=== PATIENT | female | born 1940 | race Hispanic/Latino ===

== ENCOUNTER 2016-10-23 17:44 | Observation (INO) | payer MEDICARE, BC ==
[2016-10-23] MEDS ORDERED: Sodium Chloride 0.9% 500 ML IV STA (18:21)
[2016-10-23] MEDS ORDERED: Morphine 4 mg/ml ISec IVP STA (18:21)
--- NOTE | 2016-10-23 18:27 | ED PDOC ---
Arrival/HPI - General Chief Complaint: Abdominal Pain Time Seen by Provider: 10/23/16 17:54 Historian: Patient, Family - History of Present Illness Time/Duration: Other (3 days) Symptom Onset: Gradual Symptom Course: Unchanged Quality: Aching, Cramping Severity Level: Moderate, Severe Activities at Onset: Rest Associated Symptoms (Text): 10/23/16 18:25 Three-day history of generalized abdominal pain along with nausea but no vomiting or diarrhea. No genitourinary symptoms. No fever or chills. She has had similar symptoms previously. No chest pain. There is some chronic back pain. No travel or exposure. No injury or trauma. Past Medical History - Infectious Disease Hx of Infectious Diseases: None - Tetanus Immunization Tetanus Immunization: Unknown - Cardiac Hx Congestive Heart Failure: Yes Hx Hypertension: Yes Hx Peripheral Vascular Disease: Yes - Neurological Other/Comment: Neuropathy - HEENT Hx Cataracts: Yes (cataract sx) - Endocrine/Metabolic Hx Hypothyroidism: Yes - Hematological/Oncological Other/Comment: Vit D deficiency - Integumentary Hx Cellulitis: Yes - Musculoskeletal/Rheumatological Hx Arthritis: Yes - Gastrointestinal Hx Gastrointestinal Disorders: Yes - Psychiatric Hx Depression: No Hx Emotional Abuse: No Hx Physical Abuse: No Hx Substance Use: No - Surgical History Hx Cardiac Catheterization: Yes (x4 stents) Hx Cholecystectomy: Yes Hx Open Heart Surgery: Yes Other/Comment: Open heart surgery. Pacemaker +defibrillator L side. Bladder sling - Anesthesia Hx Anesthesia: Yes Hx Anesthesia Reactions: No Hx Malignant Hyperthermia: No - Suicidal Assessment Feels Threatened In Home Enviroment: No Family/Social History - Physician Review Nursing Documentation Reviewed: Yes Family/Social History: Unknown Family HX Smoking Status: Former Smoker Hx Alcohol Use: Yes (h/o) Hx Substance Use: No Hx Substance Use Treatment: No Allergies/Home Meds Allergies/Adverse Reactions: Allergies atorvastatin [From Lipitor] Allergy (Verified 10/23/16 17:54) RASH Penicillins Allergy (Verified 10/23/16 17:54) ANAPHYLAXIS sulfamethoxazole [From Bactrim] Allergy (Verified 10/23/16 17:54) NAUSEA trimethoprim [From Bactrim] Allergy (Verified 10/23/16 17:54) NAUSEA amoxicillin Adverse Reaction (Verified 10/23/16 17:54) ANAPHYLAXIS Home Medications: Home Meds Medication Instructions Recorded Confirmed Alprazolam [Xanax] 1 tab PO HS 10/23/16 10/23/16 Aspirin [Adult Low Dose Aspirin EC] 1 tab PO DAILY 10/23/16 10/23/16 Cholecalciferol (Vitamin D3) 1 cap PO DAILY 10/23/16 10/23/16 [Vitamin D3] DULoxetine [Cymbalta] 1 tab PO DAILY 10/23/16 10/23/16 Ezetimibe/Simvastatin [Vytorin 1 tab PO DAILY 10/23/16 10/23/16 10-40 mg Tablet] Furosemide [Lasix] 1 tab PO DAILY 10/23/16 10/23/16 Gabapentin [Neurontin] 2 cap PO TID 10/23/16 10/23/16 Irbesartan [Avapro] 1 tab PO DAILY 10/23/16 10/23/16 Levothyroxine [Synthroid] 1 tab PO DAILY 10/23/16 10/23/16 Magnesium Oxide [Magnesium] 1 tab PO DAILY 10/23/16 10/23/16 Metoprolol Succinate [Toprol XL] 1 tab PO DAILY 10/23/16 10/23/16 Ondansetron ODT [Zofran ODT] 1 tab PO TID PRN 10/23/16 10/23/16 Pantoprazole Sodium [Protonix] 1 tab PO DAILY 10/23/16 10/23/16 Warfarin [Coumadin] 1 tab PO DAILY 10/23/16 10/23/16 Review of Systems - Physician Review All systems were reviewed & negative as marked: Yes - Review of Systems Constitutional: absent: Fatigue, Fevers Respiratory: absent: SOB, Cough Cardiovascular: absent: Chest Pain, Palpitations, Syncope Gastrointestinal: Abdominal Pain, Nausea, Anorexia. absent: Constipation, Diarrhea, Vomiting Genitourinary Female: absent: Dysuria, Frequency, Hematuria Neurological: absent: Headache, Dizziness Physical Exam Vital Signs Temp Pulse Resp BP Pulse Ox 10/23/16 20:00 74 18 143/75 98 10/23/16 18:02 97.8 F 80 18 144/70 98 Temperature: Afebrile Blood Pressure: Normal Pulse: Regular Respiratory Rate: Normal Appearance: Positive for: Well-Appearing, Non-Toxic, Uncomfortable Pain Distress: Mild Mental Status: Positive for: Alert and Oriented X 3 - Systems Exam Head: Present: Atraumatic, Normocephalic Pupils: Present: PERRL Extroacular Muscles: Present: EOMI Conjunctiva: Present: Normal Mouth: Present: Moist Mucous Membranes Pharnyx: No: ERYTHEMA, EXUDATE, TONSILS ENLARGED Neck: Present: Normal Range of Motion Respiratory/Chest: Present: Clear to Auscultation, Good Air Exchange, Decreased Breath Sounds. No: Respiratory Distress, Accessory Muscle Use Cardiovascular: Present: Regular Rate and Rhythm, Normal S1, S2. No: Murmurs Abdomen: Present: Tenderness (Mild generalized tenderness with no guarding and no rebound), Normal Bowel Sounds, Scars (Surgical scars). No: Distention, Peritoneal Signs, Rebound, Guarding Back: Present: CVA Tenderness (Mild left CVA tenderness). No: Midline Tenderness, Paraspinal Tenderness Upper Extremity: Present: Normal Inspection. No: Cyanosis, Edema Lower Extremity: Present: Normal Inspection. No: Edema Neurological: Present: GCS=15, CN II-XII Intact, Speech Normal, Motor Func Grossly Intact, Normal Cerebellar Funct, Gait Normal Skin: Present: Warm, Dry, Normal Color. No: Rashes Psychiatric: Present: Alert, Oriented x 3, Normal Insight, Normal Concentration Medical Decision Making ED Course and Treatment: 10/23/16 18:52 is here examining the patient. He reports that the patient has inoperable ischemic colitis CT Abdomen and Pelvis Without Intravenous Contrast FINDINGS: Limitations: Lack of intravenous contrast. Lower thorax: Borderline cardiomegaly. Pacemaker leads. Coronary artery calcifications. Minimal atelectasis/scarring. Few pulmonary nodules, up to 0.4 cm. Small hiatal hernia. ABDOMEN: Liver: Unremarkable. Gallbladder and bile ducts: Cholecystectomy. Enlarged common bile duct, up to 1.4 cm. Pancreas: Unremarkable. No ductal dilation. Spleen: No splenomegaly. Adrenals: 1.5 x 1.5 x 1.4 cm lesion within RIGHT adrenal gland, indeterminate by CT criteria. Kidneys and ureters: Lobulation of kidneys. Moderate atrophy of RIGHT kidney. No definite renal calculi. No hydronephrosis. Stomach and bowel: Few scattered diverticula within colon. No associated inflammatory stranding. No definite mural thickening. No obstruction. Appendix: Borderline enlarged appendix, 6-7 mm in diameter. No definite wall thickening. No associated inflammatory stranding. PELVIS:Bladder: Unremarkable. No stones. Reproductive: Unremarkable as visualized. ABDOMEN and PELVIS: Intraperitoneal space: No significant fluid collection. No free air. Bones/joints: Degenerative changes and scoliosis of spine. No acute fracture. Soft tissues: Linear stranding within LEFT inguinal region. Tiny umbilical hernia containing fat. Small LEFT lower anterior abdominal/pelvic wall hernia containing loop of sigmoid colon. No obstruction. Vasculature: Moderate to extensive atherosclerotic disease of visualized arteries. Iliac stents. Femoral femoral graft. LEFT external iliac graft with mild stranding. No aneurysm. Lymph nodes: Few probable small lymph nodes within LEFT anterior abdominal wall. IMPRESSION: 1. Diverticulosis without definite CT evidence of diverticulitis. 2. Borderline enlarged appendix. No inflammation. Clinical correlation is needed. 3. Adrenal lesion, indeterminate. Recommend nonemergent MRI. 4. Enlarged common bile duct. Consider MRCP. 5. Pulmonary nodules. For low-risk patients, no follow-up is necessary. For high -risk patients (smoking history or other known risk factors) an optional CT at 12 months could be performed. 6. Postsurgical changes as above. 7. Incidental/non-acute findings are described above. Dictated and Authenticated by: Aldair Hess MD 10/23/2016 9:04 PM Eastern Time ([place] & [place]) 10/23/16 21:48 Discussed with who requested that placed on regular observation. Discussed with who accepts to her service. - Lab Interpretations Lab Results: 10/23/16 18:40 10/23/16 18:40 Lab Results 10/23/16 20:00: Urine Color Yellow, Urine Appearance Clear, Urine pH 7.0, Ur Specific [place] 1.010, Urine Protein Negative, Urine Glucose (UA) Negative, Urine Ketones Negative, Urine Blood Negative, Urine Nitrate Negative, Urine Bilirubin Negative, Urine Urobilinogen 1.0 H, Ur Leukocyte Esterase Negative 10/23/16 18:40: TSH 3rd Generation 0.52 10/23/16 18:40: Sodium 136, Potassium 4.2, Chloride 98, Carbon Dioxide 27, Anion Gap 15, BUN 26 H, Creatinine 1.2, Est GFR ( Amer) 53, Est GFR (Non- Af Amer) 44, Random Glucose 116 H, Calcium 9.0, Total Bilirubin 1.2, AST 23, ALT 25, Alkaline Phosphatase 106, Troponin I 0.02, Total Protein 7.0, Albumin 3.7, Globulin 3.4, Albumin/Globulin Ratio 1.1, Lipase 139 10/23/16 18:40: PT 29.2 H, INR 2.70 H, APTT 38.7 H 10/23/16 18:40: WBC 11.2 H, RBC 4.65, Hgb 11.7 L, Hct 36.4, MCV 78.3 L, MCH 25.2 , MCHC 32.1, RDW 15.1 H, Plt Count 281, MPV 10.1, Gran % 79.5 H, Lymph % (Auto) 11.7 L, Mcleod % (Auto) 7.2 H, Eos % (Auto) 1.5, Baso % (Auto) 0.1, Gran # 8.92 H , Lymph # 1.3, Mcleod # 0.8 H, Eos # 0.2, Baso # 0.01 - RAD Interpretation Radiology Orders: 10/23/16 18:21 ABD & PELVIS W/O PO OR IV CONT [CT] Stat 10/23/16 18:24 CHEST PORTABLE [RAD] Stat - Medication Orders Current Medication Orders: Discontinued Medications Sodium Chloride (Sodium Chloride 0.9%) 500 mls @ 1,000 mls/hr IV .Q30M STA Stop: 10/23/16 18:50 Last Admin: 10/23/16 18:47 Dose: 1,000 mls/hr Morphine Sulfate (Morphine) 4 mg IVP STAT STA Stop: 10/23/16 18:22 Last Admin: 10/23/16 18:39 Dose: 4 mg Ondansetron HCl (Zofran Inj) 4 mg IVP STAT STA Stop: 10/23/16 18:22 Last Admin: 10/23/16 18:37 Dose: 4 mg Disposition/Present on Arrival - Present on Arrival Any Indicators Present on Arrival: No History of DVT/PE: No History of Uncontrolled Diabetes: No Urinary Catheter: No History of Decub. Ulcer: No History Surgical Site Infection Following: None - Disposition Have Diagnosis and Disposition been Completed?: Yes Diagnosis: Abdominal pain Disposition: HOSPITALIZED Disposition Time: 21:49 Patient Plan: Observation Condition: FAIR Referrals: Joseph Gómez MD [Primary Care Provider] - Follow up with primary
[2016-10-23 18:53] LABS: BASO # 0.01 K/mm3 (0.0-2.0); BASO % 0.1 % (0.0-3.0); EOS # 0.2 (0.0-0.7); EOS % 1.5 % (1.5-5.0); GRAN # 8.92 (1.4-6.5); GRAN % 79.5 % (50.0-68.0); HEMOGLOBIN 11.7 gm/dL (12.0-16.0); LYMPH # 1.3 (1.2-3.4); LYMPH % 11.7 % (22.0-35.0); MEAN CELL VOLUME 78.3 fL (80.0-105.0); MEAN CORPUSCULAR HEMOGLOBIN 25.2 pg (25.0-35.0); MEAN CORPUSCULAR HGB CONC 32.1 g/dl (31.0-37.0); MEAN PLATELET VOLUME 10.1 fl (7.0-11.0); MONO # 0.8 (0.1-0.6); MONO % 7.2 % (1.0-6.0); PLATELET COUNT 281 10^3/uL (120.0-450.0); RBC 4.65 10^6/uL (3.5-6.1); RED CELL DISTRIBUTION WIDTH 15.1 % (11.5-14.5); WHITE BLOOD COUNT 11.2 10^3/ul (4.5-11.0)
[2016-10-23 19:05] LABS: INR 2.7 (0.93-1.08); PARTIAL THROMBOPLASTIN TIME 38.7 Seconds (23.7-30.8); PROTHROMBIN TIME 29.2 Seconds (9.9-11.8)
[2016-10-23 19:24] LABS: ALB/GLOB RATIO 1.1 (1.1-1.8); ALBUMIN 3.7 g/dL (3.0-4.8)
[2016-10-23 19:35] LABS: TROPONIN I 0.02 ng/mL
[2016-10-23 20:16] LABS: URINE BILIRUBIN NEGATIVE (NEGATIVE); URINE BLOOD NEGATIVE (NEGATIVE); URINE GLUCOSE (UA) NEGATIVE (NEGATIVE); URINE LEUKOCYTE ESTERASE NEGATIVE Leu/uL (NEGATIVE); URINE NITRATE NEGATIVE (NEGATIVE); URINE PROTEIN NEGATIVE mg/dL (<30 mg/dL)
[2016-10-23 20:17] LABS: URINE APPEARANCE CLEAR (CLEAR); URINE COLOR YELLOW (YELLOW)
--- NOTE | 2016-10-23 21:04 | CT ---
EXAM: CT Abdomen and Pelvis Without Intravenous Contrast CLINICAL HISTORY: 76 years old, female; Pain; Abdominal pain; Localized; Lower TECHNIQUE: Axial computed tomography images of the abdomen and pelvis without intravenous contrast. This CT exam was performed using one or more of the following dose reduction techniques: automated exposure control, adjustment of the mA and/or kV according to patient size, and/or use of iterative reconstruction technique. Coronal and sagittal reformatted images were created and reviewed. COMPARISON: No relevant prior studies available. FINDINGS: Limitations: Lack of intravenous contrast. Lower thorax: Borderline cardiomegaly. Pacemaker leads. Coronary artery calcifications. Minimal atelectasis/scarring. Few pulmonary nodules, up to 0.4 cm. Small hiatal hernia. ABDOMEN: Liver: Unremarkable. Gallbladder and bile ducts: Cholecystectomy. Enlarged common bile duct, up to 1.4 cm. Pancreas: Unremarkable. No ductal dilation. Spleen: No splenomegaly. Adrenals: 1.5 x 1.5 x 1.4 cm lesion within RIGHT adrenal gland, indeterminate by CT criteria. Kidneys and ureters: Lobulation of kidneys. Moderate atrophy of RIGHT kidney. No definite renal calculi. No hydronephrosis. Stomach and bowel: Few scattered diverticula within colon. No associated inflammatory stranding. No definite mural thickening. No obstruction. Appendix: Borderline enlarged appendix, 6-7 mm in diameter. No definite wall thickening. No associated inflammatory stranding. PELVIS: Bladder: Unremarkable. No stones. Reproductive: Unremarkable as visualized. ABDOMEN and PELVIS: Intraperitoneal space: No significant fluid collection. No free air. Bones/joints: Degenerative changes and scoliosis of spine. No acute fracture. Soft tissues: Linear stranding within LEFT inguinal region. Tiny umbilical hernia containing fat. Small LEFT lower anterior abdominal/pelvic wall hernia containing loop of sigmoid colon. No obstruction. Vasculature: Moderate to extensive atherosclerotic disease of visualized arteries. Iliac stents. Femoral femoral graft. LEFT external iliac graft with mild stranding. No aneurysm. Lymph nodes: Few probable small lymph nodes within LEFT anterior abdominal wall. IMPRESSION: 1. Diverticulosis without definite CT evidence of diverticulitis. 2. Borderline enlarged appendix. No inflammation. Clinical correlation is needed. 3. Adrenal lesion, indeterminate. Recommend nonemergent MRI. 4. Enlarged common bile duct. Consider MRCP. 5. Pulmonary nodules. For low-risk patients, no follow-up is necessary. For high-risk patients (smoking history or other known risk factors) an optional CT at 12 months could be performed. 6. Postsurgical changes as above. 7. Incidental/non-acute findings are described above.
[2016-10-23] MEDS ORDERED: HYDROmorphone 1 mg/ml ISec IVP PRN (22:56)
[2016-10-23] MEDS ORDERED: Dextrose 5%/0.45% NS 1,000 ML IV SCH (23:00)
[2016-10-24] MEDS: metroNIDAZOLE IV 250mg/50 ml 250 MG/50 ML BAG IV SCH ×3 (00:52→13:39)
[2016-10-24 04:01] VITALS: BMI 32.8
[2016-10-24 06:48] LABS: BASO # 0.02 K/mm3 (0.0-2.0); BASO % 0.2 % (0.0-3.0); EOS # 0.2 (0.0-0.7); EOS % 2.2 % (1.5-5.0); GRAN # 5.94 (1.4-6.5); HEMOGLOBIN 10.1 gm/dL (12.0-16.0); LYMPH # 1.4 (1.2-3.4); LYMPH % 17.2 % (22.0-35.0); MEAN CELL VOLUME 78.6 fL (80.0-105.0); MEAN CORPUSCULAR HEMOGLOBIN 24.6 pg (25.0-35.0); MEAN CORPUSCULAR HGB CONC 31.3 g/dl (31.0-37.0); MEAN PLATELET VOLUME 10.1 fl (7.0-11.0); MONO # 0.8 (0.1-0.6); MONO % 9.4 % (1.0-6.0); PLATELET COUNT 238 10^3/uL (120.0-450.0); RBC 4.11 10^6/uL (3.5-6.1); RED CELL DISTRIBUTION WIDTH 15.2 % (11.5-14.5); WHITE BLOOD COUNT 8.4 10^3/ul (4.5-11.0)
[2016-10-24 07:19] LABS: ALBUMIN 3.1 g/dL (3.0-4.8); CALCIUM 8.6 mg/dL (8.4-10.5)
[2016-10-24] MEDS ORDERED: Levothyroxine 100 MCG TAB PO SCH (07:30)
--- NOTE | 2016-10-24 08:29 | RAD ---
HISTORY: ap COMPARISON: 07/02/2012 FINDINGS: LUNGS: No active pulmonary disease. PLEURA: No significant pleural effusion identified, no pneumothorax apparent. CARDIOVASCULAR: Normal. OSSEOUS STRUCTURES: No significant abnormalities. VISUALIZED UPPER ABDOMEN: Normal. OTHER FINDINGS: Dual lead pacemaker. Sternal wires IMPRESSION: No active disease.
[2016-10-24] MEDS ORDERED: POLYETHYLENE GLYCOL 3350 17 GM/Dose PACKET PO SCH (10:00)
[2016-10-24] MEDS ORDERED: Levothyroxine 125 MCG TAB PO SCH (10:00)
[2016-10-24] MEDS ORDERED: Metoprolol Succinate 50 mg XL Tab PO SCH ×2 (10:00)
[2016-10-24] MEDS ORDERED: POLYETHYLENE GLYCOL 3350 17 GM/Dose PACKET PO ONE (14:00)
[2016-10-24 17:14] VITALS: BP 132/64; PULSE 78; RESP 20; TEMP 98.4; O2SAT 99
--- NOTE | 2016-10-25 01:49 | CON ---
Seen and examined at the bedside earlier today. REQUEST FOR CONSULT: For abdominal pain. The chart was reviewed. HISTORY OF PRESENT ILLNESS: This is a 76-year-old female with past medical history of ischemia as well as hypertension, pacemaker with defibrillator, came to the emergency room with complaints of abdominal pain and nausea. No episodes of vomiting or diarrhea. In fact, she was constipated. Didn't have any bowel movements since Sunday. She does have a history ischemic colitis, was treated at [facility] for this and had underwent endoscopies and colonoscopies a few months back. She does complain of chronic back pain. No reports of any shortness of breath, chest pain, fever or chills. She had a CT scan of the abdomen and pelvis on admission with no contrast and that showed diverticulosis, borderline enlarged appendix, postsurgical changes and large common bile duct. The patient has history of cholecystectomy. This morning, the patient states that her abdominal pain has resolved. No nausea or vomiting. She has not had any bowel movements. In review with the CT scan with Dr. Gómez, the patient was noted to have increased stool in the colon. She was given a dose of MiraLax this morning. PAST MEDICAL HISTORY: As stated above. Hypothyroidism, vitamin-D deficiency, cellulitis, arthritis, ischemic colitis. PAST SURGICAL HISTORY: Cardiac catheterization x4 stents, cholecystectomy, open heart surgery, pacemaker and defibrillator, and bladder sling. ALLERGIES: SHE IS ALLERGIC TO ATORVASTATIN, PENICILLIN, SULFAMETHOXAZOLE, TRIMETHOPRIM AND AMOXICILLIN. MEDICATIONS: Reviewed as per MAR, significant for Coumadin. She is on Protonix, Toprol, Vytorin, vitamin D, magnesium oxide, Synthroid, Avapro, Neurontin, Lasix, Cymbalta, aspirin and Xanax. FAMILY HISTORY: Noncontributory at this time. SOCIAL HISTORY: Former smoker. Denies substance abuse or alcohol abuse. REVIEW OF SYSTEMS: Systems reviewed with positive findings, see HPI. The patient also had a chest x-ray on admission and that showed no active disease. PHYSICAL EXAMINATION HEENT: Sclerae are anicteric. NECK: Supple. CARDIAC: S1 and S2. LUNGS: Decreased breath sounds, but good air entry. No rales or wheeze. ABDOMEN: Bowel sounds soft. Nontender. No rebound, guarding or organomegaly. EXTREMITIES: Positive pedal pulses. No edema. NEUROLOGIC: Awake, alert and oriented. ASSESSMENT: This is a 76-year-old female with a history ischemic colitis, coronary artery disease with stents and open heart surgery, came to the emergency room with complaints of abdominal pain. The patient did have a CAT scan on admission, noted to be constipated and her last bowel movement was Sunday. She also has some noted to have diverticulosis with no evidence of diverticulitis, enlarged appendix, no inflammation as well as some pulmonary nodules. The patient does complain of weight loss. PLAN: Clean the patient out, a lot of stool in the colon noted on CT. We gave her 2 doses of MiraLax today. Started her on a clear liquid diet for breakfast and advanced at lunchtime to a low-residual soft diet. If the patient tolerates the diet and has no pain and moves her bowels, she may likely be able to be discharged home today and can followup outpatient. Discussed this in detail with the patient and the daughter at the bedside. Thank you for this consult and for allowing us to participate in your patient's care. We will make further recommendations based upon the patient's clinical course. Addendum, the patient also received some Flagyl. Continue PPI and IV fluids. The patient was seen and case discussed with Dr. Gómez, spoke to the nursing staff. IJEOMA Rucker
--- NOTE | 2016-10-25 02:57 | HP ---
HISTORY OF PRESENT ILLNESS: The patient is 76-year-old whose primary care doctor is in [facility] and Dr. Gómez is her shredder picker. She reported to him who advised her to come to the emergency room and be watched overnight. The patient states she has been having abdominal pain for the last 3-4 days. She complained of having constipation since Mauricio. No history of vomiting or diarrhea. Pain is in the right upper quadrant, left lower quadrant and left upper quadrant. Patient states she usually lives with pain, but this is more than her normal self. Denies any fever. No chills. No history of cough, congestion or hemoptysis. No hematemesis. PAST MEDICAL HISTORY: She has significant past medical history of: 1. Hypertension. 2. History of severe peripheral vascular disease. 3. History of congestive heart failure. SURGICAL HISTORY: Significant for: 1. Cholecystectomy. 2. Status post cardiac cath and had multiple stents placed. 3. History of pacemaker and defibrillator placement. 4. History of bladder sling procedure. 5. History of cataract extraction. 6. Chronic venous stasis and dermatitis. ALLERGIES: SHE IS ALLERGIC TO ATORVASTATIN, PENICILLIN, SULFAMETHOXAZOLE AND AMOXICILLIN. MEDICATIONS AT HOME: She is on Coumadin, Zofran, Protonix, metoprolol, Vytorin, magnesium, levothyroxine, gabapentin, Lasix, Cymbalta and aspirin. SOCIAL HISTORY: She lives with her family. Denies smoking now, she used to be smoker and socially doing alcohol in the past. REVIEW OF SYSTEMS: Significant for abdominal discomfort and poor appetite. PHYSICAL EXAMINATION GENERAL: She is sitting in chair, still has some abdominal discomfort, but better than before. VITAL SIGNS: She has temperature of 99, pulse 77, respirations 18, blood pressure 138/56. LUNGS: Bilateral fair airflow. No rhonchi or crackles. HEART: S1 and S2 audible. ABDOMEN: Soft, nontender, no rebound, no guarding. NEUROLOGICAL: Patient is awake and alert, communicative. LABORATORY DATA: WBC 8.4, hemoglobin 10, hematocrit 32, platelets 238. PT 29.2, INR 2.70. Chemistry: Sodium 134, potassium 4.5, chloride 99, CO2 is 28, BUN 21, creatinine 1.2, blood sugar of 103. Urinalysis is unremarkable. CT scan of the abdomen and pelvis was done that shows diverticulosis without diverticulitis. Borderline enlarged appendix. No inflammation. She has dilated common bile duct along with pulmonary nodule. PLAN: Patient clinically seems to be little stable. We will advance her diet. Continue her on IV fluid for now. She is given MiraLax. If patient has bowel movement, and pain improves, she might be discharged later on today or we will watch her another night. Lakeisha Arellano MD
== END 2016-10-24 17:54 | disposition home or self-care (01) ==
LOC: ED 17:44 → ERH 23:01 → 3RSO 23:54
PROVIDERS: ADMIT Internal Medicine; ATTEND Internal Medicine
DX: R10.9 Unspecified abdominal pain (principal); K55.9 Vascular disorder of intestine, unspecified; E03.9 Hypothyroidism, unspecified; E55.9 Vitamin D deficiency, unspecified; Z95.0 Presence of cardiac pacemaker; Z88.0 Allergy status to penicillin; Z88.2 Allergy status to sulfonamides; Z87.891 Personal history of nicotine dependence; I25.10 Atherosclerotic heart disease of native coronary artery without angina pectoris
CPT/HCPCS: 36415; 71010; 74176; 80053; 81003; 83690; 84443; 84484; 85025; 85610; 85730; 96361; 96365; 96366; 96375; 99285; C9113; G0378; J2270; J2405; J7040; J7042

== ENCOUNTER 2016-12-01 16:40 | Inpatient (IN) | payer MEDICARE, BC ==
[2016-12-01 16:54] VITALS: BMI 34.0
--- NOTE | 2016-12-01 17:02 | ED PDOC ---
Arrival/HPI - General Chief Complaint: Medical Clearance Time Seen by Provider: 12/01/16 16:48 Historian: Patient, Other (Daughter) - History of Present Illness Time/Duration: Other (5 days) Symptom Onset: Gradual Symptom Course: Worsening Quality: Pressure Severity Level: Moderate Activities at Onset: Rest Associated Symptoms (Text): 12/01/16 16:59 Patient complains of a five-day history of urinary symptoms including dysuria frequency and urgency. No hematuria. There is low back pain. She feels feverish with chills. She was seen by her PMD 4 days ago and had a urinalysis done. The results were faxed to us. She has greater than 100,000 Proteus sensitive to tobramycin only. No nausea vomiting or diarrhea. No abdominal pain. Past Medical History - Infectious Disease Hx of Infectious Diseases: None - Tetanus Immunization Tetanus Immunization: Unknown - Reproductive Menopause: Yes - Cardiac Hx Congestive Heart Failure: Yes Hx Hypertension: Yes Hx Peripheral Vascular Disease: Yes - Pulmonary Hx Respiratory Disorders: No - Neurological Hx Neurological Disorder: Yes (neuropathy) - HEENT Hx Cataracts: Yes - Renal Hx Renal Disorder: No - Endocrine/Metabolic Hx Hypothyroidism: Yes - Hematological/Oncological Other/Comment: Vitamin D deficiency - Integumentary Other/Comment: cellulitis - Musculoskeletal/Rheumatological Hx Musculoskeletal Disorders: Yes Hx Arthritis: Yes Hx Falls: Yes - Gastrointestinal Hx Gastrointestinal Disorders: Yes - Genitourinary/Gynecological Hx Genitourinary Disorders: No - Psychiatric Hx Substance Use: No - Surgical History Hx Cholecystectomy: Yes Hx Open Heart Surgery: Yes Other/Comment: cardiac cathx4 stents - Anesthesia Hx Anesthesia: Yes Hx Anesthesia Reactions: No Hx Malignant Hyperthermia: No - Suicidal Assessment Feels Threatened In Home Enviroment: No Family/Social History - Physician Review Nursing Documentation Reviewed: Yes Family/Social History: Unknown Family HX Smoking Status: Former Smoker Hx Alcohol Use: No Hx Substance Use: No Hx Substance Use Treatment: No Allergies/Home Meds Allergies/Adverse Reactions: Allergies atorvastatin [From Lipitor] Allergy (Verified 10/23/16 17:54) RASH moxifloxacin [From Avelox] Allergy (Verified 12/01/16 17:19) ANAPHYLAXIS Penicillins Allergy (Verified 10/23/16 17:54) ANAPHYLAXIS sulfamethoxazole [From Bactrim] Allergy (Verified 10/23/16 17:54) NAUSEA trimethoprim [From Bactrim] Allergy (Verified 10/23/16 17:54) NAUSEA amoxicillin Adverse Reaction (Verified 10/23/16 17:54) ANAPHYLAXIS Home Medications: Home Meds Medication Instructions Recorded Confirmed Alprazolam [Xanax] 0.5 tab PO HS 10/23/16 12/01/16 Aspirin [Adult Low Dose Aspirin EC] 81 mg PO DAILY 10/23/16 12/01/16 Cholecalciferol (Vitamin D3) 2,000 units PO DAILY 10/23/16 12/01/16 [Vitamin D3] DULoxetine [Cymbalta] 30 mg PO DAILY 10/23/16 12/01/16 Furosemide [Lasix] 40 tab PO DAILY 10/23/16 12/01/16 Gabapentin [Neurontin] 200 mg PO TID 10/23/16 12/01/16 Irbesartan [Avapro] 300 mg PO DAILY 10/23/16 12/01/16 Levothyroxine [Synthroid] 125 mcg PO DAILY 10/23/16 12/01/16 Magnesium Oxide [Magnesium] 500 mg PO DAILY 10/23/16 12/01/16 Metoprolol Succinate [Toprol XL] 50 mg PO DAILY 10/23/16 12/01/16 Ondansetron ODT [Zofran ODT] 4 mg PO TID PRN 10/23/16 12/01/16 Pantoprazole Sodium [Protonix] 20 mg PO DAILY 10/23/16 12/01/16 Warfarin [Coumadin] 5 mg PO DAILY 10/23/16 12/01/16 Ezetimibe/Simvastatin [Vytorin 1 tab PO DAILY 12/01/16 12/01/16 10-40 mg Tablet] Review of Systems - Physician Review All systems were reviewed & negative as marked: Yes - Review of Systems Constitutional: Fatigue, Fevers Respiratory: Normal Cardiovascular: Normal Gastrointestinal: Normal. absent: Abdominal Pain, Constipation, Diarrhea, Nausea, Vomiting Genitourinary Female: Dysuria, Frequency. absent: Hematuria Neurological: absent: Headache, Dizziness, Focal Weakness Physical Exam Vital Signs Temp Pulse Resp BP Pulse Ox 12/01/16 19:02 79 18 144/63 98 12/01/16 18:44 98.2 F 77 18 137/65 99 12/01/16 16:50 98.1 F 74 18 116/50 L 98 Temperature: Afebrile Blood Pressure: Normal Pulse: Regular Respiratory Rate: Normal Appearance: Positive for: Well-Appearing, Non-Toxic, Comfortable Pain Distress: None Mental Status: Positive for: Alert and Oriented X 3 - Systems Exam Head: Present: Atraumatic, Normocephalic Pupils: Present: PERRL Extroacular Muscles: Present: EOMI Conjunctiva: Present: Normal Mouth: Present: Moist Mucous Membranes Pharnyx: No: ERYTHEMA, EXUDATE, TONSILS ENLARGED Neck: Present: Normal Range of Motion. No: MIDLINE TENDERNESS, Paraspinal Tenderness Respiratory/Chest: Present: Clear to Auscultation, Good Air Exchange. No: Respiratory Distress, Accessory Muscle Use Cardiovascular: Present: Regular Rate and Rhythm, Normal S1, S2. No: Murmurs Abdomen: Present: Normal Bowel Sounds, Scars. No: Tenderness, Distention, Peritoneal Signs, Rebound, Guarding Back: Present: Normal Inspection. No: CVA Tenderness, Midline Tenderness, Paraspinal Tenderness Upper Extremity: Present: Normal Inspection. No: Cyanosis, Edema Lower Extremity: Present: Normal Inspection. No: Edema Neurological: Present: GCS=15, CN II-XII Intact, Speech Normal, Motor Func Grossly Intact Skin: Present: Warm, Dry, Normal Color. No: Rashes Psychiatric: Present: Alert, Oriented x 3, Normal Insight, Normal Concentration Medical Decision Making ED Course and Treatment: 12/01/16 17:33 EKG is pacing rate approximately 80 - Lab Interpretations Lab Results: 12/01/16 17:19 12/01/16 17:19 Lab Results 12/01/16 17:19: Sodium 140, Potassium 4.4, Chloride 101, Carbon Dioxide 29, Anion Gap 14, BUN 22 H, Creatinine 1.3, Est GFR ( Amer) 48, Est GFR (Non- Af Amer) 40, Random Glucose 92, Calcium 9.0, Total Bilirubin 0.6, AST 23, ALT 22 , Alkaline Phosphatase 101, Lactate Dehydrogenase 569, Total Creatine Kinase 56 , Troponin I 0.03 D, Total Protein 6.8, Albumin 3.7, Globulin 3.1, Albumin/ Globulin Ratio 1.2 12/01/16 17:19: Urine Color Light yellow, Urine Appearance Clear, Urine pH 6.5, Ur Specific [place] 1.010, Urine Protein Negative, Urine Glucose (UA) Negative, Urine Ketones Negative, Urine Blood Negative, Urine Nitrate Negative, Urine Bilirubin Negative, Urine Urobilinogen 0.2, Ur Leukocyte Esterase Trace H, Urine RBC 0 - 2, Urine WBC 2 - 5, Ur Epithelial Cells 3 - 4, Urine Bacteria Few 12/01/16 17:19: PT 32.7 H*, INR 3.03 H, APTT 39.3 H 12/01/16 17:19: WBC 8.5, RBC 4.11, Hgb 10.0 L, Hct 31.8 L, MCV 77.4 L, MCH 24.3 L, MCHC 31.4, RDW 15.3 H, Plt Count 304, MPV 10.0, Gran % 64.0, Lymph % (Auto) 21.3 L, [place] % (Auto) 10.6 H, Eos % (Auto) 3.7, Baso % (Auto) 0.4, Gran # 5.44, Lymph # 1.8, [place] # 0.9 H, Eos # 0.3, Baso # 0.03 - RAD Interpretation Radiology Orders: 12/01/16 16:57 CHEST PORTABLE [RAD] Stat - Medication Orders Current Medication Orders: Alprazolam (Xanax) 0.5 mg PO HS LILIAN PRN Reason: Protocol Aspirin (Ecotrin) 81 mg PO DAILY LILIAN Duloxetine HCl (Cymbalta) 30 mg PO DAILY LILIAN Furosemide (Lasix) 40 mg PO DAILY LILIAN Gabapentin (Neurontin) 200 mg PO TID LILIAN PRN Reason: Protocol Levothyroxine Sodium (Synthroid) 125 mcg PO DAILY LILIAN Losartan Potassium (Cozaar) 100 mg PO DAILY LILIAN Metoprolol Succinate (Toprol Xl) 50 mg PO DAILY LILIAN Pantoprazole Sodium (Protonix Ec Tab) 20 mg PO DAILY LILIAN Warfarin Sodium (Coumadin) 5 mg PO HS LILIAN PRN Reason: Protocol Discontinued Medications Tobramycin Sulfate 60 mg/ (Sodium Chloride) 101.5 mls @ 200 mls/hr IV STAT STA Stop: 12/01/16 17:35 Last Admin: 12/01/16 17:27 Dose: 200 mls/hr Disposition/Present on Arrival - Present on Arrival Any Indicators Present on Arrival: No History of DVT/PE: No History of Uncontrolled Diabetes: No Urinary Catheter: No History of Decub. Ulcer: No History Surgical Site Infection Following: None - Disposition Have Diagnosis and Disposition been Completed?: Yes Diagnosis: Urinary tract infection Disposition: HOSPITALIZED Disposition Time: 17:48 Patient Plan: Admission Patient Problems: Current Active Problems Problem Status Onset Urinary tract infection Acute Condition: GOOD
[2016-12-01] MEDS ORDERED: Tobramycin inj 60 MG in Sodium Chloride 0.9% 100 ML IV STA (17:05)
[2016-12-01 17:24] LABS: BASO # 0.03 K/mm3 (0.0-2.0); BASO % 0.4 % (0.0-3.0); EOS # 0.3 (0.0-0.7); EOS % 3.7 % (1.5-5.0); GRAN # 5.44 (1.4-6.5); HEMATOCRIT 31.8 % (36.0-48.0); LYMPH # 1.8 (1.2-3.4); LYMPH % 21.3 % (22.0-35.0); MEAN CELL VOLUME 77.4 fl (80.0-105.0); MEAN CORPUSCULAR HEMOGLOBIN 24.3 pg (25.0-35.0); MEAN CORPUSCULAR HGB CONC 31.4 g/dl (31.0-37.0); MONO # 0.9 (0.1-0.6); MONO % 10.6 % (1.0-6.0); PH,URINE 6.5 (4.7-8.0); RED CELL DISTRIBUTION WIDTH 15.3 % (11.5-14.5); URINE BILIRUBIN NEGATIVE (NEGATIVE); URINE BLOOD NEGATIVE (NEGATIVE); URINE GLUCOSE (UA) NEGATIVE (NEGATIVE); URINE KETONE NEGATIVE (NEGATIVE); URINE LEUKOCYTE ESTERASE TRACE Leu/uL (NEGATIVE); URINE PROTEIN NEGATIVE mg/dL (<30 mg/dL); URINE UROBILINOGEN 0.2 E.U./dL (<1 E.U./dL); WHITE BLOOD COUNT 8.5 10^3/ul (4.5-11.0)
[2016-12-01 17:29] LABS: URINE APPEARANCE CLEAR (CLEAR); URINE COLOR LIGHT YELLOW (YELLOW)
[2016-12-01 17:34] LABS: INR 3.03 (0.93-1.08); PARTIAL THROMBOPLASTIN TIME 39.3 Seconds (23.7-30.8)
[2016-12-01 17:38] LABS: ALB/GLOB RATIO 1.2 (1.1-1.8); BILIRUBIN,TOTAL 0.6 mg/dL (0.2-1.3); POTASSIUM 4.4 mmol/L (3.6-5.0); TOTAL PROTEIN 6.8 g/dL (5.8-8.3)
[2016-12-01 17:49] LABS: TROPONIN I 0.03 ng/mL
[2016-12-01 17:51] LABS: URINE BACTERIA FEW (NEG); URINE RBC 0 - 2 /hpf (0-2)
--- NOTE | 2016-12-01 18:25 | RAD ---
HISTORY: admit COMPARISON: 10/23/2016 FINDINGS: LUNGS: The lungs are well inflated and clear. PLEURA: No significant pleural effusion identified, no pneumothorax apparent. CARDIOVASCULAR: The heart is normal in size. Status post CABG. There is stable position of a right-sided AICD. Atherosclerotic aortic arch calcifications are present. OSSEOUS STRUCTURES: No significant abnormalities. VISUALIZED UPPER ABDOMEN: Normal. OTHER FINDINGS: None. IMPRESSION: No acute findings.
[2016-12-01] MEDS ORDERED: Tobramycin inj 60 MG in Sodium Chloride 0.9% 100 ML IV SCH (22:00)
[2016-12-01] MEDS ORDERED: Pneumococcal 23-Valent Vaccine IM ONE (22:43)
--- NOTE | 2016-12-01 23:10 | CARD ---
APPROVED REPORT EKG Measurement Heart [id number] MT 120P [id number] <Conclusion> AV sequential or dual chamber electronic pacemaker
[2016-12-02] MEDS: Levothyroxine 125 MCG TAB PO SCH ×2 (08:25→10:19)
[2016-12-02] MEDS: Metoprolol Succinate 50 mg XL Tab PO SCH (09:36)
[2016-12-02] MEDS: Pantoprazole 20 mg EC Tab PO SCH (09:37)
[2016-12-02] MEDS: Meropenem 1g/NS 100mL IVPB 1 GM/100 ML PIGGYBACK IVPB SCH ×2 (14:41→21:11)
[2016-12-03] MEDS: Meropenem 1g/NS 100mL IVPB 1 GM/100 ML PIGGYBACK IVPB SCH ×3 (00:39→21:14)
--- NOTE | 2016-12-03 07:33 | CON ---
DATE: 12/02/2016 LOCATION: The patient was seen earlier today in room 578, bed 2. CHIEF COMPLAINT: Dysuria and frequency from several days. HISTORY OF PRESENT ILLNESS: This is a 76-year-old female with history of congestive heart failure, history of severe peripheral vascular disease, long time ex-smoker, coronary artery disease, and had urinary tract infection as an outpatient which is treated, it is not improving. The patient was discovered to have ESBL Proteus as outpatient and admitted for further treatment intravenously and patient was seen in emergency room complaining of 5 day history of urinary symptoms including dysuria, frequency and there is right sided low back pain different than her usual. She was having fevers and chills she states and she had no antibiotic choices as an outpatient. PAST MEDICAL HISTORY: Significant for severe peripheral vascular disease, coronary heart disease, congestive heart failure, hypertension, high cholesterol, and hypothyroidism. PAST SURGICAL HISTORY: Significant for coronary bypass graft, cardiac catheterization with stent, cataract surgery, pacemaker and cholecystectomy. ALLERGIES: THE PATIENT HAS MULTIPLE ALLERGIES INCLUDING PENICILLIN, SHE DEVELOPS A QUESTIONABLE RASH. SHE ALSO HAS STATIN ALLERGY, MOXIFLOXACIN, TRIMETHOPRIM, SULFAMETHOXAZOLE. HER PENICILLIN ALLERGY DOES NOT HAVE INVOLVED PULMONARY SYMPTOMS; THOUGH, IT IS NOT TYPE 1 ALLERGY. MEDICATIONS: At home include; the patient to be on Coumadin, Cozaar, Cymbalta, Ecotrin, Synthroid, Lasix, Xanax, and aspirin. PHYSICAL EXAMINATION GENERAL: The patient is in bed. VITAL SIGNS: Temperature 98, heart rate of 77, respiratory rate of 18, and blood pressure 137/50. HEENT: Unremarkable. NECK: Supple. LUNGS: Decreased breath sounds. ABDOMEN: Soft and nontender. No rebound or guarding. There is right-sided CVA tenderness. LABORATORY DATA: Reveals white count of 8.5, hemoglobin of 10, platelets of 304 and 64% granulocytosis. INR is 3.03, BUN of 22 and creatinine of 1.3. LFTs are normal. The patient has had elevated creatinine in October of this past year. Urinalysis revealed patient with 2-5 WBC, few bacteria. The patient brings with her the microbiology as an outpatient which shows Proteus mirabilis which is ESBL producing, sensitive to ertapenem and tobramycin. The urine culture from hospice hospitalization has grown gram negative pollo and patient also had a chest x-ray which showed no acute findings. ASSESSMENT AND PLAN: Reveals the patient to be a 76-year-old female with congestive heart failure, severe peripheral vascular disease, long-time ex-smoker, coronary artery disease, hypertension, high cholesterol, hypothyroidism presenting with PENICILLIN ALLERGY, MOXIFLOXACIN ALLERGY, BACTRIM, AMOXICILLIN ALLERGY, with right sided flank pain, with extended-spectrum beta-lactamases Proteus right pyelonephritis, will treat the patient with meropenem 1 g IV q.8 x10 days. We will order a CAT scan of abdomen and pelvis with p.o. contrast only. Case discussed with the patient and the patient's nurse caring for the patient and we will follow closely with you. We will check on the identification of the gram negative pollo in the hospital; although, patient comes in with urine culture results. We will also order blood cultures. Jordin Andrews MD
[2016-12-03] MEDS ORDERED: Barium Sulfate Susp 2.1% w/v, 2.0% w/w 450 mL Bottle PO ONE (07:59)
[2016-12-03] MEDS: Pantoprazole 20 mg EC Tab PO SCH (10:11)
[2016-12-03] MEDS: Metoprolol Succinate 50 mg XL Tab PO SCH (10:13)
[2016-12-03] MEDS: Levothyroxine 125 MCG TAB PO SCH (10:14)
[2016-12-03 10:43] LABS: BASO # 0.04 K/mm3 (0.0-2.0); BASO % 0.6 % (0.0-3.0); EOS # 0.3 (0.0-0.7); EOS % 4.8 % (1.5-5.0); GRAN # 4.28 (1.4-6.5); GRAN % 65.8 % (50.0-68.0); HEMATOCRIT 32.1 % (36.0-48.0); LYMPH # 1.3 (1.2-3.4); LYMPH % 19.7 % (22.0-35.0); MEAN CORPUSCULAR HEMOGLOBIN 24.5 pg (25.0-35.0); MEAN CORPUSCULAR HGB CONC 31.8 g/dl (31.0-37.0); MEAN PLATELET VOLUME 10.2 fl (7.0-11.0); MONO # 0.6 (0.1-0.6); MONO % 9.1 % (1.0-6.0); RED CELL DISTRIBUTION WIDTH 15.3 % (11.5-14.5); WHITE BLOOD COUNT 6.5 10^3/ul (4.5-11.0)
[2016-12-03 10:45] LABS: CALCIUM 9.4 mg/dL (8.4-10.5); POTASSIUM 4.9 mmol/L (3.6-5.0)
[2016-12-03 10:53] LABS: IRON 25 ug/dL (45-180)
--- NOTE | 2016-12-03 17:01 | CT ---
PROCEDURE: CT Abdomen and Pelvis with Oral contrast. HISTORY: R/O RIGHT PYLONEPHRITIS COMPARISON: None. TECHNIQUE: Contiguous axial images of the abdomen and pelvis. Oral contrast was administered. No IV contrast given. Coronal and Sagittal reformats generated. Radiation dose: Total exam DLP = 919.1 mGy-cm. This CT exam was performed using one or more of the following dose reduction techniques: Automated exposure control, adjustment of the mA and/or kV according to patient size, and/or use of iterative reconstruction technique. FINDINGS: LOWER THORAX: There is a small approximately 2.6 mm nodule right posterior lung base. Minor linear scarring changes left lung base. . Tiny nodules in the middle lobe 1 of which is subpleural location present. . There is a small hiatal hernia with wall thickening of the distal esophagus that could be due to protrusion of gastric mucosa. Esophagitis or other intrinsic/ invasive wall lesion including but not limited to esophageal carcinoma not excluded. Clinical correlation recommended. LIVER: Liver exhibits normal size measuring nearly 15 cm in CC dimension. No obvious hepatic mass or collection is identified on this noncontrast study. . GALLBLADDER AND BILE DUCTS: Cholecystectomy with dilatation of the common bile duct with mild central intrahepatic biliary ductal dilatation PANCREAS: The pancreas is atrophic and fatty replaced. No obvious pancreatic mass or collection identified. . SPLEEN: Unremarkable. No splenomegaly. ADRENALS: Again seen is a right adrenal nodule that measures approximately 15 mm remains indeterminate and unchanged from prior study. Follow-up of pre and post-contrast MRI of the adrenal glands could be performed for further evaluation. Slightly prominent left adrenal gland. KIDNEYS AND URETERS: Right kidney is atrophic with some very vague infiltration changes in the adjacent perinephric fat ; possibility of an ascending UTI cannot be excluded. . Mild vascular calcifications are seen in the renal hilum. Left kidney exhibits normal size. Vascular calcifications are also felt to be present within the left renal hilum. Minimal infiltration changes left perinephric fat No evidence of hydronephrosis. BLADDER: Urinary bladder is incompletely distended which may account for thick-walled appearance however cystitis must be considered. REPRODUCTIVE: Unremarkable. Uterus appears unremarkable as visualized. APPENDIX: Normal-appearing appendix best seen on axial image number [id number]. No periappendiceal inflammatory changes. BOWEL: Evaluation of the remaining bowel is limited due to incomplete opacification. Stomach appears incompletely distended which may in part account for thick-walled appearance. Gastritis or other intrinsic/ invasive wall lesion not excluded. Consider followup bulla endoscopy. Several on loops of proximal small bowel exhibit mild wall thickening nonspecific. Enteritis to be excluded. No evidence of acute mechanical small bowel obstruction with oral contrast material extending into the hepatic flexure region. Moderate amount of stool seen throughout the colon consistent with mild fecal retention/ constipation. Scattered colonic diverticula seen along the distal descending and to a lesser degree sigmoid colon. . No radiographic evidence of acute diverticulitis. PERITONEUM: Unremarkable. No fluid collection. No free air. LYMPH NODES: Unremarkable. No enlarged lymph nodes. VASCULATURE: Atherosclerotic plaque seen along the abdominal aorta and iliac arteries. . Apparent femoral-femoral jump graft within the subcutaneous fat of the anterior lower pelvis unchanged from prior study. BONES: Multilevel degenerative spondylosis of the lower thoracic and lumbar spine with dextroscoliosis centered at the L4-L5 level. OTHER FINDINGS: None. IMPRESSION: The right kidney remains atrophic with some vague infiltration changes in the adjacent mesentery nonspecific. The possibility of a ascending urinary tract infection cannot be excluded. Minimal of infiltration changes left perinephric fat There is wall thickening of the urinary bladder in part due to incomplete distention however the possibility of a cystitis should also be considered. No change indeterminate right adrenal nodule ; follow-up studies such is a post-contrast MRI of the adrenal glands could be performed for further evaluation. Several mildly thick-walled loops of proximal small bowel; rule out nonspecific enteritis. Diverticulosis without definitive radiographic evidence of acute diverticulitis. Small hiatal hernia with wall thickening of the distal esophagus which may in part be due to protrusion of gastric mucosa. There is also wall thickening of the stomach which may in part be due to incomplete distention. Rule out esophagitis and/or gastritis respectively. The possibility of invasive lesions in either location cannot be excluded. Followup endoscopy may be prudent. Post cholecystectomy with dilatation of the common bile duct. Significant atherosclerotic disease of the abdominal aorta and iliac arteries with subcutaneous femoral-femoral jump graft.
--- NOTE | 2016-12-03 17:10 | PN ---
DATE: 12/03/2016 LOCATION: Patient in room 578, bed 2. SUBJECTIVE: The patient seen this morning. The patient is tolerating the medication well. No fevers or chills. No rash. No diarrhea. No difficulty with shortness of breath. PHYSICAL EXAMINATION: VITAL SIGNS: Temperature 97, blood pressure 114/50, and respiratory rate of 18. HEENT: Unremarkable. NECK: Supple. LUNGS: Decreased breath sounds. HEART: Normal S1 and S2. ABDOMEN: Soft and nontender. LABORATORY DATA: Reveals white count of 6.5, hemoglobin of 10, platelets are 319. Chemistry reveals BUN of 22, and creatinine of 1.1. Urinalysis is noted. Microbiology reveals Proteus mirabilis, which is sensitive to imipenem. The patient had ESBL Proteus mirabilis as an outpatient and whole ESBL is tested and patient is scheduled for a CAT of the abdomen and pelvis today. ASSESSMENT AND PLAN: This is a 76-year-old female with congestive heart failure, severe peripheral vascular disease, long time ex-smoker, coronary artery disease, hypertension, high cholesterol, coronary artery disease, myocardial infraction, hypothyroidism. She is allergic to penicillin, moxifloxacin, Bactrim, and amoxicillin. Admitted with right sided flank pain and extended-spectrum beta-lactamases Proteus right-sided pyelonephritis today day number 2 of 10 days of meropenem. We will check on the CAT scan of the abdomen and pelvis. Follow closely with you. Jordin Andrews MD
[2016-12-04 08:22] VITALS: RESP 18
[2016-12-04] MEDS: Meropenem 1g/NS 100mL IVPB 1 GM/100 ML PIGGYBACK IVPB SCH (10:18)
[2016-12-04] MEDS: Pantoprazole 20 mg EC Tab PO SCH (10:19)
[2016-12-04] MEDS: Levothyroxine 125 MCG TAB PO SCH (10:20)
[2016-12-04] MEDS: Metoprolol Succinate 50 mg XL Tab PO SCH (10:31)
[2016-12-04 18:04] VITALS: PULSE 82; TEMP 98.2; O2SAT 96
[2016-12-04 19:45] VITALS: BP 124/49
--- NOTE | 2016-12-05 05:36 | PN ---
DATE: 12/04/2016 SUBJECTIVE: The patient is in bed, in no acute distress. PHYSICAL EXAMINATION VITAL SIGNS: Temperature is 98, blood pressure is 170/80, respiratory rate of 16. HEENT: Unremarkable. NECK: Supple. LUNGS: Decreased breath sounds. HEART: Normal S1 and S2. ABDOMEN: Soft. LABORATORY DATA: Reveals the patient's urine culture shows Proteus mirabilis. The patient also had a Proteus mirabilis ESBL-positive culture from the outside. The patient's creatinine is improved, it is 1.3, and the patient also had a CAT scan of the abdomen and pelvis. The right kidney with some infiltration. ALLERGIES: THE PATIENT ALSO HAS ALLERGY TO PENICILLIN, MOXIFLOXACIN, BACTRIM, AMOXICILLIN. ASSESSMENT AND PLAN: She is a 76-year-old female with congestive heart failure, severe peripheral vascular disease long time, ex-smoker, coronary artery disease, hypertension, high cholesterol, myocardial infarction, hypothyroidism, admitted with right-sided flank pain, ESBL Proteus, right-sided pyelonephritis day #3. Meropenem for only 10 days, one another option is ertapenem 1 g once daily as an outpatient. We will follow closely with you. Jordin Andrews MD
--- NOTE | 2016-12-05 22:41 | CON ---
GENITOURINARY CONSULTATION DATE: 12/05/2016 CHIEF COMPLAINT: Proteus urinary tract infection, questionable abnormalities of bladder on CAT scan. HISTORY OF PRESENT ILLNESS: The patient is a 76-year-old female who had an ESBL proteus infection not responding as an outpatient was admitted she has been getting IV meropenem and is currently doing well. Although, she does have some mild dysuria. CAT scan was done, which I reviewed, which showed small right kidney. She in the left no stones, no obstructive uropathy, some thickening of the bladder wall. She said she has been having fever and chills. Prior to coming the hospital. PAST MEDICAL HISTORY: Significant for coronary artery disease, congestive failure, hypertension, hypercholesterolemia, and hypothyroidism. She has had CABG done. Cataract surgery, pacemaker and gallbladder. MEDICATIONS: At home, she is on Coumadin, Cozaar, Cymbalta, Lasix, Xanax, Synthroid and Ecotrin. REVIEW OF SYMPTOMS: Currently, no symptoms referable to the head, eyes, ears, nose, or throat. No cardiac or respiratory symptoms. No GI. Mild dysuria. No psychiatric or dermatologic symptoms. PHYSICAL EXAMINATION: GENERAL: Shows her to be afebrile, pulse 77, blood pressure 128/73, and respirations 18. HEENT: Normocephalic. Sclerae are clear. Conjunctivae not injected. ABDOMEN: Soft, no rebound, or guarding. No suprapubic fullness. BACK: No CVA pain. SKIN: No purpura or edema. LABORATORY DATA: Lab work shows a white count of 6,500, and hemoglobin is 10.2. Chemistry shows creatinine of 1.1. Her urine from 12/01/2016 showed 0-2 RBCs and 2-5 WBCs. I discussed with her the findings on CAT scan, she will make an appointment to see me in the office in several weeks for assist in the office, also send out repeat culture and cytology. She is aware of the plan. Rosas Monterroso MD
--- NOTE | 2016-12-13 19:56 | DS ---
DISCHARGE DIAGNOSES: 1. Urinary tract infection, Proteus mirabilis. 2. History of congestive heart failure. 3. Chronic kidney disease. 4. Peripheral vascular disease. 5. Anemia, severe iron deficiency; anemia of chronic kidney disease. HOSPITAL COURSE: The patient was admitted UTI, Proteus mirabilis, treated with IV antibiotics, meropenem. She will be transferred to transitional care unit for continuation of IV antibiotics. She has severe iron-deficiency anemia, needs further workup evaluation and treatment. She is currently in stable condition. PHYSICAL EXAMINATION: GENERAL: Comfortable in bed, no acute distress. VITAL SIGNS: Temperature 98.7, heart rate 90 per minute, blood pressure 130/70, respiratory rate 18 per minute. HEENT: Normal. Pallor positive. NECK: Supple. CHEST: Air entry present, equal bilaterally. No added sounds. CARDIOVASCULAR EXAM: Within normal limits. ABDOMEN: Soft, nontender. No hepatosplenomegaly. EXTREMITIES: No edema. SKIN: No petechiae. No rash. SPINE: Nontender. DISPOSITION: Discharge to transitional care unit. CONDITION: Stable. DISCHARGE MEDICATIONS: Continue all the current medications. Xanax 0.5 mg p.o. daily, aspirin 81 mg daily, Cymbalta 30 mg p.o. daily, Lasix 40 mg daily, Neurontin 200 mg p.o. t.i.d., Synthroid 125 mcg daily, Cozaar 100 mg daily, meropenem q. 8 hours, Toprol-XL 50 daily, Protonix 20 daily, Coumadin 5 mg daily. Discussed with the staff nurse, discussed with the patient. Time spent in preparing discharging and coordinating care 50 minutes. Katelyn Miles MD
--- NOTE | 2016-12-13 20:41 | HP ---
DATE: 12/02/2016 HISTORY OF PRESENT ILLNESS: Ms. Hargrove is a 76-year-old female admitted with increased urinary frequency, urgency. She had low-grade fever at home. UA was positive. Urine culture done 4 days ago showed proteus mirabilis. She has no nausea, no vomiting, no diarrhea. History of CHF, peripheral vascular disease. She is currently on Coumadin. PAST MEDICAL HISTORY: Congestive cardiac failure, peripheral vascular disease, peripheral neuropathy, osteoarthritis. PAST SURGICAL HISTORY: Cholecystectomy, open heart surgery, cardiac catheterization. ALLERGIES: MULTIPLE ALLERGIES; LIPITOR, MOXIFLOXACIN, PENICILLIN, BACTRIM, TRIMETHOPRIM. SOCIAL HISTORY: Smoking, former smoker. No history of alcohol abuse. FAMILY HISTORY: Noncontributory. PERSONAL HISTORY: Lives at home. HOME MEDICATIONS: Xanax 0.5 mg p.o. at bedtime, aspirin 81 mg daily, Cymbalta 30 mg daily, Lasix 40 mg daily, gabapentin 200 mg p.o. b.i.d., levothyroxine 125 mcg p.o. daily, Avapro 300 mg daily, metoprolol 50 mg daily, Zofran 4 mg p.o. t.i.d., Protonix 20 mg daily, Coumadin 5 mg daily, Vytorin 1 tablet daily. PHYSICAL EXAMINATION GENERAL: Comfortable in bed, in no acute distress. VITAL SIGNS: Temperature 98.1, heart rate is 74 per minute, respiratory rate 18 per minute, blood pressure 116/50, pulse ox is 98% on room air. HEENT: Normal. NECK: Supple. CHEST: Air entry present equal bilateral. No added sounds. CARDIOVASCULAR: S1 and S2 normal. No murmur. No gallop. ABDOMEN: Soft, nontender. No hepatosplenomegaly. EXTREMITIES: No edema. BIZTALK ADMINISTRATOR: Alert and oriented x3. No focal sensory or motor deficits. SPINE: Nontender. SKIN: No petechia. No rash. LABORATORY DATA: White count 8.5, hemoglobin 10, hematocrit 31.8, platelet count 304. Sodium 140, potassium 4.4, BUN 22, creatinine 1.3, 92, INR 33, PT-T 39. Monocyte 10%. UA positive for proteus. Sensitivity pending. ASSESSMENT: 1. Gram-negative urinary tract infection. 2. Coronary artery disease. 3. History of congestive cardiac failure. 4. Peripheral vascular disease. 5. Anticoagulation with Coumadin, coagulopathy. 6. Anemia. PLAN: She will be admitted to the hospital. IV antibiotics. Meropenem started. ID consultation from Dr. Andrews requested. We will continue cardiac medication, metoprolol 50 mg daily, Coumadin 5 mg daily, losartan 100 mg daily, Synthroid 125 mcg daily, Neurontin 200 mg p.o. t.i.d., Lasix 40 mg daily. Continue Cymbalta 30 mg daily, aspirin 81 mg daily, Xanax 0.5 mg p.o. at bedtime. Urine culture sent again. Blood culture sent. Katelyn Miles MD
--- NOTE | 2016-12-13 20:44 | PN ---
DATE: 12/04/2016 SUBJECTIVE: She is comfortable in bed, in no acute distress. No urinary frequency, no urgency, no fever, no cough or expectoration, no chest pain. REVIEW OF SYSTEMS: As per HPI, rest of 12-point systems reviewed negative. PHYSICAL EXAMINATION: GENERAL: Comfortable in bed, in no acute distress. VITAL SIGNS: Temperature 98.7, heart rate is 80 per minute, blood pressure 140/70, respiratory rate 18 per minute and oxygen saturation 96% on room air. HEENT: Normal. CHEST: Air entry present, equal and bilateral. CARDIOVASCULAR: Within normal limits. ABDOMEN: Soft and nontender. No hepatosplenomegaly. EXTREMITIES: No edema. CENTRAL NERVOUS SYSTEM: Alert and oriented x3. No focal sensory and motor deficits. SKIN: No petechiae. No rash. MEDICATIONS: Xanax 0.5 mg p.o. at bedtime, Lasix 40 mg daily, Neurontin 200 mg p.o. t.i.d., levothyroxine 125 mcg daily, Cozaar 100 mg daily, meropenem q. 8 hours, metoprolol 50 mg daily, Protonix 20 mg daily, tobramycin 60 mg one dose, and Coumadin 5 mg daily. LABORATORY DATA: White count 6.5, hemoglobin 10.2, hematocrit 32, MCV 77 and platelet count 319. Sodium 139, potassium 4.9, creatinine 1.1. Iron 25 and iron saturation is 6%. ASSESSMENT AND PLAN: 1. Urinary tract infection, Proteus. 2. Congestive cardiac failure. 3. Chronic kidney disease, stage III. 4. Peripheral vascular disease. 5. Iron deficiency anemia. 6. Anticoagulation with Coumadin. PLAN: We will continue antibiotics as per ID. Severe iron deficiency, she will need IV iron repletion, this can be done as an outpatient. She will need the workup for iron deficiency. Will need the GI workup. She has history of recurrent infections, she needs evaluation for immunodeficiency. Chronic kidney disease, BUN and creatinine stable. Peripheral vascular disease, no issues right now. We will continue to monitor. Culture sensitivity awaited. Katelyn Miles MD
== END 2016-12-04 19:04 | DRG 690 ==
LOC: ED 16:40 → ERH 17:47 → 5RSO 19:11
PROVIDERS: ADMIT Internal Medicine Nephrology; ATTEND Internal Medicine Nephrology
DX: N12 Tubulo-interstitial nephritis, not specified as acute or chronic (principal); B96.4 Proteus (mirabilis) (morganii) as the cause of diseases classified elsewhere; I11.0 Hypertensive heart disease with heart failure; I50.9 Heart failure, unspecified; I73.9 Peripheral vascular disease, unspecified; I25.10 Atherosclerotic heart disease of native coronary artery without angina pectoris; E78.00 Pure hypercholesterolemia, unspecified; E03.9 Hypothyroidism, unspecified; Z16.12 Extended spectrum beta lactamase (ESBL) resistance; Z88.0 Allergy status to penicillin; Z87.891 Personal history of nicotine dependence; Z95.1 Presence of aortocoronary bypass graft; Z95.5 Presence of coronary angioplasty implant and graft; Z88.1 Allergy status to other antibiotic agents; Z88.2 Allergy status to sulfonamides; Z79.82 Long term (current) use of aspirin; Z79.01 Long term (current) use of anticoagulants

== ENCOUNTER 2016-12-04 19:04 | Inpatient (IN) | payer OTHER, BC ==
[2016-12-04] MEDS ORDERED: Meropenem 1g/NS 100mL IVPB 1 GM/100 ML PIGGYBACK IVPB SCH (22:00)
[2016-12-05 01:05] VITALS: BMI 34.4
[2016-12-05] MEDS: Levothyroxine 125 MCG TAB PO SCH (05:18)
[2016-12-05] MEDS: Pantoprazole 20 mg EC Tab PO SCH (05:18)
[2016-12-05] MEDS: Metoprolol Succinate 50 mg XL Tab PO SCH (10:05)
[2016-12-05] MEDS ORDERED: Meropenem 1g/NS 100mL IVPB 1 GM/100 ML PIGGYBACK IVPB SCH ×2 (16:07→16:45)
[2016-12-05] MEDS: Meropenem 1g/NS 100mL IVPB 1 GM/100 ML PIGGYBACK IVPB SCH (21:02)
[2016-12-06] MEDS: Meropenem 1g/NS 100mL IVPB 1 GM/100 ML PIGGYBACK IVPB SCH ×3 (06:03→22:08)
[2016-12-06] MEDS: Levothyroxine 125 MCG TAB PO SCH (06:04)
[2016-12-06 06:07] LABS: INR 3.35 (0.93-1.08)
[2016-12-06] MEDS: Pantoprazole 20 mg EC Tab PO SCH (06:24)
[2016-12-06] MEDS: Metoprolol Succinate 50 mg XL Tab PO SCH (09:00)
--- NOTE | 2016-12-06 15:42 | CP.PCM.CON ---
History of Present Illness - History of Present Illness History of Present Illness: 76 year old female with PMH of severe PAD, , CAD S/P CABG, chronic CHF, HTN, dyslipidemia, hypothyroidism, S/P cholecystectomy was admitted initially because of UTI due to ESBL Proteus with pyelopnephritis. She has done well with antibiotics and is now transferred to [facility] for continued medical therapy and physical rehab. Infectious Diseases consult is requested to continue her antibiotics. Currently the patient is comfortable, not in distress, afebrile, no abdominal pain, no nausea or vomiting, no chest pain, no SOB, no headache or dizziness, no diarrhea. Review of Systems - Review of Systems All systems: reviewed and no additional remarkable complaints except (as per HPI ) Past Patient History - Infectious Disease Hx of Infectious Diseases: None - Tetanus Immunizations Tetanus Immunization: Unknown - Past Social History Smoking Status: Former Smoker - CARDIAC Hx Cardiac Disorders: Yes Hx Congestive Heart Failure: Yes Hx Hypertension: Yes - PULMONARY Hx Respiratory Disorders: No - NEUROLOGICAL Hx Neurological Disorder: Yes (neuropathy) - HEENT Hx Cataracts: Yes - RENAL Other/Comment: none - ENDOCRINE/METABOLIC Hx Hypothyroidism: Yes - HEMATOLOGICAL/ONCOLOGICAL Other/Comment: Vitamin D deficiency - INTEGUMENTARY Other/Comment: hx Cellulitis - MUSCULOSKELETAL/RHEUMATOLOGICAL Hx Falls: Yes - GASTROINTESTINAL Hx Gastrointestinal Disorders: No - GENITOURINARY/GYNECOLOGICAL Hx Reproductive Disorders: No - PSYCHIATRIC Hx Substance Use: No - SURGICAL HISTORY Hx Cholecystectomy: Yes Hx Open Heart Surgery: Yes Other/Comment: Cardiac Cathx4 stents - ANESTHESIA Hx Anesthesia: Yes Hx Anesthesia Reactions: No Hx Malignant Hyperthermia: No Meds Allergies/Adverse Reactions: Allergies Allergy/AdvReac Type Severity Reaction Status Date / Time atorvastatin [From Lipitor] Allergy RASH Verified 10/23/16 17:54 moxifloxacin [From Avelox] Allergy ANAPHYLAXIS Verified 12/01/16 17:19 Penicillins Allergy ANAPHYLAXIS Verified 10/23/16 17:54 sulfamethoxazole Allergy NAUSEA Verified 10/23/16 17:54 [From Bactrim] trimethoprim [From Bactrim] Allergy NAUSEA Verified 10/23/16 17:54 amoxicillin AdvReac ANAPHYLAXIS Verified 10/23/16 17:54 - Medications Medications: Current Medications Alprazolam (Xanax) 0.5 mg PO HS LILIAN PRN Reason: Protocol Last Admin: 12/05/16 21:02 Dose: 0.5 mg Aspirin (Ecotrin) 81 mg PO 0800 LILIAN PRN Reason: Protocol Last Admin: 12/06/16 09:00 Dose: 81 mg Docusate Sodium (Colace) 100 mg PO BID LILIAN PRN Reason: Protocol Last Admin: 12/06/16 11:00 Dose: 100 mg Duloxetine HCl (Cymbalta) 30 mg PO DAILY LILIAN PRN Reason: Protocol Last Admin: 12/06/16 11:00 Dose: 30 mg Furosemide (Lasix) 40 mg PO DAILY LILIAN PRN Reason: Protocol Last Admin: 12/06/16 11:00 Dose: 40 mg Gabapentin (Neurontin) 200 mg PO TID LILIAN PRN Reason: Protocol Last Admin: 12/06/16 14:12 Dose: 200 mg Meropenem 1g/NS 100mL IVPB (Meropenem 1g/Ns 100ml Ivpb) 1 gm in 100 mls @ 100 mls/hr IVPB Q8H LILIAN PRN Reason: Protocol Stop: 12/15/16 22:01 Last Admin: 12/06/16 14:11 Dose: 100 mls/hr Levothyroxine Sodium (Synthroid) 125 mcg PO 0600 LILIAN PRN Reason: Protocol Last Admin: 12/06/16 06:04 Dose: 125 mcg Losartan Potassium (Cozaar) 100 mg PO DAILY LILIAN PRN Reason: Protocol Last Admin: 12/06/16 11:00 Dose: 100 mg Metoprolol Succinate (Toprol Xl) 50 mg PO BRK LILIAN PRN Reason: Protocol Last Admin: 12/06/16 09:00 Dose: 50 mg Pantoprazole Sodium (Protonix Ec Tab) 20 mg PO 0600 LILIAN PRN Reason: Protocol Last Admin: 12/06/16 06:24 Dose: 20 mg Warfarin Sodium (Coumadin) 5 mg PO 1800 LILIAN PRN Reason: Protocol Last Admin: 12/05/16 17:25 Dose: 5 mg Physical Exam - Constitutional Appears: Non-toxic, No Acute Distress - Head Exam Head Exam: NORMAL INSPECTION - Respiratory Exam Respiratory Exam: Decreased Breath Sounds - Cardiovascular Exam Cardiovascular Exam: +S1, +S2 - GI/Abdominal Exam GI & Abdominal Exam: Soft. absent: Tenderness Results - Vital Signs Recent Vital Signs: Last Vital Signs Temp 98.3 F 12/06/16 10:39 Pulse 77 12/06/16 10:39 Resp 18 12/06/16 10:39 BP 118/66 12/06/16 11:00 Pulse Ox 97 12/06/16 10:39 - Labs Labs: Laboratory Results - last 24 hr 12/06/16 05:45 PT 36.2 H* INR 3.35 H Assessment & Plan - Assessment and Plan (Free Text) Plan: Assessment ESBL-producing Proteus right sided pyelonephritis severe PAD CAD S/P CABG chronic CHF HTN dyslipidemia hypothyroidism S/P cholecystectomy Plan Continue Merrem (day 5) to complete a 10-14 day course will monitor clinically
--- NOTE | 2016-12-06 16:18 | CON ---
DATE: 12/05/2016 CHIEF COMPLAINT: Weakness from several days. HISTORY OF PRESENT ILLNESS: This is a 76-year-old female with past medical history significant for severe peripheral vascular disease, congestive heart failure, long-time smoker, ex-smoker now, coronary artery disease and urinary tract infection. The patient was discovered to have ESBL Proteus as outpatient and has been complaining of right flank pain, urinary symptoms, and admitted for antibiotics. PAST MEDICAL HISTORY: Significant for high cholesterol, hypothyroidism, congestive heart failure, hypertension, coronary artery disease and severe peripheral vascular disease. PAST SURGICAL HISTORY: Significant for coronary bypass graft by Dr. Young at [facility], cardiac catheterization with cardiac stents, cataract surgery, the patient had a pacemaker, the patient also with a cholecystectomy. ALLERGIES: THE PATIENT IS ALLERGIC TO MULTIPLE ANTIBIOTICS INCLUDING PENICILLIN, DEVELOPS A QUESTIONABLE RASH AND MOXIFLOXACIN, TRIMETHOPRIM, SULFAMETHOXAZOLE AND THE PENICILLIN ALLERGY DOES NOT INVOLVED PULMONARY, IT IS NOT A TYPE 1 ALLERGY. MEDICATIONS: Reviewed. PHYSICAL EXAMINATION: VITAL SIGNS: The patient's temperature is 98, blood pressure is 120/70 and respiratory rate 16. HEENT: Unremarkable. NECK: Supple. LUNGS: Decreased breath sounds. HEART: Normal S1 and S2. ABDOMEN: Soft. The patient still does have some right-sided CVA tenderness. LABORATORY DATA: Reveals a white count of 8.5, hemoglobin of 10, and platelets of 304. Coagulation is noted. Chemistries reveals a BUN of 22 and creatinine of 1.3. Microbiology reveals the Proteus mirabilis in the urine culture as outpatient and in-house. Sensitivity was reviewed as outpatient. It was ESBL Proteus mirabilis. The blood cultures have been negative. The patient also had a CAT scan done in the hospital on 12/02/2016, which was consistent with right kidney infiltration changes. ASSESSMENT AND PLAN: A 76-year-old female with congestive heart failure, severe peripheral vascular disease, long-time ex-smoker, coronary artery disease, hypertension, high cholesterol, myocardial infarction, hypothyroidism, admitted with right sided flank pain and extended-spectrum beta-lactamase Proteus, right sided pyelonephritis, day #4 of meropenem with completing 10 days of meropenem. One other option was ertapenem 1 g once daily. We will follow closely with you. Jordin Andrews MD
[2016-12-07] MEDS: Meropenem 1g/NS 100mL IVPB 1 GM/100 ML PIGGYBACK IVPB SCH ×3 (05:48→22:11)
[2016-12-07] MEDS: Pantoprazole 20 mg EC Tab PO SCH (05:49)
[2016-12-07] MEDS: Levothyroxine 125 MCG TAB PO SCH (05:49)
[2016-12-07] MEDS: Metoprolol Succinate 50 mg XL Tab PO SCH (08:14)
--- NOTE | 2016-12-07 08:20 | PN ---
DATE: 12/06/2016 SUBJECTIVE: The patient has no complaints of any chest pain or shortness of breath. She is getting physical therapy. She is ambulating well. She has no headaches or dizziness. She is getting IV antibiotics. PHYSICAL EXAMINATION: VITAL SIGNS: Temperature is 97.8, pulse of 80, blood pressure 107/53, respirations 18. GENERAL: The patient is lying in bed, flat, comfortable. HEENT: No oral lesion. Anicteric sclerae. Moist mucosa. NECK: No JVD, adenopathy, or thyromegaly. CARDIOVASCULAR: S1 and S2, regular. No murmurs, rubs, or gallops. LUNGS: Clear to auscultation bilaterally. No wheeze, rales, or rhonchi. ABDOMEN: Bowel sounds are positive, soft, nontender and nondistended. EXTREMITIES: No cyanosis, clubbing or edema. ASSESSMENT: 1. Coronary artery disease status post coronary artery bypass graft. 2. Hypertension. 3. Dyslipidemia. 4. Hypothyroidism. 5. Urinary tract infection secondary to extended-spectrum beta-lactamases. PLAN: The patient is currently comfortable. She is on meropenem for antibiotics. The patient is on day #5 out of 10 of antibiotics. She will need to continue. She is going to follow up with her primary care doctor after discharge. I did speak with the patient's son to give him an update and the patient's diagnoses and plan of care. Gaurav Griffin MD
--- NOTE | 2016-12-07 13:49 | CP.PCM.PN ---
Subjective - Date & Time of Evaluation Date of Evaluation: 12/07/16 Time of Evaluation: 10:45 - Subjective Subjective: Comfortable on a chair, no flank pain, no dysuria, no fevers overnight. Objective - Vital Signs/Intake and Output Vital Signs (last 24 hours): Temp Pulse Resp BP Pulse Ox 97.8 F 75 18 102/57 L 97 12/06/16 16:57 12/07/16 08:14 12/06/16 16:57 12/07/16 08:14 12/06/16 16:57 - Medications Medications: Current Medications Alprazolam (Xanax) 0.5 mg PO HS LILIAN PRN Reason: Protocol Last Admin: 12/06/16 22:09 Dose: 0.5 mg Aspirin (Ecotrin) 81 mg PO 0800 LILIAN PRN Reason: Protocol Last Admin: 12/07/16 08:14 Dose: 81 mg Docusate Sodium (Colace) 100 mg PO BID LILIAN PRN Reason: Protocol Last Admin: 12/06/16 18:09 Dose: 100 mg Duloxetine HCl (Cymbalta) 30 mg PO DAILY LILINA PRN Reason: Protocol Last Admin: 12/06/16 11:00 Dose: 30 mg Furosemide (Lasix) 40 mg PO DAILY LILIAN PRN Reason: Protocol Last Admin: 12/06/16 11:00 Dose: 40 mg Gabapentin (Neurontin) 200 mg PO TID LILIAN PRN Reason: Protocol Last Admin: 12/06/16 18:11 Dose: 200 mg Meropenem 1g/NS 100mL IVPB (Meropenem 1g/Ns 100ml Ivpb) 1 gm in 100 mls @ 100 mls/hr IVPB Q8H LILIAN PRN Reason: Protocol Stop: 12/15/16 22:01 Last Admin: 12/07/16 05:48 Dose: 100 mls/hr Levothyroxine Sodium (Synthroid) 125 mcg PO 0600 LILIAN PRN Reason: Protocol Last Admin: 12/07/16 05:49 Dose: 125 mcg Losartan Potassium (Cozaar) 100 mg PO DAILY LILIAN PRN Reason: Protocol Last Admin: 12/06/16 11:00 Dose: 100 mg Metoprolol Succinate (Toprol Xl) 50 mg PO BRK LILIAN PRN Reason: Protocol Last Admin: 12/07/16 08:14 Dose: 50 mg Pantoprazole Sodium (Protonix Ec Tab) 20 mg PO 0600 LILIAN PRN Reason: Protocol Last Admin: 12/07/16 05:49 Dose: 20 mg Warfarin Sodium (Coumadin) 5 mg PO 1800 LILIAN PRN Reason: Protocol Last Admin: 12/06/16 18:12 Dose: Not Given - Labs Labs: PT 36.2 Seconds (9.9-11.8) H* 12/06/16 05:45 INR 3.35 (0.93-1.08) H 12/06/16 05:45 - Constitutional Appears: Non-toxic, No Acute Distress - Head Exam Head Exam: NORMAL INSPECTION - Neck Exam Neck Exam: absent: Lymphadenopathy, Meningismus - Respiratory Exam Respiratory Exam: Decreased Breath Sounds - Cardiovascular Exam Cardiovascular Exam: +S1, +S2 - GI/Abdominal Exam GI & Abdominal Exam: Soft. absent: Tenderness Assessment and Plan - Assessment and Plan (Free Text) Plan: Assessment ESBL-producing Proteus right sided pyelonephritis severe PAD CAD S/P CABG chronic CHF HTN dyslipidemia hypothyroidism S/P cholecystectomy Plan Continue Merrem (day 6) to complete a 10-14 day course will continue to monitor clinically
[2016-12-08] MEDS: Levothyroxine 125 MCG TAB PO SCH (05:08)
[2016-12-08] MEDS: Meropenem 1g/NS 100mL IVPB 1 GM/100 ML PIGGYBACK IVPB SCH ×3 (05:08→21:27)
[2016-12-08] MEDS: Pantoprazole 20 mg EC Tab PO SCH (05:08)
[2016-12-08] MEDS: Metoprolol Succinate 50 mg XL Tab PO SCH (08:18)
--- NOTE | 2016-12-08 11:55 | PN ---
DATE: 12/08/2016 SUBJECTIVE: The patient is in bed, no acute distress. Nontoxic. PHYSICAL EXAMINATION: VITAL SIGNS: Temperature is 98, blood pressure is 108/50 and respiratory rate 18, and heart rate of 76. HEENT: Unremarkable. NECK: Supple. LUNGS: Decreased breath sounds. HEART: Normal S1 and S2. ABDOMEN: Soft. Nontender. LABORATORY DATA: Laboratory examination is noted and patient is on meropenem. ASSESSMENT AND PLAN: She is a 76-year-old with extended-spectrum beta-lactamases producing Proteus, right-sided pyelonephritis, severe peripheral artery disease, coronary artery disease, status post chronic bypass graft, chronic congestive heart failure, hypertension, dyslipidemia, hypothyroidism, history of cholecystectomy, on meropenem, today is day #7, would complete 10 of 14 days meropenem. Review of the orders confirms the meropenem to be active. Jordin Andrews MD
[2016-12-08 16:31] VITALS: RESP 18
[2016-12-09] MEDS: Levothyroxine 125 MCG TAB PO SCH (05:09)
[2016-12-09] MEDS: Meropenem 1g/NS 100mL IVPB 1 GM/100 ML PIGGYBACK IVPB SCH ×3 (05:09→21:15)
[2016-12-09] MEDS: Pantoprazole 20 mg EC Tab PO SCH (05:09)
[2016-12-09] MEDS: Metoprolol Succinate 50 mg XL Tab PO SCH (09:36)
--- NOTE | 2016-12-09 19:04 | PN ---
DATE: 12/09/2016 SUBJECTIVE: The patient seen earlier this morning. She is doing well. No nausea. No vomiting. PHYSICAL EXAMINATION VITAL SIGNS: Temperature is 97, blood pressure is 111/70, respiratory rate 16. HEENT: Unremarkable. NECK: Supple. LUNGS: Decreased breath sounds. HEART: Normal S1 and S2. ABDOMEN: Soft, nontender. LABORATORY DATA: Reviewed. Review of medications reveals the patient is on meropenem. ASSESSMENT AND PLAN: A 76-year-old female with extended-spectrum beta-lactamases producing Proteus, right-sided pyelonephritis, severe peripheral artery disease, coronary artery disease, status post chronic bypass graft, chronic congestive heart failure, hypertension, dyslipidemia, hypothyroidism, history of cholecystectomy, now on meropenem day #8, would complete 10 to 14 days. The patient is likely to be discharged Sunday morning for weekend, would like to spend Sunday holiday with her family, maybe able to conclude. We will follow with you. The patient has responded nicely. Jordin Andrews MD
[2016-12-10] MEDS: Pantoprazole 20 mg EC Tab PO SCH (05:01)
[2016-12-10] MEDS: Meropenem 1g/NS 100mL IVPB 1 GM/100 ML PIGGYBACK IVPB SCH ×3 (05:01→21:15)
[2016-12-10] MEDS: Levothyroxine 125 MCG TAB PO SCH (05:02)
[2016-12-10] MEDS: Metoprolol Succinate 50 mg XL Tab PO SCH (08:24)
[2016-12-10 11:18] VITALS: O2SAT 98
--- NOTE | 2016-12-10 11:26 | PN ---
DATE: 12/10/2016 LOCATION: The patient seen in room #317. SUBJECTIVE: The patient is doing well. She is ambulating. She has much improved. No flank pain on exam. PHYSICAL EXAMINATION VITAL SIGNS: Temperature is 98, blood pressure is 130/60, respiratory rate of 18. HEENT: Unremarkable. NECK: Supple. LUNGS: Decreased breath sounds. HEART EXAM: Normal S1 and S2. ABDOMINAL EXAMINATION Soft, nontender. LABORATORY EXAMINATION: Noted. ASSESSMENT AND PLAN: This is a 76-year-old female with extended-spectrum beta-lactamase producing proteus; right-sided pyelonephritis with severe peripheral vascular disease; coronary artery disease, status post chronic bypass graft and chronic congestive heart failure and hypertension; dyslipidemia; hypothyroidism; history of cholecystectomy; day #9 of therapy, would complete 10 to 14 days. The patient wants to be discharged tomorrow morning to spend holiday, Day, Sunday, with her family. Case discussed with Dr. Chau. Jordin Andrews MD
[2016-12-11] MEDS: Meropenem 1g/NS 100mL IVPB 1 GM/100 ML PIGGYBACK IVPB SCH (06:03)
[2016-12-11] MEDS: Levothyroxine 125 MCG TAB PO SCH (06:04)
[2016-12-11] MEDS: Pantoprazole 20 mg EC Tab PO SCH (06:06)
[2016-12-11] MEDS: Metoprolol Succinate 50 mg XL Tab PO SCH (08:14)
[2016-12-11 09:39] VITALS: BP 122/60
[2016-12-11 10:08] VITALS: PULSE 102; TEMP 97.6
--- NOTE | 2016-12-11 10:46 | PN ---
DATE: 12/11/2016 SUBJECTIVE: The patient is in bed, in no acute distress, nontoxic. PHYSICAL EXAMINATION: VITAL SIGNS: Temperature is 98, blood pressure 120/60, respiratory rate 18, and heart rate of 102. HEENT: Unremarkable. NECK: Supple. LUNGS: Decreased breath sounds. HEART: Normal S1 and S2. ABDOMEN: Soft. LABORATORY DATA: As noted. ASSESSMENT AND PLAN: The patient is a 76-year-old female extended-spectrum beta-lactamases producing Proteus, right-sided pyelonephritis, severe peripheral vascular disease, and coronary artery disease, status post bypass graft, congestive heart failure, hypertension, dyslipidemia, hypothyroidism, and history of cholecystectomy. Today is day #10. The patient wants to be discharged today. Case discussed with PMD. The patient is doing much better. Jordin Andrews MD
--- NOTE | 2016-12-11 18:22 | DS ---
HISTORY OF PRESENT ILLNESS: The patient has no complaints of any headaches or dizziness. No nausea. No vomiting. PHYSICAL EXAMINATION: VITAL SIGNS: Temperature is 97.6, pulse of 102, blood pressure 122/60 and respirations 18. GENERAL: The patient is lying in bed, flat, comfortable. HEENT: No oral lesion. Anicteric sclerae. Moist mucosa. NECK: No JVD, adenopathy, or thyromegaly. CARDIOVASCULAR: S1 and S2, regular. No murmurs, rubs, or gallops. LUNGS: Clear to auscultation bilaterally. No wheeze, rales, or rhonchi. ABDOMEN: Bowel sounds are positive, soft, nontender and nondistended. EXTREMITIES: No cyanosis, clubbing or edema. DISCHARGE SUMMARY: This is a 76-year-old female who had come into the hospital, was found to have urinary tract infection. The patient was transferred to the transitional care unit and had continuation of her treatment. She had ESBL, she had been treated for 10 days of antibiotics. She is going to be discharged home. I did speak to Dr. Andrews and he has okayed the patient to be discharge. She has no complaints of any headaches or dizziness. ASSESSMENT: 1. Coronary artery disease, status post coronary artery bypass grafting. 2. Hypertension. 3. Dyslipidemia. 4. Hypothyroidism. 5. Urinary tract infection secondary to extended-spectrum beta-lactamase. PLAN: The patient has finished her antibiotics of 10 days. She is on Coumadin, this will be continued. She is going to be on losartan for hypertension. She is on Synthroid for hypothyroidism. Now that she is off antibiotics, she will need to follow up to get her INR checked. CONDITION: Stable. ACTIVITIES: Increase as tolerated. Gaurav Griffin MD
--- NOTE | 2016-12-11 23:11 | CP.PCM.PN ---
Subjective - Date & Time of Evaluation Date of Evaluation: 12/08/16 Time of Evaluation: 10:00 - Subjective Subjective: comfortable in bed. ambulating with support. No fever. On IV antibiotics for UTI. Objective - Vital Signs/Intake and Output Vital Signs (last 24 hours): Temp Pulse Resp BP Pulse Ox 97.6 F 102 H 18 122/60 98 12/11/16 09:57 12/11/16 09:57 12/11/16 09:57 12/11/16 09:57 12/10/16 11:17 - Labs Labs: PT 36.2 Seconds (9.9-11.8) H* 12/06/16 05:45 INR 3.35 (0.93-1.08) H 12/06/16 05:45 - Constitutional Appears: Well, Non-toxic - Head Exam Head Exam: ATRAUMATIC, NORMAL INSPECTION, NORMOCEPHALIC - Eye Exam Eye Exam: Normal appearance Pupil Exam: NORMAL ACCOMODATION - ENT Exam ENT Exam: Mucous Membranes Moist - Neck Exam Neck Exam: Normal Inspection - Respiratory Exam Respiratory Exam: Clear to Ausculation Bilateral, NORMAL BREATHING PATTERN - Cardiovascular Exam Cardiovascular Exam: REGULAR RHYTHM, +S1, +S2 - GI/Abdominal Exam GI & Abdominal Exam: Soft, Normal Bowel Sounds - Back Exam Back Exam: NORMAL INSPECTION - Neurological Exam Neurological Exam: Alert, Awake, Oriented x3 - Skin Skin Exam: Normal Color, Warm Assessment and Plan - Assessment and Plan (Free Text) Assessment: 1. CAD : stable. 2. UTI : on meropenem ID following. 3. Anemia : Hb stable. 4. leukocytosis : resolving. 5. Coagulopathy : related to coumadin , restart coumdain 5 mg daily. 6. Hypothyroid : ct synthyroid.
--- NOTE | 2016-12-11 23:14 | CP.PCM.PN ---
Subjective - Date & Time of Evaluation Date of Evaluation: 12/07/16 Time of Evaluation: 11:00 - Subjective Subjective: No complaints. No fever, cough. Apatite is good. Ambulating with support. Objective - Vital Signs/Intake and Output Vital Signs (last 24 hours): Temp Pulse Resp BP Pulse Ox 97.6 F 102 H 18 122/60 98 12/11/16 09:57 12/11/16 09:57 12/11/16 09:57 12/11/16 09:57 12/10/16 11:17 - Labs Labs: PT 36.2 Seconds (9.9-11.8) H* 12/06/16 05:45 INR 3.35 (0.93-1.08) H 12/06/16 05:45 - Constitutional Appears: Well, Non-toxic - Head Exam Head Exam: ATRAUMATIC, NORMAL INSPECTION, NORMOCEPHALIC - Eye Exam Eye Exam: Normal appearance Pupil Exam: NORMAL ACCOMODATION - ENT Exam ENT Exam: Mucous Membranes Moist, Normal Exam - Neck Exam Neck Exam: Normal Inspection - Respiratory Exam Respiratory Exam: Clear to Ausculation Bilateral, NORMAL BREATHING PATTERN - GI/Abdominal Exam GI & Abdominal Exam: Soft, Normal Bowel Sounds - Back Exam Back Exam: NORMAL INSPECTION - Neurological Exam Neurological Exam: Alert, Normal Gait - Psychiatric Exam Psychiatric exam: Normal Affect - Skin Skin Exam: Normal Color, Warm Assessment and Plan - Assessment and Plan (Free Text) Assessment: 1. CAD : stable. 2. UTI : on meropenem ID following. 3. Anemia : Hb stable. work up for anemia. 4. leukocytosis : resolving. 5. Coagulopathy : related to coumadin , restart coumdain 5 mg daily. 6. Hypothyroid : ct synthyroid. Discharge planning.
== END 2016-12-11 12:15 | disposition home or self-care (01) | DRG 690 ==
LOC: TRCU 19:04
PROVIDERS: ADMIT Internal Medicine Nephrology; ATTEND Internal Medicine Nephrology
PROC: 3E03329 Introduction of Other Anti-infective into Peripheral Vein, Percutaneous Approach (ICD-10-PCS; 2016-12-04)
PROC: F07Z9FZ Gait Training/Functional Ambulation Treatment using Assistive, Adaptive, Supportive or Protective Equipment (ICD-10-PCS; principal; 2016-12-06)
PROC: F07Z8FZ Transfer Training Treatment using Assistive, Adaptive, Supportive or Protective Equipment (ICD-10-PCS; 2016-12-06)
PROC: F07L6YZ Therapeutic Exercise Treatment of Musculoskeletal System - Lower Back / Lower Extremity using Other Equipment (ICD-10-PCS; 2016-12-06)
PROC: F08Z2ZZ Grooming/Personal Hygiene Treatment (ICD-10-PCS; 2016-12-07)
PROC: F08Z1ZZ Dressing Techniques Treatment (ICD-10-PCS; 2016-12-07)
DX: N12 Tubulo-interstitial nephritis, not specified as acute or chronic (principal); B96.4 Proteus (mirabilis) (morganii) as the cause of diseases classified elsewhere; Z16.12 Extended spectrum beta lactamase (ESBL) resistance; Z79.2 Long term (current) use of antibiotics; I11.0 Hypertensive heart disease with heart failure; I50.9 Heart failure, unspecified; I25.10 Atherosclerotic heart disease of native coronary artery without angina pectoris; E78.5 Hyperlipidemia, unspecified; E03.9 Hypothyroidism, unspecified; I73.9 Peripheral vascular disease, unspecified; D64.9 Anemia, unspecified; R79.1 Abnormal coagulation profile; Z79.01 Long term (current) use of anticoagulants; Z88.3 Allergy status to other anti-infective agents; Z88.0 Allergy status to penicillin; Z88.2 Allergy status to sulfonamides; Z95.1 Presence of aortocoronary bypass graft; Z87.891 Personal history of nicotine dependence

== ENCOUNTER 2017-03-08 12:53 | Inpatient (IN) | payer MEDICARE, BC ==
[2017-03-08 13:06] VITALS: BMI 29.6
[2017-03-08] MEDS ORDERED: Sodium Chloride 0.9% 1,000 ML IV STA (13:15)
[2017-03-08] MEDS ORDERED: Aspirin 325 mg EC Tablets PO STA (13:15)
[2017-03-08] MEDS ORDERED: Morphine 2 mg/ml ISec IVP STA ×2 (13:16→15:17)
[2017-03-08] MEDS ORDERED: Nitroglycerin 2% Ointment Foilpak UD TOP STA (13:16)
[2017-03-08 13:43] LABS: BASO # 0.02 K/mm3 (0.0-2.0); BASO % 0.1 % (0.0-3.0); EOS % 0.3 % (1.5-5.0); GRAN # 12.18 (1.4-6.5); GRAN % 85.9 % (50.0-68.0); HEMATOCRIT 28.4 % (36.0-48.0); LYMPH % 7.2 % (22.0-35.0); MEAN CELL VOLUME 69.8 fl (80.0-105.0); MEAN CORPUSCULAR HEMOGLOBIN 20.9 pg (25.0-35.0); MEAN CORPUSCULAR HGB CONC 29.9 g/dl (31.0-37.0); MONO # 0.9 (0.1-0.6); MONO % 6.5 % (1.0-6.0); RED CELL DISTRIBUTION WIDTH 16.6 % (11.5-14.5); WHITE BLOOD COUNT 14.2 10^3/ul (4.5-11.0)
[2017-03-08 13:56] LABS: PARTIAL THROMBOPLASTIN TIME 44.3 Seconds (25.1-36.5)
[2017-03-08 13:57] LABS: INR 6.99 (0.93-1.08)
[2017-03-08 14:04] LABS: TROPONIN I 0.03 ng/mL
[2017-03-08 14:10] LABS: ALB/GLOB RATIO 1.2 (1.1-1.8); BILIRUBIN,TOTAL 1.3 mg/dL (0.2-1.3); CALCIUM 9.3 mg/dL (8.4-10.5); POTASSIUM 4.2 mmol/L (3.6-5.0); TOTAL PROTEIN 7.6 g/dL (5.8-8.3)
[2017-03-08 14:17] LABS: VENOUS BLOOD GAS BASE EXCESS -2.2 mmol/L (0.0-2.0); VENOUS BLOOD PH 7.32 (7.32-7.43)
--- NOTE | 2017-03-08 14:47 | RAD ---
HISTORY: cp/r/o subdiphragmentic free air COMPARISON: 12/01/2016 FINDINGS: LUNGS: The lungs are well inflated and clear. PLEURA: No significant pleural effusion identified, no pneumothorax apparent. CARDIOVASCULAR: The heart is normal in size. Status post CABG. There is stable position of a left-sided AICD. OSSEOUS STRUCTURES: No significant abnormalities. VISUALIZED UPPER ABDOMEN: Normal. OTHER FINDINGS: There is no evidence of free air under the diaphragms. IMPRESSION: No active pulmonary disease. No evidence of free air under the diaphragms.
[2017-03-08] MEDS ORDERED: Famotidine 20mg/50ml 20 MG/50 ML BAG IVPB STA (15:17)
[2017-03-08] MEDS ORDERED: metroNIDAZOLE IV 500 mg/100 ml 500 MG/100 ML BAG IVPB STA (15:18)
[2017-03-08] MEDS ORDERED: Alum-Mag Hydrox-Simethicone Susp (30 mL) PO STA (15:18)
[2017-03-09 03:22] LABS: URINE BILIRUBIN NEGATIVE (NEGATIVE); URINE BLOOD NEGATIVE (NEGATIVE); URINE GLUCOSE (UA) NEGATIVE (NEGATIVE); URINE KETONE NEGATIVE (NEGATIVE); URINE LEUKOCYTE ESTERASE NEGATIVE Leu/uL (NEGATIVE); URINE PROTEIN TRACE mg/dL (<30 mg/dL); URINE UROBILINOGEN 0.2 E.U./dL (<1 E.U./dL)
[2017-03-09 03:27] LABS: URINE APPEARANCE CLEAR (CLEAR); URINE COLOR YELLOW (YELLOW)
[2017-03-09 03:38] LABS: URINE BACTERIA MOD (NEG); URINE EPITHELIAL CELLS MANY /hpf (0-5); URINE RBC 0 - 2 /hpf (0-2); URINE WBC 0 - 2 /hpf (0-6)
[2017-03-09 08:43] LABS: BASO # 0.02 K/mm3 (0.0-2.0); BASO % 0.1 % (0.0-3.0); EOS # 0.1 (0.0-0.7); EOS % 0.3 % (1.5-5.0); GRAN # 14.08 (1.4-6.5); GRAN % 83.7 % (50.0-68.0); HEMATOCRIT 24.4 % (36.0-48.0); LYMPH # 1.2 (1.2-3.4); LYMPH % 7.3 % (22.0-35.0); MEAN CELL VOLUME 69.5 fl (80.0-105.0); MEAN CORPUSCULAR HEMOGLOBIN 21.1 pg (25.0-35.0); MEAN CORPUSCULAR HGB CONC 30.3 g/dl (31.0-37.0); MEAN PLATELET VOLUME 9.8 fl (7.0-11.0); MONO # 1.4 (0.1-0.6); MONO % 8.6 % (1.0-6.0); RED CELL DISTRIBUTION WIDTH 16.3 % (11.5-14.5); WHITE BLOOD COUNT 16.8 10^3/ul (4.5-11.0)
[2017-03-09 09:48] LABS: BLOOD UREA NITROGEN 17 mg/dL (7-21); CALCIUM 8.6 mg/dL (8.4-10.5); CARBON DIOXIDE 24 mmol/L (21-33); CHLORIDE 100 mmol/L (98-107); CHOLESTEROL 76 mg/dL (130-200); GFR AFRICAN-AMERICAN > 60; GLUCOSE,RANDOM 92 mg/dL (70-110); MAGNESIUM 1.9 mg/dL (1.7-2.2); PHOSPHOROUS 2.9 mg/dL (2.5-4.5)
[2017-03-09 09:51] LABS: INR 6.72 (0.93-1.08)
[2017-03-09] MEDS: Levothyroxine 125 MCG TAB PO SCH (09:52)
[2017-03-09 09:59] LABS: SODIUM 130 mmol/L (132-148)
[2017-03-09 10:00] LABS: POTASSIUM 4.5 mmol/L (3.6-5.0)
[2017-03-09 10:04] LABS: TROPONIN I 0.65 ng/mL
--- NOTE | 2017-03-09 10:23 | CON ---
DATE: 03/09/2017 HISTORY OF PRESENT ILLNESS: I saw Mrs. Hargrove this morning. 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 She is mildly febrile as well. The patient had a recent endoscopic procedure a couple of days ago, which was performed for complaints entertained during her previous admission, which consisted a really severe abdominal pain, nausea, and vomiting. Findings at the time of her recent endoscopy included Beltran ulcer, pyloric channel ulcer, hiatal hernia, severe esophagitis with severe gastritis and duodenitis. The patient has been on Nexium at her request. However, she indicated about a isb-gwx-g-half ago that she was breaking through on her Nexium. Dexilant samples were provided, but apparently these provided no relief of her symptoms, so she came to the Emergency Room. The patient denies hematemesis or rectal bleeding. PHYSICAL EXAMINATION: VITAL SIGNS: I reviewed this patient's vital signs. HEENT: Noncontributory. LUNGS: Decreased breath sounds, basilar. HEART: Irregular rhythm. ABDOMEN: Mildly distended. Irregular bowel sounds. Tender epigastric left upper quadrant, also tender in the left paraumbilical and left lower quadrant, also in the suprapubic area mildly. There is also some very mild tenderness in the right upper quadrant. Note that this is very atypical for exam, she did not have this before. Also, the issue of the abdominal distention was new finding for her experienced over the past couple of days. LABORATORY DATA: I reviewed the patient's laboratory data, which consists a white count of 14, H and H is 8.4/28, platelet count of 402,000. Note that her B-natriuretic peptide was 5110. Troponin noncontributory. BUN and creatinine ratio of 22/1.2 with normal bilirubin, AST, and ALT. LDH was 592. ASSESSMENT: This is a 77-year-old female with known gastrointestinal history with complaints of nausea, vomiting, abdominal pain post diarrhea. Note that there are no notes in the chart including notes from the ER or attending notes. I reviewed the EKG from the [facility]. The official interpretation is still pending. Review of the chest x-ray indicates no evidence of pulmonary disease, no evidence of free air on the diaphragm, no evidence of congestive heart failure. Reason for the elevated B-natriuretic peptide is unclear. Further input from Cardiology and Dr. Griffin later on this morning. With her symptoms of nausea, vomiting, abdominal pain, and diarrhea which is new for her, possible abdominal distention especially, I presume possibly some degree of, may be a viral gastroenteritis. The patient is symptomatically better after the dose of Morphine and pantoprazole. Due to her GI symptoms in the past, we suggest that we use IV pantoprazole today plus antireflux precautions. The patient was ordered a heart-healthy diet, which is based on the patient's history, she is not ready for. We ordered a very small volume of clear liquids if pain and nausea permit and advance the diet as tolerated. As indicated above, I think her presentation is probably due to two separate events, one which possibly can be commented on by Cardiology with the elevated B-natriuretic peptide. Note that the chest x-ray is negative and the EKG has been interpenetrated. I think the more prominent component is consistent gastrointestitisl and she is somewhat improved relative to time of admission. PLAN: I will continue IV pantoprazole and use dietary discretion were updated today. Dr. Chau will evaluate the patient plus appropriate consultants later on this morning. Vernon Mckeon DO, PhD VILMA
[2017-03-09 10:38] LABS: RETIC% 1.29 % (0.5-1.5)
[2017-03-09 10:43] LABS: IRON 12 ug/dL (45-180)
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
--- NOTE | 2017-03-09 17:34 | CARD ---
APPROVED REPORT EXAM: Two-dimensional and M-mode echocardiogram with Doppler and color Doppler. INDICATION Chest Pain LVFX 2D DIMENSIONS Left Atrium (2D)5.3 (1.6-4.0cm)IVSd1.5 (0.7-1.1cm) LVDd5.5 (3.9-5.9cm)LVOT Diameter2.0 (1.8-2.4cm) PWd1.4 (0.7-1.1cm)LVDs5.1 (2.5-4.0cm) FS (%) 8.4 %LVEF (%)18.2 (>50%) M-Mode DIMENSIONS Aortic Root3.50 (2.2-3.7cm)Aortic Cusp Exc.1.20 (1.5-2.0cm) Aortic Valve AoV Peak Zxsmjmbl366.0cm/sAoV VTI42.7cmAO Peak GR.27mmHg LVOT Peak Wddwuzzr26.2cm/sLVOT VTI16.30cmAO Mean GR.13mmHg REMIGIO (VMAX)1.62ig8NOY (VTI)1.70lm3RH P 1/2 Iloq679lb Mitral Valve MV E Numdcjxt68.8cm/sMV A Mfemmfbj830.0cm/sE/A ratio0.7 TDI Lateral E' Peak V6.82cm/sMedial E' Peak V4.68cm/sE/Lateral E'10.7 E/Medial E'15.6 Pulmonary Valve PV Peak Rwzmugqf547.0cm/sPV Peak Grad.6mmHg Tricuspid Valve TR Peak Wuiyfrgo846ue/sRAP PFHUUFVM94ylKlVQ Peak Gr.35mmHg WUKU03nwBv LEFT VENTRICLE The Left Ventricle is mildly dilated. There is mild concentric left ventricular hypertrophy. The systolic function is severely impaired.EF-15-20% There is moderate to severe hypokinesis in the apical anterior wall. Transmitral Doppler flow pattern is Grade III-reversible restrictive diastolic dysfunction. No left ventricle thrombus noted on this study. There is no ventricular septal defect visualized. There is no left ventricular aneurysm. There is no mass noted in the left ventricle. RIGHT VENTRICLE The right ventricle is normal size. There is normal right ventricular wall thickness. The right ventricular systolic function is normal. There is a pacemaker lead in the right ventricle. ATRIA The left atrium is moderately dilated. The right atrium size is normal. There is a catheter/pacemaker lead seen in the right atrium. The interatrial septum is intact with no evidence for an atrial septal defect. AORTIC VALVE The aortic valve is calcified and displays decreased opening. The aortic valve is moderately sclerotic. There is moderate aortic regurgitation. There is mild to moderate valvular aortic stenosis. There is no aortic valvular vegetation. MITRAL VALVE The mitral valve is moderately thickened. Mitral annular calcification is moderate. Mitral regurgitation is mild to moderate. There is no mitral valve stenosis. There is no evidence of mitral valve prolapse. TRICUSPID VALVE The tricuspid valve leaflets are thickened and calcified, but open well. There is mild to moderate tricuspid regurgitation.RVSP-45 mmof hg. There is no tricuspid valve stenosis. There is no tricuspid valve prolapse or vegetation. PULMONIC VALVE The pulmonic valve is mildly thickened. There is mild pulmonic valvular regurgitation. There is no pulmonic valvular stenosis. GREAT VESSELS The aortic root is normal in size. The ascending aorta is normal in size. The pulmonary artery is normal. The IVC is normal in size and collapses >50% with inspiration. PERICARDIAL EFFUSION There is no pleural effusion. There is no pericardial effusion. <Conclusion> The Left Ventricle is mildly dilated. There is mild concentric left ventricular hypertrophy. The systolic function is severely impaired.EF-15-20% There is a pacemaker lead in the right ventricle. There is a catheter/pacemaker lead seen in the right atrium. There is moderate aortic regurgitation. There is mild to moderate valvular aortic stenosis. Mitral regurgitation is mild to moderate. There is mild to moderate tricuspid regurgitation.RVSP-45 mmof hg. There is mild pulmonic valvular regurgitation. There is no pericardial effusion. The IVC is normal in size and collapses >50% with inspiration.
--- NOTE | 2017-03-09 17:43 | CARD ---
APPROVED REPORT EKG Measurement Heart [id number] <Conclusion> Atrial sensed, ventricular paced rhythm
[2017-03-09] MEDS: Nitroglycerin 2% Ointment Foilpak UD TOP SCH (18:22)
[2017-03-09] MEDS: Pantoprazole 40 mg EC Tab PO SCH (18:22)
--- NOTE | 2017-03-09 19:04 | CP.PCM.CON ---
History of Present Illness - History of Present Illness History of Present Illness: 76 year old female with PMH of severe PAD, CAD S/P CABG, chronic CHF, HTN, dyslipidemia, hypothyroidism, S/P cholecystectomy , history of ESBL-producing Proteus right sided pyelonephritis came in to [facility] complaining of pain in the epigastric and left upper quadrant area which started about a week ago and has worsened in the past several days. The patient denies eating anything out of the ordinary. She was recently at [facility] for similar symptoms in January 2017 and had endoscopy done which showed gastritis but no H. pylori infection. She states the pain also radiates to her back side. She denies fever or chillsm no nausea or vomiting, no chest pain, no SOB, no headache or dizziness, no diarrhea , no dysuria. In the ED, she was also found to have leukocytosis. Infectious Diseases consult is requested to further evaluate and manage. Review of Systems - Review of Systems All systems: reviewed and no additional remarkable complaints except (as per HPI ) Past Patient History - Infectious Disease Hx of Infectious Diseases: None - Tetanus Immunizations Tetanus Immunization: Unknown - Past Social History Smoking Status: Former Smoker - CARDIAC Hx Cardiac Disorders: Yes Hx Angina: Yes Hx Hypercholesterolemia: Yes Hx Hypertension: Yes Hx Internal Defibrillator: Yes Hx Pacemaker: Yes - PULMONARY Hx Respiratory Disorders: No - NEUROLOGICAL Hx Neurological Disorder: No - HEENT Hx HEENT Problems: Yes Hx Cataracts: Yes - RENAL Hx Chronic Kidney Disease: No - ENDOCRINE/METABOLIC Hx Endocrine Disorders: Yes Hx Hypothyroidism: Yes - HEMATOLOGICAL/ONCOLOGICAL Hx Blood Disorders: No - INTEGUMENTARY Hx Dermatological Problems: No - MUSCULOSKELETAL/RHEUMATOLOGICAL Hx Musculoskeletal Disorders: Yes Hx Arthritis: Yes Hx Falls: No Hx Fractures: Yes - GASTROINTESTINAL Hx Gastrointestinal Disorders: No - GENITOURINARY/GYNECOLOGICAL Hx Genitourinary Disorders: No - PSYCHIATRIC Hx Psychophysiologic Disorder: Yes Hx Anxiety: Yes Hx Substance Use: No - SURGICAL HISTORY Hx Surgeries: No Hx Cardiac Catheterization: Yes Hx Coronary Stent: Yes - ANESTHESIA Hx Anesthesia Reactions: No Hx Malignant Hyperthermia: No Meds Allergies/Adverse Reactions: Allergies Allergy/AdvReac Type Severity Reaction Status Date / Time atorvastatin [From Lipitor] Allergy RASH Verified 01/30/17 20:47 moxifloxacin [From Avelox] Allergy ANAPHYLAXIS Verified 01/30/17 20:47 Penicillins Allergy ANAPHYLAXIS Verified 01/30/17 20:47 sulfamethoxazole Allergy NAUSEA Verified 01/30/17 20:47 [From Bactrim] trimethoprim [From Bactrim] Allergy NAUSEA Verified 01/30/17 20:47 amoxicillin AdvReac ANAPHYLAXIS Verified 01/30/17 20:47 - Medications Medications: Current Medications Alprazolam (Xanax) 0.5 mg PO [facility] PRN Reason: Protocol Docusate Sodium (Colace) 100 mg PO BID [facility] Duloxetine HCl (Cymbalta) 30 mg PO DAILY [facility] Last Admin: 03/09/17 09:52 Dose: 30 mg Levothyroxine Sodium (Synthroid) 125 mcg PO DAILY [facility] Last Admin: 03/09/17 09:52 Dose: 125 mcg Pantoprazole Sodium (Protonix Ec Tab) 40 mg PO 0600,1600 [facility] Physical Exam - Constitutional Appears: Non-toxic, No Acute Distress - Head Exam Head Exam: NORMAL INSPECTION - ENT Exam ENT Exam: Mucous Membranes Moist - Neck Exam Neck exam: Negative for: Lymphadenopathy, Meningismus - Respiratory Exam Respiratory Exam: Decreased Breath Sounds - Cardiovascular Exam Cardiovascular Exam: +S1, +S2 - GI/Abdominal Exam GI & Abdominal Exam: Soft, Tenderness (epigastric area). absent: Diminished Bowel Sounds, Guarding, Rebound, Rigid Results - Vital Signs Recent Vital Signs: Last Vital Signs Temp 98.3 F 03/09/17 06:00 Pulse 112 H 03/09/17 06:00 Resp 20 03/09/17 06:00 BP 105/48 L 03/09/17 06:00 Pulse Ox 97 03/09/17 06:00 - Labs Result Diagrams: 03/09/17 08:30 03/09/17 08:30 Labs: Laboratory Results - last 24 hr 03/09/17 03/09/17 03/09/17 03:08 08:30 08:30 WBC 16.8 H RBC 3.51 Hgb 7.4 L Hct 24.4 L MCV 69.5 L MCH 21.1 L MCHC 30.3 L RDW 16.3 H Plt Count 325 MPV 9.8 Gran % 83.7 H Lymph % (Auto) 7.3 L [place] % (Auto) 8.6 H Eos % (Auto) 0.3 L Baso % (Auto) 0.1 Gran # 14.08 H Lymph # 1.2 [place] # 1.4 H Eos # 0.1 Baso # 0.02 PT INR Sodium 130 L Potassium 4.5 Chloride 100 Carbon Dioxide 24 Anion Gap 11 BUN 17 Creatinine 1.0 Est GFR ( Amer) > 60 Est GFR (Non-Af Amer) 54 Random Glucose 92 Calcium 8.6 Phosphorus 2.9 Magnesium 1.9 Lactate Dehydrogenase 456 Total Creatine Kinase 47 Troponin I 0.65 H* D Triglycerides 65 Cholesterol 76 L LDL Cholesterol Direct < 30 HDL Cholesterol 38 TSH 3rd Generation Urine Color Yellow Urine Appearance Clear Urine pH 6.0 Ur Specific [place] 1.020 Urine Protein Trace H Urine Glucose (UA) Negative Urine Ketones Negative Urine Blood Negative Urine Nitrate Negative Urine Bilirubin Negative Urine Urobilinogen 0.2 Ur Leukocyte Esterase Negative Urine RBC 0 - 2 Urine WBC 0 - 2 Ur Epithelial Cells Many Urine Bacteria Mod 03/09/17 03/09/17 08:30 09:30 WBC RBC Hgb Hct MCV MCH MCHC RDW Plt Count MPV Gran % Lymph % (Auto) [place] % (Auto) Eos % (Auto) Baso % (Auto) Gran # Lymph # [place] # Eos # Baso # PT 76.9 H INR 6.72 H* Sodium Potassium Chloride Carbon Dioxide Anion Gap BUN Creatinine Est GFR ( Amer) Est GFR (Non-Af Amer) Random Glucose Calcium Phosphorus Magnesium Lactate Dehydrogenase Total Creatine Kinase Troponin I Triglycerides Cholesterol LDL Cholesterol Direct HDL Cholesterol TSH 3rd Generation 0.65 Urine Color Urine Appearance Urine pH Ur Specific [place] Urine Protein Urine Glucose (UA) Urine Ketones Urine Blood Urine Nitrate Urine Bilirubin Urine Urobilinogen Ur Leukocyte Esterase Urine RBC Urine WBC Ur Epithelial Cells Urine Bacteria Assessment & Plan - Assessment and Plan (Free Text) Plan: Assessment systemic inflammatory response syndrome, R/O sepsis from gastroenteritis history of ESBL-producing Proteus right sided pyelonephritis severe PAD CAD S/P CABG chronic CHF HTN dyslipidemia hypothyroidism S/P cholecystectomy Plan will start patient on [place] and will get CT A/P and measure lipase levels; will check blood cx as well follow up GI recommendations will monitor clinically and trend WBC count
[2017-03-09 19:09] LABS: TROPONIN I 0.61 ng/mL
[2017-03-09 19:27] LABS: AMYLASE 37 U/L (35-125); LIPASE 72 U/L (23-300)
[2017-03-10] MEDS: Nitroglycerin 2% Ointment Foilpak UD TOP SCH ×4 (00:51→17:34)
--- NOTE | 2017-03-10 04:35 | CON ---
ADDENDUM Repeat troponin is mildly positive 0.65, though the patient is asymptomatic. Repeat hemoglobin is 7.4, yesterday was 8.5, which means patient has dropping H and H. In view of asymptomatic, no acute ST-T changes, and dropping H and H, we will try to treat medically for now. Not a candidate to go for the mason tender restoration labor because patient has a history of recent endoscopy and ulcers noted. It was mentioned that the Beltran ulcer, pyloric channel ulcer, hiatal hernia, severe esophagitis, severe gastritis, and duodenitis on the last endoscopy, so we will try to treat medically. We will discuss with Dr. Sol who will followup CPK, troponin repeat. Repeat troponin for this afternoon and for the morning has been ordered and echo done, reviewed that showed ejection fraction 15% to 20%, pacemaker lead noted in RA, RV, moderate aortic regurgitation, mild to moderate valvular aortic stenosis, mild to moderate mitral regurgitation, mild to moderate tricuspid regurgitation, systolic pressure of 45. We will put baby aspirin as tolerated. Continue nitroglycerine 1-inch nitro paste. Continue low-dose beta-galilea as blood pressure is tolerated. INR was 6.72, so we will give another 5 mg of vitamin K to neutralize as the patient is bleeding with one baby aspirin daily, nitro paste and low dose beta galilea. Brenda Gerard MD
[2017-03-10] MEDS: Pantoprazole 40 mg EC Tab PO SCH ×2 (05:50→19:00)
[2017-03-10] MEDS: Levothyroxine 125 MCG TAB PO SCH (05:51)
--- NOTE | 2017-03-10 06:49 | HP ---
CHIEF COMPLAINT AND HISTORY OF PRESENT ILLNESS: This is a 77-year-old female who was coming into the hospital with complaints of chest pain. She states that she started having chest pain, also recently she was having nausea and vomiting. She was also having abdominal discomfort. She has been having diarrhea for the past 3 to 4 days. She states the abdominal pain is better. She also had an endoscopy in the past, which showed peptic ulcer disease, hiatal hernia and severe esophagitis. She has seen Dr. Mckeon for evaluation. The patient also has a history of coronary artery disease and had an AICD. She has been seen at [facility] where she had a bypass done and an AICD placed 13 years ago. She has no weakness in the arms or the legs. No dizziness. No back pain. She has no shortness of breath. REVIEW OF SYSTEMS: All other review of symptoms are within normal limits except what was mentioned. PAST MEDICAL HISTORY: 1. Coronary artery disease status post CABG in 1999. 2. AICD 13 years ago. 3. Hypothyroidism. 4. Hypertension. 5. Right adrenal nodule, 17 cm. 6. Peripheral arterial disease. PAST SURGICAL HISTORY: CABG. ALLERGIES: PENICILLIN ALLERGY. SOCIAL HISTORY: She denies smoking or drinking. FAMILY HISTORY: Noncontributory. MEDICATIONS: MRF has been reviewed. PHYSICAL EXAMINATION VITAL SIGNS: Temperature is 98.7, pulse is 97, blood pressure 110/63, respirations 18. Height is 5 feet 1 inches, weight is 154 pounds, BMI is 29. GENERAL: The patient lying in bed, uncomfortable, and in no acute distress. HEENT: Atraumatic and normocephalic. Anicteric sclerae. Moist mucosa. Charlo conjunctivae. No oral lesions. NECK: No JVD, anterior and posterior adenopathy, thyromegaly, or bruits. CARDIOVASCULAR: S1 and S2 regular. No murmur, rubs, or gallop. LUNGS: Clear to auscultation bilaterally. No wheezes, rales, or rhonchi. ABDOMEN: Bowel sounds are positive. Soft, nontender and nondistended. No hepatosplenomegaly. No rebound and no guarding EXTREMITIES: No cyanosis, clubbing, or edema. NEUROLOGIC: No facial asymmetry. Tongue is midline. No vulva deviation. Power is 5/5 upper extremity and lower extremity. Sensation intact in upper extremity and lower extremity. PSYCHIATRIC: She is awake, alert and oriented x3. No anxiety or depression. She has normal affect. GENITOURINARY: No CVA tenderness. VASCULAR: 2+ pulses in the carotid pulses and pedal pulses. SKIN: No erythema or nodules SPINE: Shows normal curvature. EXTREMITIES: No Cyanosis and clubbing, no edema. LABORATORY DATA: White count of 14.3, hemoglobin 8.5. Repeat white blood count is 16.8 and hemoglobin is 7.4. Platelet count is 402. Reticulocyte count is 1.29. INR is 6.9. Her ABG shows a pH of 7.32 with PCO2 of 47. She had a bicarb of 24. Sodium is 130. Her iron saturation is 3%. She has a troponin of 0.65. Procalcitonin is 0.095. Urine shows nitrites are negative, esterase is negative. An echo done shows LV is mildly dilated, systolic function is severely impaired - 15% to 20%, moderate aortic regurgitation; there is moderate tricuspid regurgitation; [id number] aortic stenosis. EKG done shows atrioventricular paced rhythm. Chest x-ray done shows no active disease. ASSESSMENT: 1. Chest pain secondary to non-ST elevation myocardial infarction. 2. Coronary artery disease. 3. Peptic ulcer disease. 4. Automated implantable cardioverter defibrillator. 5. Hyponatremia. 6. Congestive heart failure secondary to systolic dysfunction with an ejection fraction 15% to 20%. 7. Aortic stenosis. 8. Aortic regurgitation. 9. . 10. A 17-mm nodule of the right adrenal gland. PLAN: The patient is going to be admitted to the hospital. She does have an elevated white count. Repeat cardiac enzymes have been done. I have ordered Dr. Mckeon, Dr. Corona and Dr. Andrews for evaluation. The patient is on metoprolol. She is on anticoagulation, but that has been on hold. She is on Synthroid for hypothyroidism. She is receiving Xanax as needed. She had a CT of the abdomen that has been ordered because of the elevated white count. We will repeat the patient's blood work tomorrow as well as her INR. Continue to follow her closely. She will most likely need physical therapy. We will also add PT evaluation to be done. Gaurav Griffin MD [facility] # [id number]
[2017-03-10 06:51] LABS: MEAN CELL VOLUME 69.8 fl (80.0-105.0); MEAN CORPUSCULAR HEMOGLOBIN 21.2 pg (25.0-35.0); MEAN CORPUSCULAR HGB CONC 30.4 g/dl (31.0-37.0); MEAN PLATELET VOLUME 9.9 fl (7.0-11.0); RED CELL DISTRIBUTION WIDTH 16.6 % (11.5-14.5)
[2017-03-10 06:55] LABS: INR 2.17 (0.93-1.08)
[2017-03-10 08:13] LABS: ALKALINE PHOSPHATASE 86 U/L (38-126); ALT/SGPT 25 U/L (7-56); AST/SGOT 16 U/L (14-36); BILIRUBIN,TOTAL 1.2 mg/dL (0.2-1.3); BLOOD UREA NITROGEN 13 mg/dL (7-21); CALCIUM 8.8 mg/dL (8.4-10.5); CARBON DIOXIDE 26 mmol/L (21-33); CHLORIDE 101 mmol/L (98-107); GFR AFRICAN-AMERICAN > 60; GLUCOSE,RANDOM 90 mg/dL (70-110); POTASSIUM 4.1 mmol/L (3.6-5.0); SODIUM 132 mmol/L (132-148); TOTAL PROTEIN 5.9 g/dL (5.8-8.3)
[2017-03-10 08:23] LABS: HEMATOCRIT 22.7 % (36.0-48.0)
[2017-03-10] MEDS ORDERED: cefTRIAXone 1 gm 1 GM/100 ML BAG IVPB STA (08:40)
[2017-03-10 09:47] LABS: HEMATOCRIT 27.5 % (36.0-48.0); MEAN CORPUSCULAR HEMOGLOBIN 21.1 pg (25.0-35.0); MEAN CORPUSCULAR HGB CONC 30.2 g/dl (31.0-37.0); MEAN PLATELET VOLUME 10.2 fl (7.0-11.0); RED CELL DISTRIBUTION WIDTH 16.6 % (11.5-14.5); WHITE BLOOD COUNT 12.4 10^3/ul (4.5-11.0)
--- NOTE | 2017-03-10 10:11 | PN ---
DATE: SUBJECTIVE: The patient has no complaints of any chest pain. No shortness of breath. No headaches. PHYSICAL EXAMINATION: VITAL SIGNS: Temperature is 97.8, pulse of 87, blood pressure is 94/52, and respirations are 19. GENERAL: The patient is lying in bed, flat, comfortable. HEENT: No oral lesion. Anicteric sclerae. Moist mucosa. NECK: No JVD, adenopathy, or thyromegaly. CARDIOVASCULAR: S1 and S2, regular. No murmurs, rubs, or gallops. LUNGS: Clear to auscultation bilaterally. No wheeze, rales, or rhonchi. ABDOMEN: Bowel sounds are positive, soft, nontender and nondistended. EXTREMITIES: no cyanosis, clubbing or edema. LABORATORY DATA: White count of 8.0 and hemoglobin of 6.9. Creatinine is 1.0. ASSESSMENT: 1. 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 2. Wbb-FS-puseftyfg myocardial infraction. 3. Coronary artery disease. 4. Peptic ulcer disease. 5. Automatic implantable cardioverter defibrillator. 6. Hyponatremia improved. 7. Congestive heart failure secondary to systolic dysfunction with an ejection fraction of 15-20%. 8. Aortic stenosis. 9. Aortic regurgitation. 10. A 17-mm nodule of the right adrenal gland. PLAN: The patient is currently comfortable. She has low hemoglobin, will most likely need to repeat the patient's CBC to see it is accurate. The patient does have iron deficiency. She is going to continue on Synthroid. She is on aspirin. I will hold her aspirin for now because of the low hemoglobin. The patient has been followed by Dr. Mckeon and Dr. Andrews. The patient is on Xanax as needed. She was given vitamin K. Her hemoglobin this morning is 2.1. She is on Cymbalta. She had a CT of the abdomen and pelvis that was done. Her overall prognosis is guarded. We will repeat the CBC and transfuse if the hemoglobin is less than 7. Gaurav Griffin MD
[2017-03-10] MEDS ORDERED: Iohexol 240 (50 ml) ONE (11:13)
--- NOTE | 2017-03-10 17:08 | CT ---
PROCEDURE: CT Abdomen and Pelvis without IV contrast. HISTORY: rule out intra-abdominal infection COMPARISON: CT abdomen pelvis without IV contrast performed 03/10/17 TECHNIQUE: Contiguous axial images of the abdomen and pelvis. Oral contrast was administered. No IV contrast given. Coronal and Sagittal reformats generated and reviewed. Radiation dose: Total exam DLP = 831.9 mGy-cm. This CT exam was performed using one or more of the following dose reduction techniques: Automated exposure control, adjustment of the mA and/or kV according to patient size, and/or use of iterative reconstruction technique. FINDINGS: There is limited evaluation of the solid organs without the administration of IV contrast. LOWER THORAX: No visible consolidation, pleural effusion, or pneumothorax. Two 4 mm nodules are noted within the right middle lobe. Small hiatal hernia. LIVER: Unremarkable unenhanced appearance. GALLBLADDER AND BILE DUCTS: The gallbladder is not identified, presumably surgically removed however surgical clips are not evident. PANCREAS: Pancreatic atrophy. SPLEEN: Unremarkable unenhanced appearance. ADRENALS: Indeterminate 14 mm right adrenal gland hypodense nodule measures approximately 14 HU. The left adrenal gland appears unremarkable. KIDNEYS AND URETERS: Atrophic right kidney. No hydronephrosis or obstructing renal calculus. BLADDER: The urinary bladder appears unremarkable. REPRODUCTIVE: Uterus is present. APPENDIX: The appendix appears within normal limits of caliber. No secondary signs of acute appendicitis. BOWEL: The stomach is nondistended. The bowel loops appear within normal limits of caliber without evidence of intestinal obstruction. Short segment right colonic wall thickening near the level of the cecum, possibly focal colitis however underlying malignant neoplasm must be excluded. PERITONEUM: No significant free fluid. No definite free air. LYMPH NODES: No bulky lymphadenopathy identified. VASCULATURE: Fem-fem bypass graft. Dense atherosclerotic calcifications of the aorta. No aortic aneurysm. BONES: Osseous demineralization. Degenerative changes. Scoliosis. OTHER FINDINGS: None. IMPRESSION: Short segment right colonic wall thickening near the level of the cecum, possibly focal colitis however underlying malignant neoplasm must be excluded. Indeterminate 14 mm right adrenal gland hypodense nodule measures approximately 14 HU. Two 4 mm nodules are noted within the right middle lobe. According to 2017 Fleischner criteria, the patient is low risk, no routine follow-up is recommended. If the patient is high risk, an optional CT at 12 months is recommended. Additional findings as above.
--- NOTE | 2017-03-10 18:18 | PN ---
DATE: 03/10/2017 SUBJECTIVE: The patient is in bed, in no acute distress early this morning, comfortable on exam. PHYSICAL EXAMINATION: VITAL SIGNS: Temperature is 97, heart rate 107, blood pressure is 111/60, respiratory rate of 18. HEENT: Unremarkable. NECK: Supple. LUNGS: Have decreased breath sounds. HEART: Normal S1, S2. ABDOMEN: Emanation is soft and nontender. LABORATORY EXAMINATION: Reveals a white count of 12,400, hemoglobin of 8, platelets of 418. Coagulation is noted and BUN of 13, creatinine of 1.0. Procalcitonin is 0.09, microbiology reveals the blood cultures have no growth. There is a Gram-positive cocci in the urine and review of orders reveals the patient was given ceftriaxone. ASSESSMENT AND PLAN: A 77-year-old female with history of peripheral artery disease, coronary artery disease, history of coronary bypass graft, chronic congestive heart failure, hypertension, dyslipidemia, hypothyroidism, history of cholecystectomy. The patient did have an extended-spectrum beta-lactamases producing Proteus right-sided pyelonephritis and was treated in [facility] and now with systemic inflammatory response syndrome must rule out sepsis, gastroenteritis and was started on meropenem and thus far the cultures are negative and except for the urine cultures are Gram-positive cocci, the patient's meropenem and now is off. She was given ceftriaxone one dose currently off of antibiotics. We will check on the identification of Gram-negative pollo and check on the CAT scan results. We will make further recommendation. CAT scan was done, but no results are available. Dr. Griffin's note from today is reviewed. We will follow with you. Jordin Andrews MD
--- NOTE | 2017-03-10 21:56 | CARD ---
APPROVED REPORT EKG Measurement Heart [id number] [place] [id number] <Conclusion> Atrial sensed, ventricular paced rhythm
[2017-03-11] MEDS: Nitroglycerin 2% Ointment Foilpak UD TOP SCH ×4 (00:31→18:51)
[2017-03-11] MEDS: Pantoprazole 40 mg EC Tab PO SCH ×2 (06:26→17:33)
[2017-03-11] MEDS: Levothyroxine 125 MCG TAB PO SCH (06:42)
[2017-03-11 06:55] LABS: ALB/GLOB RATIO 1.1 (1.1-1.8); ALKALINE PHOSPHATASE 82 U/L (38-126); ALT/SGPT 21 U/L (7-56); AST/SGOT 14 U/L (14-36); BILIRUBIN,TOTAL 0.9 mg/dL (0.2-1.3); BLOOD UREA NITROGEN 11 mg/dL (7-21); CALCIUM 8.9 mg/dL (8.4-10.5); CARBON DIOXIDE 27 mmol/L (21-33); CHLORIDE 102 mmol/L (98-107); GFR AFRICAN-AMERICAN > 60; GLUCOSE,RANDOM 93 mg/dL (70-110); POTASSIUM 4.3 mmol/L (3.6-5.0); SODIUM 132 mmol/L (132-148); TOTAL PROTEIN 5.9 g/dL (5.8-8.3)
[2017-03-11 07:05] LABS: MEAN CORPUSCULAR HEMOGLOBIN 21.1 pg (25.0-35.0); MEAN CORPUSCULAR HGB CONC 30.5 g/dl (31.0-37.0); MEAN PLATELET VOLUME 9.7 fl (7.0-11.0); RED CELL DISTRIBUTION WIDTH 16.4 % (11.5-14.5); WHITE BLOOD COUNT 7.4 10^3/ul (4.5-11.0)
[2017-03-11 07:29] LABS: INR 1.63 (0.93-1.08)
[2017-03-11 07:30] LABS: TROPONIN I 0.25 ng/mL
[2017-03-11 07:37] LABS: HEMATOCRIT 22.3 % (36.0-48.0)
[2017-03-11 09:10] LABS: HEMATOCRIT 24.9 % (36.0-48.0); MEAN CELL VOLUME 69.6 fl (80.0-105.0); MEAN CORPUSCULAR HEMOGLOBIN 21.2 pg (25.0-35.0); MEAN CORPUSCULAR HGB CONC 30.5 g/dl (31.0-37.0); MEAN PLATELET VOLUME 9.7 fl (7.0-11.0); RED CELL DISTRIBUTION WIDTH 16.2 % (11.5-14.5); WHITE BLOOD COUNT 7.4 10^3/ul (4.5-11.0)
[2017-03-11] MEDS: POLYETHYLENE GLYCOL 3350 17 GM/Dose PACKET PO SCH ×2 (09:27→17:32)
--- NOTE | 2017-03-11 09:57 | PN ---
DATE: 03/11/2017 SUBJECTIVE: I saw Ms. Hargrove this morning. She is a 77-year-old white female here with complaints of nausea, vomiting, abdominal pain, and diarrhea. The patient has improved significantly on a current therapeutic regimen, which consists of pantoprazole intervenous. The patient is on this medication twice daily. She denied any chest pain, shortness of breath, abdominal pain is minimal. Still complained about some mild discomfort in the periumbilical area and the left lower quadrant. She is apparently having dietary advance without difficulty. The patient denied any hematemesis or rectal bleeding. PHYSICAL EXAMINATION: VITAL SIGNS: I reviewed this patient's vital signs. HEENT: Noncontributory. LUNGS: Decreased breath sounds, basilar. HEART: Irregular rhythm. ABDOMEN: Protuberant, soft, now with mild tenderness only in the epigastric area as well as periumbilical area and left lower quadrant. LABORATORY DATA: I reviewed this patient's laboratory data. As of 9 o'clock yesterday, her H and H 8.3 and 27 with platelet count 418. INR decreased from roughly 7 range down to 2.1. Chemistry still noncontributory except for mild elevated troponins. Note that her B-natriuretic peptide on admission was 5100. ASSESSMENT: This is a 77-year-old female with complaints of nausea, vomiting, abdominal pain, and diarrhea. Since this is most likely suggestive of a gastroenteritis and she is improved on a current regimen especially of proton pump inhibitors. Note that her INR was considerably elevated. This will produce some bleeding in the area where she had ulcerations noted on her recent upper endoscopy. I reviewed the reports of respective consultants and also the CT report and images. Note that clinically, she has no evidence of gross rectal bleeding and diarrhea is called off as well. Some irregular chronic wall thickening may be due to residual gastroenteritis. Chronic leukocytosis, I reviewed the consults of Dr. Corona as well as Dr. Andrews. She is currently on antibiotics for therapy for the latter. Dietary lynn, the patient is handling her current diet without difficulty. I did not make any changes. Vernon Mckeon DO, PhD [facility] # [id number] MTDD
[2017-03-11] MEDS: Metoprolol Succinate 50 mg XL Tab PO SCH (11:02)
[2017-03-11] MEDS: AVAPRO 300MG PO SCH (14:06)
--- NOTE | 2017-03-11 14:43 | PN ---
DATE: 03/11/2017 SUBJECTIVE: The patient is in bed in no acute distress, nontoxic. PHYSICAL EXAMINATION: VITAL SIGNS: Temperature is 98, blood pressure is 115/60, respiratory rate of 20, heart rate of 96. HEENT: Examination of HEENT is unremarkable. NECK: Supple. LUNGS: Have decreased breath sounds. HEART: Normal S1, S2. ABDOMEN: Soft, nontender. LABORATORY DATA: Reveals a white count is 7.4, hemoglobin of 7, platelets of 363. Chemistries reveals a BUN of 11, creatinine of 1.0, procalcitonin 0.25. Procalcitonin 0.09. Troponins 0.25. Urinalysis is noted, unremarkable. Microbiology revealed Enterococcus faecalis in the urine. Dr. Mckeon's note is reviewed from this morning. ASSESSMENT AND PLAN: This is a 77-year-old female with peripheral artery disease, coronary artery disease, history of coronary bypass graft, chronic congestive heart failure, hypertension, dyslipidemia, hypothyroidism, history of cholecystectomy, did have extended-spectrum beta-lactamase Proteus, right-sided pyelonephritis in the past, admitted now this admission with sepsis with gastroenteritis, Enterococcus in the urine, although the urinalysis is not indicative of urinary tract infection with lack of urinary symptoms. Would not treat Enterococcus. No further antibiotics. Case discussed with Dr. Griffin. Jordin Andrews MD
--- NOTE | 2017-03-11 16:16 | PN ---
DATE: 03/11/2017 SUBJECTIVE: The patient has no complaints of any chest pain or shortness of breath. No headaches. The patient states she gets short of breath, when she ambulates. PHYSICAL EXAMINATION: VITAL SIGNS: Temperature is 98.2, pulse is 62, blood pressure is 112/54, and respiration is 20. GENERAL: The patient is lying in bed, flat, comfortable. HEENT: No oral lesion. Anicteric sclerae. Moist mucosa. NECK: No JVD, adenopathy, or thyromegaly. CARDIOVASCULAR: S1 and S2, regular. No murmurs, rubs, or gallops. LUNGS: Clear to auscultation bilaterally. No wheeze, rales, or rhonchi. ABDOMEN: Bowel sounds are positive, soft, nontender and nondistended. EXTREMITIES: No cyanosis, clubbing or edema. LABORATORY DATA: White count of 7.4 and hemoglobin of 7.6. Creatinine is 1.0. ASSESSMENT: 1. Acute anemia from iron deficiency. 2. Non-ST elevation myocardial infarction. 3. Chronic anemia, possibly from blood loss. 4. Peptic ulcer disease. 5. Automated implantable cardioverter defibrillator. 6. Congestive heart failure secondary to systolic dysfunction chronic with an ejection fraction of 15-20%. 7. Aortic stenosis. 8. Aortic regurgitation. 9. A 17-mm nodule of the right adrenal gland. PLAN: The patient is going to continue with Aldactone. She is on Lasix daily. Her hemoglobin is low, a repeat was low as well. I will give her 1 unit of transfusion. She did sign consent after explaining the reason for the transfusion in front of the nurse. The patient is on Synthroid for hypothyroidism. She is going to continue with Xanax as needed. Ferritin is added to the patient's labs. Her heart rate just going to the 150s. I did speak to Dr. Pierre, who is covering Dr. Gerard regarding the case. Gaurav Griffin MD
--- NOTE | 2017-03-11 21:55 | CON ---
CARDIOLOGY CONSULTATION DATE: 03/11/2017 Cardiology consultation (to Dr. Gerard). HISTORY OF PRESENT ILLNESS: The patient is a 77-year-old woman who presented 2 days ago with symptoms consistent with angina. She was found to have a hemoglobin of 7. The patient's past medical history is notable for an ischemic dilated cardiomyopathy, treated medically as well as with an ICD in the past. She currently is on Coumadin. In which, INRs checked at home and has been stable. She is on Coumadin because of atrial fibrillation. In addition, the patient suffers from hypertension, and hypercholesterolemia. She is status post coronary artery bypass surgery. SOCIAL HISTORY: The patient does not smoke. REVIEW OF SYSTEMS: A 14-point review of systems was reviewed in detail. No angina now, negative shortness of breath, negative edema in lower extremities. No dark stools. No dizziness. No syncope. She does have a history of peptic ulcer disease. PHYSICAL EXAMINATION: VITAL SIGNS: Blood pressure is 112/54, heart rate is paced in the 60s. NECK: Negative JVD. LUNGS: Without rales. HEART: With S1, S2. EXTREMITIES: Without edema. LABORATORIES: Reveals an EKG that is paced rhythm. Laboratories reveals troponin that peaked at 0.61 with a BUN and creatinine that are normal. The hemoglobin on admission was 6.9, currently 7.6. IMPRESSION: 1. Uzw-OA-soaqvljti myocardial infarction. 2. Unstable angina. 3. Marked anemia. 4. Ischemic dilated cardiomyopathy. 5. History of coronary artery bypass surgery. 6. Coronary artery disease. 7. Hypertension. 8. Hypercholesterolemia. PLAN: Given these findings, the patient will need packed red blood cells. At this time, we will need to hold off on the aspirin and any anticoagulation until we know the source of her bleeding. In the morning, we will transfer the care of the patient back to Dr. Gerard. Abe Pierre MD
[2017-03-12] MEDS: Nitroglycerin 2% Ointment Foilpak UD TOP SCH ×4 (00:48→17:11)
--- NOTE | 2017-03-12 02:25 | CON ---
ENDOCRINOLOGY CONSULTATION LOCATION: In room 276. HISTORY OF PRESENT ILLNESS: This is a 77-year-old female admitted with diffuse abdominal pain and on the background of significant cardiac vasculopathy, who is being referred now for evaluation of an abnormal adrenal nodule shown in the right adrenal gland by CAT scan of the abdomen and pelvis as noted. PAST MEDICAL HISTORY: History of hypothyroidism, currently on levothyroxine of 125 mcg daily; history of coronary artery disease with the previous coronary artery bypass graft surgery with underlying severe peripheral arterial disease and vasculopathy; history of chronic congestive heart failure and had previous admissions for the above; history of hypertension and dyslipidemia; has had a prior admission here for the ESBL producing profuse and associated pyelonephritis on the right side and now she has been admitted with persistent left upper quadrant pain and epigastric pain as noted. History of prior insertion of a pacemaker with concomitant internal defibrillator as noted. FAMILY HISTORY: Positive for hypertension and diabetes. SOCIAL HISTORY: The patient has supportive family. No known substance use. PAST SURGICAL HISTORY: Prior cholecystectomy for underlying cholelithiasis. REVIEW OF SYSTEMS: Admits to generalized body weakness with episodic bouts of dizziness and lightheadedness, worse on the day of admission. Also admits to easy fatigability and tiredness and suboptimal energy level. Admits to occasional precordial chest pain with shortness of breath especially on exertion. Her oral intake has been variable with nausea, dyspepsia and severe epigastric and left upper quadrant pain with radiation to the flank area. No recent alterations of bowel and urinary patterns. PHYSICAL EXAMINATION: GENERAL: This is an average built female in no apparent distress. VITAL SIGNS: With a blood pressure of 140/80, pulse of 70 beats per minute regular, temperature 99, respirations 20, height is 5 feet 1 inch, weight is 169 pounds. HEENT: Head normocephalic. Eyes anicteric with pink conjunctivae. Funduscopy not possible at this time. Ears, nose and throat otherwise normal. NECK: Supple. Thyroid gland is normal in size. No carotid bruits or any cervical adenopathy. CARDIOPULMONARY: Adynamic precordium. S1 and S2 are rapid and regular. LUNGS: Clear to auscultation. ABDOMEN: Flat, soft with positive bowel sounds. EXTREMITIES: No peripheral edema. Pulses are +2 bilaterally. LABORATORY DATA: Chemistry showed a BUN of 11, sodium 132, potassium 4.3, chloride 102, CO2 of 27, glucose 93 and creatinine 1.0. ASSESSMENT AND PLAN: This is a 77-year-old female with significant vasculopathy, presenting here with diffuse abdominal pain especially localized in the epigastric and left upper quadrant area, undergoing close cardiac and gastrointestinal workup at this time and is being referred also for endocrine evaluation because of an abnormal adrenal nodule noted incidentally by a CAT scan of the abdomen and pelvis on admission. 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 However, we have to exclude any underlying endocrinopathy, especially hypoadrenalism in the light of her current medical conditions. We will follow with you. Nayeli Juarez MD
[2017-03-12] MEDS: Pantoprazole 40 mg EC Tab PO SCH ×2 (05:38→17:11)
[2017-03-12] MEDS: Levothyroxine 125 MCG TAB PO SCH (05:38)
[2017-03-12 06:01] VITALS: O2SAT 99
[2017-03-12 06:03] LABS: BASO # 0.02 K/mm3 (0.0-2.0); BASO % 0.3 % (0.0-3.0); EOS # 0.3 (0.0-0.7); EOS % 3.5 % (1.5-5.0); GRAN # 5.19 (1.4-6.5); GRAN % 72.2 % (50.0-68.0); HEMATOCRIT 27.8 % (36.0-48.0); LYMPH # 1.1 (1.2-3.4); LYMPH % 14.9 % (22.0-35.0); MEAN CELL VOLUME 70.7 fl (80.0-105.0); MEAN CORPUSCULAR HEMOGLOBIN 21.6 pg (25.0-35.0); MEAN CORPUSCULAR HGB CONC 30.6 g/dl (31.0-37.0); MEAN PLATELET VOLUME 9.7 fl (7.0-11.0); MONO # 0.7 (0.1-0.6); MONO % 9.1 % (1.0-6.0); RED CELL DISTRIBUTION WIDTH 17.1 % (11.5-14.5); WHITE BLOOD COUNT 7.2 10^3/ul (4.5-11.0)
[2017-03-12 06:19] LABS: INR 1.53 (0.93-1.08)
[2017-03-12 06:37] LABS: ALB/GLOB RATIO 1.1 (1.1-1.8); BILIRUBIN,TOTAL 1.1 mg/dL (0.2-1.3); PHOSPHOROUS 4.4 mg/dL (2.5-4.5); POTASSIUM 4.2 mmol/L (3.6-5.0); TOTAL PROTEIN 6.3 g/dL (5.8-8.3); TROPONIN I 0.35 ng/mL
[2017-03-12 07:09] LABS: THYROID STIMULATING HORMONE 0.66 mIU/mL (0.46-4.68)
--- NOTE | 2017-03-12 08:04 | PN ---
DATE: 03/10/2017 SUBJECTIVE: I saw Ms. Hargrove this morning. She is a 77-year-old white female with complaints of nausea, vomiting, abdominal pain, and diarrhea. The patient is improved on the current therapeutic regimen, experiencing nausea with diarrhea, and the pain is decreased to roughly 3/10 relative to day of admission. The patient had liquid diet okay, yesterday, which she will advance right today. PHYSICAL EXAMINATION: VITAL SIGNS: I reviewed this patient's vital signs. HEENT: Noncontributory. LUNGS: Decreased breath sounds, basilar. HEART: Irregular rhythm. ABDOMEN: Soft, not distended. Tender in the periumbilical area, left lower quadrant and right lower quadrant. Bowel sounds are irregular. I read the reports of Dr. Corona and Dr. Gerard. LABORATORY DATA: Review of laboratory data indicate some decrease in H and H from 8.5 to 7.4, hemoglobin and platelets were also decreased . Some increase in white count to 16.8. Note that her INR is elevated at the level of 6.72 yesterday and day before INR was 6.99. B-natriuretic peptide not measured yesterday, however, Troponin is 0.61. Note that her biliary labs are within normal limits. ASSESSMENT AND PLAN: This is a 77-year-old white female with a history of multiple ulcerations found on recent endoscopy. She is now with nausea, vomiting, abdominal pain, and diarrhea. Note that the scenario is suggestive of a gastroenteritis, which is currently improving. She seems to do a lot better on Protonix rather than Nexium. The patient has an ongoing anemia probably related to bleeding from ulcerations due to the elevated INR, this has to be corrected. The patient still has some residual low-grade abdominal discomfort, but this is subsiding. She will be seen by multiple consultants today. The patient wishes to advance diet today. We will advance the very, very small portions of soft low residue to check her response. Vernon Mckeon DO, PhD [facility]
--- NOTE | 2017-03-12 08:44 | CON ---
DATE: 03/12/2017 PULMONARY CONSULTATION REFERRING PHYSICIAN: Dr. Waterman REASON FOR CONSULTATION: Pulmonary nodules. HISTORY OF PRESENT ILLNESS: The patient is a 77-year-old female, with past medical history significant for coronary artery disease, status post open heart surgery, ischemic cardiomyopathy, status post AICD placement, chronic pulmonary nodules (followed by the [facility]), esophageal ulcers, gastric ulcers, who presented to [facility] - originally on 03/08/2017 - with main complaints of epigastric pain and chest tightness for 1 day. In the emergency room, the patient was noted to be severely anemic. She was also noted to have positive cardiac enzymes. She was thus admitted for additional evaluation. The patient is not short of breath at rest. She does have occasional dyspnea on exertion. She also states to a chronic minimal occasional cough with occasional minimal sputum production - unchanged. The patient did present with chest tightness. This symptom has resolved. No history of coughing up of blood. No history of chest pain - made worse with deep respirations. No history of temperatures, chills or infectious exposure. No history of night sweats, weight loss or appetite change prior to the above events. No history of leg or calf pains. No history of syncope or diaphoresis. No history of recent travel or trauma. REVIEW OF SYSTEMS: No history of acute urinary symptoms. No new neurologic or musculoskeletal complaints. Rest of the review of systems negative. ALLERGIES: LIPITOR, AVELOX, PENICILLIN, BACTRIM. SOCIAL HISTORY: Positive for former tobacco usage. No alcohol. FAMILY HISTORY: No inheritable diseases. HOME MEDICATIONS: Include Neurontin, Vytorin, Cymbalta, Xanax, Coumadin, Synthroid, Avapro, Lasix, Aldactone, Zofran, Toprol, magnesium Physical exam shows the patient appears comfortable this morning. She is not short of breath at rest. Vitals: . PHYSICAL EXAMINATION: GENERAL: Patient appears comfortable this morning. She is not short of breath at rest. VITAL SIGNS: Temperature is 98.2, pulse 69, respirations 18/20, blood pressure 123/57. Oxygen saturation on room air is 99%. HEENT: Normocephalic, atraumatic. NECK: No JVD. CARDIOVASCULAR: Systolic ejection murmur at the lower left sternal border. No S3 gallop. LUNGS: Clear bilaterally. EXTREMITIES: Positive for mild edema. No cyanosis, no clubbing. Calves are nontender to palpation. GI: Abdomen is soft, nontender and nondistended. Bowel sounds are positive. SKIN: No acute rash. NEUROLOGIC: Exam limited at the present time. PERTINENT LABORATORY DATA: Abdomen/pelvic CT scan was done on 03/09/2017. There are two 4 mm nodules noted within the right middle lobe. There is no lymphadenopathy. There is short-segment right colonic wall thickening - possibly consistent with focal colitis. CBC: White count 7.2, hemoglobin 8.5, hematocrit 27.8, platelets of 343. Initial hemoglobin 6.9. Complete metabolic profile: Troponin 0.35. Rest of the metabolic profile is within normal limits. Peak troponin 0.65. IMPRESSION: 1. Non-ST elevation myocardial infarction. 2. Ischemic cardiomyopathy. 3. Pulmonary nodules--right middle lobe. 4. Anemia. 5. Peptic ulcer disease. PLAN: The patient presented to [facility] - originally on 03/08/2017 - with main complaints of abdominal pain and chest tightness for the past 1 day. As above, in the emergency room, the patient was found to be severely anemic. She was also found to have positive cardiac enzymes. She was thus admitted for additional evaluation. I did review the CAT scan of the abdomen and pelvis - noted above. There are 2 very small pulmonary nodules noted in the right middle lobe. I did discuss the CT scan with the patient at length. The patient states that she has a long history of pulmonary nodules - followed closely by the [facility]. The patient states that she was told recently that her CT scan has not changed. I would like to obtain the records from [facility] if possible. Inputs by Cardiology and GI are noted. The patient is status post transfusion. Her hemoglobin is much improved. At this point in time, the patient offers no significant pulmonary symptoms. Her lungs are clear on physical exam. Oxygen saturation on room air is 99%. Repeat a.m. labs are pending. Additional pulmonary intervention will be based on the clinical status of the patient. I will discuss the above with Dr. Griffin this morning. Thank you very much for this pulmonary consultation. Zion Ramos MD MTDD
[2017-03-12] MEDS: AVAPRO 300MG PO SCH (09:38)
[2017-03-12] MEDS: POLYETHYLENE GLYCOL 3350 17 GM/Dose PACKET PO SCH ×2 (09:38→17:09)
[2017-03-12] MEDS: Metoprolol Succinate 50 mg XL Tab PO SCH (09:38)
--- NOTE | 2017-03-12 10:25 | DS ---
HISTORY OF PRESENT ILLNESS: This is a 77-year-old female who is coming into the hospital because of chest pain. The patient had improvement of her chest pain. She was found to have a mildly elevated troponin. The patient also had a low hemoglobin. There was no obvious signs of bleeding. She has a history of peptic ulcer disease and was being followed by Dr. Mckeon. The patient's aspirin and Coumadin was put on hold. The patient does have CHF with EF with 15% to 20%. I did speak to Dr. Gerard and Dr. Mckeon today and is going to be continued conservative management with medications. The patient is currently comfortable. She is able to ambulate. She is open to the idea of going to Transitional Care Unit. She has no complaints of any headaches or dizziness. No nausea. No vomiting. PHYSICAL EXAMINATION: VITAL SIGNS: Temperature is 98.2, pulse is 69, blood pressure is 123/57, and respirations are 20. GENERAL: The patient is lying in bed, flat, comfortable. HEENT: No oral lesion. Anicteric sclerae. Moist mucosa. NECK: No JVD, adenopathy, or thyromegaly. CARDIOVASCULAR: S1 and S2, regular. No murmurs, rubs, or gallops. LUNGS: Clear to auscultation bilaterally. No wheeze, rales, or rhonchi. ABDOMEN: Bowel sounds are positive, soft, nontender and nondistended. EXTREMITIES: No cyanosis, clubbing or edema. ASSESSMENT: 1. Acute anemia from iron deficiency. 2. Non-ST elevation myocardial infarction, resolved. 3. Chronic anemia secondary to iron deficiency. 4. Peptic ulcer disease. 5. Automatic implantable cardioverter-defibrillator. 6. Congestive heart failure secondary to systolic dysfunction with ejection fraction of 15% to 20%. 7. Aortic stenosis. 8. Aortic regurgitation. 9. 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 10. A 4-mm nodules in the right middle lobe x2. PLAN: The patient is currently comfortable. She is on Aldactone daily. She is going to continue with Cymbalta. She is on Lasix daily. She is going to continue with Neurontin for neuropathy. She is on Protonix daily. The patient is on metoprolol. Her hemoglobin has stabilized at 8.4 after 1 unit of packed red blood cells yesterday. Troponin is mildly elevated at 0.35 this morning. Thyroid function is normal. She was seen by Dr. Juarez for the incidentaloma. The patient also has a two 4-mm nodules in the right middle lobe. According to the patient, she has had nodules in the past. I did get Dr. Ramos to see the patient. We will discharge to Transitional Care Unit. CONDITION: Stable. ACTIVITIES: Increase as tolerated. Gaurav Griffin MD
--- NOTE | 2017-03-12 13:04 | PN ---
DATE: 03/12/2017 SUBJECTIVE: I saw Ms. Hargrove this morning. She is a 77-year-old white female with complaints of nausea, vomiting, abdominal pain, diarrhea. The patient feels symptomatically improved on current therapeutic regimen. Epigastric pain is diminutive and discomfort in all quadrants has resolved for the most part as well. There has been no diarrhea, rectal bleeding, hematemesis. The patient had her meals yesterday with no problem. She received one unit of packed cells yesterday for anemia. Note that I discussed this case with nursing on the floor. Discussed with Dr. Sol. PHYSICAL EXAMINATION VITAL SIGNS: I reviewed this patient's vital signs. HEENT: Noncontributory. LUNGS: Decreased breath sounds, basilar. HEART: Irregular rhythm. ABDOMEN: Soft, mild tenderness in the epigastric area, left lower quadrant, periumbilical and right lower quadrant, noncontributory. She has normal bowel sounds. LABORATORY DATA: Current H and H as of 5 o'clock this morning 8.5 with platelet count of 343. INR is 1.53. Note that the troponin has been fluctuating in range of 0.25 to 0.4. Most recent one is 0.35. Biliary labs are within normal limits as well as AST, ALT, bilirubin, alkaline phosphatase. ASSESSMENT AND PLAN: This is a 77-year-old white female with nausea, vomiting, abdominal pain, diarrhea, probably secondary to gastroenteritis, which is since resolved. Note that the patient has been seen by multiple consultants including ID, who has been treating the patient symptomatically for an urinary tract infection. GI symptoms as indicated above is probably secondary to gastroenteritis, resolved. Note that the patient has history of esophagitis, Beltran ulcer, gastritis, gastric erosions, etc. She does symptomatically better on Protonix, pantoprazole versus Nexium. We had advised chronic maintenance with this rather than Nexium for the future. The patient had drop in her blood counts on admission probably secondary to extremely elevated INR. Due to issues relative to DVT and vascular problems both with substantial cardiac history, we will advise reinstitution of anticoagulant while PT/INR is on board. I think the benefit outweighs the risk. The patient was advised about the type of diet intake as well as antireflux precautions and continue on this for the time being. I understand the patient will be transferred to rehab going on this morning. Colonoscopy was discussed with nurses as well as Dr. Sol as well as the patient. This will be deferred at the current time point. Vernon Mckeon DO, PhD VILMA
--- NOTE | 2017-03-12 13:17 | PN ---
DATE: ENDOCRINOLOGY FOLLOWUP NOTE LOCATION: In room 276. SUBJECTIVE: This is a 77-year-old female presenting here with precordial chest pain and generalized body weakness and is now undergoing cardiac workup and management and is also being referred for evaluation of an incidental finding of a right adrenal nodule measuring 14 mm as noted. LABORATORY DATA: Her initial thyroid testing showed T4 of 12.0 with a TSH of 0.66, mostly likely is acute sick euthyroid syndrome. She remains clinically euthyroid and euadrenal at this time. Her serum cortisol level and ACTH levels and the results are pending at this time. The chemistries today showed BUN of 12, sodium 134, potassium 4.2, chloride 100, CO2 25, glucose 87, and creatinine 1.1. Her biochemical profile also looks optimal with no evidence of any kind of hypo or hyperadrenalism. ASSESSMENT AND PLAN: The most likely possibility would be adrenal incidentaloma which are benign and nonfunctioning small lesions in the adrenal gland. We will continue the serial chemistries and supplement accordingly as needed. We will follow with you. Nayeli Juarez MD
[2017-03-12] MEDS ORDERED: Digoxin 125 mcg (0.125 mg) Tab PO SCH (14:00)
--- NOTE | 2017-03-12 14:46 | PN ---
DATE: 03/12/2017 REASON FOR CONSULTATION AND FOLLOWUP: Gastrointestinal bleed, severe anemia, [id number] myocardial infarction, and coronary artery disease, asymptomatic. SUBJECTIVE: The patient denies any chest pain, shortness of breath or any palpitation. Son is at the bedside. PHYSICAL EXAMINATION: As follows: VITAL SIGNS: Temperature is afebrile, heart rate is 72, and blood pressure is 120/56. HEENT: PERRLA. Extraocular muscles are intact. NECK: Supple. No carotid bruits or thyromegaly. CHEST: Clear to auscultation. HEART: S1 and S2, regular. ABDOMEN: Soft. EXTREMITIES: Clubbing and cyanosis negative. LABORATORY DATA: WBC of 7.8, hemoglobin of 8.5, hematocrit of 27.8, and platelet count of 343. Chemistry shows sodium of 134, potassium of 4.2, chloride of 100, carbon dioxide of 25, anion gap of 14, BUN of 12, and creatinine of 1.1. Troponin of 0.35. TSH of 0.66. IMPRESSION: Coronary artery disease, coronary artery bypass graft, cardiomyopathy, severely decreased left ventricular function, status post automated implantable cardioverter defibrillator, and the patient had echocardiography on 03/09/2017, admitted with chest discomfort and severe anemia. No further episode of the chest pain. The patient's echocardiography showed ejection fraction of 15% to 20%, moderate aortic regurgitation, [id number] aortic stenosis, [id number] tricuspid regurgitation, mild pulmonary insufficiency. Try to reach today and also left a message on Sunday, but covering physician does not know the patient much, left the message today, as the patient wanted to be discussed with the care. The patient said that recently give the clearance to have an endoscopy. The patient had a large gastric esophageal ulcer, was on anticoagulation for possible atrial fibrillation all because of gastrointestinal bleed. RECOMMENDATIONS: In view of above, we will treat medically because the patient actively GI bleeding, asymptomatic, we will not go for any invasive cardiac workup, though the little troponin, possibly treat it medically. We will give 1 unit of packed RBC today and put conventional therapy for heart failure and cardiomyopathy medication including spironolactone, Lasix, digoxin, ARMESH inhibitors and Coreg, and we will change metoprolol to Coreg. We will follow with you. Awaiting for . to answer back. Brenda Gerard MD
[2017-03-12 14:58] VITALS: PULSE 75
--- NOTE | 2017-03-12 15:40 | CP.PCM.PN ---
Subjective - Date & Time of Evaluation Date of Evaluation: 03/12/17 Time of Evaluation: 10:20 - Subjective Subjective: Comfortable, not in distress, afebrile, no diarrhea. Objective - Vital Signs/Intake and Output Vital Signs (last 24 hours): Temp Pulse Resp BP Pulse Ox 98.2 F 69 20 123/57 L 99 03/12/17 05:59 03/12/17 05:59 03/12/17 05:59 03/12/17 05:59 03/12/17 05:59 Intake and Output: 03/12/17 03/12/17 06:59 18:59 Intake Total 200 Balance 200 - Medications Medications: Current Medications Alprazolam (Xanax) 0.5 mg PO HS [facility] PRN Reason: Protocol Last Admin: 03/11/17 21:45 Dose: 0.5 mg Docusate Sodium (Colace) 100 mg PO BID [facility] Last Admin: 03/11/17 17:33 Dose: 100 mg Duloxetine HCl (Cymbalta) 30 mg PO DAILY [facility] Last Admin: 03/11/17 09:27 Dose: 30 mg Furosemide (Lasix) 20 mg PO DAILY [facility] Last Admin: 03/11/17 11:03 Dose: 20 mg Gabapentin (Neurontin) 300 mg PO BID [facility] PRN Reason: Protocol Last Admin: 03/11/17 17:32 Dose: 300 mg Home Med (Home Med) 1 unit PO DAILY [facility] Last Admin: 03/11/17 14:06 Dose: Not Given Levothyroxine Sodium (Synthroid) 125 mcg PO 0600 [facility] Last Admin: 03/12/17 05:38 Dose: 125 mcg Metoprolol Succinate (Toprol Xl) 50 mg PO DAILY [facility] Last Admin: 03/11/17 11:02 Dose: 50 mg Nitroglycerin (Nitro-Bid 2% Oint) 0.5 ea TOP Q6H [facility] Last Admin: 03/12/17 05:38 Dose: 0.5 ea Pantoprazole Sodium (Protonix Ec Tab) 40 mg PO 0600,1600 [facility] Last Admin: 03/12/17 05:38 Dose: 40 mg Polyethylene Glycol (Miralax) 17 gm PO BID [facility] Last Admin: 03/11/17 17:32 Dose: 17 gm Spironolactone (Aldactone) 25 mg PO DAILY [facility] Last Admin: 03/11/17 11:02 Dose: 25 mg - Labs Labs: 03/12/17 05:00 03/12/17 05:00 PT 17.0 SECONDS (9.4-12.5) H 03/12/17 05:00 INR 1.53 (0.93-1.08) H 03/12/17 05:00 APTT 44.3 Seconds (25.1-36.5) H 03/08/17 13:31 - Constitutional Appears: Non-toxic - Head Exam Head Exam: NORMAL INSPECTION - ENT Exam ENT Exam: Mucous Membranes Moist - Neck Exam Neck Exam: absent: Meningismus - Respiratory Exam Respiratory Exam: Decreased Breath Sounds - Cardiovascular Exam Cardiovascular Exam: +S1, +S2 - GI/Abdominal Exam GI & Abdominal Exam: Soft. absent: Tenderness Assessment and Plan - Assessment and Plan (Free Text) Plan: Assessment systemic inflammatory response syndrome, currently no evidence of sepsis asymptomatic bacteriuria with E. faecalis history of ESBL-producing Proteus right sided pyelonephritis severe PAD CAD S/P CABG chronic CHF HTN dyslipidemia hypothyroidism S/P cholecystectomy Plan will continue to monitor the patient off antibiotics since she is at risk for nosocomial infections
[2017-03-12 16:35] VITALS: RESP 20
[2017-03-12 17:12] VITALS: BP 138/65
[2017-03-12 17:59] VITALS: TEMP 98
[2017-03-12 18:21] VITALS: PULSE 99
--- NOTE | 2017-03-12 19:08 | PN ---
DATE: 03/12/2017 ADDENDUM Initial progress note was dictated this morning. Called patient's [facility] doctor, tried to reach, Dr. Fernandez, telephone number [phone]. Ultimately, Dr. Ordonez called who is covering Dr. Fernandez; he is not aware of the patient. The same thing on Sunday afternoon, who does not know the patient, so did not get information, but Dr. Ordonez will get in touch with Dr. Fernandez and fax all the patient's report waiting for the fax to be received from [facility]. In the interim, we will continue to aggressively give one unit of packed RBC and the Lasix followed by and follow the blood work up in the morning. Thank you for providing us the opportunity in taking care of the patient. Brenda Gerard MD
== END 2017-03-12 18:56 | DRG 811 ==
LOC: ED 12:53 → ERH 15:45 → 2RSO 20:55
PROVIDERS: ADMIT Internal Medicine Nephrology; ATTEND Internal Medicine Nephrology
PROC: 30233N1 Transfusion of Nonautologous Red Blood Cells into Peripheral Vein, Percutaneous Approach (ICD-10-PCS; principal; 2017-03-11)
DX: D50.0 Iron deficiency anemia secondary to blood loss (chronic) (principal); I21.4 Non-ST elevation (NSTEMI) myocardial infarction; I42.0 Dilated cardiomyopathy; E87.1 Hypo-osmolality and hyponatremia; I50.22 Chronic systolic (congestive) heart failure; N39.0 Urinary tract infection, site not specified; I25.110 Atherosclerotic heart disease of native coronary artery with unstable angina pectoris; I11.0 Hypertensive heart disease with heart failure; E03.9 Hypothyroidism, unspecified; K44.9 Diaphragmatic hernia without obstruction or gangrene; K25.9 Gastric ulcer, unspecified as acute or chronic, without hemorrhage or perforation; K20.9 Esophagitis, unspecified; I73.9 Peripheral vascular disease, unspecified; I08.2 Rheumatic disorders of both aortic and tricuspid valves; K29.80 Duodenitis without bleeding; K29.70 Gastritis, unspecified, without bleeding; E78.00 Pure hypercholesterolemia, unspecified; I25.5 Ischemic cardiomyopathy; R91.8 Other nonspecific abnormal finding of lung field; K52.9 Noninfective gastroenteritis and colitis, unspecified; R79.1 Abnormal coagulation profile; I48.0 Paroxysmal atrial fibrillation; Z79.01 Long term (current) use of anticoagulants; Z95.5 Presence of coronary angioplasty implant and graft; Z95.810 Presence of automatic (implantable) cardiac defibrillator; Z95.1 Presence of aortocoronary bypass graft; Z90.49 Acquired absence of other specified parts of digestive tract; Z88.0 Allergy status to penicillin; Z87.891 Personal history of nicotine dependence

== ENCOUNTER 2017-03-12 18:56 | Inpatient (IN) | payer OTHER, BC ==
[2017-03-12 19:11] VITALS: BMI 30.2
[2017-03-12] MEDS ORDERED: Nitroglycerin 2% Ointment Foilpak UD TOP SCH (19:15)
[2017-03-12] MEDS: Nitroglycerin 2% Ointment Foilpak UD TOP SCH (22:39)
[2017-03-13] MEDS: Nitroglycerin 2% Ointment Foilpak UD TOP SCH ×4 (05:25→22:23)
[2017-03-13] MEDS: Levothyroxine 125 MCG TAB PO SCH (05:26)
[2017-03-13] MEDS: Pantoprazole 40 mg EC Tab PO SCH ×2 (05:26→17:54)
[2017-03-13 07:16] LABS: BASO # 0.04 K/mm3 (0.0-2.0); BASO % 0.5 % (0.0-3.0); EOS # 0.3 (0.0-0.7); EOS % 4.1 % (1.5-5.0); GRAN # 5.1 (1.4-6.5); GRAN % 66.7 % (50.0-68.0); LYMPH # 1.4 (1.2-3.4); LYMPH % 18.4 % (22.0-35.0); MEAN CELL VOLUME 71.8 fl (80.0-105.0); MEAN CORPUSCULAR HEMOGLOBIN 22.5 pg (25.0-35.0); MEAN CORPUSCULAR HGB CONC 31.3 g/dl (31.0-37.0); MEAN PLATELET VOLUME 9.9 fl (7.0-11.0); MONO # 0.8 (0.1-0.6); MONO % 10.3 % (1.0-6.0); RED CELL DISTRIBUTION WIDTH 17.8 % (11.5-14.5); WHITE BLOOD COUNT 7.7 10^3/ul (4.5-11.0)
--- NOTE | 2017-03-13 10:57 | CON ---
DATE: 03/13/2017 HISTORY OF PRESENT ILLNESS: I saw Ms. Hargrove this morning. She is a 77-year-old white female transferred from telemetry yesterday. The patient was admitted initially due to complaints of severe abdominal pain, nausea, vomiting, and diarrhea. The patient's diagnosis most likely secondary to a gastroenteritis, which resolved on therapeutic regimen, which consisted of high-dose proton pump inhibitor. The patient is also treated for urinary tract infection by Infectious Disease. The patient is currently sleeping in bed, shook her leg several times, examined when sleeping. PHYSICAL EXAMINATION: VITAL SIGNS: I reviewed the patient's vital signs. HEENT: Not completed. LUNGS: Decreased breath sounds, basilar. HEART: Irregular rhythm. ABDOMEN: Normal bowel sounds. LABORATORY DATA: Reviewed from yesterday. New labs are pending for today. ASSESSMENT: A 77-year-old white female with past medical history of esophagitis, Beltran ulcer, gastric erosions, ulcerations, severe gastritis, admitted with recent symptoms suggestive of gastroenteritis. GI symptoms are currently for the most part resolved except for some very mild epigastric discomfort and acid reflux related issues. I stressed on an ongoing basis antireflux precautions and use of Protonix once or twice daily, given before meals in the a.m. and before her dinner. In rehabilitation patient may subsequently be treated with one dose of Protonix in the morning before breakfast, and she may use postprandial Pepcid either 20 or 40 mg about an hour or so after meals 3-4 times per week. She can be followed up in the office. The patient will be followed up by Dr. Griffin and respected consultants later on this morning. I emphasized to the patient to use dietary discretion. She was evaluated by a conservation technician yesterday. Vernon Mckeon DO, PhD VILMA
[2017-03-13] MEDS: POLYETHYLENE GLYCOL 3350 17 GM/Dose PACKET PO SCH ×2 (11:06→17:51)
[2017-03-13] MEDS: Digoxin 125 mcg (0.125 mg) Tab PO SCH (14:21)
[2017-03-13 14:26] VITALS: PULSE 86
--- NOTE | 2017-03-13 17:10 | CP.PCM.CON ---
<Cathleen Amaya - Last Filed: 03/13/17 17:05> History of Present Illness - History of Present Illness History of Present Illness: Podiatry Consult Note - Dr. Bettencourt 77 year old female patient PMHx PAD, peripheral neuropathy seen and evaluated at bedside in TCU for painful, elongated nails. Patient hemodynamically stable and NAD. Patient is accompanied by daughter at bedside. States her elongated nails have been causing her discomfort when wearing shoes and with ambulation. Admits she has poor circulation and is weary of trimming her nails herself. Patient states she has painful neuropathy to bilateral LE and frequently feels numbness, burning, and tingling to her feet; admits to taking gabapentin for alleviation of symptoms. Denies N/V/F/D/C/SOB. Offers no other pedal complaints. Review of Systems - Review of Systems All systems: reviewed and no additional remarkable complaints except (as per HPI ) Past Patient History - Infectious Disease Hx of Infectious Diseases: None - Tetanus Immunizations Tetanus Immunization: Unknown - Past Social History Smoking Status: Former Smoker - CARDIAC Hx Cardiac Disorders: Yes Hx Hypertension: Yes - PULMONARY Hx Respiratory Disorders: No - NEUROLOGICAL Hx Neurological Disorder: No - HEENT Hx HEENT Problems: Yes Hx Cataracts: Yes - RENAL Hx Chronic Kidney Disease: No - ENDOCRINE/METABOLIC Hx Hypothyroidism: Yes - HEMATOLOGICAL/ONCOLOGICAL Hx Blood Disorders: No - INTEGUMENTARY Hx Dermatological Problems: No - MUSCULOSKELETAL/RHEUMATOLOGICAL Hx Falls: No - GASTROINTESTINAL Hx Gastrointestinal Disorders: Yes (Gastric Ulcers, GERD) - GENITOURINARY/GYNECOLOGICAL Hx Genitourinary Disorders: No Hx Reproductive Disorders: No - PSYCHIATRIC Hx Psychophysiologic Disorder: Yes Hx Anxiety: Yes Hx Substance Use: No - SURGICAL HISTORY Hx Surgeries: No Hx Cardiac Catheterization: Yes Hx Coronary Stent: Yes - ANESTHESIA Hx Anesthesia Reactions: No Hx Malignant Hyperthermia: No Meds Allergies/Adverse Reactions: Allergies Allergy/AdvReac Type Severity Reaction Status Date / Time atorvastatin [From Lipitor] Allergy RASH Verified 01/30/17 20:47 moxifloxacin [From Avelox] Allergy ANAPHYLAXIS Verified 01/30/17 20:47 Penicillins Allergy ANAPHYLAXIS Verified 01/30/17 20:47 sulfamethoxazole Allergy NAUSEA Verified 01/30/17 20:47 [From Bactrim] trimethoprim [From Bactrim] Allergy NAUSEA Verified 01/30/17 20:47 amoxicillin AdvReac ANAPHYLAXIS Verified 01/30/17 20:47 - Medications Medications: Current Medications Alprazolam (Xanax) 0.5 mg PO HS LILIAN PRN Reason: Protocol Last Admin: 03/12/17 22:39 Dose: 0.5 mg Carvedilol (Coreg) 3.125 mg PO 0800,1800 LIILAN PRN Reason: Protocol Last Admin: 03/13/17 08:25 Dose: Not Given Digoxin (Lanoxin) 0.125 mg PO 1400 LILIAN PRN Reason: Protocol Last Admin: 03/13/17 14:21 Dose: 0.125 mg Docusate Sodium (Colace) 100 mg PO BID LILIAN PRN Reason: Protocol Last Admin: 03/13/17 11:04 Dose: 100 mg Duloxetine HCl (Cymbalta) 30 mg PO DAILY LILIAN PRN Reason: Protocol Last Admin: 03/13/17 11:05 Dose: 30 mg Furosemide (Lasix) 40 mg PO DAILY LILIAN PRN Reason: Protocol Last Admin: 03/13/17 11:05 Dose: 40 mg Gabapentin (Neurontin) 300 mg PO BID LILIAN PRN Reason: Protocol Last Admin: 03/13/17 11:06 Dose: 300 mg Iron Sucrose 200 mg/ Sodium (Chloride) 110 mls @ 110 mls/hr IVPB ONCE ONE Stop: 03/13/17 17:17 Levothyroxine Sodium (Synthroid) 125 mcg PO 0600 LILIAN PRN Reason: Protocol Last Admin: 03/13/17 05:26 Dose: 125 mcg Lisinopril (Zestril) 2.5 mg PO DAILY LILIAN PRN Reason: Protocol Last Admin: 03/13/17 11:07 Dose: 2.5 mg Nitroglycerin (Nitro-Bid 2% Oint) 0.5 ea TOP Q6H LILIAN PRN Reason: Protocol Last Admin: 03/13/17 11:07 Dose: 0.5 ea Pantoprazole Sodium (Protonix Ec Tab) 40 mg PO 0600,1600 LILIAN PRN Reason: Protocol Last Admin: 03/13/17 05:26 Dose: 40 mg Polyethylene Glycol (Miralax) 17 gm PO BID LILIAN PRN Reason: Protocol Last Admin: 03/13/17 11:06 Dose: Not Given Polysaccharide Iron Complex (Ferrex-150) 150 mg PO DAILY LILIAN Spironolactone (Aldactone) 25 mg PO DAILY LILIAN PRN Reason: Protocol Last Admin: 03/13/17 11:04 Dose: 25 mg Physical Exam - Constitutional Appears: Well, Non-toxic, No Acute Distress - Extremities Exam Additional comments: VASC: DP and PT pulses nonpalpable. CFT WNL to all digits. Temperature gradient cool to cool b/l. +1 pitting edema noted to left lower extremity. NEURO: Gross sensation diminished bilaterally. DERM: Nails 1-5 b/l are thickened, elongated, and dystrophic with the presence of subungual debris. No open lesions noted. Waxy, friable plaque on anterior left lower leg. ORTHO: Pain on palpation nails 1-5 b/l. - Neurological Exam Neurological exam: Alert, Oriented x3 - Psychiatric Exam Psychiatric exam: Normal Affect, Normal Mood Results - Vital Signs Recent Vital Signs: Last Vital Signs Temp 97.9 F 03/13/17 06:00 Pulse 77 03/13/17 11:46 Resp 18 03/13/17 06:00 BP 126/62 03/13/17 11:07 Pulse Ox 98 03/13/17 06:00 - Labs Result Diagrams: 03/13/17 06:30 Labs: Laboratory Results - last 24 hr 03/13/17 06:30 WBC 7.7 RBC 4.18 Hgb 9.4 L Hct 30.0 L MCV 71.8 L MCH 22.5 L MCHC 31.3 RDW 17.8 H Plt Count 292 MPV 9.9 Gran % 66.7 Lymph % (Auto) 18.4 L [place] % (Auto) 10.3 H Eos % (Auto) 4.1 Baso % (Auto) 0.5 Gran # 5.10 Lymph # 1.4 [place] # 0.8 H Eos # 0.3 Baso # 0.04 Assessment & Plan - Assessment and Plan (Free Text) Assessment: 77 year old female patient with onychomycosis Plan: Patient seen and evaluated Discussed with attending, Dr. Bettencourt afebrile, WBC 7.7 Nails 1-5 b/l debrided in thickness and length without incident Educated patient on proper shoe gear Stable per podiatry standpoint Thank you for the consult, please reconsult podiatry as needed Podiatry to sign off on this patient <Viviana Bettencourt - Last Filed: 03/14/17 17:17> Meds - Medications Medications: Current Medications Alprazolam (Xanax) 0.5 mg PO HS LILIAN PRN Reason: Protocol Last Admin: 03/13/17 22:23 Dose: 0.5 mg Carvedilol (Coreg) 3.125 mg PO 0800,1800 LILIAN PRN Reason: Protocol Last Admin: 03/14/17 08:53 Dose: 3.125 mg Digoxin (Lanoxin) 0.125 mg PO 1400 LILIAN PRN Reason: Protocol Last Admin: 03/14/17 14:08 Dose: 0.125 mg Docusate Sodium (Colace) 100 mg PO BID LILIAN PRN Reason: Protocol Last Admin: 03/14/17 10:53 Dose: 100 mg Duloxetine HCl (Cymbalta) 30 mg PO DAILY LILIAN PRN Reason: Protocol Last Admin: 03/14/17 10:53 Dose: 30 mg Furosemide (Lasix) 40 mg PO DAILY LILIAN PRN Reason: Protocol Last Admin: 03/14/17 10:53 Dose: 40 mg Gabapentin (Neurontin) 300 mg PO BID LILIAN PRN Reason: Protocol Last Admin: 03/14/17 11:50 Dose: 300 mg Levothyroxine Sodium (Synthroid) 125 mcg PO 0600 LILIAN PRN Reason: Protocol Last Admin: 03/14/17 05:14 Dose: 125 mcg Lisinopril (Zestril) 2.5 mg PO DAILY LILIAN PRN Reason: Protocol Last Admin: 03/14/17 10:56 Dose: 2.5 mg Nitroglycerin (Nitro-Bid 2% Oint) 0.5 ea TOP Q6H LILIAN PRN Reason: Protocol Last Admin: 03/14/17 10:55 Dose: 0.5 ea Pantoprazole Sodium (Protonix Ec Tab) 40 mg PO 0600,1600 LILIAN PRN Reason: Protocol Last Admin: 03/14/17 05:14 Dose: 40 mg Polyethylene Glycol (Miralax) 17 gm PO BID LILIAN PRN Reason: Protocol Last Admin: 03/14/17 10:54 Dose: Not Given Polysaccharide Iron Complex (Ferrex-150) 150 mg PO DAILY LILIAN Last Admin: 03/14/17 10:53 Dose: 150 mg Spironolactone (Aldactone) 25 mg PO DAILY LILIAN PRN Reason: Protocol Last Admin: 03/14/17 10:52 Dose: 25 mg Results - Vital Signs Recent Vital Signs: Last Vital Signs Temp 97.9 F 03/14/17 06:00 Pulse 111 H 03/14/17 12:11 Resp 18 03/14/17 06:00 BP 137/68 03/14/17 10:56 Pulse Ox 97 03/14/17 12:11 - Labs Result Diagrams: 03/13/17 06:30 Attending/Attestation - Attestation I have personally seen and examined this patient.: Yes I have fully participated in the care of the patient.: Yes I have reviewed all pertinent clinical information: Yes
--- NOTE | 2017-03-13 20:16 | PN ---
DATE: 03/13/2017 SUBJECTIVE: This is a 77-year-old female who has come in to the hospital for Physical Therapy from the . The patient's initial H and P was reviewed and I do agree with. She initially was admitted to the hospital because of chest pain. She was found to have a [id number] FL. She was anemic and was given transfusion. She currently feels well. The patient is comfortable. The records from the hospital were reviewed. She has no headaches or dizziness. No nausea or vomiting. PHYSICAL EXAMINATION VITAL SIGNS: Temperature is 97.9, pulse is 74, blood pressure is 126/62, respirations are 18, and O2 saturation is 98%. Height is 5 feet 1 inches, weight is 160 pounds, BMI is 30. GENERAL: The patient is lying in bed, flat, comfortable. HEENT: No oral lesion. Anicteric sclerae. Moist mucosa. NECK: No JVD, adenopathy, or thyromegaly. CARDIOVASCULAR: S1 and S2, regular. No murmurs, rubs, or gallops. LUNGS: Clear to auscultation bilaterally. No wheeze, rales, or rhonchi. ABDOMEN: Bowel sounds are positive, soft, nontender and nondistended. EXTREMITIES: No cyanosis, clubbing or edema. ASSESSMENT: 1. Acute anemia secondary to iron deficiency. 2. Hkt-IY-gxrkuypfi myocardial infarction, resolved. 3. Peptic ulcer disease. 4. Automatic implantable cardioverter-defibrillator. 5. Congestive heart failure secondary to systolic dysfunction with an ejection fraction of 15 to 20%. 6. Aortic stenosis. 7. Aortic regurgitation. 8. A 17-mm incidentaloma. 9. A 4-mm nodule in the right middle lobe x2, seen by Pulmonary. PLAN: The patient is currently comfortable. She had a repeat hemoglobin that was 9.5 this morning. She is on Aldactone. She will continue that. The patient is on digoxin daily. She is on MiraLax for constipation. She is on Protonix daily. The patient is going to be on Synthroid for hypothyroidism and Zestril for hypertension. The patient had blood work that indicated that she has significant iron deficiency. Her iron saturation was 3% and her ferritin was 9.3. I will give her a dose of Venofer to help with her iron deficiency. Gaurav Griffin MD [facility] # [id number] 03/13/2017
--- NOTE | 2017-03-14 04:06 | CON ---
DATE: HISTORY OF PRESENT ILLNESS: The patient is a 77-year-old female. The patient was admitted into the hospital for evaluation of chest pain. Psych consult was called for evaluation of medications. The patient was on Cymbalta as well as Xanax. As per Transitional Care Unit rules and regulations, the patient needs to be seen for medication management. The patient presented well. The patient reported that at the present moment she feels much better. She denied any chest pain. The patient reported that she was on Cymbalta before and dose was decreased by her primary care physician, Dr. Del Toro, to 30 mg daily. The patient also reported that she was on Xanax as needed. The patient denied any side effects from the medication. The patient has history of depression, neuropathy, as well as chronic pain, and that is why Cymbalta was prescribed to her. The patient denied any thoughts of harming herself or others. The patient reported that she has four daughters and one son who is supposed to be very involved into the patient care. The patient denied any depressive symptoms. Denied any thoughts of harming herself or others. The patient was educated about risks, benefits, and alternatives of the medication, the patient verbalized understanding. The patient was educated about importance to take medication as it was prescribed, the patient verbalized understanding. We discussed about risk of falls on benzodiazepines. The patient verbalized understanding. VITAL SIGNS: Stable. MEDICATIONS: Reviewed. The patient is on Xanax 0.5 mg at night time as needed. The patient is on Cymbalta 30 mg daily, and Neurontin and the rest of the medications. LABS: Reviewed, seems to be stable. Hemoglobin and hematocrit 9.4 and 30.0. MENTAL STATUS EXAMINATION: The patient alert and oriented, pleasant, cooperative, good eye contact. Speech was normal rate, tone, quality and quantity. Mood described as "I feel much better." Affect was reactive, mood congruent. Thought process coherent and goal directed. Thought content, the patient denied visual, auditory or tactile hallucinations and paranoid ideation. The patient does not present to be psychotic. Insight and judgment were fair. Impulses were well controlled. IMPRESSION: As per history, the patient was taking Cymbalta for chronic pain and neuropathy. The patient has periods of anxiety which is related to the medical issues, rule out mood disorder, anxiety disorder due to general medical condition. PLAN: The patient does not want to adjust medication. The patient tolerated that medication well. The patient takes this medication for years. This investigative writer will recommend to continue everything as it is. The patient was seen by Dr. Del Toro, primary care physician. The patient was advised to keep her appointment and take medication as prescribed. The patient posed no imminent danger to self or others. This investigative writer will sign off. Should you have any questions, give me a call back. Thank you very much for letting me to participate in the care of your patient. Britney Ornelas MD
[2017-03-14] MEDS: Levothyroxine 125 MCG TAB PO SCH (05:14)
[2017-03-14] MEDS: Nitroglycerin 2% Ointment Foilpak UD TOP SCH ×4 (05:14→22:07)
[2017-03-14] MEDS: Pantoprazole 40 mg EC Tab PO SCH ×2 (05:14→17:00)
[2017-03-14 06:03] VITALS: RESP 18
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
[2017-03-14] MEDS ORDERED: Iron Complex Polysacch 150mg Cap PO SCH (10:00)
[2017-03-14] MEDS: POLYETHYLENE GLYCOL 3350 17 GM/Dose PACKET PO SCH ×2 (10:54→18:37)
--- NOTE | 2017-03-14 12:58 | PN ---
DATE: 03/14/2017 LOCATION: The patient is in room 327, bed 2. REASON FOR CONSULTATION AND FOLLOWUP: Non-ST segment elevation myocardial infarction, coronary artery disease status post coronary artery bypass surgery, status post AICD insertion, admitted with GI bleeding, positive troponin, asymptomatic now, deconditioning. SUBJECTIVE: The patient in Transitional Care Unit getting physical therapy. Denies any chest pain, shortness of breath or palpitation. PHYSICAL EXAMINATION: VITAL SIGNS: Blood pressure 137/68, respirations 18, pulse 84, and temperature 97.9. HEENT: Head is normocephalic. Eyes; pupils are normal. Conjunctivae slightly pale. NECK: JVP is low. Carotids are equal. THORAX: AP diameter normal. LUNGS: Clear. CARDIOVASCULAR: S1 and S2. ABDOMEN: Soft. No tenderness. No organomegaly. Bowel sounds are normal. EXTREMITIES: No clubbing. No cyanosis. LABORATORY DATA: WBC 7.7, hemoglobin 9.4, hematocrit 30.0, and platelets 292. Other labs are done on the medical floor and they were reported in our previous notes. DIAGNOSES: Epigastric pain, which also radiated to the chest. We will follow hemoglobin and hematocrit, status post blood transfusion. The patient's hemoglobin fell down to 6.9. The patient's troponin was elevated initially then it became normal. The patient stayed asymptomatic from cardiac point of view so was treated medically. Cardiomyopathy, most recent echocardiogram showed ejection fraction of 15-20%, status post automated implantable cardioverter defibrillator implant, history of coronary artery bypass surgery in 1999. Automated implantable cardioverter defibrillator was placed 13 years ago, hypertension, hyperlipidemia, and paroxysmal atrial fibrillation. The patient was on Coumadin medications off because gastrointestinal bleeding. Oxec-uf-emwzoeeo mitral regurgitation, mild pulmonary hypertension, mild tricuspid regurgitation, and aortic regurgitation. PLAN: The patient follows with irrigator, Dr. Fernandez, at [facility]. From cardiac point of view, the patient is asymptomatic, we will continue to treat medically. No plan of intervention at this point. The patient is asymptomatic from cardiac point of view and also had GI bleeding upon hospital admission. Slight troponin elevation was secondary to CHF versus underlying coronary artery disease with associated severe anemia. Plan is we will continue to treat medically the patient and she will follow with her irrigator, Dr. Fernandez, at [facility]. The patient is on Coreg 3.125 b.i.d., Aldactone 25 mg daily, iron polysaccharide 150 mg p.o. daily, digoxin 0.125 p.o. daily, furosemide 40 mg p.o. daily, Neurontin 300 mg b.i.d., Protonix 40 daily, Synthroid 125 mcg p.o. daily, and lisinopril 2.5 mg p.o. daily. Continue physical therapy. We will follow with you. Brenda Regalado MD
[2017-03-14] MEDS: Digoxin 125 mcg (0.125 mg) Tab PO SCH (14:08)
[2017-03-15] MEDS: Nitroglycerin 2% Ointment Foilpak UD TOP SCH (05:21)
[2017-03-15] MEDS: Pantoprazole 40 mg EC Tab PO SCH (05:23)
[2017-03-15] MEDS: Levothyroxine 125 MCG TAB PO SCH (05:23)
[2017-03-15 06:22] VITALS: PULSE 85; TEMP 98.2; O2SAT 97
[2017-03-15 08:50] VITALS: BP 117/53
--- NOTE | 2017-03-15 14:42 | DS ---
HISTORY OF PRESENT ILLNESS: This is a 77-year-old female who had come into the Transitional Care Unit for rehab. The patient initially was in the hospital. She had anemia. She was transfused. The patient does have a history of CHF secondary to systolic dysfunction with EF of 15-20%. Her aspirin and Coumadin had been placed on hold. The patient has improvement of her anemia. She does have iron deficiency and this is most likely the cause. She has no signs of bleeding. She was seen by Dr. Mckeon and Dr. Gerard. I will start the patient's Coumadin. She is going to restart her aspirin in 1 week. The patient is currently comfortable. She has no complaints of any headaches or dizziness. No nausea, no vomiting. She is going to be discharged home today. She has also been given a prescription for Protonix. PHYSICAL EXAMINATION: VITAL SIGNS: Temperature is 98.2, pulse of 85, blood [id number], respirations 18, O2 saturation 97%. GENERAL: The patient is lying in bed, flat, comfortable. HEENT: No oral lesion. Anicteric sclerae. Moist mucosa. NECK: No JVD, adenopathy, or thyromegaly. CARDIOVASCULAR: S1 and S2, regular. No murmurs, rubs, or gallops. LUNGS: Clear to auscultation bilaterally. No wheeze, rales, or rhonchi. ABDOMEN: Bowel sounds are positive, soft, nontender and nondistended. EXTREMITIES: no cyanosis, clubbing or edema. Gaurav Griffin MD
== END 2017-03-15 09:57 | disposition home or self-care (01) | DRG 811 ==
LOC: TRCU 18:56
PROVIDERS: ADMIT Internal Medicine Nephrology; ATTEND Internal Medicine Nephrology
PROC: F08Z4FZ Home Management Treatment using Assistive, Adaptive, Supportive or Protective Equipment (ICD-10-PCS; 2017-03-13)
PROC: 0HBRXZZ Excision of Toe Nail, External Approach (ICD-10-PCS; 2017-03-13)
PROC: 0HBRXZZ Excision of Toe Nail, External Approach (ICD-10-PCS; 2017-03-13)
PROC: 0HBRXZZ Excision of Toe Nail, External Approach (ICD-10-PCS; 2017-03-13)
PROC: 0HBRXZZ Excision of Toe Nail, External Approach (ICD-10-PCS; 2017-03-13)
PROC: 0HBRXZZ Excision of Toe Nail, External Approach (ICD-10-PCS; 2017-03-13)
PROC: 0HBRXZZ Excision of Toe Nail, External Approach (ICD-10-PCS; 2017-03-13)
PROC: 0HBRXZZ Excision of Toe Nail, External Approach (ICD-10-PCS; 2017-03-13)
PROC: 0HBRXZZ Excision of Toe Nail, External Approach (ICD-10-PCS; 2017-03-13)
PROC: 0HBRXZZ Excision of Toe Nail, External Approach (ICD-10-PCS; 2017-03-13)
PROC: 0HBRXZZ Excision of Toe Nail, External Approach (ICD-10-PCS; 2017-03-13)
PROC: F07Z9FZ Gait Training/Functional Ambulation Treatment using Assistive, Adaptive, Supportive or Protective Equipment (ICD-10-PCS; principal; 2017-03-14)
PROC: F07L6YZ Therapeutic Exercise Treatment of Musculoskeletal System - Lower Back / Lower Extremity using Other Equipment (ICD-10-PCS; 2017-03-14)
DX: D50.9 Iron deficiency anemia, unspecified (principal); I21.4 Non-ST elevation (NSTEMI) myocardial infarction; I50.22 Chronic systolic (congestive) heart failure; I11.0 Hypertensive heart disease with heart failure; G62.9 Polyneuropathy, unspecified; I08.3 Combined rheumatic disorders of mitral, aortic and tricuspid valves; I48.0 Paroxysmal atrial fibrillation; B35.1 Tinea unguium; I27.20 Pulmonary hypertension, unspecified; E03.9 Hypothyroidism, unspecified; F06.4 Anxiety disorder due to known physiological condition; I25.10 Atherosclerotic heart disease of native coronary artery without angina pectoris; F32.9 Major depressive disorder, single episode, unspecified; K21.0 Gastro-esophageal reflux disease with esophagitis; K29.70 Gastritis, unspecified, without bleeding; K52.9 Noninfective gastroenteritis and colitis, unspecified; G89.29 Other chronic pain; I25.5 Ischemic cardiomyopathy; E78.5 Hyperlipidemia, unspecified; K27.9 Peptic ulcer, site unspecified, unspecified as acute or chronic, without hemorrhage or perforation; R91.8 Other nonspecific abnormal finding of lung field; Z95.810 Presence of automatic (implantable) cardiac defibrillator; Z95.5 Presence of coronary angioplasty implant and graft; Z87.891 Personal history of nicotine dependence; Z95.1 Presence of aortocoronary bypass graft

== ENCOUNTER 2017-05-01 14:01 | Inpatient (IN) | payer MEDICARE, BC ==
[2017-05-01 14:01] VITALS: PULSE 86; BMI 29.6
--- NOTE | 2017-05-01 15:50 | ED PDOC ---
"Arrival/HPI - General Chief Complaint: Abdominal Pain Time Seen by Provider: 05/01/17 15:30 Historian: Patient - History of Present Illness Narrative History of Present Illness (Text): 05/01/17 15:34 77 y/o female, pmh including htn/hyperlipidemia/hypothyroidism/PAD/gastric ulcer , CABG 1999 and AICD 13 years ago, on coumadin, allergic to fluoroquinolones/ sulfa/penicillin/statins, c/o epigastric and LLQ pain x 2 days with nausea and vomiting. Pt. stated that she had epigastric and LLQ pain on and off for the past 2 days, associated with nausea and vomiting, no palpitation, no night sweat. Daughter also reported that the patient had a fall last week due to the low blood pressure with an episode reading of 90s/60s which she didn't pass out but had a fall with lower back injury and posterior head injury which she admits the pain didn't seek any medical care, no hematuria, no stool discoloration, no night sweat, no other medical or psychological complaints. Past Medical History - Provider Review Nursing Documentation Reviewed: Yes - Infectious Disease Hx of Infectious Diseases: None - Tetanus Immunization Tetanus Immunization: Unknown - Cardiac Hx Cardiac Disorders: Yes Hx Hypertension: Yes - Pulmonary Hx Respiratory Disorders: No - Neurological Hx Neurological Disorder: No - HEENT Hx HEENT Disorder: Yes Hx Cataracts: Yes - Renal Hx Renal Disorder: No - Endocrine/Metabolic Hx Hypothyroidism: Yes - Hematological/Oncological Hx Blood Disorders: No - Integumentary Hx Dermatological Disorder: No - Musculoskeletal/Rheumatological Hx Falls: No - Gastrointestinal Hx Gastrointestinal Disorders: Yes (Gastric Ulcers, GERD) Hx Gastroesophageal Reflux: Yes Hx Gastrointestinal Ulcer: Yes - Genitourinary/Gynecological Hx Genitourinary Disorders: No Hx Reproductive Disorders: No - Psychiatric Hx Psychophysiologic Disorder: Yes Hx Anxiety: Yes Hx Substance Use: No - Surgical History Hx Cardiac Catheterization: Yes Hx Coronary Stent: Yes Hx Open Heart Surgery: Yes Other/Comment: Bypass surgery. Cellulites in legs - Anesthesia Hx Anesthesia Reactions: No Hx Malignant Hyperthermia: No - Suicidal Assessment Feels Threatened In Home Enviroment: No Family/Social History - Physician Review Nursing Documentation Reviewed: Yes Family/Social History: Unknown Family HX Smoking Status: Former Smoker Hx Alcohol Use: No Hx Substance Use: No Hx Substance Use Treatment: No Allergies/Home Meds Allergies/Adverse Reactions: Allergies atorvastatin [From Lipitor] Allergy (Verified 05/01/17 15:09) RASH moxifloxacin [From Avelox] Allergy (Verified 05/01/17 15:09) ANAPHYLAXIS Penicillins Allergy (Verified 05/01/17 15:09) ANAPHYLAXIS sulfamethoxazole [From Bactrim] Allergy (Verified 05/01/17 15:09) NAUSEA trimethoprim [From Bactrim] Allergy (Verified 05/01/17 15:09) NAUSEA amoxicillin Adverse Reaction (Verified 05/01/17 15:09) ANAPHYLAXIS Home Medications: Home Meds Medication Instructions Recorded Confirmed Aspirin [Adult Low Dose Aspirin EC] 81 mg PO DAILY 10/23/16 05/02/17 DULoxetine [Cymbalta] 30 mg PO DAILY 10/23/16 05/02/17 Furosemide [Lasix] 20 tab PO DAILY 10/23/16 05/02/17 Gabapentin [Neurontin] 300 mg PO BID 10/23/16 05/02/17 Irbesartan [Avapro] 300 mg PO DAILY 10/23/16 05/02/17 Levothyroxine [Synthroid] 125 mcg PO DAILY 10/23/16 05/02/17 Magnesium Oxide [Magnesium] 500 mg PO DAILY 10/23/16 05/02/17 Metoprolol Succinate [Toprol XL] 50 mg PO DAILY 10/23/16 05/02/17 Ondansetron ODT [Zofran ODT] 4 mg PO TID PRN 10/23/16 05/02/17 Ezetimibe/Simvastatin [Vytorin 1 tab PO DAILY 12/01/16 05/02/17 10-40 mg Tablet] Cholecalciferol (Vitamin D3) 2,000 unit PO DAILY 02/07/17 05/02/17 [Vitamin D3] Spironolactone [Aldactone] 25 mg PO DAILY 02/07/17 05/02/17 Review of Systems - Review of Systems Constitutional: absent: Fatigue, Fevers Eyes: absent: Vision Changes ENT: absent: Hearing Changes Respiratory: absent: SOB, Cough Cardiovascular: absent: Chest Pain Gastrointestinal: Abdominal Pain, Nausea, Vomiting. absent: Constipation, Diarrhea Musculoskeletal: Back Pain. absent: Arthralgias, Neck Pain, Joint Swelling, Myalgias Skin: absent: Rash, Pruritis Neurological: Headache Psychiatric: absent: Anxiety, Depression Physical Exam Vital Signs Reviewed: Yes Vital Signs Temp Pulse Resp BP Pulse Ox 05/02/17 01:25 77 18 124/59 L 98 05/01/17 17:59 74 18 141/65 97 05/01/17 16:01 89 18 145/69 97 05/01/17 15:03 98.5 F 95 H 18 148/74 99 Temperature: Afebrile Blood Pressure: Normal Pulse: Regular Respiratory Rate: Normal Appearance: Positive for: Well-Appearing, Non-Toxic, Comfortable Pain Distress: Moderate Mental Status: Positive for: Alert and Oriented X 3 - Systems Exam Head: Present: Atraumatic, Normocephalic, Tenderness (posterior occipital region ). No: Contusion, Swelling, Ecchymosis, Abrasion, Laceration Pupils: Present: PERRL Extroacular Muscles: Present: EOMI Conjunctiva: Present: Normal Mouth: Present: Moist Mucous Membranes Neck: Present: Normal Range of Motion Respiratory/Chest: Present: Clear to Auscultation, Good Air Exchange. No: Respiratory Distress, Accessory Muscle Use Cardiovascular: Present: Regular Rate and Rhythm, Murmurs Abdomen: Present: Tenderness (+epigasric and +LLQ tenderness), Normal Bowel Sounds. No: Distention, Peritoneal Signs Back: Present: Normal Inspection. No: CVA Tenderness, Midline Tenderness, Paraspinal Tenderness, Pain with Leg Raise, Decubitus Ulcer Upper Extremity: Present: Normal Inspection. No: Cyanosis, Edema Lower Extremity: Present: Normal Inspection, NORMAL PULSES, Normal ROM, Capillary Refill < 2 s. No: Edema, Deformity Neurological: Present: GCS=15, CN II-XII Intact, Speech Normal, Motor Func Grossly Intact, Gait Normal, Memory Normal Skin: Present: Warm, Dry, Normal Color. 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 -Labs show no acute findings except wbc 15.5 (blood cultures ordered), K+ 5.7 from 4.2 (EKG show no acute changes, PO kayaxylate ordered) -1set of troponin is 0.04 which is indeterminate (she is anticoagulated) -BNP is 6090 from 5110 -UA show -Chest xray: No active disease -Influenza is negative -LS spine xray: +degenerative changes noted, no acute fracture or subluxation. -Ct head: Generalized atrophy. Nonspecific white matter changes. -CT abdomen and pelvis: Terminal ileal and cecal wall thickening, similar findings seen on the prior study, infectious/inflammatory versus neoplastic; no CT findings of appendicitis or diverticulitis; cholecystectomy with biliary ductal dilatation; small right middle lobe nodules , unchanged; no acute solid visceral abnormality. -I spoke to the patient and the daughter, stated that she has been crying frequently and frequently feeling depressed. -Pt. 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 -IV flagyl ordered. 05/01/17 22:23 -Dr. Stauffer paged. 05/01/17 22:33 -Dr. Stauffer called back, discussed about the case in detail including labs/ radiology results, agreed to have GI Dr. Gómez/Health Specialist Dr. Pierre/ Psychiatrist Dr. Alexander to be on the routine consult. -Pt. evaluted by Dr. Barrow and agreed on the treatment/admission plan, he will put in the admission order to telemetry. - Lab Interpretations Lab Results: 05/01/17 16:15 05/01/17 16:15 Lab Results 05/01/17 20:40: Influenza Typ A,B (EIA) Negative for flu a/b 05/01/17 16:15: WBC 15.5 H D, RBC 4.51, Hgb 11.1 L, Hct 35.1 L, MCV 77.8 L D, MCH 24.6 L, MCHC 31.6, RDW 23.1 H, Plt Count 368, MPV 9.7, Gran % 88.8 H, Lymph % (Auto) 6.3 L, [place] % (Auto) 4.6, Eos % (Auto) 0.2 L, Baso % (Auto) 0.1, Gran # 13.76 H, Lymph # 1.0 L, [place]itt # 0.7 H, Eos # 0.0, Baso # 0.02 05/01/17 16:15: Sodium 135, Potassium 5.7 H* D, Chloride 98, Carbon Dioxide 27, Anion Gap 16, BUN 18, Creatinine 1.2, Est GFR ( Amer) 53, Est GFR (Non- Af Amer) 44, Random Glucose 110, Calcium 9.6, Magnesium 2.2, Total Bilirubin 0.7 , AST 15, ALT 29, Alkaline Phosphatase 106, Lactate Dehydrogenase 587, Total Creatine Kinase 28 L, Troponin I 0.04 D, NT-Pro-B Natriuret Pep 6090 H, Total Protein 6.7, Albumin 3.5, Globulin 3.2, Albumin/Globulin Ratio 1.1, Lipase 75 05/01/17 16:15: PT 26.8 H, INR 2.31 H, APTT 40.0 H 05/01/17 16:00: Blood Type B POSITIVE, Antibody Screen Negative, BBK History Checked Patient has bt I have reviewed the lab results: Yes - RAD Interpretation Radiology Orders: 05/01/17 15:52 ABD PELVIS PO & IV CONTRAST [CT] Stat HEAD W/O CONTRAST [CT] Stat CHEST TWO VIEWS (PA/LAT) [RAD] Stat LS SPINE WITH OBL > 18 YRS OLD [RAD] Stat CT head: PROCEDURE: CT HEAD WITHOUT CONTRAST. HISTORY: fall last week, on coumadin COMPARISON: None available. TECHNIQUE: Axial computed tomography images were obtained through the head/brain without intravenous contrast. Radiation dose: Total exam DLP = 1039.79 mGy-cm. This CT exam was performed using one or more of the following dose reduction techniques: Automated exposure control, adjustment of the mA and/or kV according to patient size, and/or use of iterative reconstruction technique. FINDINGS: HEMORRHAGE: No intracranial hemorrhage. BRAIN: Diffuse atrophy with prominence of the ventricles and sulci noted. No mass effect or edema. Intracranial atherosclerotic calcifications. Scattered periventricular and subcortical white matter hypodensities, which are nonspecific, but often seen with chronic microvascular ischemic disease. Please note that MRI with diffusion imaging is more sensitive in the detection of acute ischemic event. VENTRICLES: No hydrocephalus. CALVARIUM: Unremarkable. PARANASAL SINUSES: Unremarkable as visualized. No significant inflammatory changes. MASTOID AIR CELLS: Unremarkable as visualized. No inflammatory changes. OTHER FINDINGS: None. IMPRESSION: Generalized atrophy. Nonspecific white matter changes. ---- CT abdomen and pelvis: FINDINGS: Lower thorax: Heart size is normal.There is streak artifact from pacemaker leads. There is minimal atelectasis and scarring at the lung bases. There is a 3 mm right middle lobe nodule, unchanged. There is a 6 mm right middle lobe nodule, unchanged There is a hiatal hernia. ABDOMEN: Liver: There is fatty infiltration of the liver. Gallbladder and bile ducts: Gallbladder is absent. Common duct is dilated, 12 mm in diameter. There is mild intrahepatic biliary ductal dilatation Pancreas: Pancreas is atrophic. Spleen: unremarkable Adrenals: There is a 2 cm right adrenal nodule, unchanged. There is nodular thickening of the left adrenal, unchanged. GWEN JEWELL | Final Radiology Report CONFIDENTIALITY STATEMENT This report is intended only for use by the referring physician, and only in accordance with law. If you received this in error, call [phone]. Page 2 of 2 Kidneys and ureters: There are renal vascular calcifications bilaterally. Right kidney is atrophic 7.2 cm in length. Left kidney is normal in size, 11 cm in length. There is a 7 mm low attenuation left renal lesion not a simple cyst by CT criteria.There is no pelvocaliectasis or ureterectasis. Stomach and bowel: Stomach is partially distended with contrast and air. Rotation is normal. There is no small bowel obstruction. Appendix is unremarkable. There is distal ileal wall thickening. There is cecal wall thickening. There is moderate stool throughout the colon. There is minimal diverticulosis Appendix: See stomach and bowel PELVIS: Bladder: unremarkable Reproductive: Uterus and adnexal structures are unremarkable. ABDOMEN and PELVIS: Intraperitoneal space: There is no free air. There is no free fluid. Bones/joints: There are degenerative changes in the osseus structures. There are postsurgical changes of median sternotomy. Soft tissues: unremarkable Vasculature: There are vascular calcifications. There is a left iliac series there is nonperfusion of the right iliac artery. There is a patent fem-fem graft. Lymph nodes: There is shotty para-aortic adenopathy. IMPRESSION: Terminal ileal and cecal wall thickening, similar findings seen on the prior study, infectious/inflammatory versus neoplastic; no CT findings of appendicitis or diverticulitis; cholecystectomy with biliary ductal dilatation; small right middle lobe nodules , unchanged; no acute solid visceral abnormality Additional nonemergent findings as described above. Thank you for allowing us to participate in the care of your patient. Dictated and Authenticated by: Jailene Islas MD 05/01/2017 8:09 PM Eastern Time ([place] & [place]) ------ Chest xray: HISTORY: medical clearance COMPARISON: 03/08/2017 TECHNIQUE: Chest PA and lateral FINDINGS: LUNGS: No active pulmonary disease. PLEURA: No significant pleural effusion identified. No pneumothorax apparent. CARDIOVASCULAR: No radiographic findings to suggest acute or significant cardiovascular disease. Position/ configuration of pacemaker\\AICD device: Satisfactory. OSSEOUS STRUCTURES: No significant abnormalities. VISUALIZED UPPER ABDOMEN: Normal. OTHER FINDINGS: None. IMPRESSION: No active disease. No significant interval change compared to the prior examination(s). 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 Interpreted by ED Physician: Yes Type: 12 lead EKG Comparison: Com.w/previous EKG - Medication Orders Current Medication Orders: Alprazolam (Xanax) 0.5 mg PO HS [facility] PRN Reason: Protocol Aspirin (Ecotrin) 81 mg PO DAILY [facility] Last Admin: 05/02/17 10:44 Dose: 81 mg Duloxetine HCl (Cymbalta) 30 mg PO DAILY [facility] Last Admin: 05/02/17 10:45 Dose: 30 mg Furosemide (Lasix) 20 mg PO DAILY [facility] Last Admin: 05/02/17 10:45 Dose: 20 mg MAR Blood Pressure Document 05/02/17 10:45 MF (Rec: 05/02/17 10:45 [id number] Blood Pressure Blood Pressure (100/60-150/90) 111/65 Gabapentin (Neurontin) 300 mg PO BID [facility] PRN Reason: Protocol Last Admin: 05/02/17 10:44 Dose: 300 mg Behavioural Document 05/02/17 10:44 MF (Rec: 05/02/17 10:44 [id number] Maintenance Maintenance Dose Yes Re-Assess: Reassess Psych Meds Document 05/02/17 11:44 MF (Rec: 05/02/17 12:55 [id number] Reassess Psych Med Effective Sodium Chloride (Sodium Chloride 0.9%) 1,000 mls @ 80 mls/hr IV .[id number] [facility] Last Admin: 05/02/17 13:06 Dose: Levothyroxine Sodium (Synthroid) 125 mcg PO DAILY [facility] Last Admin: 05/02/17 10:57 Dose: Not Given Non-Admin Reason: Patient Refused Losartan Potassium (Cozaar) 100 mg PO DAILY [facility] Last Admin: 05/02/17 10:45 Dose: 100 mg Metoprolol Succinate (Toprol Xl) 50 mg PO DAILY [facility] Last Admin: 05/02/17 10:45 Dose: 50 mg MAR Pulse and Blood Pressure Document 05/02/17 10:45 MF (Rec: 05/02/17 10:45 [id number] Pulse Pulse Rate (60-90) 64 Blood Pressure Blood Pressure (100/60-150/90) 111/65 Non-Formulary Medication (Ezetimibe/Simvastatin [Vytorin 10-40 Mg Tablet]) 1 tab PO DAILY [facility] Last Admin: 05/02/17 10:56 Dose: Pantoprazole Sodium (Protonix Ec Tab) 40 mg PO 0600,1600 [facility] Last Admin: 05/02/17 16:47 Dose: 40 mg Spironolactone (Aldactone) 25 mg PO DAILY [facility] Last Admin: 05/02/17 10:45 Dose: 25 mg Warfarin Sodium (Coumadin) 5 mg PO DAILY [facility] PRN Reason: Protocol Last Admin: 05/02/17 10:56 Dose: Not Given Non-Admin Reason: Patient Refused Discontinued Medications Acetaminophen (Tylenol 325mg Tab) 650 mg PO STAT STA Stop: 05/02/17 01:28 Last Admin: 05/02/17 01:43 Dose: 650 mg MAR Pain/Vitals Document 05/02/17 01:43 [facility] [place] (Rec: 05/02/17 01:43 [facility] Presence of Pain Presence of Pain Yes Famotidine (Pepcid) 20 mg IVP STAT STA Stop: 05/01/17 15:53 Last Admin: 05/01/17 16:33 Dose: 20 mg IVP Administration Document 05/01/17 16:33 EQ (Rec: 05/01/17 16:33 EQ [facility] [id number]) Charges for Administration # of IVP Administrations 1 Metronidazole (Flagyl) 500 mg in 100 mls @ 100 mls/hr IVPB STAT STA PRN Reason: Protocol Stop: 05/01/17 22:32 Last Admin: 05/01/17 22:27 Dose: 100 mls/hr eMAR Start Stop Document 05/01/17 22:27 HI (Rec: 05/01/17 22:27 HI [facility] [id number]) Intravenous Solution Start Date 05/01/17 Start Time 22:27 Metoclopramide HCl (Reglan) 10 mg IVP STAT STA Stop: 05/01/17 15:53 Last Admin: 05/01/17 16:33 Dose: 10 mg IVP Administration Document 05/01/17 16:33 EQ (Rec: 05/01/17 16:33 EQ [facility] [id number]) Charges for Administration # of IVP Administrations 1 Sodium Polystyrene Sulfonate (Kayexalate Susp) 15 gm PO STAT STA Stop: 05/01/17 16:57 Last Admin: 05/01/17 23:29 Dose: 15 gm - PA / [facility] / Resident Statement /DO has reviewed & agrees with the documentation as recorded. /DO has examined the patient and agrees with the treatment plan. Disposition/Present on Arrival - Present on Arrival Any Indicators Present on Arrival: No History of DVT/PE: No History of Uncontrolled Diabetes: No Urinary Catheter: No History of Decub. Ulcer: No History Surgical Site Infection Following: None - Disposition Have Diagnosis and Disposition been Completed?: Yes Diagnosis: Hyperkalemia, Troponin I above reference range, Epigastric abdominal pain, Depression, Leukocytosis (leucocytosis) Disposition: HOSPITALIZED Disposition Time: 20:38 Patient Plan: Admission, Telemetry Patient Problems: Current Active Problems Problem Status Onset Depression Acute Epigastric abdominal pain Acute Hyperkalemia Acute Leukocytosis (leucocytosis) Acute Troponin I above reference range Acute Condition: STABLE"
[2017-05-01] MEDS ORDERED: Iohexol 240 (50 ml) ONE (16:18)
[2017-05-01] MEDS ORDERED: Iohexol 350 MG/100 ML VIAL ONE (16:19)
[2017-05-01 16:20] LABS: BASO # 0.02 K/mm3 (0.0-2.0); BASO % 0.1 % (0.0-3.0); EOS % 0.2 % (1.5-5.0); GRAN # 13.76 (1.4-6.5); GRAN % 88.8 % (50.0-68.0); HEMOGLOBIN 11.1 g/dL (12.0-16.0); LYMPH % 6.3 % (22.0-35.0); MEAN CELL VOLUME 77.8 fl (80.0-105.0); MEAN CORPUSCULAR HEMOGLOBIN 24.6 pg (25.0-35.0); MEAN CORPUSCULAR HGB CONC 31.6 g/dl (31.0-37.0); MEAN PLATELET VOLUME 9.7 fl (7.0-11.0); MONO # 0.7 (0.1-0.6); MONO % 4.6 % (1.0-6.0); RBC 4.51 10^6/uL (3.5-6.1); RED CELL DISTRIBUTION WIDTH 23.1 % (11.5-14.5); WHITE BLOOD COUNT 15.5 10^3/ul (4.5-11.0)
[2017-05-01 16:33] LABS: INR 2.31 (0.93-1.08); PROTHROMBIN TIME 26.8 SECONDS (9.4-12.5)
[2017-05-01 16:47] LABS: TROPONIN I 0.04 ng/mL
[2017-05-01 16:50] LABS: ALB/GLOB RATIO 1.1 (1.1-1.8); ALBUMIN 3.5 g/dL (3.0-4.8); CALCIUM 9.6 mg/dL (8.4-10.5); MAGNESIUM 2.2 mg/dL (1.7-2.2)
[2017-05-01] MEDS ORDERED: Sod Polystyrene Sulf 15 gm/60 ml Susp PO STA (16:56)
--- NOTE | 2017-05-01 17:58 | CT ---
PROCEDURE: CT HEAD WITHOUT CONTRAST. HISTORY: fall last week, on coumadin COMPARISON: None available. TECHNIQUE: Axial computed tomography images were obtained through the head/brain without intravenous contrast. Radiation dose: Total exam DLP = 1039.79 mGy-cm. This CT exam was performed using one or more of the following dose reduction techniques: Automated exposure control, adjustment of the mA and/or kV according to patient size, and/or use of iterative reconstruction technique. FINDINGS: HEMORRHAGE: No intracranial hemorrhage. BRAIN: Diffuse atrophy with prominence of the ventricles and sulci noted. No mass effect or edema. Intracranial atherosclerotic calcifications. Scattered periventricular and subcortical white matter hypodensities, which are nonspecific, but often seen with chronic microvascular ischemic disease. Please note that MRI with diffusion imaging is more sensitive in the detection of acute ischemic event. VENTRICLES: No hydrocephalus. CALVARIUM: Unremarkable. PARANASAL SINUSES: Unremarkable as visualized. No significant inflammatory changes. MASTOID AIR CELLS: Unremarkable as visualized. No inflammatory changes. OTHER FINDINGS: None. IMPRESSION: Generalized atrophy. Nonspecific white matter changes.
--- NOTE | 2017-05-01 18:28 | CARD ---
APPROVED REPORT EKG Measurement Heart [id number] <Conclusion> Atrial sensed, ventricular paced rhythm
--- NOTE | 2017-05-01 18:40 | RAD ---
HISTORY: medical clearance COMPARISON: 03/08/2017 TECHNIQUE: Chest PA and lateral FINDINGS: LUNGS: No active pulmonary disease. PLEURA: No significant pleural effusion identified. No pneumothorax apparent. CARDIOVASCULAR: No radiographic findings to suggest acute or significant cardiovascular disease. Position/ configuration of pacemaker device: Satisfactory. OSSEOUS STRUCTURES: No significant abnormalities. VISUALIZED UPPER ABDOMEN: Normal. OTHER FINDINGS: None. IMPRESSION: No active disease. No significant interval change compared to the prior examination(s).
--- NOTE | 2017-05-01 20:09 | CT ---
EXAM: CT Abdomen and Pelvis With Intravenous Contrast EXAM DATE/TIME: 05/01/2017 3:52 PM CLINICAL HISTORY: 77 years old, female; Pain; Abdominal pain; Acute; Additional info: Epigastric and llq pain x 2 days TECHNIQUE: Axial computed tomography images of the abdomen and pelvis with intravenous contrast. All CT scans at this facility use one or more dose reduction techniques, viz.: automated exposure control; ma/kV adjustment per patient size (including targeted exams where dose is matched to indication; i.e. head); or iterative reconstruction technique. Coronal and sagittal reformatted images were created and reviewed. CONTRAST: 100 mL of OMNI 350 administered intravenously. COMPARISON: CT - ABD PELVIS PO CONTRAST ONLY 2017-03-10 15:18 FINDINGS: Lower thorax: Heart size is normal.There is streak artifact from pacemaker leads. There is minimal atelectasis and scarring at the lung bases. There is a 3 mm right middle lobe nodule, unchanged. There is a 6 mm right middle lobe nodule, unchanged There is a hiatal hernia. ABDOMEN: Liver: There is fatty infiltration of the liver. Gallbladder and bile ducts: Gallbladder is absent. Common duct is dilated, 12 mm in diameter. There is mild intrahepatic biliary ductal dilatation Pancreas: Pancreas is atrophic. Spleen: unremarkable Adrenals: There is a 2 cm right adrenal nodule, unchanged. There is nodular thickening of the left adrenal, unchanged. Kidneys and ureters: There are renal vascular calcifications bilaterally. Right kidney is atrophic 7.2 cm in length. Left kidney is normal in size, 11 cm in length. There is a 7 mm low attenuation left renal lesion not a simple cyst by CT criteria.There is no pelvocaliectasis or ureterectasis. Stomach and bowel: Stomach is partially distended with contrast and air. Rotation is normal. There is no small bowel obstruction. Appendix is unremarkable. There is distal ileal wall thickening. There is cecal wall thickening. There is moderate stool throughout the colon. There is minimal diverticulosis Appendix: See stomach and bowel PELVIS: Bladder: unremarkable Reproductive: Uterus and adnexal structures are unremarkable. ABDOMEN and PELVIS: Intraperitoneal space: There is no free air. There is no free fluid. Bones/joints: There are degenerative changes in the osseus structures. There are postsurgical changes of median sternotomy. Soft tissues: unremarkable Vasculature: There are vascular calcifications. There is a left iliac series there is nonperfusion of the right iliac artery. There is a patent fem-fem graft. Lymph nodes: There is shotty para-aortic adenopathy. IMPRESSION: Terminal ileal and cecal wall thickening, similar findings seen on the prior study, infectious/inflammatory versus neoplastic; no CT findings of appendicitis or diverticulitis; cholecystectomy with biliary ductal dilatation; small right middle lobe nodules, unchanged; no acute solid visceral abnormality Additional nonemergent findings as described above.
[2017-05-01] MEDS ORDERED: cefTRIAXone 1 gm 1 GM/100 ML BAG IVPB STA (21:33)
[2017-05-01] MEDS ORDERED: metroNIDAZOLE IV 500 mg/100 ml 500 MG/100 ML BAG IVPB STA (21:33)
[2017-05-01] MEDS ORDERED: Sod Polystyrene Sulf 15 gm/60 ml Susp ONE (23:28)
[2017-05-02] MEDS: Sodium Chloride 0.9% 1,000 ML IV SCH ×2 (01:43→13:06)
[2017-05-02 02:48] VITALS: O2SAT 98
[2017-05-02] MEDS ORDERED: Non Formulary Medication (Ezetimibe/Simvastatin [Vytorin 10-40 Mg Tablet] 1 TAB) PO SCH (10:00)
[2017-05-02] MEDS ORDERED: Metoprolol Succinate 50 mg XL Tab PO SCH (10:00)
[2017-05-02] MEDS: Levothyroxine 125 MCG TAB PO SCH ×2 (10:45→10:57)
--- NOTE | 2017-05-02 11:04 | CP.PCM.CON ---
<TysonKatharina - Last Filed: 05/02/17 13:55> History of Present Illness - History of Present Illness History of Present Illness: PGY-[address] Cornelius: Neurology Consult: Dizziness & Fall Ms Tasha Hargrove, 77F,77 y/o female, with PMHx CAD s/p CABG and cardiomyopathy s/p AICD, Hx DVT on coumadin, Hx gastric ulcer and GI bleed, c/o epigastric and LLQ pain x 2 days with nausea and vomiting. The abdominal pain was on and off for the past 2 days, associated with nausea and vomiting, no palpitation, no night sweat. Patient report that she fell x2 last week. Last sunday, after taking milk of magnesia, pt had a loose bowel movement. As she raised from bed, she lost consciousness, and found herself from the floor. Last , she had another fall. Pt was standing in the kitchen while feeling that the room spin. she didn' t pass out but sustained a fall with lower back injury and posterior head injury which she admits the pain didn't seek any medical care. Next AM, her bp was 90s/60s. Pt usually feel vertigo when change possition too fast EKG: Atrial sensed, v paced at [address] showed generalized atrophy. Nonspecific white matter changes CT A/P: terminal ileal and cecal wall thickening, infectious vs inflammatory vs neoplastic; small R middle lobe nodules unchanged ROS - Denies recent change in med or recent sickness. no hematuria, no stool discoloration, no night sweat, no other medical or psychological complaints. PMH CAD s/p CABG, cardiomyopathy s/p AICD Hx DVT on coumadin htn, hyperlipidemia Peripheral arterial disease b/l Gastric ulcer. Hx GI bleed hypothyroidism Hx lung nodule Hx R adrenal nodule, 17cm Constipation on MOM Hx osteomyelitis due to cellulitis, s/p skin graft PSH CABG 1999 AICD placement 2004 L iliac stent, L vein stripping with replacement for circulation R leg vascular surgery for circulation Cholecystectimy FH Non-contributor SH Denies smoking/drinking All luoroquinolones/sulfa/penicillin/atorvastatins Med ASA, Cozaar, Toprol, Irbesartan, Vytorin (ezetimibe/simvastatin 10-40), Aldactone Warfarin Lasix Protonix Synthroid, D3 Neurontin 300 bid, Duloxetine, Xanax Review of Systems - Review of Systems All systems: reviewed and no additional remarkable complaints except Review of Systems: as per HPI Past Patient History - Infectious Disease Hx of Infectious Diseases: None - Tetanus Immunizations Tetanus Immunization: Unknown - Past Social History Smoking Status: Former Smoker - CARDIAC Hx Cardiac Disorders: Yes Hx Hypertension: Yes Hx Internal Defibrillator: Yes Hx Pacemaker: Yes - PULMONARY Hx Respiratory Disorders: No - NEUROLOGICAL Hx Neurological Disorder: No - HEENT Hx HEENT Problems: No - RENAL Hx Chronic Kidney Disease: Yes - ENDOCRINE/METABOLIC Hx Endocrine Disorders: Yes Hx Hyperthyroidism: Yes - HEMATOLOGICAL/ONCOLOGICAL Hx Blood Disorders: No - INTEGUMENTARY Hx Dermatological Problems: No - MUSCULOSKELETAL/RHEUMATOLOGICAL Hx Musculoskeletal Disorders: Yes Hx Arthritis: Yes Hx Falls: Yes - GASTROINTESTINAL Hx Gastrointestinal Disorders: Yes Hx Gastroesophageal Reflux: Yes - GENITOURINARY/GYNECOLOGICAL Hx Genitourinary Disorders: No - PSYCHIATRIC Hx Psychophysiologic Disorder: Yes Hx Depression: Yes Hx Substance Use: No - SURGICAL HISTORY Hx Coronary Stent: Yes - ANESTHESIA Hx Anesthesia Reactions: No Hx Malignant Hyperthermia: No Meds Allergies/Adverse Reactions: Allergies Allergy/AdvReac Type Severity Reaction Status Date / Time atorvastatin [From Lipitor] Allergy RASH Verified 05/01/17 15:09 moxifloxacin [From Avelox] Allergy ANAPHYLAXIS Verified 05/01/17 15:09 Penicillins Allergy ANAPHYLAXIS Verified 05/01/17 15:09 sulfamethoxazole Allergy NAUSEA Verified 05/01/17 15:09 [From Bactrim] trimethoprim [From Bactrim] Allergy NAUSEA Verified 05/01/17 15:09 amoxicillin AdvReac ANAPHYLAXIS Verified 05/01/17 15:09 - Medications Medications: Current Medications Alprazolam (Xanax) 0.5 mg PO HS [facility] PRN Reason: Protocol Aspirin (Ecotrin) 81 mg PO DAILY [facility]IL[facility] Last Admin: 05/02/17 10:44 Dose: 81 mg Duloxetine HCl (Cymbalta) 30 mg PO DAILY [facility] Last Admin: 05/02/17 10:45 Dose: 30 mg Furosemide (Lasix) 20 mg PO DAILY [facility] Last Admin: 05/02/17 10:45 Dose: 20 mg Gabapentin (Neurontin) 300 mg PO BID [facility] PRN Reason: Protocol Last Admin: 05/02/17 10:44 Dose: 300 mg Sodium Chloride (Sodium Chloride 0.9%) 1,000 mls @ 80 mls/hr IV .[id number] [facility] Last Admin: 05/02/17 01:43 Dose: 80 mls/hr Levothyroxine Sodium (Synthroid) 125 mcg PO DAILY [facility] Last Admin: 05/02/17 10:57 Dose: Not Given Losartan Potassium (Cozaar) 100 mg PO DAILY [facility] Last Admin: 05/02/17 10:45 Dose: 100 mg Metoprolol Succinate (Toprol Xl) 50 mg PO DAILY [facility] Last Admin: 05/02/17 10:45 Dose: 50 mg Non-Formulary Medication (Ezetimibe/Simvastatin [Vytorin 10-40 Mg Tablet]) 1 tab PO DAILY [facility] Last Admin: 05/02/17 10:56 Dose: Not Given Pantoprazole Sodium (Protonix Ec Tab) 40 mg PO 0600,1600 [facility] Spironolactone (Aldactone) 25 mg PO DAILY [facility] Last Admin: 05/02/17 10:45 Dose: 25 mg Warfarin Sodium (Coumadin) 5 mg PO DAILY [facility] PRN Reason: Protocol Last Admin: 05/02/17 10:56 Dose: Not Given Physical Exam - Constitutional Appears: Well - Head Exam Head Exam: ATRAUMATIC, NORMAL INSPECTION, NORMOCEPHALIC - Eye Exam Eye Exam: EOMI, Normal appearance, PERRL. absent: Scleral icterus Pupil Exam: NORMAL ACCOMODATION - ENT Exam ENT Exam: Mucous Membranes Moist - Neck Exam Additional comments: supple - Respiratory Exam Respiratory Exam: Clear to Auscultation Bilateral, NORMAL BREATHING PATTERN. absent: Rales, Rhonchi, Wheezes - Cardiovascular Exam Cardiovascular Exam: REGULAR RHYTHM, +S1, +S2 - GI/Abdominal Exam GI & Abdominal Exam: Normal Bowel Sounds, Soft, Tenderness (Epigastric, paraumbilical). absent: Guarding, Rigid - Extremities Exam Extremities exam: Positive for: normal capillary refill, pedal pulses present ( very faint). Negative for: calf tenderness - Neurological Exam Neurological exam: Alert, CN II-XII Intact, Oriented x3 Additional comments: Speech: fluent recall: 2/3 Motor: 5/5 sensory: decrease LE b/l. More decreased on LLE Coordination: intact. No pronator drift rapid alt movment: intact (+) nystagmus as pt rises from bed. neg catalina-hallpike Results - Vital Signs Recent Vital Signs: Last Vital Signs Temp 98.0 F 05/02/17 06:00 Pulse 64 05/02/17 10:45 Resp 18 05/02/17 06:00 BP 111/65 05/02/17 10:45 Pulse Ox 98 05/02/17 06:00 - Labs Result Diagrams: 05/02/17 13:20 05/01/17 16:15 Assessment & Plan - Assessment and Plan (Free Text) Plan: Neurology Consult: Dizziness & Fall Ms Tasha Hargrove, 77F,77 y/o female, with PMHx CAD s/p CABG and cardiomyopathy s/p AICD, Hx DVT on coumadin, Hx gastric ulcer and GI bleed, c/o epigastric and LLQ pain x 2 days with nausea and vomiting. The abdominal pain was on and off for the past 2 days, associated with nausea and vomiting. CT A/P : terminal ileal and cecal wall thickening, infectious vs inflammatory vs neoplastic; small R middle lobe nodules unchanged. Pt reported that she fell x2 last week and one was related to vertigo Dizziness likely due to transient hypopurfusion exacerbated by orthostatic hypotension and Benign paroxysmal positional vertigo Fall - maintain SBP 130-140 - Fall precaution education - EKG: Atrial sensed, v paced at 83 - Head CT showed generalized atrophy. Nonspecific white matter changes - Contraindication to MRI - Defer carotid ultrasound since pt states that she will have one every year per her outpt doctor Orthostatic hypotension - Sitting 117/71 - Standing 101/51 - lying 107/56 - HR constant at 83-84 - maintain well hydration throughout the day - Avoid sudden movement - compression stockings Benign paroxysmal positional vertigo - supportive measures for now - Fall precautions - follow up with neurology outpatient in 2 weeks after discharge s/r/d/w Dr. Cornelius <Dean Cornelius - Last Filed: 05/02/17 15:06> Meds - Medications Medications: Current Medications Alprazolam (Xanax) 0.5 mg PO HS LILIAN PRN Reason: Protocol Aspirin (Ecotrin) 81 mg PO DAILY [facility] Last Admin: 05/02/17 10:44 Dose: 81 mg Duloxetine HCl (Cymbalta) 30 mg PO DAILY [facility] Last Admin: 05/02/17 10:45 Dose: 30 mg Furosemide (Lasix) 20 mg PO DAILY [facility] Last Admin: 05/02/17 10:45 Dose: 20 mg Gabapentin (Neurontin) 300 mg PO BID [facility] PRN Reason: Protocol Last Admin: 05/02/17 10:44 Dose: 300 mg Sodium Chloride (Sodium Chloride 0.9%) 1,000 mls @ 80 mls/hr IV .[id number] [facility] Last Admin: 05/02/17 13:06 Dose: Not Given Levothyroxine Sodium (Synthroid) 125 mcg PO DAILY [facility] Last Admin: 05/02/17 10:57 Dose: Not Given Losartan Potassium (Cozaar) 100 mg PO DAILY [facility] Last Admin: 05/02/17 10:45 Dose: 100 mg Metoprolol Succinate (Toprol Xl) 50 mg PO DAILY [facility] Last Admin: 05/02/17 10:45 Dose: 50 mg Non-Formulary Medication (Ezetimibe/Simvastatin [Vytorin 10-40 Mg Tablet]) 1 tab PO DAILY [facility] Last Admin: 05/02/17 10:56 Dose: Not Given Pantoprazole Sodium (Protonix Ec Tab) 40 mg PO 0600,1600 [facility] Spironolactone (Aldactone) 25 mg PO DAILY [facility] Last Admin: 05/02/17 10:45 Dose: 25 mg Warfarin Sodium (Coumadin) 5 mg PO DAILY [facility] PRN Reason: Protocol Last Admin: 05/02/17 10:56 Dose: Not Given Results - Vital Signs Recent Vital Signs: Last Vital Signs Temp 98.6 F 05/02/17 12:00 Pulse 83 05/02/17 12:00 Resp 20 05/02/17 12:00 BP 117/21 L 05/02/17 12:00 Pulse Ox 98 05/02/17 06:00 - Labs Result Diagrams: 05/02/17 13:20 05/02/17 13:20 Labs: Laboratory Results - last 24 hr 05/02/17 05/02/17 13:20 13:20 WBC 10.6 D RBC 3.90 Hgb 9.5 L Hct 30.0 L MCV 76.9 L MCH 24.4 L MCHC 31.7 RDW 23.4 H Plt Count 347 MPV 9.7 Sodium 132 Potassium 4.5 Chloride 97 L Carbon Dioxide 26 Anion Gap 14 BUN 15 Creatinine 1.3 H Est GFR ( Amer) 48 Est GFR (Non-Af Amer) 40 Random Glucose 94 Calcium 9.6 Total Bilirubin 0.9 AST 19 ALT 25 Alkaline Phosphatase 92 Total Protein 6.4 Albumin 3.3 Globulin 3.1 Albumin/Globulin Ratio 1.0 L Attending/Attestation - Attestation I have personally seen and examined this patient.: Yes I have fully participated in the care of the patient.: Yes I have reviewed all pertinent clinical information: Yes
[2017-05-02 13:32] LABS: HEMOGLOBIN 9.5 g/dL (12.0-16.0); MEAN CELL VOLUME 76.9 fl (80.0-105.0); MEAN CORPUSCULAR HEMOGLOBIN 24.4 pg (25.0-35.0); MEAN CORPUSCULAR HGB CONC 31.7 g/dl (31.0-37.0); MEAN PLATELET VOLUME 9.7 fl (7.0-11.0); RBC 3.9 10^6/uL (3.5-6.1); RED CELL DISTRIBUTION WIDTH 23.4 % (11.5-14.5); WHITE BLOOD COUNT 10.6 10^3/ul (4.5-11.0)
[2017-05-02 14:11] LABS: ALBUMIN 3.3 g/dL (3.0-4.8); CALCIUM 9.6 mg/dL (8.4-10.5)
--- NOTE | 2017-05-02 14:33 | RAD ---
PROCEDURE: Radiographs of the Lumbar Spine. HISTORY: fall, lower back pain x 1 week COMPARISON: April 30, 2017. CT abdomen pelvis FINDINGS: BONES: No fracture identified. DISC SPACES: Multilevel degenerative. This includes disc space narrowing lower thoracic and upper lumbar levels and non marginal OTHER FINDINGS: Calcified nonaneurysmal abdominal aorta. IMPRESSION: No acute findings related to/accounting for the clinical presentation. Concordant results with the preliminary interpretation rendered by the emergency department physician procedure.
[2017-05-02 14:48] VITALS: BP 117/21; PULSE 83; RESP 20; TEMP 98.6
[2017-05-02] MEDS ORDERED: Pantoprazole 40 mg EC Tab PO SCH (16:00)
--- NOTE | 2017-05-02 19:41 | HP ---
CHIEF COMPLAINT AND HISTORY OF PRESENT ILLNESS: This is a 77-year-old female who is coming into the hospital complaining of abdominal pain. She said that she was having pain that started in her throat area and had gone down into her stomach. She has a past medical history of hypertension, dyslipidemia, gastric ulcer, peripheral arterial disease, coronary artery disease with CABG, AICD. The patient says that she was also having pain in the left lower quadrant area that was on and off for the past 2 days. She did have nausea. She has no palpitations. No headaches. She did have some dizziness. She said she had a fall a few days ago. The patient stated that her blood pressure was low previously in the 90s. She had also fallen at her back. She had not gone for medical attention when she had the symptoms. She states she is feeling better. Her pain in the abdomen is better. She has no dysuria or frequency. She has seen Dr. Gómez and Dr. Mckeon in the past. She is awaiting to see a liquid hydrogen plant operator in [facility]. REVIEW OF SYSTEMS: All other review of symptoms are within normal limits except what was mentioned. ALLERGIES: TO LIPITOR, AVELOX, PENICILLIN, BACTRIM, AMOXICILLIN. HOME MEDICATIONS: Had been reviewed on the [facility]. She is on aspirin, Cymbalta, Lasix, Neurontin, Avapro, Synthroid, magnesium, Toprol, Zofran. PAST MEDICAL HISTORY: 1. Coronary artery disease status post CABG in 1999. 2. ACID. 3. Hypothyroidism. 4. Hypertension. 5. Right adrenal nodule, 17 mm. 6. Peripheral arterial disease. 7. 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 8. Aortic stenosis. 9. Aortic regurgitation. PAST SURGICAL HISTORY: CABG. SOCIAL HISTORY: She denies smoking or drinking. FAMILY HISTORY: Noncontributory. PHYSICAL EXAMINATION: VITAL SIGNS: Temperature is 98, pulse of 86, blood pressure 106/52, respirations 18, O2 saturation is 98%. Height is 5 feet 1 inches, weight is 148 pounds, BMI is 28. GENERAL: The patient lying in bed, uncomfortable, and in no acute distress. HEENT: Atraumatic and normocephalic. Anicteric sclerae. Moist mucosa. [place] conjunctivae. No oral lesions. NECK: No JVD, anterior and posterior adenopathy, thyromegaly, or bruits. CARDIOVASCULAR: S1 and S2. There is 3/6 systolic ejection murmur. LUNGS: Clear to auscultation bilaterally. No wheezes, rales, or rhonchi. ABDOMEN: Bowel sounds are positive. Soft, nontender and nondistended. No hepatosplenomegaly. No rebound and no guarding EXTREMITIES: No cyanosis, clubbing, or edema. NEUROLOGIC: No facial asymmetry. Tongue is midline. No uvula deviation. Power is 5/5 upper extremity and lower extremity. Sensation intact in upper extremity and lower extremity. PSYCHIATRIC: She is awake, alert and oriented x3. No anxiety or depression. She has normal affect. GENITOURINARY: No CVA tenderness. VASCULAR: 2+ pulses in the carotid pulses and pedal pulses. SKIN: No erythema or nodules SPINE: Shows normal curvature. LABORATORY DATA: White count of 15.5, hemoglobin is 11.1, platelet count is 368. INR is 2.3. Chemistry shows the potassium is 5.7, proBNP is 6090. Influenza is negative. CT of the head done shows generalized atrophy. Chest x-ray done shows no active disease. CT of the abdomen and pelvis done shows terminal ileum cecal wall thickening, similarly seen on previous study. ASSESSMENT: 1. Abdominal pain, possibly from some colitis. 2. Left renal lesion, not a simple cyst. 3. Right kidney atrophy. 4. Constipation. 5. Peptic ulcer disease. 6. Coronary artery disease status post coronary artery bypass graft. 7. Congestive heart failure secondary to systolic dysfunction with ejection fraction of 15% to 20%, stable. 8. Aortic stenosis. 9. Aortic regurgitation. 10. A mm nodule of the right adrenal. 11. Automated implantable cardioverter defibrillator. 12. Hypothyroidism. PLAN: The patient is admitted to the hospital. She has been given Flagyl. She is on IV fluids. The patient has been placed on heart-healthy diet. I will continue her aspirin. She is on Aldactone. She is on Avapro. She was hypokalemic and was given Kayexalate. The patient is on Cymbalta. She is going to continue with the Lasix. She is on Neurontin for her neuropathy. The patient is on Protonix daily. She is going to continue with Synthroid for her hypothyroidism. She is on metoprolol for her coronary artery disease. She gets Xanax in the evening time. The patient will need further evaluation by Dr. Lew from . I will also get Dr. Cornelius because of the fall history. She will need evaluation by Dr. Pierre for the cardiac issues. We will repeat her blood work tomorrow. Gaurav Griffin MD
--- NOTE | 2017-05-02 23:32 | CON ---
GASTROENTEROLOGY CONSULTATION DATE: 05/02/2017 REQUESTING PHYSICIAN: Gaurav Griffin MD HISTORY OF PRESENT ILLNESS: I have been asked to see this 77-year-old female admitted to the hospital with 2 days of nausea, intermittent vomiting, and pain extending from her neck all the way down to the pelvis. The pain was rather severe. Workup in the Emergency Room with CT scan of the chest, abdomen, and pelvis revealed mild mural thickening of the terminal ileum and cecum with increased stool throughout the colon as well as small pulmonary nodules unchanged from an exam several months ago. The patient also admits to some dizziness and lightheadedness and falling at home. She has multiple comorbidities including cardiac arrhythmia, cardiomyopathy, and is on warfarin at home. She has an AICD and permanent pacemaker. This morning, she states that she feels much better without any chest or abdominal pain and without any further nausea or vomiting. She is tolerating food. She denies any hematemesis, nausea or vomiting today, rectal bleeding, or melena. PAST MEDICAL HISTORY: As above. She also has a history of coronary artery disease, requiring bypass surgery many years ago; history of cardiomyopathy, status post AICD and PPM; DVT; gastric ulcer as well as Beltran ulcer on endoscopy back in 02/2017; DVT, on Coumadin; history of colon polyps by colonoscopy approximately a year ago by Dr. Menchaca at [facility]; peripheral arterial disease; hypothyroidism; lung nodule; and osteomyelitis. PAST SURGICAL HISTORY: Notable for AICD placement back in 2004, coronary artery bypass surgery over 15 years ago, left iliac stent, cholecystectomy, and surgery in her right leg for peripheral arterial disease. SOCIAL HISTORY: She denies cigarette smoking or alcohol use. FAMILY HISTORY: Noncontributory. REVIEW OF SYSTEMS: A 14-point review of systems is notable for nausea, vomiting, pain from her neck all the way down to her pelvis, lightheadedness, and frequent falls. MEDICATIONS AT HOME: Include Zofran 4 mg three times a day p.r.n. nausea, magnesium oxide 500 mg daily, Cymbalta 30 mg once a day, vitamin D3 of 2000 units daily, baby aspirin 81 mg once a day, Xanax 0.5 mg at bedtime, Avapro 300 mg once a day, Neurontin 300 mg b.i.d., Lasix 20 mg once a day, Vytorin 10/40 once a day, Aldactone 25 mg daily, Protonix 40 mg daily, Toprol 50 mg daily, Levoxyl 125 mcg daily, and Coumadin 5 mg daily. PHYSICAL EXAMINATION: GENERAL: Well-developed female lying in bed, in no acute distress. VITAL SIGNS: Reveal temperature of 98, blood pressure of 106/52, and heart rate of 86. HEENT: Reveal sclerae to be white. Conjunctivae pink. NECK: Supple without any lymph nodes. CHEST: Reveal lungs to be clear. She has an AICD and permanent pacemaker below her left clavicle. HEART: Reveals a regular rate and rhythm. ABDOMEN: Soft and nontender. No mass. EXTREMITIES: Show no edema. LABORATORY DATA: Reveal on admission to the hospital; white blood cell count 15.5, this morning is 10.6 and hemoglobin this morning is 9.5. Chemistries reveal normal AST, ALT, and alk phos. CT scan of the abdomen and pelvis shows some mild mural thickening of the cecum and terminal ileum. The patient also has a dilated common bile duct and intrahepatic biliary ducts with small unchanged pulmonary nodules. Her lipase on admission to the hospital was 75. IMPRESSION: This 77-year-old female with 2 days of nausea, intermittent vomiting, and pain from her neck all the way down to her pelvis. CT of the abdomen and pelvis did not show any acute findings. Her symptoms have improved since her hospitalization. She did have an endoscopy back in 02/[address] Mckeon, which showed gastric ulcer as well as a Beltran ulcer in the fundus of the stomach with a large hiatal hernia. She had a colonoscopy approximately 1 year ago, which revealed benign polyps, which were removed. Her liver enzymes are normal. The biliary dilatation on CAT scan, most likely secondary to cholecystectomy state. I suspect that her presenting symptoms were secondary to gastroenteritis, these symptoms have essentially resolved. RECOMMENDATIONS: 1. No further GI workup planned at this time. 2. Continue a low-fat lactose-free diet. 3. Continue PPI. 4. If the patient remains asymptomatic, she can be discharged home with outpatient followup. Jagdeep Lew MD [facility] # [id number]
--- NOTE | 2017-05-03 00:04 | CON ---
DATE: 05/02/2017 CARDIOLOGY CONSULTATION HISTORY OF PRESENT ILLNESS: The patient is a 77-year-old woman who presents with abdominal pain. The patient's past medical history is notable for history of end-stage ischemic dilated cardiomyopathy with severe global LV hypokinesis. She is also status post coronary artery bypass surgery. She suffers from severe peripheral vascular disease. She is status post ICD placement. From a cardiac perspective, the patient suffers from chronic atrial fibrillation and is on Coumadin. Her exercise tolerance is approximately 100 feet before she gets short of breath. She presented this time with abdominal pain. Her cardiac symptoms have not changed. SOCIAL HISTORY: The patient is a former smoker. REVIEW OF SYSTEMS: A 14-point review of systems is reviewed in detail. Marked exertional shortness of breath, intermittent angina, negative edema. Positive claudication symptoms. Negative syncope. Negative dizziness. PHYSICAL EXAMINATION: VITAL SIGNS: The blood pressure is 111/65, heart rate in the 60s. NECK: Negative JVD. LUNGS: Without rales. HEART: Reveals S1, S2. EXTREMITIES: Without edema. EKG with a paced rhythm. LABORATORY DATA: BUN and creatinine are unremarkable. Troponin is 0.04. ProBNP is 6090. Hemoglobin is 9.5. IMPRESSION: 1. End-stage ischemic dilated cardiomyopathy. 2. History of coronary artery bypass surgery. 3. Low cardiac output syndrome. 4. Chronic atrial fibrillation, on Coumadin. 5. Peripheral vascular disease. 6. Recurrent abdominal pain. Given these findings, I agree with daily Lasix as well as an RAMESH inhibitor as well as long-term Coumadin. I have outlined possible plan for her to help improve her low cardiac output function including addition of Entresto, IV dobutamine trial, would reevaluate her cardiac status with a stress test, as well as encourage her to start a cardiac exercise program. The patient understands all that I have suggested; however, she wants to go back to her endorsement clerk in [facility] and discuss it. This is certainly understandable. I have given her my office number. If she decides after discussion with her endorsement clerk to pursue the plan, she will call me back. Abe Pierre MD [facility] # [id number]
== END 2017-05-02 18:10 | disposition home or self-care (01) | DRG 641 ==
LOC: ED 14:01 → ERH 22:38 → 3RSO 05-02 02:14
PROVIDERS: ADMIT Internal Medicine Nephrology; ATTEND Internal Medicine Nephrology
DX: E87.5 Hyperkalemia (principal); I42.0 Dilated cardiomyopathy; I50.20 Unspecified systolic (congestive) heart failure; I11.0 Hypertensive heart disease with heart failure; G62.9 Polyneuropathy, unspecified; E27.8 Other specified disorders of adrenal gland; I48.2 Chronic atrial fibrillation; E78.5 Hyperlipidemia, unspecified; E03.9 Hypothyroidism, unspecified; I25.5 Ischemic cardiomyopathy; I25.10 Atherosclerotic heart disease of native coronary artery without angina pectoris; I73.9 Peripheral vascular disease, unspecified; I35.2 Nonrheumatic aortic (valve) stenosis with insufficiency; K59.00 Constipation, unspecified; K52.9 Noninfective gastroenteritis and colitis, unspecified; F32.9 Major depressive disorder, single episode, unspecified; R91.1 Solitary pulmonary nodule; Z86.718 Personal history of other venous thrombosis and embolism; Z87.11 Personal history of peptic ulcer disease; Z95.1 Presence of aortocoronary bypass graft; Z87.891 Personal history of nicotine dependence; Z88.2 Allergy status to sulfonamides; Z79.01 Long term (current) use of anticoagulants; Z88.0 Allergy status to penicillin; Z95.810 Presence of automatic (implantable) cardiac defibrillator; Z79.82 Long term (current) use of aspirin

== ENCOUNTER 2017-05-12 20:35 | Inpatient (IN) | payer MEDICARE, BC ==
[2017-05-12 20:36] VITALS: PULSE 86
--- NOTE | 2017-05-12 21:29 | ED PDOC ---
Arrival/HPI <Jagdeep Pham - Last Filed: 05/13/17 00:48> - General Historian: Patient - History of Present Illness Time/Duration: 24 hours Symptom Onset: Sudden Symptom Course: Intermittent <Renetta Niño - Last Filed: 05/15/17 14:15> - General Chief Complaint: Abdominal Pain Time Seen by Provider: 05/12/17 20:37 - History of Present Illness Narrative History of Present Illness (Text): CC: GI bleed, nausea, vomiting 77 year old female with PMH of severe PAD, coagulopathy CAD S/P CABG, with pacemaker, hx of DVT on coumadin, chronic CHF, HTN, dyslipidemia, hypothyroidism, S/P cholecystectomy, transfused for GI bleed 03/2017, etc. Patient states she woke up with nausea, vomiting, and bloody bowel movement originally darker red in nature but brighter red as days go on. Patient states she always has abdominal pain and states her pain today is midepigastric and LLQ pain. Patient said her last CT with contrast showed ischemia and clots in the arteries to her bowels and the GI doctor stated there wasn't anything to do because of her heart history. Patient is trying to see a vascular surgeon to explore treatment options. Patient admits to nausea, vomiting, abdominal pain, diarrhea, poor frequency of urination, fatigue Patient denies, seizures, dysuria, constipation PMH CAD s/p CABG, cardiomyopathy s/p AICD Hx DVT on coumadin HTN hyperlipidemia bilateral peripheral arterial disease Gastric ulcer. Hx GI bleed hypothyroidism Hx lung nodule Hx R adrenal nodule, 17cm Constipation on MOM Hx osteomyelitis due to cellulitis, s/p skin graft history of ESBL-producing Proteus right sided pyelonephritis Stage 3 kidney disease PSH CABG 1999 AICD placement 2004 Left iliac stent, Left vein stripping with replacement for circulation R leg vascular surgery for circulation Cholecystectemy FH coagulopathy SH Denies smoking/drinking All fluoroquinolones/sulfa/penicillin/atorvastatins (Renetta Niño) Past Medical History - Infectious Disease Hx of Infectious Diseases: None - Tetanus Immunization Tetanus Immunization: Unknown - Cardiac Hx Cardiac Disorders: Yes Hx Hypertension: Yes Hx Pacemaker: Yes (DEFIBRILLATOR) - Pulmonary Hx Respiratory Disorders: No - Neurological Hx Neurological Disorder: No - HEENT Hx HEENT Disorder: Yes Hx Cataracts: Yes - Renal Hx Renal Disorder: No - Endocrine/Metabolic Hx Endocrine Disorders: Yes Hx Hypothyroidism: Yes - Hematological/Oncological Hx Blood Disorders: No - Integumentary Hx Dermatological Disorder: No - Musculoskeletal/Rheumatological Hx Falls: No - Gastrointestinal Hx Gastrointestinal Disorders: Yes (Gastric Ulcers, GERD) Hx Gastroesophageal Reflux: Yes Hx Gastrointestinal Ulcer: Yes - Genitourinary/Gynecological Hx Genitourinary Disorders: No Hx Reproductive Disorders: No - Psychiatric Hx Psychophysiologic Disorder: Yes Hx Anxiety: Yes Hx Substance Use: No - Surgical History Hx Cardiac Catheterization: Yes Hx Coronary Artery Bypass Graft: Yes Hx Coronary Stent: Yes Hx Open Heart Surgery: Yes Other/Comment: Bypass surgery. Cellulites in legs - Anesthesia Hx Anesthesia: Yes - Suicidal Assessment Feels Threatened In Home Enviroment: No <Renetta Niño - Last Filed: 05/15/17 14:15> Family/Social History Smoking Status: Former Smoker Hx Alcohol Use: No Hx Substance Use: No Hx Substance Use Treatment: No <Renetta Niño - Last Filed: 05/15/17 14:15> Allergies/Home Meds <Jagdeep Pham - Last Filed: 05/13/17 00:48> <Renetta Niño - Last Filed: 05/15/17 14:15> Allergies/Adverse Reactions: Allergies atorvastatin [From Lipitor] Allergy (Verified 05/12/17 20:41) RASH moxifloxacin [From Avelox] Allergy (Verified 05/12/17 20:41) ANAPHYLAXIS Penicillins Allergy (Verified 05/12/17 20:41) ANAPHYLAXIS sulfamethoxazole [From Bactrim] Allergy (Verified 05/12/17 20:41) NAUSEA trimethoprim [From Bactrim] Allergy (Verified 05/12/17 20:41) NAUSEA amoxicillin Adverse Reaction (Verified 05/12/17 20:41) ANAPHYLAXIS Home Medications: Home Meds Medication Instructions Recorded Confirmed Aspirin [Adult Low Dose Aspirin EC] 81 mg PO DAILY 10/23/16 05/12/17 DULoxetine [Cymbalta] 30 mg PO DAILY 10/23/16 05/12/17 Furosemide [Lasix] 40 tab PO DAILY 10/23/16 05/12/17 Gabapentin [Neurontin] 300 mg PO TID 10/23/16 05/12/17 Levothyroxine [Synthroid] 125 mcg PO DAILY 10/23/16 05/12/17 Metoprolol Succinate [Toprol XL] 50 mg PO DAILY 10/23/16 05/12/17 Cholecalciferol (Vitamin D3) 2,000 unit PO DAILY 02/07/17 05/12/17 [Vitamin D3] Spironolactone [Aldactone] 25 mg PO DAILY 02/07/17 05/12/17 Pantoprazole [Protonix EC Tab] 40 mg PO DAILY 05/12/17 05/12/17 Valsartan [Diovan] 40 mg PO DAILY 05/12/17 05/12/17 Ezetimibe [Zetia] 10 mg PO DAILY 05/13/17 05/13/17 Prochlorperazine [Compazine] 10 mg PO TID 05/13/17 05/13/17 Systane 0.3-0.4% Eye Drops 05/13/17 Review of Systems - Review of Systems Constitutional: Normal. absent: Fatigue, Weight Change, Fevers, Night Sweats Eyes: Normal. absent: Vision Changes, Photophobia, Eye Pain ENT: Normal. absent: Hearing Changes, Tinnitus, TMJ Pain Respiratory: absent: SOB, Cough, Sputum Cardiovascular: Normal. absent: Chest Pain, Palpitations, Edema Gastrointestinal: Abdominal Pain (midepigastric, LLQ), Stool Changes, Diarrhea, Nausea, Vomiting, Hematochezia. absent: Constipation, Appetite Changes, Hematemesis, Food Intolerance Genitourinary Female: Urine Output Changes. absent: Dysuria, Frequency, Hematuria Skin: absent: Rash, Pruritis, Skin Lesions Neurological: absent: Headache, Dizziness, Focal Weakness, Speech Changes, Facial Droop, Disequilibrium Endocrine: absent: Diaphoresis, Polyuria, Polydipsia <Eng,Renetta - Last Filed: 05/15/17 14:15> Physical Exam Vital Signs Reviewed: Yes Temperature: Afebrile Blood Pressure: Normal Pulse: Tachycardic Respiratory Rate: Normal Appearance: Positive for: Uncomfortable Pain Distress: Moderate Mental Status: Positive for: Alert and Oriented X 3 - Systems Exam Head: Present: Atraumatic, Normocephalic Pupils: Present: PERRL Extroacular Muscles: Present: EOMI Conjunctiva: Present: Normal Mouth: Present: Moist Mucous Membranes, Normal Lips, Normal Tounge, Normal Teeth. No: Dry, Drooling Nose (External): Present: Atraumatic. No: Abrasion, Contusion, Laceration Neck: Present: Normal Range of Motion, Trachea Midline. No: JVD Respiratory/Chest: Present: Clear to Auscultation, Good Air Exchange. No: Respiratory Distress Cardiovascular: Present: Regular Rate and Rhythm, Normal S1, S2. No: Murmurs Abdomen: Present: Tenderness (mid-epigastric, LLQ), Guarding. No: Distention, Normal Bowel Sounds Back: Present: Normal Inspection. No: CVA Tenderness, Midline Tenderness, Paraspinal Tenderness Upper Extremity: Present: Normal Inspection, Normal ROM, NORMAL PULSES, Capillary Refill < 2s. No: Edema Lower Extremity: Present: Normal Inspection, NORMAL PULSES, Normal ROM, Capillary Refill < 2 s. No: Edema Neurological: Present: GCS=15, CN II-XII Intact, Speech Normal, Motor Func Grossly Intact, Normal Sensory Function, Normal Cerebellar Funct, Norm Deep Tendon Reflexes Skin: Present: Warm, Normal Color. No: Dry, Rashes Psychiatric: Present: Alert, Oriented x 3, Normal Insight, Normal Concentration , Normal Affect, Depressed Mood <Renetta Niño - Last Filed: 05/15/17 14:15> Vital Signs Temp Pulse Resp BP Pulse Ox 05/13/17 02:17 98.2 F 87 18 133/58 L 05/13/17 01:57 98.3 F 92 H 18 138/76 05/13/17 00:57 89 18 131/74 100 05/12/17 23:04 162/72 H 05/12/17 20:49 97.8 F 102 H 16 123/70 95 Medical Decision Making - Lab Interpretations I have reviewed the lab results: Yes <Jagdeep Pham - Last Filed: 05/13/17 00:48> Reassessment Condition: Re-examined, Improving,but remains with symptoms - Lab Interpretations I have reviewed the lab results: Yes <Renetta Niño - Last Filed: 05/15/17 14:15> ED Course and Treatment: Impression: Pt seen and evaluated with nurses medical assistants phlebotomists. Pt, whose past medical history include CAD, CABG, AICD, hypertension, DVT on Coumadin, PAD, hyperlipidemia, osteomyelitis, and Stage 3 kidney disease, presented for nausea, vomiting, and hematochezia with abdominal pain. Aware and agree with HPI, clinical findings, plan, and management. Plan: -- Labs, blood type and screen -- Urinalysis -- Zofran -- Protonix -- Reassess and disposition 05/13/17 00:[address] Miles, covering for Dr. Griffin, who is aware and agrees with plan. Pt admitted to remote telemetry for GI bleed. (Jagdeep Pham) 05/12/17 21:32 cbc cmp mg phos urinalysis type and cross 05/12/17 23:37 order for 2uPRBC transfusion (Renay,Renetta) - Lab Interpretations Lab Results: 05/12/17 22:09 05/12/17 22:09 Lab Results 05/12/17 22:09: PT 34.0 H, INR 2.92 H, APTT 41.7 H 05/12/17 22:09: Blood Type B POSITIVE, Antibody Screen Negative, Crossmatch See Detail, BBK History Checked Patient has bt 05/12/17 22:09: Sodium 136, Potassium 4.6, Chloride 104, Carbon Dioxide 22, Anion Gap 15, BUN 19, Creatinine 1.1, Est GFR ( Amer) 59, Est GFR (Non- Af Amer) 48, Random Glucose 112 H, Calcium 8.7, Phosphorus 3.2, Magnesium 2.3 H , Total Bilirubin 0.5, AST 21, ALT 27, Alkaline Phosphatase 96, Total Protein 5.9, Albumin 3.1, Globulin 2.8, Albumin/Globulin Ratio 1.1 05/12/17 22:09: WBC 10.7, RBC 3.45 L, Hgb 8.3 L, Hct 26.7 L, MCV 77.4 L, MCH 24.1 L, MCHC 31.1, RDW 22.5 H, Plt Count 352, MPV 9.8, Gran % 79.7 H, Lymph % ( Auto) 12.7 L, Worth % (Auto) 7.1 H, Eos % (Auto) 0.3 L, Baso % (Auto) 0.2, Gran # 8.50 H, Lymph # (Auto) 1.4, Worth # (Auto) 0.8 H, Eos # (Auto) 0.0, Baso # ( Auto) 0.02 hgb 8.3 iron deficiency anemia history RDW 22.5 (Eng,Renetta) - Medication Orders Current Medication Orders: Alprazolam (Xanax) 0.5 mg PO HS LILIAN PRN Reason: Protocol Last Admin: 05/15/17 00:46 Dose: Not Given Non-Admin Reason: Patient Asleep Duloxetine HCl (Cymbalta) 30 mg PO DAILY [facility] Last Admin: 05/15/17 12:51 Dose: 30 mg Gabapentin (Neurontin) 300 mg PO TID LILIAN PRN Reason: Protocol Last Admin: 05/15/17 12:59 Dose: 300 mg Behavioural Document 05/15/17 12:59 (Rec: 05/15/17 12:59 [id number]) Maintenance Maintenance Dose Yes Sodium Chloride (Sodium Chloride 0.9%) 1,000 mls @ 70 mls/hr IV .[id number] [facility] Last Admin: 05/15/17 12:47 Dose: 70 mls/hr eMAR Start Stop Document 05/15/17 12:47 (Rec: 05/15/17 12:47 [id number]) Intravenous Solution Start Date 05/15/17 Start Time 12:47 Meropenem/Sodium Chloride (Meropenem 1g/Ns 100ml Ivpb) 1 gm in 100 mls @ 100 mls/hr IVPB Q8 LILIAN PRN Reason: Protocol Stop: 05/22/17 14:01 Levothyroxine Sodium (Synthroid) 125 mcg PO ACB [facility] Last Admin: 05/15/17 10:00 Dose: 125 mcg Losartan Potassium (Cozaar) 25 mg PO DAILY [facility] Last Admin: 05/15/17 12:51 Dose: 25 mg MAR Pulse and Blood Pressure Document 05/15/17 12:51 (Rec: 05/15/17 12:51 [id number]) Pulse Pulse Rate (60-90) 97 Blood Pressure Blood Pressure (100/60-150/90) 173/90 Magnesium Citrate (Citrate Of Mag) 300 ml PO ONCE ONE Stop: 05/15/17 17:01 Metoprolol Succinate (Toprol Xl) 50 mg PO DAILY [facility] Last Admin: 05/15/17 10:02 Dose: 50 mg MAR Pulse and Blood Pressure Document 05/15/17 10:02 (Rec: 05/15/17 10:02 [id number]) Pulse Pulse Rate (60-90) 113 Blood Pressure Blood Pressure (100/60-150/90) 112/58 Morphine Sulfate (Morphine) 1 mg IVP Q4H PRN PRN Reason: Pain, moderate (4-7) Last Admin: 05/15/17 11:03 Dose: 1 mg MAR Pain Assessment Document 05/15/17 11:03 (Rec: 05/15/17 11:04 [id number]) Pain Reassessment Is this a pain reassessment? No Presence of Pain Presence of Pain Yes Pain Scale Used Pain Scale Used Pierre-Taylor Location Pain Location Body Site Abdomen Description Pain Behavior Facial Grimacing IVP Administration Document 05/15/17 11:03 (Rec: 05/15/17 11:04 [id number]) Charges for Administration # of IVP Administrations 1 Pantoprazole Sodium (Protonix Ec Tab) 40 mg PO 0600 LILIAN Last Admin: 05/15/17 05:19 Dose: 40 mg Spironolactone (Aldactone) 25 mg PO DAILY [facility] Last Admin: 05/15/17 12:51 Dose: 25 mg Discontinued Medications Al Hydrox/Mg Hydrox/Simethicone (Maalox Plus 30 Ml) 30 ml PO STAT STA Stop: 05/14/17 00:25 Last Admin: 05/14/17 00:32 Dose: 30 ml Famotidine (Pepcid) 20 mg IVP STAT STA Stop: 05/12/17 22:34 Last Admin: 05/12/17 23:04 Dose: 20 mg IVP Administration Document 05/12/17 23:04 OCS (Rec: 05/12/17 23:05 [facility]CS [id number]) Charges for Administration # of IVP Administrations 1 Furosemide (Lasix) 40 mg IVP STAT STA Stop: 05/12/17 22:34 Last Admin: 05/12/17 23:04 Dose: 40 mg MAR Blood Pressure Document 05/12/17 23:04 OCS (Rec: 05/12/17 23:04 [facility] [id number][place] Blood Pressure Blood Pressure (100/60-150/90) 162/72 IVP Administration Document 05/12/17 23:04 OCS (Rec: 05/12/17 23:04 [facility]CS [id number]) Charges for Administration # of IVP Administrations 1 Hydromorphone HCl (Dilaudid) 1 mg IVP STAT STA Stop: 05/14/17 02:35 Last Admin: 05/14/17 02:46 Dose: 1 mg MAR Pain Assessment Document 05/14/17 02:46 GC (Rec: 05/14/17 02:47 GC [id number]) Pain Reassessment Is this a pain reassessment? No Sleep Is patient sleeping during reassessment? No Presence of Pain Presence of Pain Yes Pain Scale Used Pain Scale Used Numeric Location Pain Location Body Site Abdomen Description Intensity of Pain at present 9 Acceptable Level of Pain 3 IVP Administration Document 05/14/17 02:46 GC (Rec: 05/14/17 02:47 [id number] Charges for Administration # of IVP Administrations 1 Re-Assess: [facility] Pain Assessment Document 05/14/17 03:46 GC (Rec: 05/14/17 05:32 [id number] Pain Reassessment Is this a pain reassessment? Yes Sleep Is patient sleeping during reassessment? Yes Aztreonam (Azactam 2 Gm) 100 mls @ 100 mls/hr IVPB Q8 LILIAN PRN Reason: Protocol Stop: 05/21/17 23:01 Last Admin: 05/15/17 05:18 Dose: 100 mls/hr eMAR Start Stop Document 05/15/17 05:18 MS (Rec: 05/15/17 05:19 MS [id number]) Intravenous Solution Start Date 05/15/17 Start Time 05:19 End Date 05/15/17 End time 06:19 Total Infusion Time 60 Metronidazole (Flagyl) 500 mg in 100 mls @ 100 mls/hr IVPB Q8 LILIAN PRN Reason: Protocol Last Admin: 05/15/17 06:21 Dose: 100 mls/hr eMAR Start Stop Document 05/15/17 06:21 MS (Rec: 05/15/17 06:22 MS [id number]) Intravenous Solution Start Date 05/15/17 Start Time 06:21 End Date 05/15/17 End time 07:21 Total Infusion Time 60 Phytonadione 10 mg/ Sodium (Chloride) 51 mls @ 100 mls/hr IV ONCE ONE Stop: 05/15/17 13:23 Metoclopramide HCl (Reglan) 10 mg IVP STAT STA Stop: 05/14/17 17:53 Last Admin: 05/14/17 18:27 Dose: 10 mg IVP Administration Document 05/14/17 18:27 KKA (Rec: 05/14/17 18:27 KKA [id number]) Charges for Administration # of IVP Administrations 1 Ondansetron HCl (Zofran Inj) 8 mg IVP STAT STA Stop: 05/12/17 21:39 Last Admin: 05/12/17 22:31 Dose: 8 mg IVP Administration Document 05/12/17 22:31 OCS (Rec: 05/12/17 22:31 [id number]) Charges for Administration # of IVP Administrations 1 Pantoprazole Sodium (Protonix Inj) 80 mg IVP STAT STA Stop: 05/12/17 21:08 Last Admin: 05/12/17 21:32 Dose: 80 mg IVP Administration Document 05/12/17 21:32 OCS (Rec: 05/12/17 21:32 [id number]) Charges for Administration # of IVP Administrations 1 Polyethylene Glycol/Electrolytes (Golytely) 4,000 ml PO ONCE ONE Stop: 05/14/17 14:01 Last Admin: 05/14/17 14:35 Dose: 4,000 ml Sodium Phosphate (Fleet Enema) 135 ml RC ONCE ONE Stop: 05/15/17 09:23 Last Admin: 05/15/17 09:58 Dose: 135 ml Tramadol/Acetaminophen (Ultracet 37.5/325 Mg) 1 tab PO STAT STA Stop: 05/12/17 22:44 Last Admin: 05/12/17 23:04 Dose: 1 tab MAR Pain Assessment Document 05/12/17 23:04 OCS (Rec: 05/12/17 23:04 OCS [id number]) Pain Reassessment Is this a pain reassessment? Yes Sleep Is patient sleeping during reassessment? No Presence of Pain Presence of Pain Yes Location Pain Location Body Site Abdomen Re-Assess: MAR Pain Assessment Document 05/13/17 00:04 GC (Rec: 05/13/17 20:51 GC [id number]) Pain Reassessment Is this a pain reassessment? Yes Sleep Is patient sleeping during reassessment? Yes Disposition/Present on Arrival <Jagdeep Pham - Last Filed: 05/13/17 00:48> - Present on Arrival Any Indicators Present on Arrival: No History of DVT/PE: No History of Uncontrolled Diabetes: No Urinary Catheter: No History of Decub. Ulcer: No History Surgical Site Infection Following: None - Disposition Have Diagnosis and Disposition been Completed?: Yes Disposition Time: 23:38 Patient Plan: Admission, Telemetry <Renetta Niño - Last Filed: 05/15/17 14:15> - Disposition Disposition: HOSPITALIZED Condition: SERIOUS
[2017-05-12 22:37] LABS: BASO # 0.02 K/mm3 (0.0-2.0); BASO % 0.2 % (0.0-3.0); EOS % 0.3 % (1.5-5.0); GRAN # 8.5 (1.4-6.5); GRAN % 79.7 % (50.0-68.0); HEMOGLOBIN 8.3 g/dL (12.0-16.0); LYMPH # 1.4 (1.2-3.4); LYMPH % 12.7 % (22.0-35.0); MEAN CELL VOLUME 77.4 fl (80.0-105.0); MEAN CORPUSCULAR HEMOGLOBIN 24.1 pg (25.0-35.0); MEAN CORPUSCULAR HGB CONC 31.1 g/dl (31.0-37.0); MEAN PLATELET VOLUME 9.8 fl (7.0-11.0); MONO # 0.8 (0.1-0.6); MONO % 7.1 % (1.0-6.0); RBC 3.45 10^6/uL (3.5-6.1); RED CELL DISTRIBUTION WIDTH 22.5 % (11.5-14.5); WHITE BLOOD COUNT 10.7 10^3/ul (4.5-11.0)
[2017-05-12] MEDS ORDERED: TraMADol/Apap 37.5/325 mg Tab PO STA (22:43)
[2017-05-12 22:51] LABS: ALB/GLOB RATIO 1.1 (1.1-1.8); ALBUMIN 3.1 g/dL (3.0-4.8); CALCIUM 8.7 mg/dL (8.4-10.5); MAGNESIUM 2.3 mg/dL (1.7-2.2)
[2017-05-13 00:04] LABS: INR 2.92 (0.93-1.08); PARTIAL THROMBOPLASTIN TIME 41.7 Seconds (25.1-36.5)
[2017-05-13 00:53] LABS: URINE BILIRUBIN NEGATIVE (NEGATIVE); URINE BLOOD NEGATIVE (NEGATIVE); URINE GLUCOSE (UA) NEGATIVE (NEGATIVE); URINE LEUKOCYTE ESTERASE NEGATIVE Leu/uL (NEGATIVE); URINE NITRATE NEGATIVE (NEGATIVE); URINE PROTEIN NEGATIVE mg/dL (<30 mg/dL); URINE UROBILINOGEN 0.2 E.U./dL (<1 E.U./dL)
[2017-05-13 01:11] LABS: URINE APPEARANCE CLEAR (CLEAR); URINE COLOR YELLOW (YELLOW)
[2017-05-13] MEDS: Sodium Chloride 0.9% 1,000 ML IV SCH ×3 (01:19→21:20)
[2017-05-13 03:49] VITALS: BMI 27.9
[2017-05-13] MEDS: Pantoprazole 40 mg EC Tab PO SCH (05:03)
[2017-05-13] MEDS: Levothyroxine 125 MCG TAB PO SCH (08:19)
[2017-05-13 10:31] LABS: BASO # 0.01 K/mm3 (0.0-2.0); BASO % 0.1 % (0.0-3.0); EOS % 0.2 % (1.5-5.0); GRAN # 8.05 (1.4-6.5); GRAN % 78.6 % (50.0-68.0); HEMOGLOBIN 9.5 g/dL (12.0-16.0); LYMPH # 1.1 (1.2-3.4); LYMPH % 10.8 % (22.0-35.0); MEAN CELL VOLUME 79.3 fl (80.0-105.0); MEAN CORPUSCULAR HEMOGLOBIN 25.9 pg (25.0-35.0); MEAN CORPUSCULAR HGB CONC 32.6 g/dl (31.0-37.0); MEAN PLATELET VOLUME 9.9 fl (7.0-11.0); MONO # 1.1 (0.1-0.6); MONO % 10.3 % (1.0-6.0); RBC 3.67 10^6/uL (3.5-6.1); RED CELL DISTRIBUTION WIDTH 20.2 % (11.5-14.5); WHITE BLOOD COUNT 10.3 10^3/ul (4.5-11.0)
[2017-05-13] MEDS: Metoprolol Succinate 50 mg XL Tab PO SCH (10:33)
[2017-05-13 10:48] LABS: ALBUMIN 2.8 g/dL (3.0-4.8); CALCIUM 8.2 mg/dL (8.4-10.5)
--- NOTE | 2017-05-13 15:59 | HP ---
HISTORY OF PRESENT ILLNESS: Ms. Hargrove is a 77-year-old female, presented to ED with bright red blood per rectum. She has a history of GI bleed before. she had endoscopy done in February 2017, which showed Beltran ulcer. She had GI bleed in the past. Has also required blood transfusion. CAT scan of abdomen and pelvis done in April this year was unremarkable. She has history of coronary artery disease status post CABG. Cardiovascular currently stable. She also has a pacemaker. She has history of DVT and is on Coumadin. Also, has severe peripheral arterial disease. She has hypertension, blood pressure controlled on current medications; hypothyroidism, on Synthroid with fairly controlled thyroid functions. Denies any abdominal pain. No nausea or vomiting. No bleeding since admission to the hospital. PAST MEDICAL HISTORY: Coronary artery disease status post CABG, cardiomyopathy, AICD placement, history of DVT on Coumadin, hypertension, hyperlipidemia, peripheral arterial disease, gastric ulcer, history of GI bleed, hypothyroidism, history of lung nodules, right adrenal nodules. PAST SURGICAL HISTORY: CABG, AICD placement, left iliac stent, right leg vascular surgery, cholecystectomy. FAMILY HISTORY: Noncontributory. PERSONAL HISTORY: No smoking. No drinking. SOCIAL HISTORY: Lives at home. ALLERGIES: SULFA, PENICILLIN, ATORVASTATIN, FLUOROQUINOLONES. REVIEW OF SYSTEMS: As per HPI. Rest of 12-point review of systems reviewed negative. PHYSICAL EXAMINATION GENERAL: Comfortable in bed, in no acute distress. VITAL SIGNS: Temperature 97.8, heart rate is 100 per minute, respiratory rate 16 per minute, blood pressure 120/70, pulse ox is 95% on room air. HEENT: Pallor positive. NECK: No lymphadenopathy. CHEST: Air entry present and equal bilaterally. No added sounds. CARDIOVASCULAR: Tachycardia plus. S1 and S2 normal. No murmur. No gallop. ABDOMEN: Soft, nontender. No hepatosplenomegaly. EXTREMITIES: No edema. BALLISTIC TECHNICIAN: Alert, oriented x3. No sensory or motor deficit. SKIN: No petechiae. No rash. SPINE: Nontender. HOME MEDICATIONS: Aspirin 81 mg daily, Lasix 40 mg daily, Cymbalta 30 mg daily, Synthroid mcg daily, metoprolol 50 mg daily, Diovan 40 mg daily, Protonix 40 mg daily, Aldactone 25 mg daily, Coumadin. ASSESSMENT AND PLAN: 1. Gastrointestinal bleed. 2. Large gastric ulcer. 3. Severe anemia. 4. Coronary artery disease. 5. History of deep venous thrombosis. 6. Hypothyroidism. 7. Hypertension. 8. Peripheral arterial disease. PLAN: She will be admitted to the hospital, tele-monitoring, 2 units of blood transfusion to be given today, n.p.o. except meds. GI consultation with Dr. Lew requested. We will continue to monitor hemoglobin and hematocrit closely. Synthroid p.o. daily, metoprolol 50 mg daily, Protonix 40 mg IV daily, Aldactone 25 mg daily, IV fluid at 70 mL an hour normal saline, Xanax 0.5 mg p.o. at bedtime, n.p.o. except meds. Labs ordered CBC, CMP stat. She will need IV iron as out patient for chronic GI bleed. Discussed with her. She agreed. Katelyn Miles MD MTDReno
--- NOTE | 2017-05-13 23:05 | CON ---
DATE: 05/13/2017 REQUESTING PHYSICIAN: Katelyn Miles MD. REASON FOR CONSULT: I have been asked to see this 77-year-old female, just recently discharged from [facility] ([facility] about a week ago, who now comes to the hospital with several episodes of rectal bleeding starting 1 day ago. HISTORY OF PRESENT ILLNESS: The patient is on Coumadin for history of DVT back in 2014. The patient has had chronic abdominal pain over the last year associated with approximately a 100-pound weight loss. She saw another industrial editor in [place], Dr. Valles, who informed her that she has mesenteric ischemia. In the emergency room, the patient's hemoglobin was 8.3. The patient has had multiple [facility] admissions over the last few months including 1 week ago and back in March 2017 and an upper endoscopy by Dr. Mckeon at that time revealed a gastric ulcer as well as a Beltran ulcer and a hiatal hernia. She has had multiple CAT scans in the last month, which had shown persistent mild mural thickening of the terminal ileum and cecum. The last CT scan revealed increased stool throughout the colon as well. She is also noted to have pulmonary nodules, which have remained stable on CT scanning.. She currently states that her abdominal pain is no worse than her usual pain. She denies any fevers, chills, chest pain or shortness of breath. PAST MEDICAL HISTORY: Notable for peripheral artery disease with fem-fem bypass several years ago. She also has a history of coronary artery disease, status post CABG, ischemic cardiomyopathy, arrhythmia, status post AICD and permanent pacemaker placement, DVT, gastric ulcer and Beltran ulcer, history of colon polyps with last colonoscopy approximately 1 year ago by a industrial editor in [place], hypothyroidism, lung nodule and osteomyelitis. PAST SURGICAL HISTORY: Notable for CABG in 1999, right fem-fem bypass, left iliac stent, cholecystectomy and AICD placement. SOCIAL HISTORY: She denies cigarette smoker or alcohol use. FAMILY HISTORY: Noncontributory. REVIEW OF SYSTEMS: A 14-point review of systems is positive for rectal bleeding, chronic abdominal pain, weight loss. PHYSICAL EXAMINATION: GENERAL: Well-developed female lying in bed, in no acute distress. VITAL SIGNS: Reveal temperature of 98, blood pressure 136/73, heart rate of 85. HEENT: Reveal sclerae to be white. Conjunctivae pink. NECK: Supple. CHEST: Reveal lungs to be clear. She has an AICD/PPM in her left subclavicular area. HEART: Regular rate and rhythm. There is a 2/6 systolic murmur. ABDOMEN: Soft, nontender. No mass. EXTREMITIES: Show no edema. LABORATORY DATA: Reveal white blood cell count of 10.3. On admission to the hospital, her hemoglobin was 8.3, after 2 units of packed red blood cells her hemoglobin is up to 9.5. Chemistries reveal BUN 18, creatinine 1.2, albumin is 2.8. AST, ALT, alk phos were all normal. Patient's PT/INR on admission to the hospital was 34 and 2.92. MEDICATIONS AT HOME: Include Compazine 10 mg p.o. t.i.d., Zetia 10 mg daily, Diovan 40 mg once a day, Neurontin 300 mg three times a day, Lasix 40 mg once a day, Cymbalta 30 mg daily, vitamin D3 2000 units daily, baby aspirin 8l mg daily, Xanax 0.5 mg at bedtime, Toprol-XL 50 mg daily, Levoxyl 125 mcg daily, Coumadin 5 mg daily, Aldactone 25 mg daily, Protonix 40 mg once a day. IMPRESSION: 1. This is a 77-year-old vasculopath with history of peripheral artery disease, coronary artery disease, status post coronary artery bypass grafting, ischemic cardiomyopathy, status post automatic implantable cardioverter-defibrillator permanent pacemaker placement with chronic abdominal pain, presumed secondary to mesenteric ischemia and weight loss with lower gastrointestinal bleeding exacerbated by coagulopathy secondary to warfarin use. Her PT is 34.0 and INR 2.92. She has not had any rectal bleeding in approximately 12 hours. Her hemoglobin is back to baseline at 9.5 after 2 units of packed red blood cells. Given her multiple comorbidities, we will treat the patient conservatively. She did have a colonoscopy and endoscopy within the last year. She is known to have ulcer disease and a Beltran ulcer. 2. Coagulopathy. RECOMMENDATIONS: 1. We will follow serial CBC. 2. I will start the patient on clear liquid diet. 3. We will request a duplex ultrasound of the mesenteric vessels to see if there is any high grade occlusion of the mesenteric vessels. Ideally, I would like to get a MR angiogram of the mesenteric, but the patient has a permanent pacemaker/AICD and this will not be possible. 4. Consider CT angiography of the mesenteric vessels. Jagdeep Lew MD cc: [email or web address]
[2017-05-14] MEDS ORDERED: Alum-Mag Hydrox-Simethicone Susp (30 mL) PO STA (00:24)
--- NOTE | 2017-05-14 04:58 | CP.PCM.PN ---
Subjective - Date & Time of Evaluation Date of Evaluation: 05/13/17 Time of Evaluation: 12:00 - Subjective Subjective: pt is c/o abdominal pain ,generalized. pt is admitted for gi bleed hx of gastric ulcer cad, hypothyroidism . Objective - Vital Signs/Intake and Output Vital Signs (last 24 hours): Temp Pulse Resp BP Pulse Ox 97.9 F 95 H 20 170/79 H 100 05/13/17 23:51 05/14/17 01:57 05/13/17 23:51 05/13/17 23:51 05/13/17 23:51 Intake and Output: 05/13/17 05/14/17 18:59 06:59 Intake Total 635 Output Total 600 Balance 35 - Medications Medications: Current Medications Alprazolam (Xanax) 0.5 mg PO HS LILIAN PRN Reason: Protocol Last Admin: 05/13/17 21:20 Dose: 0.5 mg Duloxetine HCl (Cymbalta) 30 mg PO DAILY [facility] Last Admin: 05/13/17 10:33 Dose: 30 mg Gabapentin (Neurontin) 300 mg PO TID LILIAN PRN Reason: Protocol Last Admin: 05/13/17 18:27 Dose: 300 mg Sodium Chloride (Sodium Chloride 0.9%) 1,000 mls @ 70 mls/hr IV .[id number] [facility] Last Admin: 05/13/17 21:20 Dose: 70 mls/hr Levothyroxine Sodium (Synthroid) 125 mcg PO ACB [facility] Last Admin: 05/13/17 08:19 Dose: 125 mcg Losartan Potassium (Cozaar) 25 mg PO DAILY [facility] Last Admin: 05/13/17 10:34 Dose: 25 mg Metoprolol Succinate (Toprol Xl) 50 mg PO DAILY [facility] Last Admin: 05/13/17 10:33 Dose: 50 mg Pantoprazole Sodium (Protonix Ec Tab) 40 mg PO 0600 [facility] Last Admin: 05/13/17 05:03 Dose: 40 mg Spironolactone (Aldactone) 25 mg PO DAILY [facility] Last Admin: 05/13/17 10:34 Dose: 25 mg - Labs Labs: 05/13/17 10:10 05/13/17 10:10 PT 34.0 SECONDS (9.4-12.5) H 05/12/17 22:09 INR 2.92 (0.93-1.08) H 05/12/17 22:09 APTT 41.7 Seconds (25.1-36.5) H 05/12/17 22:09 - Constitutional Appears: Other (pt apears uncomfortable 2/2 to abdominal pain.) - Head Exam Head Exam: NORMOCEPHALIC - Eye Exam Eye Exam: PERRL Pupil Exam: PERRL - ENT Exam ENT Exam: Mucous Membranes Moist - Neck Exam Neck Exam: Full ROM - Respiratory Exam Respiratory Exam: Clear to Ausculation Bilateral - Cardiovascular Exam Cardiovascular Exam: RRR, +S1, +S2 - GI/Abdominal Exam GI & Abdominal Exam: Soft, Tenderness - Rectal Exam Rectal Exam: Deferred - Extremities Exam Extremities Exam: Full ROM - Neurological Exam Neurological Exam: Alert, Oriented x3 - Psychiatric Exam Psychiatric exam: Anxious - Skin Skin Exam: Dry, Warm Assessment and Plan - Assessment and Plan (Free Text) Assessment: abdomial pain . hx of pud . hx of gi bleed . hx of cad. Plan: maalox 30 cc x1 given pt did not improve much . gave dilauded 1 mg x1 .will do xray abdomen.
[2017-05-14] MEDS: Pantoprazole 40 mg EC Tab PO SCH (05:18)
[2017-05-14] MEDS: Sodium Chloride 0.9% 1,000 ML IV SCH ×3 (06:39→21:18)
[2017-05-14 07:52] LABS: BASO # 0.01 K/mm3 (0.0-2.0); BASO % 0.1 % (0.0-3.0); EOS % 0.1 % (1.5-5.0); GRAN # 11.77 (1.4-6.5); GRAN % 84.9 % (50.0-68.0); HEMOGLOBIN 10.7 g/dL (12.0-16.0); LYMPH # 0.9 (1.2-3.4); LYMPH % 6.8 % (22.0-35.0); MEAN CELL VOLUME 79.6 fl (80.0-105.0); MEAN CORPUSCULAR HEMOGLOBIN 25.4 pg (25.0-35.0); MEAN CORPUSCULAR HGB CONC 31.9 g/dl (31.0-37.0); MONO # 1.1 (0.1-0.6); MONO % 8.1 % (1.0-6.0); RBC 4.21 10^6/uL (3.5-6.1); RED CELL DISTRIBUTION WIDTH 20.2 % (11.5-14.5); WHITE BLOOD COUNT 13.9 10^3/ul (4.5-11.0)
--- NOTE | 2017-05-14 10:22 | RAD ---
HISTORY: abdominal pain COMPARISON: No prior. FINDINGS: BOWEL: Normal. No obstruction. No free air. BONES: Normal. OTHER FINDINGS: None. IMPRESSION: No active disease.
[2017-05-14] MEDS: Metoprolol Succinate 50 mg XL Tab PO SCH (11:02)
[2017-05-14] MEDS: Levothyroxine 125 MCG TAB PO SCH (11:02)
[2017-05-14 12:45] LABS: BLOOD UREA NITROGEN 16 mg/dL (7-21); CALCIUM 9.1 mg/dL (8.4-10.5); GFR AFRICAN-AMERICAN > 60; GFR NON-AFRICAN AMERICAN 54
--- NOTE | 2017-05-14 13:29 | PN ---
DATE: 05/14/2017 SUBJECTIVE: The patient states that she had several more episodes of rectal bleeding yesterday. Her hemoglobin this morning is up to 10.5 g from 8.3 g on admission to the hospital. She received 2 units of packed red blood cells 36 hours ago. MEDICATIONS: Include Aldactone 25 mg once a day, losartan 25 mg once a day, Cymbalta 30 mg daily, Neurontin 300 mg p.o. three times a day, pantoprazole 40 mg once a day, Levoxyl 125 mcg daily, metoprolol succinate 50 mg daily, and Xanax 0.5 mg p.o. at bedtime. PHYSICAL EXAMINATION: VITAL SIGNS: Reveal temperature of 97.4, blood pressure 124/83, heart rate of 91. HEENT: Reveal sclerae to be white, conjunctivae pink. NECK: Supple. CHEST: Reveals lungs to be clear. HEART: Reveals a regular rate and rhythm. There is a 2/6 systolic murmur. ABDOMEN: Soft, nontender. EXTREMITIES: Show no edema. LABORATORY DATA: Reveal white blood cell count 13.9, hemoglobin 10.7. Chemistries reveal albumin 2.8. IMPRESSION: 1. Lower gastrointestinal bleed. 2. Peripheral arterial disease. 3. Coronary artery disease. 4. History of deep venous thrombosis, on Coumadin. 5. Chronic anemia. 6. Chronic abdominal pain, possibly secondary to mesenteric ischemia. RECOMMENDATIONS: 1. I have recommended that the patient have a colonoscopy. She is refusing this. I have informed her that without a colonoscopy, we will not find out why she is having rectal bleeding. She is adamant about not having a colonoscopy performed. 2. Await results of duplex scan of mesenteric artery and celiac artery to see if there is any occlusion to account for the patient's chronic abdominal pain. 3. Hold warfarin and antiplatelet medications for now. Jagdeep Lew MD
[2017-05-14] MEDS ORDERED: Peg-Electrolyte Oral Soln 4L (Golytely) PO ONE (14:00)
--- NOTE | 2017-05-14 14:45 | CARD ---
APPROVED REPORT EKG Measurement Heart [id number] [id number] <Conclusion> Electronic ventricular pacemaker
[2017-05-14] MEDS: Morphine 2 mg/ml ISec IVP PRN (21:16)
--- NOTE | 2017-05-14 21:44 | CP.PCM.PN ---
Subjective - Date & Time of Evaluation Date of Evaluation: 05/14/17 Time of Evaluation: 21:43 - Subjective Subjective: Patient was seen at bedside because nurse had called me and told that patient had 5 beats of runs of VTACH on monitor. Deines chest pain, sob, nausea, sweating , palpitation. 77 year old white woman was admitted for bright red blood per rectum. Has PMH of GI bleeding, endoscopy, CAD,CABG, DVT, HTN, hypothyroidism. Medical record was reviewed. Objective - Vital Signs/Intake and Output Vital Signs (last 24 hours): Temp Pulse Resp BP Pulse Ox 97.8 F 72 16 153/64 H 95 05/14/17 18:00 05/14/17 18:00 05/14/17 18:00 05/14/17 18:00 05/14/17 05:57 Intake and Output: 05/14/17 05/15/17 18:59 06:59 Intake Total 600 Output Total 300 Balance 300 - Medications Medications: Current Medications Alprazolam (Xanax) 0.5 mg PO HS LILIAN PRN Reason: Protocol Last Admin: 05/13/17 21:20 Dose: 0.5 mg Duloxetine HCl (Cymbalta) 30 mg PO DAILY [facility] Last Admin: 05/14/17 11:03 Dose: 30 mg Gabapentin (Neurontin) 300 mg PO TID LILIAN PRN Reason: Protocol Last Admin: 05/14/17 19:47 Dose: Not Given Sodium Chloride (Sodium Chloride 0.9%) 1,000 mls @ 70 mls/hr IV .[id number] [facility] Last Admin: 05/14/17 21:18 Dose: Not Given Levothyroxine Sodium (Synthroid) 125 mcg PO ACB [facility] Last Admin: 05/14/17 11:02 Dose: 125 mcg Losartan Potassium (Cozaar) 25 mg PO DAILY [facility] Last Admin: 05/14/17 11:02 Dose: 25 mg Metoprolol Succinate (Toprol Xl) 50 mg PO DAILY [facility] Last Admin: 05/14/17 11:02 Dose: 50 mg Morphine Sulfate (Morphine) 1 mg IVP Q4H PRN PRN Reason: Pain, moderate (4-7) Last Admin: 05/14/17 21:16 Dose: 1 mg Pantoprazole Sodium (Protonix Ec Tab) 40 mg PO 0600 [facility] Last Admin: 05/14/17 05:18 Dose: Not Given Spironolactone (Aldactone) 25 mg PO DAILY [facility] Last Admin: 05/14/17 11:02 Dose: 25 mg - Labs Labs: 05/14/17 06:50 05/14/17 06:50 PT 34.0 SECONDS (9.4-12.5) H 05/12/17 22:09 INR 2.92 (0.93-1.08) H 05/12/17 22:09 APTT 41.7 Seconds (25.1-36.5) H 05/12/17 22:09 Most Recent Lab Values WBC 36.9 10^3/ul (4.5-11.0) H* 05/14/17 23:20 RBC 3.93 10^6/uL (3.5-6.1) 05/14/17 23:20 Hgb 10.2 g/dL (12.0-16.0) L 05/14/17 23:20 Hct 31.2 % (36.0-48.0) L 05/14/17 23:20 MCV 79.4 fl (80.0-105.0) L 05/14/17 23:20 MCH 26.0 pg (25.0-35.0) 05/14/17 23:20 MCHC 32.7 g/dl (31.0-37.0) 05/14/17 23:20 RDW 20.2 % (11.5-14.5) H 05/14/17 23:20 Plt Count 314 10^3/uL (120.0-450.0) 05/14/17 23:20 MPV 10.0 fl (7.0-11.0) 05/14/17 23:20 Gran % 94.4 % (50.0-68.0) H 05/14/17 23:20 Lymph % (Auto) 1.6 % (22.0-35.0) L 05/14/17 23:20 [place] % (Auto) 4.0 % (1.0-6.0) 05/14/17 23:20 Eos % (Auto) 0.0 % (1.5-5.0) L 05/14/17 23:20 Baso % (Auto) 0.0 % (0.0-3.0) 05/14/17 23:20 Gran # 34.86 (1.4-6.5) H 05/14/17 23:20 Lymph # (Auto) 0.6 (1.2-3.4) L 05/14/17 23:20 [place] # (Auto) 1.5 (0.1-0.6) H 05/14/17 23:20 Eos # (Auto) 0.0 (0.0-0.7) 05/14/17 23:20 Baso # (Auto) 0.01 K/mm3 (0.0-2.0) 05/14/17 23:20 Neutrophils % (Manual) 97 % (50.0-70.0) H 05/14/17 23:20 Band Neutrophils % 1 % (0-2) 05/14/17 23:20 Lymphocytes % (Manual) 1 % (22.0-35.0) L 05/14/17 23:20 Monocytes % (Manual) 1 % (1.0-6.0) 05/14/17 23:20 Toxic Granulation 1+ 05/14/17 23:20 Platelet Evaluation Normal (NORMAL) 05/14/17 23:20 Hypochromasia 2+ 05/14/17 23:20 [place] 1+ 05/14/17 23:20 PT 35.8 SECONDS (9.4-12.5) H 05/15/17 00:00 INR 3.07 (0.93-1.08) H 05/15/17 00:00 APTT 38.6 Seconds (25.1-36.5) H 05/15/17 00:00 pCO2 31 mm/Hg (35-45) L 05/14/17 23:10 pO2 65.0 mm/Hg (80-100) L 05/14/17 23:10 HCO3 22.6 mmol/L (21-28) 05/14/17 23:10 ABG pH 7.47 (7.35-7.45) H 05/14/17 23:10 ABG Total CO2 23.6 mmol.L (22-28) 05/14/17 23:10 ABG O2 Saturation 97.1 % (95-98) 05/14/17 23:10 ABG Base Excess -0.2 mmol/L (-2.0-3.0) 05/14/17 23:10 ABG Potassium 3.5 mmol/L (3.6-5.2) L 05/14/17 23:10 Sodium 131.0 mmol/L (132-148) L 05/14/17 23:10 Chloride 103.0 mmol/L (98-107) 05/14/17 23:10 Glucose 139 mg/dl (65-105) H 05/14/17 23:10 Lactate 1.0 mmol/L (0.7-2.1) 05/14/17 23:10 FiO2 21.0 % 05/14/17 23:10 Sodium 131 mmol/L (132-148) L 05/14/17 22:15 Potassium 4.2 mmol/L (3.6-5.0) 05/14/17 22:15 Chloride 99 mmol/L (98-107) 05/14/17 22:15 Carbon Dioxide 19 mmol/L (21-33) L 05/14/17 22:15 Anion Gap 17 (10-20) 05/14/17 22:15 BUN 15 mg/dL (7-21) 05/14/17 22:15 Creatinine 0.9 mg/dl (0.7-1.2) 05/14/17 22:15 Est GFR ( Amer) > 60 05/14/17 22:15 Est GFR (Non-Af Amer) > 60 05/14/17 22:15 Random Glucose 136 mg/dL (70-110) H 05/14/17 22:15 Calcium 9.0 mg/dL (8.4-10.5) 05/14/17 22:15 Phosphorus 3.7 mg/dL (2.5-4.5) 05/14/17 22:15 Magnesium 1.9 mg/dL (1.7-2.2) 05/14/17 22:15 Total Bilirubin 1.3 mg/dL (0.2-1.3) 05/13/17 10:10 AST 15 U/L (14-36) 05/13/17 10:10 ALT 20 U/L (7-56) 05/13/17 10:10 Alkaline Phosphatase 82 U/L (38-126) 05/13/17 10:10 Troponin I 0.03 ng/mL D 05/14/17 22:15 Total Protein 5.6 g/dL (5.8-8.3) L 05/13/17 10:10 Albumin 2.8 g/dL (3.0-4.8) L 05/13/17 10:10 Globulin 2.8 gm/dL 05/13/17 10:10 Albumin/Globulin Ratio 1.0 (1.1-1.8) L 05/13/17 10:10 Amylase 33 U/L (35-125) L 05/14/17 22:15 Lipase 29 U/L (23-300) 05/14/17 22:15 Arterial Blood Potassium 3.5 mmol/L (3.6-5.2) L 05/14/17 23:10 Urine Color Yellow (YELLOW) 05/13/17 00:30 Urine Appearance Clear (CLEAR) 05/13/17 00:30 Urine pH 6.0 (4.7-8.0) 05/13/17 00:30 Ur Specific [place] 1.015 (1.005-1.035) 05/13/17 00:30 Urine Protein Negative mg/dL (<30 mg/dL) 05/13/17 00:30 Urine Glucose (UA) Negative mg/dL (NEGATIVE) 05/13/17 00:30 Urine Ketones Negative mg/dL (NEGATIVE) 05/13/17 00:30 Urine Blood Negative (NEGATIVE) 05/13/17 00:30 Urine Nitrate Negative (NEGATIVE) 05/13/17 00:30 Urine Bilirubin Negative (NEGATIVE) 05/13/17 00:30 Urine Urobilinogen 0.2 E.U./dL (<1 E.U./dL) 05/13/17 00:30 Ur Leukocyte Esterase Negative Maki/uL (NEGATIVE) 05/13/17 00:30 Stool Occult Blood Positive (NEGATIVE) H 05/13/17 15:30 Blood Type B POSITIVE 05/12/17 22:09 Antibody Screen Negative 05/12/17 22:09 Crossmatch See Detail 05/12/17 22:09 BBK History Checked Patient has bt 05/12/17 22:09 - Constitutional Appears: Well, No Acute Distress - Head Exam Head Exam: ATRAUMATIC, NORMAL INSPECTION, NORMOCEPHALIC - Eye Exam Eye Exam: Normal appearance - ENT Exam ENT Exam: Normal External Ear Exam - Neck Exam Neck Exam: Normal Inspection - Respiratory Exam Respiratory Exam: NORMAL BREATHING PATTERN - Cardiovascular Exam Cardiovascular Exam: absent: JVD - GI/Abdominal Exam GI & Abdominal Exam: absent: Distended - Rectal Exam Rectal Exam: Deferred - Exam Additional comments: Deferred. - Extremities Exam Extremities Exam: Normal Inspection - Back Exam Back Exam: NORMAL INSPECTION - Neurological Exam Neurological Exam: Alert, Awake - Psychiatric Exam Psychiatric exam: Normal Affect, Normal Mood - Skin Skin Exam: Normal Color Assessment and Plan - Assessment and Plan (Free Text) Assessment: Non sustained runs of VTACH. Rectal bleeding. HTN. Hypothyroidism. CAD. Hx CABG. Plan: CBC. BMP. MG. Phos. Troponin. EKG----Paced rhythm. Continue present management.
[2017-05-14 22:22] LABS: HEMOGLOBIN 10.8 g/dL (12.0-16.0); MEAN CELL VOLUME 80.5 fl (80.0-105.0); MEAN CORPUSCULAR HGB CONC 32.2 g/dl (31.0-37.0); MEAN PLATELET VOLUME 9.6 fl (7.0-11.0); RBC 4.16 10^6/uL (3.5-6.1); RED CELL DISTRIBUTION WIDTH 20.4 % (11.5-14.5)
[2017-05-14 22:25] LABS: WHITE BLOOD COUNT 38.3 10^3/ul (4.5-11.0)
[2017-05-14 22:37] LABS: BLOOD UREA NITROGEN 15 mg/dL (7-21); GFR AFRICAN-AMERICAN > 60; GFR NON-AFRICAN AMERICAN > 60; MAGNESIUM 1.9 mg/dL (1.7-2.2)
[2017-05-14 22:44] LABS: TROPONIN I 0.03 ng/mL
--- NOTE | 2017-05-14 22:58 | CP.PCM.PCO ---
Assessment and Plan - Assessment and Plan (Free Text) Assessment: Spoke to Dr Hastings, for evaluation/possible transfer to ICU. ID consult requested. Spoke to staff nurse for stat antibiotics- to be given meropenem, flagyl. Blood culture, urine culture stat.
[2017-05-14] MEDS ORDERED: Meropenem 1g/NS 100mL IVPB 1 GM/100 ML PIGGYBACK IVPB SCH (23:00)
--- NOTE | 2017-05-14 23:03 | CP.PCM.CON ---
<Sandra Velasco - Last Filed: 05/15/17 00:01> History of Present Illness - History of Present Illness History of Present Illness: Critical Care Consult Note for Dr. Hastings 77yo female PMHx severe PAD, coagulopathy CAD s/p CABG, with pacemaker, hx of DVT on coumadin, CHF, HTN, dyslipidemia, hypothyroidism, presented to [facility] ED 2/ 3 with complaints of nausea, vomiting, and bloody BM. Patient reports she first noticed blood in her BM early on the day of admission which was darker red in color and progressively became brighter. Patient stated she has chronic abdominal pain but reported it was worse on the day of admission and localized to her midepigastrum and LLQ. Patient has been seeing GI outpatient and was told that on her last CT she had evidence of colitis and ischemia but there was no intervention in light of her heart disease. Patient was on TELE and was being seen by Dr. Louann GAONA. ICU was consulted in light of marked leukocytosis 38.3, 5 beats of VTach, and overall concern for sepsis. Patient was seen and examined at bedside. She was resting comfortably but complained of chronic abdominal pain and chills. She is due for colonoscopy in the AM, however has been unable to tolerate her bowel prep and has had multiple episodes of nonbloody nonbilious emesis throughout the day. Patient has not had a BM in 4 days despite drinking bowel prep. She denied any fever, headache, dizziness, chest pain, palpitations, SOB, cough, bladder complaints, swelling in her legs bilaterally. PMHx: CAD s/p CABG, cardiomyopathy s/p AICD, Hx DVT on coumadin, HTN, hyperlipidemia, bilateral peripheral arterial disease, Gastric ulcer and GI bleed requiring blood transfusion, hypothyroidism, lung nodule, R adrenal nodule 17cm, Constipation on MOM, Osteomyelitis due to cellulitis, s/p skin graft, ESBL-producing Proteus right sided pyelonephritis PSurgHx: CABG 1999, AICD placement 2004, Left iliac stent, Left vein stripping with replacement for circulation, R leg vascular surgery for circulation, Cholecystectemy FamHx: coagulopathy SocHx: denies smoking/drinking ALL: Fluoroquinolones/sulfa/penicillin/atorvastatins Review of Systems - Constitutional Constitutional: As Per HPI, Chills. absent: Fever - EENT Eyes: As Per HPI. absent: Blurred Vision Ears: As Per HPI. absent: Dizziness Nose/Mouth/Throat: As Per HPI. absent: Sore Throat - Cardiovascular Cardiovascular: As Per HPI. absent: Chest Pain, Dyspnea, Palpitations - Respiratory Respiratory: As Per HPI. absent: Cough, Dyspnea - Gastrointestinal Gastrointestinal: As Per HPI, Abdominal Pain, Constipation, Cramping, Hematochezia, Nausea, Vomiting. absent: Coffee Ground Emesis, Diarrhea, Hematemesis - Genitourinary Genitourinary: As Per HPI. absent: Dysuria - Musculoskeletal Musculoskeletal: As Per HPI. absent: Numbness, Tingling - Integumentary Integumentary: As Per HPI. absent: Dry Skin - Neurological Neurological: As Per HPI. absent: Dizziness - Endocrine Endocrine: As Per HPI. absent: Polydipsia, Polyphagia, Polyuria Past Patient History - Infectious Disease Hx of Infectious Diseases: None - Tetanus Immunizations Tetanus Immunization: Unknown - Past Social History Smoking Status: Former Smoker - CARDIAC Hx Cardiac Disorders: Yes Hx Hypertension: Yes Hx Pacemaker: Yes (DEFIBRILLATOR 2012) - PULMONARY Hx Respiratory Disorders: No - NEUROLOGICAL Hx Neurological Disorder: No - HEENT Hx HEENT Problems: Yes Hx Cataracts: Yes - RENAL Hx Chronic Kidney Disease: No - ENDOCRINE/METABOLIC Hx Endocrine Disorders: Yes Hx Hypothyroidism: Yes - HEMATOLOGICAL/ONCOLOGICAL Hx Blood Disorders: Yes Hx Anemia: Yes (with blood transfusion) - INTEGUMENTARY Hx Dermatological Problems: Yes (cellulitis to left leg 2015) - MUSCULOSKELETAL/RHEUMATOLOGICAL Hx Musculoskeletal Disorders: Yes Hx Falls: Yes Hx Unsteady Gait: Yes (cane at home) - GASTROINTESTINAL Hx Gastrointestinal Disorders: Yes Hx Gastroesophageal Reflux: Yes Other/Comment: 2015 Mesenteric ischemia - GENITOURINARY/GYNECOLOGICAL Hx Genitourinary Disorders: No - PSYCHIATRIC Hx Psychophysiologic Disorder: Yes Hx Anxiety: Yes Hx Substance Use: No - SURGICAL HISTORY Hx Surgeries: Yes Hx Cardiac Catheterization: Yes (x 4 stents) Hx Coronary Stent: Yes Hx Open Heart Surgery: Yes Other/Comment: 1999 Bypass in Right leg. 2001 triple bypass surgery of heart - ANESTHESIA Hx Anesthesia: Yes Meds Allergies/Adverse Reactions: Allergies Allergy/AdvReac Type Severity Reaction Status Date / Time atorvastatin [From Lipitor] Allergy RASH Verified 05/12/17 20:41 moxifloxacin [From Avelox] Allergy ANAPHYLAXIS Verified 05/12/17 20:41 Penicillins Allergy ANAPHYLAXIS Verified 05/12/17 20:41 sulfamethoxazole Allergy NAUSEA Verified 05/12/17 20:41 [From Bactrim] trimethoprim [From Bactrim] Allergy NAUSEA Verified 05/12/17 20:41 amoxicillin AdvReac ANAPHYLAXIS Verified 05/12/17 20:41 - Medications Medications: Current Medications Alprazolam (Xanax) 0.5 mg PO HS LILIAN PRN Reason: Protocol Last Admin: 05/13/17 21:20 Dose: 0.5 mg Duloxetine HCl (Cymbalta) 30 mg PO DAILY [facility] Last Admin: 05/14/17 11:03 Dose: 30 mg Gabapentin (Neurontin) 300 mg PO TID LILIAN PRN Reason: Protocol Last Admin: 05/14/17 19:47 Dose: Not Given Sodium Chloride (Sodium Chloride 0.9%) 1,000 mls @ 70 mls/hr IV .[id number] [facility] Last Admin: 05/14/17 21:18 Dose: Not Given Aztreonam (Azactam 2 Gm) 100 mls @ 100 mls/hr IVPB Q8 LILIAN PRN Reason: Protocol Stop: 05/21/17 23:01 Metronidazole (Flagyl) 500 mg in 100 mls @ 100 mls/hr IVPB Q8 LILIAN PRN Reason: Protocol Levothyroxine Sodium (Synthroid) 125 mcg PO ACB [facility] Last Admin: 05/14/17 11:02 Dose: 125 mcg Losartan Potassium (Cozaar) 25 mg PO DAILY [facility] Last Admin: 05/14/17 11:02 Dose: 25 mg Metoprolol Succinate (Toprol Xl) 50 mg PO DAILY [facility] Last Admin: 05/14/17 11:02 Dose: 50 mg Morphine Sulfate (Morphine) 1 mg IVP Q4H PRN PRN Reason: Pain, moderate (4-7) Last Admin: 05/14/17 21:16 Dose: 1 mg Pantoprazole Sodium (Protonix Ec Tab) 40 mg PO 0600 [facility] Last Admin: 05/14/17 05:18 Dose: Not Given Spironolactone (Aldactone) 25 mg PO DAILY [facility] Last Admin: 05/14/17 11:02 Dose: 25 mg Physical Exam - Constitutional Appears: Non-toxic, No Acute Distress - Head Exam Head Exam: ATRAUMATIC, NORMAL INSPECTION, NORMOCEPHALIC - Eye Exam Eye Exam: EOMI, Normal appearance, PERRL. absent: Conjunctival injection, Scleral icterus Pupil Exam: NORMAL ACCOMODATION - ENT Exam ENT Exam: Mucous Membranes Moist - Neck Exam Neck exam: Positive for: Normal Inspection. Negative for: Tenderness - Respiratory Exam Respiratory Exam: Clear to Auscultation Bilateral, NORMAL BREATHING PATTERN. absent: Accessory Muscle Use, Rales, Rhonchi, Wheezes, Respiratory Distress - Cardiovascular Exam Cardiovascular Exam: REGULAR RHYTHM, RRR, +S1, +S2 - GI/Abdominal Exam GI & Abdominal Exam: Diminished Bowel Sounds, Soft, Tenderness (epigastrum and R sided to palpation ). absent: Distended, Firm, Guarding, Rigid - Rectal Exam Rectal Exam: Deferred - Extremities Exam Extremities exam: Positive for: normal capillary refill, normal inspection, pedal pulses present. Negative for: pedal edema - Neurological Exam Neurological exam: Alert, CN II-XII Intact, Oriented x3 - Psychiatric Exam Psychiatric exam: Normal Affect, Normal Mood - Skin Skin Exam: Dry, Intact, Normal Color, Warm Results - Vital Signs Recent Vital Signs: Last Vital Signs Temp 97.8 F 05/14/17 18:00 Pulse 72 05/14/17 18:00 Resp 16 05/14/17 18:00 BP 153/64 H 05/14/17 18:00 Pulse Ox 95 05/14/17 05:57 - Labs Result Diagrams: 05/14/17 23:20 05/14/17 22:15 Labs: Laboratory Results - last 24 hr 05/14/17 05/14/17 05/14/17 06:50 06:50 22:15 WBC 13.9 H D 38.3 H* D RBC 4.21 4.16 Hgb 10.7 L 10.8 L Hct 33.5 L 33.5 L MCV 79.6 L 80.5 MCH 25.4 26.0 MCHC 31.9 32.2 RDW 20.2 H 20.4 H Plt Count 345 283 MPV 10.0 9.6 Gran % 84.9 H Lymph % (Auto) 6.8 L Desha % (Auto) 8.1 H Eos % (Auto) 0.1 L Baso % (Auto) 0.1 Gran # 11.77 H Lymph # (Auto) 0.9 L Desha # (Auto) 1.1 H Eos # (Auto) 0.0 Baso # (Auto) 0.01 Sodium 132 Potassium 4.2 Chloride 103 Carbon Dioxide 18 L Anion Gap 15 BUN 16 Creatinine 1.0 Est GFR ( Amer) > 60 Est GFR (Non-Af Amer) 54 Random Glucose 128 H Calcium 9.1 Phosphorus Magnesium Troponin I 05/14/17 22:15 WBC RBC Hgb Hct MCV MCH MCHC RDW Plt Count MPV Gran % Lymph % (Auto) Desha % (Auto) Eos % (Auto) Baso % (Auto) Gran # Lymph # (Auto) Desha # (Auto) Eos # (Auto) Baso # (Auto) Sodium 131 L Potassium 4.2 Chloride 99 Carbon Dioxide 19 L Anion Gap 17 BUN 15 Creatinine 0.9 Est GFR ( Amer) > 60 Est GFR (Non-Af Amer) > 60 Random Glucose 136 H Calcium 9.0 Phosphorus 3.7 Magnesium 1.9 Troponin I 0.03 D Assessment & Plan - Assessment and Plan (Free Text) Assessment: 77yo female PMHx severe PAD, coagulopathy CAD s/p CABG, with pacemaker, hx of DVT on coumadin, CHF, HTN, dyslipidemia, hypothyroidism, presented to [facility] ED 2/ 3 with complaints of nausea, vomiting, and bloody BM. ICU consulted to evaluate patient in light of marked leukocytosis and concern for sepsis. Plan: Patient is currently hemodynamically stable and resting comfortably. Repeat CBC with diff showed marked leukocytosis 36.9. STAT ABG with shock had lactate WNL of 1. Amylase and Lipase were WNL. Patient had an abd u/s that was inconclusive due to overlying bowel gas. Agree with ID consult and infectious work up with blood cultures, urine c&s, procalcitonin and antibiotic regimen. Recommend Abdominal angio study. In regards to VTach, patient was asymptomatic and hemodynamically stable at time of event and on examination after. Vtach was nonsustained and electrolytes ordered at time of event were WNL. Troponin was negative. Recommend follow up of repeat troponin x 2. In light of ABG, recommend O2 2L by NE. At this time, patient does not meet ICU criteria. Recommend continued monitoring on telemetry floors. Primary Dr. Miles is aware. Discussed with attending Dr. Venkata Velasco PGY2 <Ang Hastings Q - Last Filed: 05/15/17 02:05> Meds - Medications Medications: Current Medications Alprazolam (Xanax) 0.5 mg PO HS LILIAN PRN Reason: Protocol Last Admin: 05/15/17 00:46 Dose: Not Given Duloxetine HCl (Cymbalta) 30 mg PO DAILY [facility] Last Admin: 05/14/17 11:03 Dose: 30 mg Gabapentin (Neurontin) 300 mg PO TID LILIAN PRN Reason: Protocol Last Admin: 05/14/17 19:47 Dose: Not Given Sodium Chloride (Sodium Chloride 0.9%) 1,000 mls @ 70 mls/hr IV .[id number] [facility] Last Admin: 05/14/17 21:18 Dose: Not Given Aztreonam (Azactam 2 Gm) 100 mls @ 100 mls/hr IVPB Q8 LILIAN PRN Reason: Protocol Stop: 05/21/17 23:01 Last Admin: 05/15/17 00:15 Dose: 100 mls/hr Metronidazole (Flagyl) 500 mg in 100 mls @ 100 mls/hr IVPB Q8 LILIAN PRN Reason: Protocol Last Admin: 05/14/17 23:06 Dose: 100 mls/hr Levothyroxine Sodium (Synthroid) 125 mcg PO ACB [facility] Last Admin: 05/14/17 11:02 Dose: 125 mcg Losartan Potassium (Cozaar) 25 mg PO DAILY [facility] Last Admin: 05/14/17 11:02 Dose: 25 mg Metoprolol Succinate (Toprol Xl) 50 mg PO DAILY [facility] Last Admin: 05/14/17 11:02 Dose: 50 mg Morphine Sulfate (Morphine) 1 mg IVP Q4H PRN PRN Reason: Pain, moderate (4-7) Last Admin: 05/14/17 21:16 Dose: 1 mg Pantoprazole Sodium (Protonix Ec Tab) 40 mg PO 0600 [facility] Last Admin: 05/14/17 05:18 Dose: Not Given Spironolactone (Aldactone) 25 mg PO DAILY [facility] Last Admin: 05/14/17 11:02 Dose: 25 mg Results - Vital Signs Recent Vital Signs: Last Vital Signs Temp 97.8 F 05/14/17 18:00 Pulse 72 05/14/17 18:00 Resp 16 05/14/17 18:00 BP 153/64 H 05/14/17 18:00 Pulse Ox 95 02/05/18 05:57 - Labs Result Diagrams: 05/14/17 23:20 05/14/17 22:15 Labs: Laboratory Results - last 24 hr 05/14/17 05/14/17 05/14/17 06:50 06:50 22:15 WBC 13.9 H D 38.3 H* D RBC 4.21 4.16 Hgb 10.7 L 10.8 L Hct 33.5 L 33.5 L MCV 79.6 L 80.5 MCH 25.4 26.0 MCHC 31.9 32.2 RDW 20.2 H 20.4 H Plt Count 345 283 MPV 10.0 9.6 Gran % 84.9 H Lymph % (Auto) 6.8 L Desha % (Auto) 8.1 H Eos % (Auto) 0.1 L Baso % (Auto) 0.1 Gran # 11.77 H Lymph # (Auto) 0.9 L Desha # (Auto) 1.1 H Eos # (Auto) 0.0 Baso # (Auto) 0.01 Neutrophils % (Manual) Band Neutrophils % Lymphocytes % (Manual) Monocytes % (Manual) Toxic Granulation Platelet Evaluation Hypochromasia Rouleaux PT INR APTT pCO2 pO2 HCO3 ABG pH ABG Total CO2 ABG O2 Saturation ABG Base Excess ABG Potassium Glucose Lactate FiO2 Sodium 132 Potassium 4.2 Chloride 103 Carbon Dioxide 18 L Anion Gap 15 BUN 16 Creatinine 1.0 Est GFR ( Amer) > 60 Est GFR (Non-Af Amer) 54 Random Glucose 128 H Calcium 9.1 Phosphorus Magnesium Troponin I Amylase Lipase Arterial Blood Potassium 05/14/17 05/14/17 05/14/17 22:15 22:15 23:10 WBC RBC Hgb Hct MCV MCH MCHC RDW Plt Count MPV Gran % Lymph % (Auto) Desha % (Auto) Eos % (Auto) Baso % (Auto) Gran # Lymph # (Auto) Desha # (Auto) Eos # (Auto) Baso # (Auto) Neutrophils % (Manual) Band Neutrophils % Lymphocytes % (Manual) Monocytes % (Manual) Toxic Granulation Platelet Evaluation Hypochromasia Rouleaux PT INR APTT pCO2 31 L pO2 65.0 L HCO3 22.6 ABG pH 7.47 H ABG Total CO2 23.6 ABG O2 Saturation 97.1 ABG Base Excess -0.2 ABG Potassium 3.5 L Glucose 139 H Lactate 1.0 FiO2 21.0 Sodium 131 L 131.0 L Potassium 4.2 Chloride 99 103.0 Carbon Dioxide 19 L Anion Gap 17 BUN 15 Creatinine 0.9 Est GFR ( Amer) > 60 Est GFR (Non-Af Amer) > 60 Random Glucose 136 H Calcium 9.0 Phosphorus 3.7 Magnesium 1.9 Troponin I 0.03 D Amylase 33 L Lipase 29 Arterial Blood Potassium 3.5 L 05/14/17 05/15/17 23:20 00:00 WBC 36.9 H* RBC 3.93 Hgb 10.2 L Hct 31.2 L MCV 79.4 L MCH 26.0 MCHC 32.7 RDW 20.2 H Plt Count 314 MPV 10.0 Gran % 94.4 H Lymph % (Auto) 1.6 L Desha % (Auto) 4.0 Eos % (Auto) 0.0 L Baso % (Auto) 0.0 Gran # 34.86 H Lymph # (Auto) 0.6 L Desha # (Auto) 1.5 H Eos # (Auto) 0.0 Baso # (Auto) 0.01 Neutrophils % (Manual) 97 H Band Neutrophils % 1 Lymphocytes % (Manual) 1 L Monocytes % (Manual) 1 Toxic Granulation 1+ Platelet Evaluation Normal Hypochromasia 2+ Rouleaux 1+ PT 35.8 H INR 3.07 H APTT 38.6 H pCO2 pO2 HCO3 ABG pH ABG Total CO2 ABG O2 Saturation ABG Base Excess ABG Potassium Glucose Lactate FiO2 Sodium Potassium Chloride Carbon Dioxide Anion Gap BUN Creatinine Est GFR ( Amer) Est GFR (Non-Af Amer) Random Glucose Calcium Phosphorus Magnesium Troponin I Amylase Lipase Arterial Blood Potassium Attending/Attestation - Attestation I have personally seen and examined this patient.: Yes I have fully participated in the care of the patient.: Yes I have reviewed all pertinent clinical information: Yes Notes (Text): 05/15/17 01:57 I agree with the above mentioned note and exam by the resident with the addition /exception of the followin77 y/o female with an extensive PMHx as laid out above in this consultation was admitted to the hospital due to concern for a possible GI Bleed as well as ongoing abdominal pain. Patient has had previous admissions last month as well as in March for bouts of abdominal pain, CT Abd/pelvis did reveal areas of focal appearing thickening within the bowel concerning for inflammation/ infection/neoplasm. Also given her extensive PMHx of PAD/PVD, there has been concerned raised for mesenteric ischemia. Currently the patient is hemodynamically stable, resting comfortably and not in any acute distress also without any new complaints since admission. She was shown to have 5 beats of non-sustained Vtach with more frequent PVC's as well as an increase in her WBC earlier this evening. She is planned for a colonoscopy tomorrow, however has not had a bowel movement since ingesting her bowel prep (golytely) and states she vomitted most of whatever she drank. She would benefit from further workup of her abdominal pain with a possible Angiography of her mesenteric vasculature. I have relayed that information to Dr. Miles over the phone. The patient may remain on the telemetry floor unless her condition changes/worsens. I will be available in-house until 7am for re-evaluation as needed. Labs and images available thus far have been reviewed Abd U/S performed for evaluation of mesenteric vasculature unable to visualize vessels due to bowel gas pattern Thank you for this consultation Case discussed with Dr. Miles
[2017-05-14] MEDS: metroNIDAZOLE IV 500 mg/100 ml 500 MG/100 ML BAG IVPB SCH (23:06)
[2017-05-14 23:19] LABS: ARTERIAL BLOOD GAS HCO3 22.6 mmol/L (21-28); ARTERIAL BLOOD GAS O2 SAT 97.1 % (95-98); ARTERIAL BLOOD GAS PCO2 31 mm/Hg (35-45); ARTERIAL BLOOD GAS PH 7.47 (7.35-7.45); ARTERIAL BLOOD GAS TCO2 23.6 mmol.L (22-28)
--- NOTE | 2017-05-14 23:21 | US ---
EXAM: US Abdomen Limited CLINICAL HISTORY: 77 years old, female; Pain; Abdominal pain; Acute; Additional info: Mesenteric ischemia TECHNIQUE: Real-time ultrasound of the upper abdomen with image documentation. COMPARISON: US - ABDOMEN COMPLETE DUPLEX 2017-04-05 08:12 FINDINGS: Aorta: Not visualized due to overlying bowel gas. Other vasculature: Celiac axis and superior mesenteric artery not visualized due to overlying bowel gas. IMPRESSION: 1. Nonvisualization of aorta, celiac axis, superior mesenteric artery.
[2017-05-14 23:26] LABS: BASO # 0.01 K/mm3 (0.0-2.0); GRAN # 34.86 (1.4-6.5); GRAN % 94.4 % (50.0-68.0); HEMOGLOBIN 10.2 g/dL (12.0-16.0); LYMPH # 0.6 (1.2-3.4); LYMPH % 1.6 % (22.0-35.0); MEAN CELL VOLUME 79.4 fl (80.0-105.0); MEAN CORPUSCULAR HGB CONC 32.7 g/dl (31.0-37.0); MONO # 1.5 (0.1-0.6); PLATELET COUNT 314 10^3/uL (120.0-450.0); RBC 3.93 10^6/uL (3.5-6.1); RED CELL DISTRIBUTION WIDTH 20.2 % (11.5-14.5)
[2017-05-14 23:28] LABS: WHITE BLOOD COUNT 36.9 10^3/ul (4.5-11.0)
[2017-05-14 23:34] LABS: AMYLASE 33 U/L (35-125); LIPASE 29 U/L (23-300)
--- NOTE | 2017-05-14 23:38 | PN ---
DATE: 05/14/2017 SUBJECTIVE: Ms. Hargrove is a 77-year-old female admitted with lower GI bleed. She had bright red blood per rectum. She is complaining of diffuse abdominal pain. She is being prepared for colonoscopy tomorrow. She did not tolerate the GoLYTELY, she vomited. She is not willing to take further GoLYTELY for the prep. Daughter is at bedside. She received a dose of Dilaudid in the night and was drowsy all day as per the staff nurse. She also received a dose of Zofran with some relief in nausea. REVIEW OF SYSTEMS: As per HPI. Rest of 12-point review of systems reviewed are negative. No episode of GI bleed during hospitalization. PHYSICAL EXAMINATION: GENERAL: Mild distress due to abdominal pain. VITAL SIGNS: Temperature 98.7, heart rate 110 per minute, respiratory rate 18 per minute, blood pressure 130/80, oxygen saturation 98% on room air. HEENT: Pallor positive. NECK: No lymphadenopathy. CHEST: Air entry present and equal bilaterally. No added sounds. CARDIOVASCULAR: S1, S2 normal. No murmur. No gallop. ABDOMEN: Diffusely tender. No rebound tenderness. EXTREMITIES: No edema. Spine nontender. SKIN: No petechiae. No rash. LABORATORY DATA: White count 38,000, hemoglobin 10.8, hematocrit 35.5, platelet count 283. Sodium 132, potassium 4.2, BUN 16, creatinine 1. ASSESSMENT: 1. Gastrointestinal bleed. 2. Leukocytosis, possible sepsis. 3. Abdominal pain, diffuse. 4. Anemia. 5. Coronary artery disease. PLAN: She is having diffuse abdominal pain. We will give morphine 1 mg q.4h. p.r.n. Hemoglobin and hematocrit are stable at 10.8 and 35.5. White count is elevated to 38,000. We will order blood culture and urine culture. ID consultation, Dr. Andrews. We will inform Dr. Sol about the elevated white count. She needs prophylactic antibiotics. Difficulty drinking the prep. Zofran p.r.n. We will discuss with Dr. Sol. Katelyn Miles MD [facility] # [id number] VILMA
[2017-05-15 00:01] LABS: BAND 1 % (0-2); LYMPHOCYTE 1 % (22.0-35.0); MONOCYTE 1 % (1.0-6.0); NEUTROPHIL 97 % (50.0-70.0)
[2017-05-15 00:02] LABS: HYPOCHROMIA 2+; PLATELET ESTIMATE NORMAL (NORMAL); ROULEAU 1+; TOXIC GRANULATION 1+
[2017-05-15] MEDS: Aztreonam 2 Gm in NS 100mL 100 ML IVPB SCH ×2 (00:15→05:18)
[2017-05-15 00:25] LABS: INR 3.07 (0.93-1.08); PARTIAL THROMBOPLASTIN TIME 38.6 Seconds (25.1-36.5); PROTHROMBIN TIME 35.8 SECONDS (9.4-12.5)
[2017-05-15 05:15] LABS: PH,URINE 5.5 (4.7-8.0); URINE BILIRUBIN NEGATIVE (NEGATIVE); URINE BLOOD NEGATIVE (NEGATIVE); URINE GLUCOSE (UA) NEGATIVE (NEGATIVE); URINE LEUKOCYTE ESTERASE SMALL Leu/uL (NEGATIVE); URINE NITRATE POSITIVE (NEGATIVE); URINE PROTEIN NEGATIVE mg/dL (<30 mg/dL); URINE UROBILINOGEN 0.2 E.U./dL (<1 E.U./dL)
[2017-05-15 05:16] LABS: URINE APPEARANCE SLIGHT-CLOUDY (CLEAR)
[2017-05-15 05:18] LABS: URINE RBC NEGATIVE /hpf (0-2)
[2017-05-15 05:19] LABS: URINE BACTERIA SMALL (NEG)
[2017-05-15] MEDS: Pantoprazole 40 mg EC Tab PO SCH (05:19)
[2017-05-15] MEDS: metroNIDAZOLE IV 500 mg/100 ml 500 MG/100 ML BAG IVPB SCH (06:21)
--- NOTE | 2017-05-15 09:30 | PN ---
DATE: SUBJECTIVE: The patient has no complaint of any chest pain or shortness of breath. She states she was not able to get sleep yesterday. She denies diarrhea. PHYSICAL EXAMINATION: VITAL SIGNS: Temperature 98.7,pulse of 108, blood pressure 119/58, respirations 19. GENERAL: The patient is lying in bed, flat, comfortable. HEENT: No oral lesion. Anicteric sclerae. Moist mucosa. NECK: No JVD, adenopathy, or thyromegaly. CARDIOVASCULAR: S1 and S2, regular. No murmurs, rubs, or gallops. LUNGS: Clear to auscultation bilaterally. No wheeze, rales, or rhonchi. ABDOMEN: Bowel sounds are positive. Soft, nontender and nondistended. EXTREMITIES: No cyanosis, clubbing or edema. ASSESSMENT 1. Gastrointestinal bleeding. 2. Sepsis. 3. Acute anemia secondary to blood loss. 4. Coronary artery disease. 5. PENICILLIN ALLERGY. 6. Peptic ulcer disease. 7. Automated implantable cardioverter defibrillator. 8. Congestive heart failure secondary to systolic dysfunction with ejection fraction of 15% to 20%. 9. Aortic stenosis. 10. Aortic regurgitation. 11. A 4-mm nodule in the right middle lobe. 12. Adrenal incidentaloma, 17 mm. 13. Iron deficiency. PLAN: The patient is currently comfortable. She had blood cultures. Urine cultures have been done because of the elevated white count. Consult with Dr. Andrews has been ordered. The patient is on aztreonam. She is on Aldactone. She is on GoLYTELY in order to prepare for her colonoscopy. She was not able to tolerate, there were five beats of ventricular tachycardia. I will get Dr. Pierre to follow the patient. The patient is on IV fluids with normal saline. She is receiving a liquid diet. She is on Xanax as needed. She will be followed by Dr. Miles from Hematology for her anemia. She is going to continue on telemetry. She does have a history of DVT and is on anticoagulation for this. Her Coumadin is on hold. Her INR remains elevated with INR of 3.07. Gaurav Griffin MD [facility] # [id number]
[2017-05-15 09:31] LABS: HEMOGLOBIN 9.8 g/dL (12.0-16.0); MEAN CELL VOLUME 79.9 fl (80.0-105.0); MEAN CORPUSCULAR HEMOGLOBIN 25.6 pg (25.0-35.0); MEAN PLATELET VOLUME 9.9 fl (7.0-11.0); PLATELET COUNT 342 10^3/uL (120.0-450.0); RBC 3.83 10^6/uL (3.5-6.1); RED CELL DISTRIBUTION WIDTH 20.7 % (11.5-14.5)
[2017-05-15 09:40] LABS: WHITE BLOOD COUNT 37.7 10^3/ul (4.5-11.0)
[2017-05-15 09:46] LABS: ALBUMIN 2.6 g/dL (3.0-4.8); ALT/SGPT 20 U/L (7-56); AST/SGOT 17 U/L (14-36); BLOOD UREA NITROGEN 16 mg/dL (7-21); GFR AFRICAN-AMERICAN > 60; GFR NON-AFRICAN AMERICAN 54
[2017-05-15 09:54] LABS: TROPONIN I 0.05 ng/mL
[2017-05-15] MEDS: Levothyroxine 125 MCG TAB PO SCH (10:00)
[2017-05-15] MEDS: Metoprolol Succinate 50 mg XL Tab PO SCH (10:02)
[2017-05-15] MEDS: Morphine 2 mg/ml ISec IVP PRN (11:03)
--- NOTE | 2017-05-15 11:32 | CP.PCM.CON ---
History of Present Illness - History of Present Illness History of Present Illness: 77 year old female with PMH of evere PAD, CAD S/P CABG, chronic CHF, HTN, dyslipidemia, hypothyroidism, S/P cholecystectomy , history of ESBL-producing Proteus right sided pyelonephritis was brought in to [facility] [place] because of continued abdominal pain. She has had this for over a year which worsened over the past several days, associated with nausea and retching. The pain is worse with intake of solids or liquids, which is sharp in nature. This time also, she had blood per rectum. She denies fever but has occasional chills, no headache or dizziness, has chronic cough with whitish phlegm, no chest pain, no SOB, no sore throat, no rhinorrhea, no dysuria. Yesterday, the WBC count jumped to over 38k. Infectious Diseases consult is requested to further evaluate and manage. Review of Systems - Review of Systems All systems: reviewed and no additional remarkable complaints except (as per HPI ) Past Patient History - Infectious Disease Hx of Infectious Diseases: None - Tetanus Immunizations Tetanus Immunization: Unknown - Past Social History Smoking Status: Former Smoker - CARDIAC Hx Cardiac Disorders: Yes Hx Hypertension: Yes Hx Pacemaker: Yes (DEFIBRILLATOR 2012) - PULMONARY Hx Respiratory Disorders: No - NEUROLOGICAL Hx Neurological Disorder: No - HEENT Hx HEENT Problems: Yes Hx Cataracts: Yes - RENAL Hx Chronic Kidney Disease: No - ENDOCRINE/METABOLIC Hx Endocrine Disorders: Yes Hx Hypothyroidism: Yes - HEMATOLOGICAL/ONCOLOGICAL Hx Blood Disorders: Yes Hx Anemia: Yes (with blood transfusion) - INTEGUMENTARY Hx Dermatological Problems: Yes (cellulitis to left leg 2015) - MUSCULOSKELETAL/RHEUMATOLOGICAL Hx Musculoskeletal Disorders: Yes Hx Falls: Yes Hx Unsteady Gait: Yes (cane at home) - GASTROINTESTINAL Hx Gastrointestinal Disorders: Yes Hx Gastroesophageal Reflux: Yes Other/Comment: 2015 Mesenteric ischemia - GENITOURINARY/GYNECOLOGICAL Hx Genitourinary Disorders: No - PSYCHIATRIC Hx Psychophysiologic Disorder: Yes Hx Anxiety: Yes Hx Substance Use: No - SURGICAL HISTORY Hx Surgeries: Yes Hx Cardiac Catheterization: Yes (x 4 stents) Hx Coronary Stent: Yes Hx Open Heart Surgery: Yes Other/Comment: 1999 Bypass in Right leg. 2001 triple bypass surgery of heart - ANESTHESIA Hx Anesthesia: Yes Meds Allergies/Adverse Reactions: Allergies Allergy/AdvReac Type Severity Reaction Status Date / Time atorvastatin [From Lipitor] Allergy RASH Verified 05/12/17 20:41 moxifloxacin [From Avelox] Allergy ANAPHYLAXIS Verified 05/12/17 20:41 Penicillins Allergy ANAPHYLAXIS Verified 05/12/17 20:41 sulfamethoxazole Allergy NAUSEA Verified 05/12/17 20:41 [From Bactrim] trimethoprim [From Bactrim] Allergy NAUSEA Verified 05/12/17 20:41 amoxicillin AdvReac ANAPHYLAXIS Verified 05/12/17 20:41 - Medications Medications: Current Medications Alprazolam (Xanax) 0.5 mg PO HS [facility] PRN Reason: Protocol Last Admin: 05/13/17 21:20 Dose: 0.5 mg Duloxetine HCl (Cymbalta) 30 mg PO DAILY [facility] Last Admin: 05/14/17 11:03 Dose: 30 mg Gabapentin (Neurontin) 300 mg PO TID [facility] PRN Reason: Protocol Last Admin: 05/14/17 19:47 Dose: Not Given Sodium Chloride (Sodium Chloride 0.9%) 1,000 mls @ 70 mls/hr IV .[id number] [facility] Last Admin: 05/14/17 21:18 Dose: Not Given Aztreonam (Azactam 2 Gm) 100 mls @ 100 mls/hr IVPB Q8 [facility] PRN Reason: Protocol Stop: 05/21/17 23:01 Metronidazole (Flagyl) 500 mg in 100 mls @ 100 mls/hr IVPB Q8 [facility] PRN Reason: Protocol Levothyroxine Sodium (Synthroid) 125 mcg PO ACB [facility] Last Admin: 05/14/17 11:02 Dose: 125 mcg Losartan Potassium (Cozaar) 25 mg PO DAILY [facility] Last Admin: 05/14/17 11:02 Dose: 25 mg Metoprolol Succinate (Toprol Xl) 50 mg PO DAILY [facility] Last Admin: 05/14/17 11:02 Dose: 50 mg Morphine Sulfate (Morphine) 1 mg IVP Q4H PRN PRN Reason: Pain, moderate (4-7) Last Admin: 05/14/17 21:16 Dose: 1 mg Pantoprazole Sodium (Protonix Ec Tab) 40 mg PO 0600 [facility] Last Admin: 05/14/17 05:18 Dose: Not Given Spironolactone (Aldactone) 25 mg PO DAILY [facility] Last Admin: 05/14/17 11:02 Dose: 25 mg Physical Exam - Constitutional Appears: Chronically Ill - Head Exam Head Exam: NORMAL INSPECTION - ENT Exam ENT Exam: Mucous Membranes Moist - Neck Exam Neck exam: Negative for: Meningismus - Respiratory Exam Respiratory Exam: Decreased Breath Sounds - Cardiovascular Exam Cardiovascular Exam: +S1, +S2 - GI/Abdominal Exam GI & Abdominal Exam: Soft. absent: Tenderness Results - Vital Signs Recent Vital Signs: Last Vital Signs Temp 97.8 F 05/14/17 18:00 Pulse 72 05/14/17 18:00 Resp 16 05/14/17 18:00 BP 153/64 H 05/14/17 18:00 Pulse Ox 95 05/14/17 05:57 - Labs Result Diagrams: 05/15/17 09:00 05/15/17 09:25 Labs: Laboratory Results - last 24 hr 05/14/17 05/14/17 05/14/17 06:50 06:50 22:15 WBC 13.9 H D 38.3 H* D RBC 4.21 4.16 Hgb 10.7 L 10.8 L Hct 33.5 L 33.5 L MCV 79.6 L 80.5 MCH 25.4 26.0 MCHC 31.9 32.2 RDW 20.2 H 20.4 H Plt Count 345 283 MPV 10.0 9.6 Gran % 84.9 H Lymph % (Auto) 6.8 L [place] % (Auto) 8.1 H Eos % (Auto) 0.1 L Baso % (Auto) 0.1 Gran # 11.77 H Lymph # (Auto) 0.9 L [place] # (Auto) 1.1 H Eos # (Auto) 0.0 Baso # (Auto) 0.01 Sodium 132 Potassium 4.2 Chloride 103 Carbon Dioxide 18 L Anion Gap 15 BUN 16 Creatinine 1.0 Est GFR ( Amer) > 60 Est GFR (Non-Af Amer) 54 Random Glucose 128 H Calcium 9.1 Phosphorus Magnesium Troponin I 05/14/17 22:15 WBC RBC Hgb Hct MCV MCH MCHC RDW Plt Count MPV Gran % Lymph % (Auto) [place] % (Auto) Eos % (Auto) Baso % (Auto) Gran # Lymph # (Auto) [place] # (Auto) Eos # (Auto) Baso # (Auto) Sodium 131 L Potassium 4.2 Chloride 99 Carbon Dioxide 19 L Anion Gap 17 BUN 15 Creatinine 0.9 Est GFR ( Amer) > 60 Est GFR (Non-Af Amer) > 60 Random Glucose 136 H Calcium 9.0 Phosphorus 3.7 Magnesium 1.9 Troponin I 0.03 D Assessment & Plan - Assessment and Plan (Free Text) Plan: Assessment systemic inflammatory response syndrome, R/O sepsis from intra-abdominal infection in this patient with probable ischemic colitis history of asymptomatic bacteriuria with E. faecalis history of ESBL-producing Proteus right sided pyelonephritis severe PAD CAD S/P CABG chronic CHF HTN dyslipidemia hypothyroidism S/P cholecystectomy Plan start patient on Merrem pending blood cx; patient for colonoscopy today will trend WBC count and follow up colonoscopy findings
--- NOTE | 2017-05-15 12:29 | CARD ---
APPROVED REPORT EKG Measurement Heart [id number] MD [id number] <Conclusion> Atrial sensed, ventricular paced rhythm
[2017-05-15] MEDS: Sodium Chloride 0.9% 1,000 ML IV SCH (12:47)
[2017-05-15] MEDS ORDERED: Phytonadione 10 MG in Sodium Chloride 0.9% 50 ML IV ONE (12:53)
[2017-05-15] MEDS ORDERED: Barium Sulfate Susp 2.1% w/v, 2.0% w/w 450 mL Bottle PO ONE (13:03)
[2017-05-15] MEDS ORDERED: Phytonadione 10 mg/ml Inj (Adult) ONE (14:41)
[2017-05-15] MEDS ORDERED: Iohexol 350 MG/100 ML VIAL ONE (14:47)
[2017-05-15] MEDS: Meropenem 1g/NS 100mL IVPB 1 GM/100 ML PIGGYBACK IVPB SCH ×2 (15:19→22:39)
[2017-05-15] MEDS ORDERED: Magnesium Citrate Oral SOL (300 ml) PO ONE (17:00)
--- NOTE | 2017-05-15 17:51 | CT ---
PROCEDURE: CT Abdomen and Pelvis with oral and IV contrast. HISTORY: ischemic colitis, leukocytosis COMPARISON: Abdominal ultrasound performed 05/14/17, CT of the abdomen pelvis with contrast performed 05/01/17 TECHNIQUE: Contiguous axial images of the abdomen and pelvis. Oral and IV contrast was administered. Coronal and Sagittal reformats generated and reviewed. Contrast dose: 100 mL Omnipaque 350 Radiation dose: Total exam DLP = 690.01 mGy-cm. This CT exam was performed using one or more of the following dose reduction techniques: Automated exposure control, adjustment of the mA and/or kV according to patient size, and/or use of iterative reconstruction technique. FINDINGS: LOWER THORAX: No visible consolidation, pleural effusion, or pneumothorax. LIVER: Unremarkable. GALLBLADDER AND BILE DUCTS: The gallbladder is not visualized presumably surgically resected however surgical clips are not evident. Dilated common bile duct measures approximately 13 mm. Question filling defect measuring approximately 5 mm at the distal CBD (coronal image 62). PANCREAS: Pancreatic atrophy. SPLEEN: Unremarkable. ADRENALS: 17 mm low-density nodule, medial limb right adrenal gland. The left adrenal gland appears unremarkable. KIDNEYS AND URETERS: Atrophic right kidney. The kidneys enhance symmetrically. No hydronephrosis or obstructing renal calculus. BLADDER: The urinary bladder appears unremarkable. REPRODUCTIVE: Uterus is present. APPENDIX: No secondary signs of acute appendicitis. BOWEL: The stomach is nondistended. Fluid-filled dilated small bowel loops; correlate clinically for small bowel obstruction. Transition point is not identified. PERITONEUM: No significant free fluid. No definite free air. LYMPH NODES: No bulky lymphadenopathy identified. VASCULATURE: Dense atherosclerotic calcifications of the aorta and branches. No aortic aneurysm. Non opacification of the right iliac artery re-identified. Fem-fem bypass graft. BONES: Median sternotomy wires. Osseous demineralization. Degenerative changes. Scoliosis. OTHER FINDINGS: None. IMPRESSION: Dilated fluid-filled small bowel worrisome for small bowel obstruction. Transition point is not evident. Dilated common bile duct with suspicious filling defect at the distal CBD. 17 mm indeterminate low-density nodule, medial limb right adrenal gland. Atrophic right kidney. Dense atherosclerotic calcifications of the aorta and branches. Non opacification of the right iliac artery re-identified. Fem-fem bypass graft. Additional findings as above.
--- NOTE | 2017-05-15 18:40 | PN ---
DATE: 05/15/2017 SUBJECTIVE: The patient is lying in bed. She still continues with intermittent abdominal pain. She could not finish the gallon of [employer] as a bowel prep. Her blood work from this morning revealed a white blood cell count of 37.7, hemoglobin of 9.8 with a PT/INR of 35.8 and 3.07 respectively. She has not had any warfarin since her hospitalization. MEDICATIONS: Currently include; Aldactone 25 mg once a day, Cozaar 25 mg daily, Cymbalta 30 mg daily, meropenem 1 g IV q. 8 hours, Protonix 40 mg once a day, Levoxyl 125 mcg once a day, Toprol 50 mg daily, and Xanax 0.5 mg at bedtime. PHYSICAL EXAMINATION: VITAL SIGNS: Reveal temperature of 98.3, blood pressure 173/90,and heart rate 97. HEENT: Reveals sclerae to be white. Conjunctivae pink. NECK: Supple. CHEST: Reveals lungs to be clear. HEART: Reveals a regular rate and rhythm. ABDOMEN: Soft. There is [id number] diffuse tenderness. There is no rebound. EXTREMITIES: Show no edema. LABORATORY DATA: Reveals again PT 35.8, INR 3.07. CBC reveals white blood cell count 37.7, hemoglobin 9.8, and platelet count of 342,000. Chemistries reveal chloride 97, BUN 16, creatinine 1. Albumin of 2.6. IMPRESSION: Chronic abdominal pain and weight loss. The patient's daughter brought in a colonoscopy report from April 2016, performed at [facility]. The patient was found to have diffuse ulceration in the ascending colon suggestive of ischemic colitis. The patient was recommended to have a mesenteric angiogram, but this was never performed. The patient's history is consistent with ischemic colitis. I am concerned about the elevated white blood cell count at 37,000. Clinically, the patient does not appear to be toxic. Her vital signs are stable. The patient also has a coagulopathy and her colonoscopy has been postponed due to the coagulopathy. One must also rule out pseudomembranous colitis. RECOMMENDATIONS: I had a lengthy discussion with the patient's two daughters and the patient at the bedside. They are frustrated that the patient has had this problem for over a year and they did not receive any instructions as to what to do further. I will request that the patient have a stat CT scan of the abdomen and pelvis to rule out an intraabdominal infection, possible abscess. We will also request stool for C. diff toxin. We will give the patient vitamin K to correct her coagulopathy. Colonoscopy is planned for the morning. The patient will also need a mesenteric angiogram and possible vascular surgery consult if the patient has ischemic findings on colonoscopy. Jagdeep Lew MD
--- NOTE | 2017-05-15 23:55 | CP.PCM.CON ---
History of Present Illness - History of Present Illness History of Present Illness: GENERAL SURGERY CONSULT NOTE FOR DR. COOK 77yo female with PMHx of severe PAD s/p bypass, coagulopathy, CAD s/p CABG, with pacemaker, hx of DVT on coumadin, CHF, HTN, dyslipidemia, hypothyroidism. She initially presented [place] [facility] [place] [facility] on 05[place]13 for bright red blood per rectum, nausea and vomiting. Patient states that she had 9 episodes of diarrhea that day with bright red blood. Her hgb was 8.3, she was transfused 2 units PRBC. Her INR was 2.92. Her Coumadin was held. On 05/14, an US was done but was unable to visualize aorta, celiac axis, SMA. Today, 05/15, she was supposed to get a colonoscopy but her INR was 3.07 despite the fact that her Coumadin had been held since admission. Her colonoscopy was canceled and she was given Vitamin K. CT was done which showed dilated fluid filled small bowel worrisome for SBO. Dilated CBD with suspious filling defect in distal CBD. Patient states that she has had chronic abdominal pain but now it is worse. The pain pain goes from her chest throughout her entire abdomen. She hadn't had a BM since her admission date (despite drinking bowel prep) so she was given a fleet enema today and had a bloody BM. This evening, patient vomited multiple times dark blood. Hemoccult was positive for blood. Endoscopy in 2016 showed gastric ulcer, Beltran ulcer, hiatal hernia. Last colonoscopy was Apr 2016 at [facility] which showed diffuse ulceration in ascending colon suggesting ischemic colitis. She was recommended to have a mesenteric angiogram but it was never done. 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, s/p skin graft, ESBL- producing Proteus right sided pyelonephritis PSurgHx: CABG 1999, AICD placement 2004, Pacemaker, Left iliac stent, Left vein stripping with replacement for circulation, Left leg skin graft, R leg fem-fem bypass, Open Cholecystectemy SocHx: denies smoking/drinking ALL: Fluoroquinolones/sulfa/penicillin/atorvastatin Review of Systems - Review of Systems All systems: reviewed and no additional remarkable complaints except (as per HPI ) Past Patient History - Infectious Disease Hx of Infectious Diseases: None - Tetanus Immunizations Tetanus Immunization: Unknown - Past Social History Smoking Status: Former Smoker - CARDIAC Hx Cardiac Disorders: Yes Hx Hypertension: Yes Hx Pacemaker: Yes (DEFIBRILLATOR) - PULMONARY Hx Respiratory Disorders: No - NEUROLOGICAL Hx Neurological Disorder: No - HEENT Hx HEENT Problems: Yes Hx Cataracts: Yes - RENAL Hx Chronic Kidney Disease: No - ENDOCRINE/METABOLIC Hx Endocrine Disorders: Yes Hx Hypothyroidism: Yes - HEMATOLOGICAL/ONCOLOGICAL Hx Blood Disorders: No - INTEGUMENTARY Hx Dermatological Problems: No - MUSCULOSKELETAL/RHEUMATOLOGICAL Hx Falls: No - GASTROINTESTINAL Hx Gastrointestinal Disorders: Yes (Gastric Ulcers, GERD) Hx Gastroesophageal Reflux: Yes - GENITOURINARY/GYNECOLOGICAL Hx Genitourinary Disorders: No Hx Reproductive Disorders: No - PSYCHIATRIC Hx Psychophysiologic Disorder: Yes Hx Anxiety: Yes Hx Substance Use: No - SURGICAL HISTORY Hx Cardiac Catheterization: Yes Hx Coronary Artery Bypass Graft: Yes Hx Coronary Stent: Yes Hx Open Heart Surgery: Yes Other/Comment: Bypass surgery. Cellulites in legs - ANESTHESIA Hx Anesthesia: Yes Meds Allergies/Adverse Reactions: Allergies Allergy/AdvReac Type Severity Reaction Status Date / Time atorvastatin [From Lipitor] Allergy RASH Verified 05/12/17 20:41 moxifloxacin [From Avelox] Allergy ANAPHYLAXIS Verified 05/12/17 20:41 Penicillins Allergy ANAPHYLAXIS Verified 05/12/17 20:41 sulfamethoxazole Allergy NAUSEA Verified 05/12/17 20:41 [From Bactrim] trimethoprim [From Bactrim] Allergy NAUSEA Verified 05/12/17 20:41 amoxicillin AdvReac ANAPHYLAXIS Verified 05/12/17 20:41 - Medications Medications: Current Medications Alprazolam (Xanax) 0.5 mg PO HS [facility] PRN Reason: Protocol Last Admin: 05/15/17 23:39 Dose: 0.5 mg Duloxetine HCl (Cymbalta) 30 mg PO DAILY [facility] Last Admin: 05/15/17 12:51 Dose: 30 mg Gabapentin (Neurontin) 300 mg PO TID [facility] PRN Reason: Protocol Last Admin: 05/15/17 18:40 Dose: 300 mg Sodium Chloride (Sodium Chloride 0.9%) 1,000 mls @ 70 mls/hr IV .[id number] [facility] Last Admin: 05/15/17 12:47 Dose: 70 mls/hr Meropenem/Sodium Chloride (Meropenem 1g/Ns 100ml Ivpb) 1 gm in 100 mls @ 100 mls/hr IVPB Q8 [facility] PRN Reason: Protocol Stop: 05/22/17 14:01 Last Admin: 05/15/17 22:39 Dose: 100 mls/hr Levothyroxine Sodium (Synthroid) 125 mcg PO ACB [facility] Last Admin: 05/15/17 10:00 Dose: 125 mcg Losartan Potassium (Cozaar) 25 mg PO DAILY [facility] Last Admin: 05/15/17 12:51 Dose: 25 mg Metoprolol Succinate (Toprol Xl) 50 mg PO DAILY [facility] Last Admin: 05/15/17 10:02 Dose: 50 mg Morphine Sulfate (Morphine) 1 mg IVP Q4H PRN PRN Reason: Pain, moderate (4-7) Last Admin: 05/15/17 11:03 Dose: 1 mg Ondansetron HCl (Zofran Inj) 4 mg IVP Q4H PRN PRN Reason: Nausea/Vomiting Last Admin: 05/15/17 23:39 Dose: 4 mg Pantoprazole Sodium (Protonix Ec Tab) 40 mg PO 0600 [facility] Last Admin: 05/15/17 05:19 Dose: 40 mg Spironolactone (Aldactone) 25 mg PO DAILY [facility] Last Admin: 05/15/17 12:51 Dose: 25 mg Physical Exam - Constitutional Appears: Non-toxic, No Acute Distress, Chronically Ill - Head Exam Head Exam: ATRAUMATIC, NORMAL INSPECTION - Respiratory Exam Respiratory Exam: NORMAL BREATHING PATTERN. absent: Respiratory Distress - Cardiovascular Exam Cardiovascular Exam: +S1, +S2 Additional comments: Well healed midline sternotomy scar - GI/Abdominal Exam GI & Abdominal Exam: Soft, Tenderness (mild diffuse tenderness). absent: Distended, Firm, Guarding, Rebound Additional comments: upper midline scar well healed - Neurological Exam Neurological exam: Alert, CN II-XII Intact, Oriented x3 - Psychiatric Exam Psychiatric exam: Normal Affect, Normal Mood - Skin Skin Exam: Dry, Warm Additional comments: Well healed left leg skin graft Well healed Left groin incision Results - Vital Signs Recent Vital Signs: Last Vital Signs Temp 98.6 F 05/15/17 18:00 Pulse 109 H 05/15/17 22:00 Resp 20 05/15/17 18:00 BP 149/67 05/15/17 18:00 Pulse Ox 99 05/15/17 06:00 - Labs Result Diagrams: 05/16/17 06:00 05/16/17 06:00 Labs: Laboratory Results - last 24 hr 05/14/17 05/14/17 05/15/17 23:20 23:20 00:00 WBC RBC Hgb Hct MCV MCH MCHC RDW Plt Count MPV Neutrophils % (Manual) 97 H Band Neutrophils % 1 Lymphocytes % (Manual) 1 L Monocytes % (Manual) 1 Toxic Granulation 1+ Platelet Evaluation Normal Hypochromasia 2+ Rouleaux 1+ PT 35.8 H INR 3.07 H APTT 38.6 H Sodium Potassium Chloride Carbon Dioxide Anion Gap BUN Creatinine Est GFR ( Amer) Est GFR (Non-Af Amer) Random Glucose Calcium Phosphorus Magnesium Total Bilirubin AST ALT Alkaline Phosphatase Troponin I Total Protein Albumin Globulin Albumin/Globulin Ratio Procalcitonin 0.30 Urine Color Urine Appearance Urine pH Ur Specific Bad[place] Urine Protein Urine Glucose (UA) Urine Ketones Urine Blood Urine Nitrate Urine Bilirubin Urine Urobilinogen Ur Leukocyte Esterase Urine RBC Urine WBC Ur Epithelial Cells Urine Bacteria Emesis for Blood 05/15/17 05/15/17 05/15/17 04:55 05:15 09:00 WBC 37.7 H* RBC 3.83 Hgb 9.8 L Hct 30.6 L MCV 79.9 L MCH 25.6 MCHC 32.0 RDW 20.7 H Plt Count 342 MPV 9.9 Neutrophils % (Manual) Band Neutrophils % Lymphocytes % (Manual) Monocytes % (Manual) Toxic Granulation Platelet Evaluation Hypochromasia Rouleaux PT INR APTT Sodium Potassium Chloride Carbon Dioxide Anion Gap BUN Creatinine Est GFR ( Amer) Est GFR (Non-Af Amer) Random Glucose Calcium Phosphorus Magnesium Total Bilirubin AST ALT Alkaline Phosphatase Troponin I 0.05 D Total Protein Albumin Globulin Albumin/Globulin Ratio Procalcitonin Urine Color yellow Urine Appearance Slight-cloudy Urine pH 5.5 Ur Specific [place] >= 1.030 Urine Protein Negative Urine Glucose (UA) Negative Urine Ketones Trace H Urine Blood Negative Urine Nitrate Positive H Urine Bilirubin Negative Urine Urobilinogen 0.2 Ur Leukocyte Esterase Small H Urine RBC Negative Urine WBC 5 - 10 Ur Epithelial Cells 6 - 8 Urine Bacteria Small Emesis for Blood 05/15/17 05/15/17 09:25 20:08 WBC RBC Hgb Hct MCV MCH MCHC RDW Plt Count MPV Neutrophils % (Manual) Band Neutrophils % Lymphocytes % (Manual) Monocytes % (Manual) Toxic Granulation Platelet Evaluation Hypochromasia Rouleaux PT INR APTT Sodium 134 Potassium 4.8 Chloride 97 L Carbon Dioxide 24 Anion Gap 18 BUN 16 Creatinine 1.0 Est GFR ( Amer) > 60 Est GFR (Non-Af Amer) 54 Random Glucose 82 Calcium 9.0 Phosphorus 3.9 Magnesium 2.0 Total Bilirubin 0.8 AST 17 ALT 20 Alkaline Phosphatase 92 Troponin I 0.05 Total Protein 5.2 L Albumin 2.6 L Globulin 2.5 Albumin/Globulin Ratio 1.0 L Procalcitonin Urine Color Urine Appearance Urine pH Ur Specific [place] Urine Protein Urine Glucose (UA) Urine Ketones Urine Blood Urine Nitrate Urine Bilirubin Urine Urobilinogen Ur Leukocyte Esterase Urine RBC Urine WBC Ur Epithelial Cells Urine Bacteria Emesis for Blood Positive H Assessment & Plan - Assessment and Plan (Free Text) Assessment: 77yo female with PMHx of severe PAD s/p bypass, coagulopathy, CAD s/p CABG, with pacemaker, hx of DVT on coumadin, CHF, HTN, dyslipidemia, hypothyroidism who has GI bleed and SBO. - Afebrile, mild tachycardia - NG tube inserted at bedside. 850cc initial output of dark blood. - CXR confirmed placement, will pull out slightly - NPO - IV Fluids - Serial abdominal exams - Will FU NG tube outputs - FU C diff - Will likely need CTA - Discussed plan with Dr. Tavo Mary PGY-3
--- NOTE | 2017-05-16 01:38 | CON ---
DATE: 05/15/2017 CARDIOLOGY CONSULTATION HISTORY OF PRESENT ILLNESS: The patient is a 77-year-old woman who was just recently discharged, who presents with nausea and vomiting. PAST MEDICAL HISTORY: Notable for end-stage ischemic dilated cardiomyopathy with a documented ejection fraction that is severely depressed. She is status post coronary artery bypass surgery and status post ICD placement. She presented with a GI symptomatology. She was found to have nonsustained VT of anywhere from 3 to 5 beats. No sustained VT was noted. She has been followed by her senior report developer in [place], who has last seen last week in which no change in medications nor therapy was indicated. She denies shortness of breath, denies edema and denies chest pain. SOCIAL HISTORY: She is a former smoker. REVIEW OF SYSTEMS: A 14-point review of systems is reviewed in detail. Her symptoms are predominately GI in nature. No cardiac symptomatology is noted. PHYSICAL EXAMINATION: VITAL SIGNS: Blood pressure is 173/90, heart rate in the 90s. NECK: Negative JVD. LUNGS: Without rales. HEART: S1, S2 with 2/6 systolic ejection murmur. EXTREMITIES: Without edema. EKG with a paced rhythm. LABORATORY DATA: BUN and creatinine, potassium is 4.8. Troponin is 0.05 with a magnesium of 2.0. The hemoglobin is 9.8. IMPRESSION: 1. Nausea and vomiting. 2. End-stage ischemic dilated cardiomyopathy. 3. History of coronary artery bypass surgery. 4. Coronary artery disease. 5. Nonsustained ventricular tachycardia. Given these findings, the patient is on beta blockers. Her potassium and magnesium are within normal limits. We will not change her medical regimen given that the patient has been followed by a senior report developer in [place] for a long period of time and she wishes to continue with whatever therapy that was decided upon between her and her senior report developer. Abe Pierre MD
[2017-05-16] MEDS: Morphine 2 mg/ml ISec IVP PRN ×2 (03:59→17:30)
[2017-05-16] MEDS: Pantoprazole 40 mg EC Tab PO SCH (05:12)
[2017-05-16] MEDS: Meropenem 1g/NS 100mL IVPB 1 GM/100 ML PIGGYBACK IVPB SCH ×3 (05:13→22:49)
[2017-05-16 06:23] LABS: HEMOGLOBIN 9.2 g/dL (12.0-16.0); MEAN CELL VOLUME 78.5 fl (80.0-105.0); MEAN CORPUSCULAR HEMOGLOBIN 25.4 pg (25.0-35.0); MEAN CORPUSCULAR HGB CONC 32.4 g/dl (31.0-37.0); MEAN PLATELET VOLUME 9.8 fl (7.0-11.0); RBC 3.62 10^6/uL (3.5-6.1); RED CELL DISTRIBUTION WIDTH 20.5 % (11.5-14.5)
[2017-05-16 06:28] LABS: INR 1.6 (0.93-1.08); PROTHROMBIN TIME 18.6 SECONDS (9.4-12.5)
[2017-05-16 06:42] LABS: WHITE BLOOD COUNT 37.3 10^3/ul (4.5-11.0)
[2017-05-16 07:53] LABS: ALB/GLOB RATIO 0.9 (1.1-1.8); ALBUMIN 2.6 g/dL (3.0-4.8); ALT/SGPT 24 U/L (7-56); AST/SGOT 17 U/L (14-36); BLOOD UREA NITROGEN 21 mg/dL (7-21); CALCIUM 8.9 mg/dL (8.4-10.5); GFR AFRICAN-AMERICAN > 60; GFR NON-AFRICAN AMERICAN 54
[2017-05-16] MEDS: Sodium Chloride 0.9% 1,000 ML IV SCH (08:58)
--- NOTE | 2017-05-16 09:20 | RAD ---
PROCEDURE: Portable chest HISTORY: s/p NG tube placement COMPARISON: TECHNIQUE: FINDINGS: IMPRESSION: NG tube in satisfactory position
--- NOTE | 2017-05-16 09:36 | CP.PCM.PN ---
Subjective - Date & Time of Evaluation Date of Evaluation: 05/16/17 Time of Evaluation: 09:33 - Subjective Subjective: Surgery: Dr. Vo Patient with mild abdominal pain. She reports feeling somewhat improved after NGT placement. She denies flatus. Objective - Vital Signs/Intake and Output Vital Signs (last 24 hours): Temp Pulse Resp BP Pulse Ox 98.3 F 107 H 20 142/75 94 L 05/16/17 06:00 05/16/17 06:00 05/16/17 06:00 05/16/17 06:00 05/16/17 06:00 Intake and Output: 05/16/17 05/16/17 06:59 18:59 Intake Total 830 Output Total 1450 Balance -620 - Medications Medications: Current Medications Alprazolam (Xanax) 0.5 mg PO HS [facility] PRN Reason: Protocol Last Admin: 05/15/17 23:39 Dose: 0.5 mg Duloxetine HCl (Cymbalta) 30 mg PO DAILY [facility] Last Admin: 05/15/17 12:51 Dose: 30 mg Gabapentin (Neurontin) 300 mg PO TID [facility] PRN Reason: Protocol Last Admin: 05/15/17 18:40 Dose: 300 mg Sodium Chloride (Sodium Chloride 0.9%) 1,000 mls @ 70 mls/hr IV .[id number] [facility] Last Admin: 05/15/17 12:47 Dose: 70 mls/hr Meropenem/Sodium Chloride (Meropenem 1g/Ns 100ml Ivpb) 1 gm in 100 mls @ 100 mls/hr IVPB Q8 [facility] PRN Reason: Protocol Stop: 05/22/17 14:01 Last Admin: 05/16/17 05:13 Dose: 100 mls/hr Levothyroxine Sodium (Synthroid) 125 mcg PO ACB [facility] Last Admin: 05/15/17 10:00 Dose: 125 mcg Losartan Potassium (Cozaar) 25 mg PO DAILY [facility] Last Admin: 05/15/17 12:51 Dose: 25 mg Metoprolol Succinate (Toprol Xl) 50 mg PO DAILY [facility] Last Admin: 05/15/17 10:02 Dose: 50 mg Morphine Sulfate (Morphine) 1 mg IVP Q4H PRN PRN Reason: Pain, moderate (4-7) Last Admin: 05/16/17 03:59 Dose: 1 mg Ondansetron HCl (Zofran Inj) 4 mg IVP Q4H PRN PRN Reason: Nausea/Vomiting Last Admin: 05/15/17 23:39 Dose: 4 mg Pantoprazole Sodium (Protonix Ec Tab) 40 mg PO 0600 [facility] Last Admin: 05/16/17 05:12 Dose: Not Given Spironolactone (Aldactone) 25 mg PO DAILY [facility] Last Admin: 05/15/17 12:51 Dose: 25 mg - Labs Labs: 05/16/17 06:00 05/16/17 06:00 PT 18.6 SECONDS (9.4-12.5) H 05/16/17 06:00 INR 1.60 (0.93-1.08) H 05/16/17 06:00 APTT 38.6 Seconds (25.1-36.5) H 05/15/17 00:00 - Constitutional Appears: Non-toxic, No Acute Distress - Head Exam Head Exam: ATRAUMATIC, NORMOCEPHALIC - Eye Exam Eye Exam: EOMI, Normal appearance - ENT Exam ENT Exam: Mucous Membranes Moist Additional comments: NGT in place w/ gastic/bilious fluid output approximately 500cc overnight - Respiratory Exam Respiratory Exam: NORMAL BREATHING PATTERN. absent: Respiratory Distress - Cardiovascular Exam Cardiovascular Exam: REGULAR RHYTHM. absent: Tachycardia - GI/Abdominal Exam GI & Abdominal Exam: Soft, Tenderness (diffuse and mild ). absent: Guarding, Rigid, Rebound - Neurological Exam Neurological Exam: Alert, Awake - Psychiatric Exam Psychiatric exam: Normal Affect, Normal Mood - Skin Skin Exam: Dry, Normal Color, Warm Assessment and Plan - Assessment and Plan (Free Text) Assessment: 77 y/o female w/ chronic abdominal pain now w/ SBO vs Ileus Plan: -NGT cont on suction -NPO -IVFs -OOB -monitor for bowel function, if +flatus can clamp NGT -pain control -no acute surgical intervention at this time -cont to monitor -further recs per Dr. Tavo Stock PGY3
--- NOTE | 2017-05-16 11:03 | PN ---
DATE: SUBJECTIVE: The patient has no complaint of any chest pain or shortness of breath or headaches. PHYSICAL EXAMINATION: VITAL SIGNS: Temperature is 98.4, pulse of 104, blood pressure is 145/67, respirations 20. GENERAL: The patient is lying in bed, flat, comfortable. HEENT: No oral lesion. Anicteric sclerae. Moist mucosa. NECK: No JVD, adenopathy, or thyromegaly. CARDIOVASCULAR: S1 and S2, regular. No murmurs, rubs, or gallops. LUNGS: Clear to auscultation bilaterally. No wheeze, rales, or rhonchi. ABDOMEN: Bowel sounds are positive, soft, nontender and nondistended. EXTREMITIES: no cyanosis, clubbing or edema. LABORATORY DATA: White count is 37, hemoglobin 9.8. Creatinine 1.0. CT of the abdomen and pelvis reviewed by me. Patient has dilated fluid-filled small bowel, worrisome for a small bowel obstruction. There is a dilated common bile duct which is suspicious of filling defect distal common bile duct. There is an adrenal 17 mm indeterminate low-density nodule in the right adrenal gland. ASSESSMENT: 1. Small bowel obstruction. 2. Dilated common bile duct. 3. A 17-mm right adrenal nodule. 4. Right femoral-femoral bypass graft. 5. Sepsis. 6. PENICILLIN ALLERGY. 7. Acute anemia secondary to blood loss. 8. Coronary artery disease. 9. Peptic ulcer disease. 10. Automatic implantable cardioverter-defibrillator. 11. Congestive heart failure secondary to systolic dysfunction with ejection fraction of 15% to 20%. 12. Aortic stenosis. 13. Aortic regurgitation. 14. A 4-mm nodule in the right middle lobe. 15. Iron-deficiency. PLAN: The patient is waiting for colonoscopy today. She is being followed by Dr. Pierre, I appreciated his input. She had few beats of V-tach yesterday. She is being followed by Dr. Vo. An NG tube was inserted and 650 mL of output was initially taken out. The patient is on Aldactone. She is going to continue with losartan for hypertension. Patient is on meropenem for antibiotics. She remains on IV fluids. She is on Synthroid for hypothyroidism. We will need to be careful with IV fluids given that she has a history of CHF. The patient is n.p.o. for colonoscopy today. She is being followed by Dr. Andrews from Infectious Disease for the elevated white count. Patient's blood cultures showed no growth. Gaurav Griffin MD
--- NOTE | 2017-05-16 11:16 | CP.PCM.PN ---
Subjective - Date & Time of Evaluation Date of Evaluation: 05/16/17 Time of Evaluation: 10:10 - Subjective Subjective: Patient did not go for colonoscopy yesterday, was not able to finish the prep. CT A/P was done yesterday which shows small bowel obstruction. No fevers overnight, now has NGT. Objective - Vital Signs/Intake and Output Vital Signs (last 24 hours): Temp Pulse Resp BP Pulse Ox 98.3 F 107 H 20 142/75 94 L 05/16/17 06:00 05/16/17 06:00 05/16/17 06:00 05/16/17 06:00 05/16/17 06:00 Intake and Output: 05/16/17 05/16/17 06:59 18:59 Intake Total 830 Output Total 1450 Balance -620 - Medications Medications: Current Medications Alprazolam (Xanax) 0.5 mg PO HS [facility] PRN Reason: Protocol Last Admin: 05/15/17 23:39 Dose: 0.5 mg Duloxetine HCl (Cymbalta) 30 mg PO DAILY [facility] Last Admin: 05/15/17 12:51 Dose: 30 mg Gabapentin (Neurontin) 300 mg PO TID [facility] PRN Reason: Protocol Last Admin: 05/15/17 18:40 Dose: 300 mg Sodium Chloride (Sodium Chloride 0.9%) 1,000 mls @ 70 mls/hr IV .[id number] [facility] Last Admin: 05/15/17 12:47 Dose: 70 mls/hr Meropenem/Sodium Chloride (Meropenem 1g/Ns 100ml Ivpb) 1 gm in 100 mls @ 100 mls/hr IVPB Q8 [facility] PRN Reason: Protocol Stop: 05/22/17 14:01 Last Admin: 05/16/17 05:13 Dose: 100 mls/hr Levothyroxine Sodium (Synthroid) 125 mcg PO ACB [facility] Last Admin: 05/15/17 10:00 Dose: 125 mcg Losartan Potassium (Cozaar) 25 mg PO DAILY [facility] Last Admin: 05/15/17 12:51 Dose: 25 mg Metoprolol Succinate (Toprol Xl) 50 mg PO DAILY [facility] Last Admin: 05/15/17 10:02 Dose: 50 mg Morphine Sulfate (Morphine) 1 mg IVP Q4H PRN PRN Reason: Pain, moderate (4-7) Last Admin: 05/16/17 03:59 Dose: 1 mg Ondansetron HCl (Zofran Inj) 4 mg IVP Q4H PRN PRN Reason: Nausea/Vomiting Last Admin: 05/15/17 23:39 Dose: 4 mg Pantoprazole Sodium (Protonix Ec Tab) 40 mg PO 0600 [facility] Last Admin: 05/16/17 05:12 Dose: Not Given Spironolactone (Aldactone) 25 mg PO DAILY [facility] Last Admin: 05/15/17 12:51 Dose: 25 mg - Labs Labs: 05/16/17 06:00 05/16/17 06:00 PT 18.6 SECONDS (9.4-12.5) H 05/16/17 06:00 INR 1.60 (0.93-1.08) H 05/16/17 06:00 APTT 38.6 Seconds (25.1-36.5) H 05/15/17 00:00 - Constitutional Appears: Chronically Ill - Head Exam Head Exam: NORMAL INSPECTION - ENT Exam Additional comments: NGT in place - Neck Exam Neck Exam: absent: Meningismus - Respiratory Exam Respiratory Exam: Decreased Breath Sounds - Cardiovascular Exam Cardiovascular Exam: +S1, +S2 - GI/Abdominal Exam GI & Abdominal Exam: Soft. absent: Tenderness Assessment and Plan - Assessment and Plan (Free Text) Plan: Assessment systemic inflammatory response syndrome, consider due to new onset small bowel obstruction R/O sepsis from intra-abdominal infection in this patient with probable ischemic colitis history of asymptomatic bacteriuria with E. faecalis history of ESBL-producing Proteus right sided pyelonephritis severe PAD CAD S/P CABG chronic CHF HTN dyslipidemia hypothyroidism S/P cholecystectomy Plan continue Merrem day 2; blood cx are negative; will continue to trend WBC count and follow up further GI and Surgery recommendations
[2017-05-16] MEDS: Levothyroxine 125 MCG TAB PO SCH (11:36)
[2017-05-16] MEDS: Metoprolol Succinate 50 mg XL Tab PO SCH (11:36)
[2017-05-16] MEDS ORDERED: Lidocaine 2% Inj (20ml) ONE (12:13)
[2017-05-16] MEDS ORDERED: Midazolam 2 MG/2 ML VIAL ONE ×2 (12:14→12:50)
[2017-05-16] MEDS ORDERED: Iodixanol 320 MG/ML 200 ML BOTTLE IV ONE (12:15)
[2017-05-16] MEDS ORDERED: Iodixanol 320 MG/ML 100 ML BOTTLE IV ONE ×2 (12:15→14:45)
[2017-05-16] MEDS ORDERED: HEPARIN SODIUM/NS 2,000 ML IV ONE (12:15)
[2017-05-16] MEDS ORDERED: HEPARIN SODIUM/NS 1,000 ML IV ONE (14:45)
--- NOTE | 2017-05-16 17:22 | PN ---
DATE: 05/16/2017 SUBJECTIVE: The patient had intractable vomiting last night. An NG tube was placed. CT scan of the abdomen and pelvis revealed dilated fluid-filled small bowels consistent with small bowel obstruction. There are also extensive calcifications in the aorta and vessels in the abdomen. There is also question of a filling defect in the distal common bile duct with dilated common bile duct. This morning, the patient is comfortable. She admits to having abdominal pain when her abdomen is being palpated, otherwise abdominal pain is minimal. She has an NG tube draining bilious fluid. PHYSICAL EXAMINATION: VITAL SIGNS: Reveal temperature of 98.1, blood pressure 102/61, and heart rate of 109. HEENT: Reveal sclerae to be white. Conjunctivae pale. NECK: Supple. CHEST: Reveals lungs to be clear. She has an AICD permanent pacemaker in her left subclavicular area. HEART: Exam reveals a regular rate and rhythm. ABDOMEN: Soft. There is a mild diffuse tenderness throughout the abdomen. There are diminished bowel sounds. EXTREMITIES: Show no pedal edema. LABORATORY DATA: Reveals white blood cell count of 37.3, hemoglobin 9.2. Chemistries reveal potassium of 3.3, total protein 5.3. AST, ALT, alkaline phosphatase, and total bilirubin are all normal. IMPRESSION: 1. Small bowel obstruction. This maybe related to ischemic stricture of the small bowel. 2. History of right colon ischemic colitis. 3. Peripheral arterial disease with history of fem-fem bypass. 4. Possible common bile duct stone. Her liver enzymes are completely normal. There is no evidence of biliary sepsis or biliary obstruction. RECOMMENDATIONS: 1. Continue NG tube to continuous suction to decompress the small bowel obstruction. 2. Interventional radiology evaluation for mesenteric angiogram to see if there is a lesion in the SMA that can be stented. 3. Continue broad-spectrum antibiotics. The patient does have an elevated white blood cell count which has remained unchanged over the last 24 to 36 hours. I have discussed this case at length with Interventional Radiology, Dr. Abe Narvaez; Dr. Waterman; surgeon, Dr. Vo as well as the patient and her daughter who is at the bedside. Jagdeep Lew MD [facility] # [id number]
[2017-05-16] MEDS ORDERED: Morphine 2 mg/ml ISec ONE (17:29)
[2017-05-16] MEDS ORDERED: Metoprolol 1 mg/ml Inj IVP ONE (17:47)
[2017-05-16] MEDS: Metoprolol 1 mg/ml Inj IVP SCH ×2 (17:53→22:50)
--- NOTE | 2017-05-16 19:25 | VASCULAR ---
PROCEDURE: 1. Selective celiac and SMA arteriograms. 2. Celiac axis origin angioplasty and stent placement HISTORY: Vasculopath. Acute on chronic mesenteric ischemia. Abdominal pain. Weight loss. Postprandial pain. PHYSICIAN(S): Abe Narvaez M.D. TECHNIQUE: The relative risks and indications of the procedure were explained to the patient and her daughter and consent obtained. The patient is placed in the arteriography table and the left axilla prepped and draped usual sterile fashion. Conscious sedation monitoring were provided throughout the procedure by a nurse. Under direct ultrasound guidance, the high brachial artery was punctured with a micropuncture set. 5 Omani sheath was placed. The calcified stenosis in the proximal left subclavian artery was crossed with the glidewire and 5 Omani catheter. A 5 Omani flush catheter was placed the abdominal aorta at the level of the mesenteric arteries a lateral DSA aortogram performed. There is a critical calcified stenosis of the celiac origin. There is a complete calcified occlusion of the SMA origin. The LALO was not visualized. Multiple attempts at crossing the occluded calcified proximal SMA were unsuccessful. Various angled catheters, guide catheters and 0.014, 0.018, and 0.035 guidewires attempted. The critical stenosis at the origin of the celiac axis was crossed with 0.014 guidewire. A 6 Omani sheath was placed at the origin. The origin of the celiac axis was dilated with a 7 mm balloon. Next a 9 mm x 27 mm balloon expandable stent was deployed the origin of the celiac axis. An excellent angiographic result was obtained. Balloon rupture was encounter with nonocclusive embolization of distal portion of the balloon. Retrieval was not thought to be necessary. Limited additional attempts at crossing the occluded SMA origin were unsuccessful. The sheath was removed hemostasis obtained with a Mynx device. The patient tolerated the procedure well P FINDINGS: Extensive vascular calcification is seen. There is a critical stenosis at the origin of the celiac axis. The celiac axis is large ankle lateralizes the SMA approximately 4 cm from its origin. There is a calcified plaque in occlusion of the proximal SMA. This could not be crossed despite multiple attempts. The LALO was not visualized. 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 2. Successful angioplasty and stent placement at the celiac origin as described above. 3. Calcified chronically occluded proximal SMA. This could not be crossed despite multiple attempts.
--- NOTE | 2017-05-16 19:59 | PN ---
DATE: 05/16/2017 CARDIOLOGY FOLLOWUP SUBJECTIVE: The patient is now with an NG tube for presumed small bowel obstruction. The patient's nausea is better. However, the NG tube is producing bilious material. PHYSICAL EXAMINATION: VITAL SIGNS: Blood pressure is 102/61, the heart rate is 100. NECK: Negative JVD. LUNGS: Without rales. HEART: S1, S2. EXTREMITIES: Without edema. LABORATORY DATA: BUN and creatinine unremarkable. Potassium is 3.3. Magnesium yesterday was 2.0. Hemoglobin is 9.2 with a white count up to 37,000. IMPRESSION: 1. Small bowel obstruction. 2. Sepsis. 3. Severe ischemic dilated cardiomyopathy. 4. Coronary artery disease. 5. Nonsustained ventricular tachycardia. Given these findings, we will need to keep an eye on her electrolytes, especially her magnesium and potassium given her recent ventricular arrhythmias. Potassium was ordered. We will check potassium again in the morning. Abe Pierre MD
--- NOTE | 2017-05-16 20:47 | CP.PCM.PN ---
Subjective - Date & Time of Evaluation Date of Evaluation: 05/15/17 Time of Evaluation: 18:00 - Subjective Subjective: DATE: 05/15/2017 SUBJECTIVE: Ms. Hargrove is a 77-year-old female admitted with lower GI bleed. She had bright red blood per rectum. She is complaining of diffuse abdominal pain. She is being prepared for colonoscopy tomorrow. She is not able tolerate mag citrate for prep. Vomitted dark colored vomitus. Nausea present. REVIEW OF SYSTEMS: As per HPI. Rest of 12-point review of systems reviewed are negative. No episode of GI bleed during hospitalization. PHYSICAL EXAMINATION: GENERAL: Mild distress due to abdominal pain. VITAL SIGNS: reviewed. HEENT: Pallor positive. NECK: No lymphadenopathy. CHEST: Air entry present and equal bilaterally. No added sounds. CARDIOVASCULAR: S1, S2 normal. No murmur. No gallop. ABDOMEN: Diffusely tender. No rebound tenderness. EXTREMITIES: No edema. Spine nontender. SKIN: No petechiae. No rash. LABORATORY DATA: reviewed. ASSESSMENT: 1. Gastrointestinal bleed. 2. Leukocytosis, possible sepsis. 3. Abdominal pain, diffuse. 4. Anemia. 5. Coronary artery disease. 6. leukocytosis PLAN: She is having diffuse abdominal pain. Nausea, dark colored vomitus. To send vomitus for occult blood. Zofran 8 mg IV stat. Ativan 0.5 mg IV for nausea. Hb/hct stable. On IV antibiotics for elevated white count. Blood cultures negative. ID following. Leukocytosis improved. Katelyn Miles MD Objective - Vital Signs/Intake and Output Vital Signs (last 24 hours): Temp Pulse Resp BP Pulse Ox 98.1 F 132 H 18 143/79 94 L 05/16/17 18:22 05/16/17 19:22 05/16/17 19:22 05/16/17 19:22 05/16/17 06:00 - Medications Medications: Current Medications Alprazolam (Xanax) 0.5 mg PO HS [facility] PRN Reason: Protocol Last Admin: 05/15/17 23:39 Dose: 0.5 mg Duloxetine HCl (Cymbalta) 30 mg PO DAILY [facility] Last Admin: 05/16/17 11:35 Dose: Not Given Gabapentin (Neurontin) 300 mg PO TID [facility] PRN Reason: Protocol Last Admin: 05/16/17 18:35 Dose: Not Given Sodium Chloride (Sodium Chloride 0.9%) 1,000 mls @ 70 mls/hr IV .[id number] [facility] Last Admin: 05/16/17 08:58 Dose: 70 mls/hr Meropenem/Sodium Chloride (Meropenem 1g/Ns 100ml Ivpb) 1 gm in 100 mls @ 100 mls/hr IVPB Q8 [facility] PRN Reason: Protocol Stop: 05/22/17 14:01 Last Admin: 05/16/17 14:00 Dose: Not Given Levothyroxine Sodium (Synthroid) 125 mcg PO ACB [facility] Last Admin: 05/16/17 11:36 Dose: Not Given Losartan Potassium (Cozaar) 25 mg PO DAILY [facility] Last Admin: 05/16/17 11:35 Dose: Not Given Metoprolol Succinate (Toprol Xl) 50 mg PO DAILY [facility] Last Admin: 05/16/17 11:36 Dose: Not Given Metoprolol Tartrate (Lopressor) 5 mg IVP Q8 [facility] Last Admin: 05/16/17 17:53 Dose: 5 mg Morphine Sulfate (Morphine) 1 mg IVP Q4H PRN PRN Reason: Pain, moderate (4-7) Last Admin: 05/16/17 17:30 Dose: 1 mg Ondansetron HCl (Zofran Inj) 4 mg IVP Q4H PRN PRN Reason: Nausea/Vomiting Last Admin: 05/15/17 23:39 Dose: 4 mg Pantoprazole Sodium (Protonix Inj) 40 mg IVP DAILY [facility] Spironolactone (Aldactone) 25 mg PO DAILY [facility] Last Admin: 05/16/17 11:35 Dose: Not Given - Labs Labs: 05/16/17 06:00 05/16/17 06:00 PT 18.6 SECONDS (9.4-12.5) H 05/16/17 06:00 INR 1.60 (0.93-1.08) H 05/16/17 06:00 APTT 38.6 Seconds (25.1-36.5) H 05/15/17 00:00
[2017-05-17] MEDS: Meropenem 1g/NS 100mL IVPB 1 GM/100 ML PIGGYBACK IVPB SCH (06:57)
[2017-05-17] MEDS: Metoprolol 1 mg/ml Inj IVP SCH (06:57)
[2017-05-17] MEDS ORDERED: Dextrose 50% SYRINGE Inj (50 ml) ONE (07:09)
[2017-05-17] MEDS ORDERED: Sodium Chloride 0.9% 500 ML IV STA (07:20)
[2017-05-17] MEDS ORDERED: NOREPINEPHRINE BIT/0.9 % NACL 4 MG/250 ML BAG IV ONE ×2 (07:43→08:01)
[2017-05-17] MEDS: NOREPINEPHRINE BIT/0.9 % NACL 4 MG/250 ML BAG IV PRN ×2 (08:21→08:49)
[2017-05-17] MEDS ORDERED: DOBUTamine 500mg/250ml D5W 500 MG/250 ML BAG IV PRN (08:28)
--- NOTE | 2017-05-17 08:29 | CP.PCM.PN ---
Subjective - Date & Time of Evaluation Date of Evaluation: 05/17/17 Time of Evaluation: 08:26 - Subjective Subjective: Surgery: Dr. Vo TWISTING FRAME FIXER called at 7am for AMS. Patient found to be hypoglycemic, obtunded, and hypotensive. Amps of glucose administered with liter fluid bolus. Patient transferred into ICU. Objective - Vital Signs/Intake and Output Vital Signs (last 24 hours): Temp Pulse Resp BP Pulse Ox 97 F L 90 20 113/61 95 05/17/17 00:01 05/17/17 06:57 05/17/17 00:01 05/17/17 06:57 05/17/17 00:01 - Medications Medications: Current Medications Alprazolam (Xanax) 0.5 mg PO HS [facility] PRN Reason: Protocol Last Admin: 05/17/17 06:59 Dose: Not Given Duloxetine HCl (Cymbalta) 30 mg PO DAILY [facility] Last Admin: 05/16/17 11:35 Dose: Not Given Gabapentin (Neurontin) 300 mg PO TID [facility] PRN Reason: Protocol Last Admin: 05/16/17 18:35 Dose: Not Given Sodium Chloride (Sodium Chloride 0.9%) 1,000 mls @ 70 mls/hr IV .[id number] [facility] Last Admin: 05/16/17 08:58 Dose: 70 mls/hr Meropenem/Sodium Chloride (Meropenem 1g/Ns 100ml Ivpb) 1 gm in 100 mls @ 100 mls/hr IVPB Q8 [facility] PRN Reason: Protocol Stop: 05/22/17 14:01 Last Admin: 05/17/17 06:57 Dose: 100 mls/hr NOREPINEPHRINE BIT/0.9 % NACL (Levophed 4 Mg/ 250 Ml Ns Premixed) 4 mg in 250 mls @ 15 mls/hr IV .[id number] PRN; Protocol; 4 MCG/MIN PRN Reason: TITRATE PER MD ORDER Last Admin: 05/17/17 08:21 Dose: 10 mcg/min, 37.5 mls/hr Levothyroxine Sodium (Synthroid) 125 mcg PO ACB [facility] Last Admin: 05/16/17 11:36 Dose: Not Given Losartan Potassium (Cozaar) 25 mg PO DAILY [facility] Last Admin: 05/16/17 11:35 Dose: Not Given Metoprolol Succinate (Toprol Xl) 50 mg PO DAILY [facility] Last Admin: 05/16/17 11:36 Dose: Not Given Metoprolol Tartrate (Lopressor) 5 mg IVP Q8 [facility] Last Admin: 05/17/17 06:57 Dose: 5 mg Morphine Sulfate (Morphine) 1 mg IVP Q4H PRN PRN Reason: Pain, moderate (4-7) Last Admin: 05/16/17 17:30 Dose: 1 mg Ondansetron HCl (Zofran Inj) 4 mg IVP Q4H PRN PRN Reason: Nausea/Vomiting Last Admin: 05/15/17 23:39 Dose: 4 mg Pantoprazole Sodium (Protonix Inj) 40 mg IVP DAILY [facility] Last Admin: 05/16/17 20:37 Dose: 40 mg Spironolactone (Aldactone) 25 mg PO DAILY [facility] Last Admin: 05/16/17 11:35 Dose: Not Given - Labs Labs: 05/16/17 06:00 05/16/17 06:00 PT 18.6 SECONDS (9.4-12.5) H 05/16/17 06:00 INR 1.60 (0.93-1.08) H 05/16/17 06:00 APTT 38.6 Seconds (25.1-36.5) H 05/15/17 00:00 - Constitutional Appears: Toxic - Head Exam Head Exam: ATRAUMATIC, NORMOCEPHALIC - ENT Exam ENT Exam: Mucous Membranes Dry Additional comments: NGT with black gastric content output - Respiratory Exam Respiratory Exam: NORMAL BREATHING PATTERN. absent: Respiratory Distress - Cardiovascular Exam Cardiovascular Exam: REGULAR RHYTHM. absent: Tachycardia - GI/Abdominal Exam GI & Abdominal Exam: Soft. absent: Tenderness - Skin Skin Exam: Dry, Pallor Assessment and Plan - Assessment and Plan (Free Text) Assessment: 77 y/o female now with septic shock, SBO GI bleed, and chronic mesenteric ischemia S/P angioplasty to celiac only PPD1 Plan: -ICU care -f/u am labs -abx -duke culture -NGT to continuous suction -monitor for bowel funciton -transfuse as needed -may consider CT scan of abd/pelvis if stable for transport -surgical intervention pending clinical course -discuss with Dr. Tavo Stock PGY3
--- NOTE | 2017-05-17 08:29 | PCM.PROC ---
<Sandra Velasco - Last Filed: 05/17/17 08:26> Procedures Attestation:: I certify that I have explained the specified Operation(s) or Procedure(s), risks, benefits and reasonable alternatives to the Patient and/or other person responsible. The opportunity was given to ask questions and all questions answered - Central Line Placement Right Internal Jugular Triple Lumen Catheter Aseptic technique was employed throughout the procedure: Hand Hygiene done prior to procedure, Full sterile barriers (mask, hair cover, sterile gown, sterile gloves), Full body sterile drape, Chloraprep Antiseptic: 30 second prep for IJ or SC sites CVP Time Out Performed: Yes Pt. Placed on Pulse Ox Monitor: Yes Central Line Prep: Chlorhexidine-Alcohol Combination Local Anesthesia Used: Lidocaine 1% Ultrasound Used for Placement: Yes Central Line Lumen Inserted: triple Central Line Length: 16 cm Post Procedure: Sutured in Place, Good Blood Return, All Ports Aspirated, Flushed, Capped, Sterile Dressing Applied Secured by: Suture Post procedure dressing: Clear vapor permeable, Chlorhexidine disc (Biopatch) Post Procedure X-Ray: Yes Patient Tolerated Procedure: No Complications Immediate Complications: None Additional Comments: done under the guidance and supervision of ICU animal geneticist Dr. Torres <Rashid Torres - Last Filed: 05/17/17 18:49> Attending/Attestation - Attestation I have personally seen and examined this patient.: Yes I have fully participated in the care of the patient.: Yes I have reviewed all pertinent clinical information, including history, physical exam and plan: Yes
[2017-05-17] MEDS ORDERED: DOBUTamine 500mg/250ml D5W 500 MG/250 ML BAG ONE (08:33)
--- NOTE | 2017-05-17 08:47 | PN ---
DATE: SUBJECTIVE: The patient is drowsy. PHYSICAL EXAMINATION VITAL SIGNS: Temperature is 97, pulse is 98, blood pressure 107/62, respirations 20. GENERAL: The patient is lying in bed, flat, comfortable. HEENT: No oral lesion. Anicteric sclerae. Moist mucosa. NECK: No JVD, adenopathy, or thyromegaly. CARDIOVASCULAR: S1 and S2, regular. No murmurs, rubs, or gallops. LUNGS: Clear to auscultation bilaterally. No wheeze, rales, or rhonchi. ABDOMEN: Bowel sounds are positive. Soft, nontender and nondistended. EXTREMITIES: No cyanosis, clubbing or edema. ASSESSMENT 1. Small bowel obstruction. 2. Mesenteric ischemia. 3. Status post angioplasty and stent placement of the celiac axis area. 4. Occluded proximal small mesenteric artery. 5. A 17-mm right adrenal nodule. 6. Right femoral-femoral bypass graft. 7. Sepsis. 8. PENICILLIN ALLERGY. 9. Acute anemia secondary to blood loss. 10. Coronary artery disease. 11. Peptic ulcer disease. 12. Automatic implantable cardioverter-defibrillator. 13. Congestive heart failure secondary to systolic dysfunction with ejection fraction of 15% to 20%. 14. Aortic stenosis. 15. Aortic regurgitation. 16. A 4-mm nodule at the right middle lobe. 17. Iron deficiency. PLAN: The patient has intervention by Dr. Abe Narvaez from IR for the mesenteric ischemia. The patient is going to continue with Aldactone. She is on Cozaar. She is going to continue with metoprolol IV because of the patient's inability to take p.o. given that she has an NG tube. The patient is on morphine for pain. She is on Protonix IV as well. She is going to continue with Zofran as needed. She is on meropenem for antibiotics. I did speak to Dr. Lew regarding the case yesterday. Continue to follow the patient closely. Addendum: Rapid response called. Spoke to Dr Perla and Dr Lacey, Pt Glc is low and needed to be intubated. She was placed on pressors. Spoke to son and informed about poor prognosis. Gaurav Griffin MD MTDReno
--- NOTE | 2017-05-17 08:50 | RAD ---
HISTORY: intubated COMPARISON: [facility] 05/15/2017 FINDINGS: LUNGS: No active pulmonary disease. PLEURA: No significant pleural effusion identified, no pneumothorax apparent. CARDIOVASCULAR: CABG. AICD. ET tube and NG tube and right IJ multi lumen central venous catheter are noted. The central venous catheter is new since prior examination. OSSEOUS STRUCTURES: No significant abnormalities. VISUALIZED UPPER ABDOMEN: Normal. OTHER FINDINGS: None. IMPRESSION: New right IJ multi lumen central venous catheter. No pneumothorax. Otherwise no change.
[2017-05-17 09:14] LABS: ARTERIAL BLOOD GAS O2 SAT 56.7 % (95-98); ARTERIAL BLOOD GAS PCO2 33 mm/Hg (35-45)
[2017-05-17 09:22] LABS: ALB/GLOB RATIO 0.9 (1.1-1.8); CALCIUM 8.7 mg/dL (8.4-10.5); MAGNESIUM 3.6 mg/dL (1.7-2.2); TROPONIN I 0.72 ng/mL
[2017-05-17 09:29] LABS: ARTERIAL BLOOD GAS PH < 6.80 (7.35-7.45)
[2017-05-17] MEDS ORDERED: Sodium Bicarbonate (8.4%) 50 Meq Syringe IVP ONE ×2 (09:32→09:38)
--- NOTE | 2017-05-17 09:35 | PCM.RRT ---
<Sandra Velasco - Last Filed: 05/17/17 11:47> INBOUND CUSTOMER SERVICE AGENT Nurse Assessment - Situation Date: 05/17/17 Time INBOUND CUSTOMER SERVICE AGENT was called: 07:04 INBOUND CUSTOMER SERVICE AGENT Responder Arrival Time: 07:06 INBOUND CUSTOMER SERVICE AGENT Location:: [address] [place] [address] Room Number: 277-1 INBOUND CUSTOMER SERVICE AGENT Reason for Call: Change in Mental Status INBOUND CUSTOMER SERVICE AGENT Called By: RN - IV IV Inserted during INBOUND CUSTOMER SERVICE AGENT?: No - Respiratory Oxygen Delivery Method: Nasal Cannula @L/min Oxygen Flow Rate: 2 Received Nebulizer Treatments:: No Was the Patient Ventilated with Bag/Mask 100% O2?: No Secretions Suctioned?: No Was the Patient Intubated?: No Was the Patient Placed on a Ventilator?: No - Medication Medications Administered During INBOUND CUSTOMER SERVICE AGENT: D50 x 2 doses - Diagnostic Test Ordered EKG: Yes - Stat Labs Ordered INBOUND CUSTOMER SERVICE AGENT Stat Labs Ordered: CBC, BMP, TROPONIN, LACTIC ACID, ABG CPR started during INBOUND CUSTOMER SERVICE AGENT?: No - Vital Signs Vital Sign: Rapid Response Vital Sign Pulse Rate 96 Respiratory Rate 20 Temperature 95.6 F Oxygen Saturation 98 - Finger Stick Blood Glucose Finger Stick Blood Glucose: 20 - Bandar Coma Scale Coma Scale Eye Opening: To pain Coma Scale Motor: None Coma Scale Verbal: No response - Sepsis Screen Part 1 Sepsis Screen Part 1: Hypotensive, Temperature under 96.8F - Time INBOUND CUSTOMER SERVICE AGENT Ended Time INBOUND CUSTOMER SERVICE AGENT Ended: 07:27 - Vital Signs at end of INBOUND CUSTOMER SERVICE AGENT Vital Signs at end of INBOUND CUSTOMER SERVICE AGENT: Rapid Response End Vital Sign Blood Pressure 62/48 Pulse Rate 101 Respiratory Rate 20 - Recommendations Notifications: Attending Physician I.Reason for INBOUND CUSTOMER SERVICE AGENT - A) Acute Change in Patient: (Select all that apply): Acute change in mental status - Neurological Status (Select all that apply): Lethargic - Respiratory Oxygen Delivery Method: Nasal Cannula @L/min Oxygen Flow Rate: 2 - Constitutional Appears: Other (obtunded) - Head Head Exam: ATRAUMATIC, NORMAL INSPECTION, NORMOCEPHALIC - Eyes Eye Exam: PERRL. absent: Conjunctival injection, EOMI, Scleral icterus - Respiratory Exam Respiratory Exam: Rales (R sided), Rhonchi (R sided), Respiratory Distress - Cardiovascular Exam Cardiovascular Exam: REGULAR RHYTHM, RRR, +S1, +S2 - GI/Abdominal Exam GI & Abdominal Exam: Soft Additional comments: unable to assess tenderness as patient was obtunded - Neurological Exam Neurological Exam: absent: Alert, Awake, Oriented x3 - Extremities Exam Additional comments: L upper arm rapped in gauze Plan - Assessment of Findings&Treatment Plan 77yo female PMHx severe PAD, coagulopathy CAD s/p CABG, with pacemaker, hx of DVT on coumadin, CHF, HTN, dyslipidemia, hypothyroidism, presented to [facility] 2[facility] with complaints of nausea, vomiting, and bloody BM. Patient was admitted to [facility] and was being followed by Cardio, GI, Surgery, IR, Heme/onc and ID. Patient had celiac artery angioplasty yesterday and tolerated the procedure. This morning patient was found to be obtunded and an INBOUND CUSTOMER SERVICE AGENT was called. Blood glucose was < 20 and 2 amps of D50 were given. Patient's blood pressure was labile and she was unresponsive and not withdrawing to pain. Patient was given 500cc bolus of NS and transferred to ICU where she was immediately intubated by respiratory therapist and placed on vent. STAT CBC, CMP, Mg, Phos, ABG shock, Blood culture, Procalcitonin, and Troponin were ordered. R IJ triple lumen catheter was placed under the guidance and supervision of stamping operator Dr. Torres [please see procedure note]. Patient was further monitored in ICU. <Richard Perla - Last Filed: 05/17/17 18:33> INBOUND CUSTOMER SERVICE AGENT Nurse Assessment - Vital Signs Vital Sign: Rapid Response Vital Sign Pulse Rate 96 Respiratory Rate 20 Temperature 95.6 F Oxygen Saturation 98 - Vital Signs at end of INBOUND CUSTOMER SERVICE AGENT Vital Signs at end of INBOUND CUSTOMER SERVICE AGENT: Rapid Response End Vital Sign Blood Pressure 62/48 Pulse Rate 101 Respiratory Rate 20 Attending/Attestation - Attestation I have personally seen and examined this patient.: Yes I have fully participated in the care of the patient.: Yes I have reviewed all pertinent clinical information, including history, physical exam and plan: Yes Notes (Text): 05/17/17 18:31 Attending note; Patient seen and examined with resident during INBOUND CUSTOMER SERVICE AGENT. Patient was found to be lethargic/hypoglycemic. D50 2 given. Dextrose 10 drop ordered. Patient oxygen saturation was okay. Started on nasal cannula. Stat blood work ordered. Hypotension noted; started on normal saline bolus. ABG ordered. Patient was evaluated by ICU attending Dr. Torres. Patient was immediately transferred to ICU for intubation and further management. Family informed by stamping operator. Case discussed with PMD in detail. Case was signed out to ICU team. Case discussed with surgical team in detail.
[2017-05-17] MEDS ORDERED: Sodium Bicarbonate 8.4% 150 MEQ in Dextrose 5% In Water 1,000 ML IV SCH (09:45)
[2017-05-17] MEDS ORDERED: Meropenem 1g/NS 100mL IVPB 1 GM/100 ML PIGGYBACK IVPB SCH (10:00)
--- NOTE | 2017-05-17 10:07 | CP.PCM.PN ---
Subjective - Date & Time of Evaluation Date of Evaluation: 05/17/17 Time of Evaluation: 09:45 - Subjective Subjective: Patient had celiac artery angioplasty yesterday and tolerated the procedure. This morning, she was noted be obtunded and in V-fib. She has an ICD which shocked her back to normal rhythm but patient is now intubated and on the ventilator. Objective - Vital Signs/Intake and Output Vital Signs (last 24 hours): Temp Pulse Resp BP Pulse Ox 97 F L 100 H 25 H 55/35 L 95 05/17/17 00:01 05/17/17 08:43 05/17/17 08:43 05/17/17 08:32 05/17/17 00:01 Intake and Output: 05/17/17 05/17/17 06:59 18:59 Intake Total 250 Balance 250 - Medications Medications: Current Medications Alprazolam (Xanax) 0.5 mg PO HS LILIAN PRN Reason: Protocol Last Admin: 05/17/17 06:59 Dose: Not Given Duloxetine HCl (Cymbalta) 30 mg PO DAILY [facility] Last Admin: 05/16/17 11:35 Dose: Not Given Gabapentin (Neurontin) 300 mg PO TID LILIAN PRN Reason: Protocol Last Admin: 05/16/17 18:35 Dose: Not Given Sodium Chloride (Sodium Chloride 0.9%) 1,000 mls @ 70 mls/hr IV .[id number] [facility] Last Admin: 05/16/17 08:58 Dose: 70 mls/hr NOREPINEPHRINE BIT/0.9 % NACL (Levophed 4 Mg/ 250 Ml Ns Premixed) 4 mg in 250 mls @ 15 mls/hr IV .[id number] PRN; Protocol; 4 MCG/MIN PRN Reason: TITRATE PER MD ORDER Last Admin: 05/17/17 08:49 Dose: 16 mcg/min, 60 mls/hr Dobutamine HCl/Dextrose (Dobutamine/Dextrose 5% 500mg/250ml) 500 mg in 250 mls @ 5.004 mls/hr IV .Q24H PRN; Protocol; 2.5 MCG/KG/MIN PRN Reason: TITRATE PER PROTOCOL Last Admin: 05/17/17 08:32 Dose: 2.5 mcg/kg/min, 5.004 mls/hr Meropenem/Sodium Chloride (Meropenem 1g/Ns 100ml Ivpb) 1 gm in 100 mls @ 100 mls/hr IVPB Q12 [facility] PRN Reason: Protocol Stop: 05/24/17 10:01 Levothyroxine Sodium (Synthroid) 125 mcg PO ACB [facility] Last Admin: 05/16/17 11:36 Dose: Not Given Losartan Potassium (Cozaar) 25 mg PO DAILY [facility] Last Admin: 05/16/17 11:35 Dose: Not Given Metoprolol Succinate (Toprol Xl) 50 mg PO DAILY [facility] Last Admin: 05/16/17 11:36 Dose: Not Given Metoprolol Tartrate (Lopressor) 5 mg IVP Q8 [facility] Last Admin: 05/17/17 06:57 Dose: 5 mg Morphine Sulfate (Morphine) 1 mg IVP Q4H PRN PRN Reason: Pain, moderate (4-7) Last Admin: 05/16/17 17:30 Dose: 1 mg Ondansetron HCl (Zofran Inj) 4 mg IVP Q4H PRN PRN Reason: Nausea/Vomiting Last Admin: 05/15/17 23:39 Dose: 4 mg Pantoprazole Sodium (Protonix Inj) 40 mg IVP DAILY [facility] Last Admin: 05/16/17 20:37 Dose: 40 mg Spironolactone (Aldactone) 25 mg PO DAILY [facility] Last Admin: 05/16/17 11:35 Dose: Not Given - Labs Labs: 05/16/17 06:00 05/16/17 06:00 PT 18.6 SECONDS (9.4-12.5) H 05/16/17 06:00 INR 1.60 (0.93-1.08) H 05/16/17 06:00 APTT 38.6 Seconds (25.1-36.5) H 05/15/17 00:00 - Constitutional Appears: Other (intubated, obtunded) - Head Exam Head Exam: NORMAL INSPECTION - ENT Exam Additional comments: ET tube in place - Respiratory Exam Respiratory Exam: Decreased Breath Sounds - Cardiovascular Exam Cardiovascular Exam: +S1, +S2 - GI/Abdominal Exam GI & Abdominal Exam: Soft. absent: Tenderness Assessment and Plan - Assessment and Plan (Free Text) Plan: Assessment systemic inflammatory response syndrome, consider due to new onset small bowel obstruction R/O sepsis from intra-abdominal infection in this patient with probable ischemic colitis S/P angioplasty of celiac artery POD #1 VDRF due to encephalopathy S/P V-fib., etiology still to be determined history of asymptomatic bacteriuria with E. faecalis history of ESBL-producing Proteus right sided pyelonephritis severe PAD CAD S/P CABG chronic CHF HTN dyslipidemia hypothyroidism S/P cholecystectomy Plan continue Merrem day 3 and will give a dose of IV Vanco; will repeat blood cx follow up ICU recommendations and Cardiology evaluation
[2017-05-17] MEDS ORDERED: Vancomycin 1gm in NS 250ml 1 GM/250 ML BAG IVPB STA (10:08)
--- NOTE | 2017-05-17 11:56 | CP.PCM.PRO ---
Pronouncement of Note - Clinical Findings Physical Exam: No Response Verbal/Painful Stimuli, Absent Peripheral Pulses{ Carotid & Femoral} - Pronouncement Time Time of Pronouncement of : 10:35 Additional Comments: RELIGION INSTRUCTOR called for AMS. Patient found to be hypoglycemic in cardiogenic shock as well as hemorrhagic shock. Family decided to make patient DNR/DNI. Patient passed prior to terminal extubation. - Notifications Pronouncement Notifications: Family Notified, Atending Notified Lopper Notified: No - Autopsy Autopsy Requested: No - [place] [id number]
[2017-05-17 12:22] VITALS: BP 149/119; PULSE 48; RESP 7; O2SAT 59
[2017-05-17 12:23] VITALS: TEMP 97.3
--- NOTE | 2017-05-17 12:44 | PN ---
DATE: 05/17/2017 CARDIOLOGY FOLLOWUP SUBJECTIVE: The patient became hypotensive, was brought down to the ICU. She is intubated and currently unresponsive. Her creatinine function has gone up. PHYSICAL EXAMINATION: VITAL SIGNS: Her blood pressure is in the 70s. NECK: Negative JVD. LUNGS: Without rales. HEART: Reveal S1, S2. EXTREMITIES: Without edema. LABORATORY DATA: Hemoglobin is noted to be low. Chemistries: BUN and creatinine are up to 37 and 2.3. IMPRESSION: 1. Cardiogenic shock. 2. Likely gastrointestinal bleed. 3. Small bowel obstruction. 4. End-stage ischemic dilated cardiomyopathy. 5. Coronary artery disease. 6. Sepsis. 7. Renal insufficiency. PLAN: Given these findings, the patient was intolerant to IV inotropic therapy with cardiac arrhythmias noted. Her only other option for hemodynamic support would be an intra-aortic balloon pump. I spent some time discussing the the intra-aortic balloon pump with the patient's family. After some consideration, they refused the intra-aortic balloon pump. She was changed to a DNR. Therefore, no further cardiac intervention can be done at this time. Abe Pierre MD
--- NOTE | 2017-05-17 12:44 | PN ---
DATE: 05/17/2017 LOCATION: The patient was seen in the ICU. SUBJECTIVE: The patient developed altered mental status at around 7 o'clock this morning. Her blood sugar was found to be 20. A rapid response was called. She was subsequently transferred to the Intensive Care were her blood pressure dropped to 60 systolic. She was intubated and placed on a Levophed drip. The patient is currently unresponsive. MEDICATIONS: Her medications currently include dobutamine drip, norepinephrine drip at 16 mcg per minute, meropenem 1 g IV q. 8 hours, Neurontin 300 mg three times a day, Protonix 40 mg once a day, sodium bicarb drip, vancomycin 1 g IV stat 1 dose, vasopressin drip. PHYSICAL EXAMINATION: VITAL SIGNS: Reveal blood pressure of 69/44 on pressors, heart rate of 100. HEENT: Reveal an endotracheal tube in her mouth. Her eyes are closed. NECK: Supple. CHEST: Reveal distant breath sounds. HEART: Exam reveals a tachycardia. ABDOMEN: Soft, nontender. She has an AICD PPM in the left subclavicular region. EXTREMITIES: Show no edema. LABORATORY DATA: Revealed white blood cell count of 37.3 from yesterday, hemoglobin 9.2 from yesterday. Chemistries reveal potassium of 5.9, bicarbonate of 5, BUN 20, creatinine 2.3, blood sugar 183. Lactic acid 24.4, AST of 11,383, ALT 4011, troponin of 0.72, phosphorus of 13, magnesium of 3.6. IMPRESSION: A 77-year-old female with mesenteric ischemia, status post mesenteric angiogram and stenting of the celiac artery. This was performed yesterday. Her superior mesenteric artery was completely occluded precluding passage of the catheter into the superior mesenteric artery. The patient currently is hypotensive with a lactic acidosis, likely related to sepsis and/or mesenteric ischemia. She is on pressors. She has a history of cardiomyopathy with coronary artery disease and severe peripheral arterial disease with an echocardiogram back in March showing an ejection fraction of 15-20%. Her AST and ALT are markedly elevated consistent with shock liver. Her lactic acid level is elevated with an elevated troponin. She appears to be in multisystem organ failure. Her prognosis is extremely poor. RECOMMENDATIONS: Family to decide whether the patient is to have an intra-aortic balloon pump placed for blood pressure support. Her prognosis is grave. Jagdeep Lew MD Psychiatric # [id number]
--- NOTE | 2017-05-17 15:43 | PN ---
DATE: 05/17/2017 Tasha Hargrove was seen yesterday, 05/17/2017 and earlier this morning the patient has . I saw the patient yesterday for the first time, noted to have upper GI bleeding with guaiac positive and bright red blood per rectum. She was a known atherosclerotic peripheral vascular disease patient. The patient was just about to have an intervention through Dr. Abe Narvaez where they reopened up the celiac, which was feeding the superior mesentery. The patient was known to have an ascending colon ischemic lesion with ulcers; about a year ago, the intended revascularization and arteriogram had been delayed. When I saw her, the abdomen was soft and nontender with multiple medical issues. I discussed the case at length with Dr. Ridley who is with me in the interventional suite and after the successful revascularization, it was deemed no vascular intervention was warranted. I saw the patient again in recovery room and although the patient was sedated, the abdomen was soft and nontender. She had a very little pain. This morning, she was complaining of abdominal pain, had a blood glucose that was very low and had a rapid response and had to be intubated. When I saw her this morning around 9 o'clock, she was simply not an operative candidate with a blood pressure around 55, on multiple pressors, 2 going on 3. Here at that time, the abdomen was soft, but she was intubated. At about 11 o'clock, the patient had coded and had . The feeling was that this morning, absolutely no operative intervention was possible. My feeling yesterday was that the patient was incredibly high risk and the feeling was to see if the intervention helped. Mikey Vo MD
--- NOTE | 2017-05-17 18:10 | CARD ---
APPROVED REPORT EKG Measurement Heart [id number] <Conclusion> Electronic ventricular pacemaker
== END 2017-05-17 10:00 | DRG 356 ==
LOC: ED 20:35 → ERH 05-13 00:10 → 2RSO 05-13 02:46 → ICU 05-17 08:09
PROVIDERS: ADMIT Internal Medicine Medical Oncology; ATTEND Internal Medicine Nephrology
PROC: 30233N1 Transfusion of Nonautologous Red Blood Cells into Peripheral Vein, Percutaneous Approach (ICD-10-PCS; 2017-05-13)
PROC: 04713DZ Dilation of Celiac Artery with Intraluminal Device, Percutaneous Approach (ICD-10-PCS; principal; 2017-05-16)
PROC: B414YZZ Fluoroscopy of Superior Mesenteric Artery using Other Contrast (ICD-10-PCS; 2017-05-16)
PROC: 05HM33Z Insertion of Infusion Device into Right Internal Jugular Vein, Percutaneous Approach (ICD-10-PCS; 2017-05-17)
PROC: 5A1935Z Respiratory Ventilation, Less than 24 Consecutive Hours (ICD-10-PCS; 2017-05-17)
PROC: 0BH17EZ Insertion of Endotracheal Airway into Trachea, Via Natural or Artificial Opening (ICD-10-PCS; 2017-05-17)
DX: K55.1 Chronic vascular disorders of intestine (principal); A41.9 Sepsis, unspecified organism; K72.00 Acute and subacute hepatic failure without coma; R65.21 Severe sepsis with septic shock; R57.0 Cardiogenic shock; I47.2 Ventricular tachycardia; K56.609 Unspecified intestinal obstruction, unspecified as to partial versus complete obstruction; K63.3 Ulcer of intestine; I50.22 Chronic systolic (congestive) heart failure; D62 Acute posthemorrhagic anemia; I42.0 Dilated cardiomyopathy; K92.2 Gastrointestinal hemorrhage, unspecified; I49.01 Ventricular fibrillation; I11.0 Hypertensive heart disease with heart failure; E27.8 Other specified disorders of adrenal gland; K83.8 Other specified diseases of biliary tract; I25.5 Ischemic cardiomyopathy; I25.10 Atherosclerotic heart disease of native coronary artery without angina pectoris; Z79.01 Long term (current) use of anticoagulants; E78.5 Hyperlipidemia, unspecified; E03.9 Hypothyroidism, unspecified; K25.9 Gastric ulcer, unspecified as acute or chronic, without hemorrhage or perforation; K44.9 Diaphragmatic hernia without obstruction or gangrene; T45.515A Adverse effect of anticoagulants, initial encounter; R63.4 Abnormal weight loss; I49.3 Ventricular premature depolarization; I35.2 Nonrheumatic aortic (valve) stenosis with insufficiency; Z66 Do not resuscitate; R57.8 Other shock; E16.2 Hypoglycemia, unspecified; G89.29 Other chronic pain; K21.9 Gastro-esophageal reflux disease without esophagitis; Z86.718 Personal history of other venous thrombosis and embolism; Z95.810 Presence of automatic (implantable) cardiac defibrillator; Z95.1 Presence of aortocoronary bypass graft; Z95.5 Presence of coronary angioplasty implant and graft; Z87.891 Personal history of nicotine dependence; Z90.49 Acquired absence of other specified parts of digestive tract; Z88.0 Allergy status to penicillin